=== PATIENT | female | born 1930 | race Caucasian/White ===

== ENCOUNTER 2016-11-10 14:05 | Emergency (ER) | payer MEDICARE ==
[~2016-11-10] VITALS: Ht 167.6 cm; Wt 68.0 kg
[~2016-11-10 14:05] MED LIST: AMLO5TAB2 PO; ASPI325T11 PO; AZIT250T6 PO; Aspirin PO; BYSTOLIC10 MG PO; CEFP100T PO; CETI10CA PO; CLON0.1T PO; CLOP75TA PO; DOXA1TAB PO; HYDR-2868 PO; Hydralazine Hcl PO; LEVO100T5 PO; LEVO75TA5 PO; LEVO88TA4 PO; NITR0.4T SL; SODI650T PO
[2016-11-10 14:35] VITALS: BP 161/69
--- NOTE | 2016-11-10 16:35 | PHYS DOC ---
Past Medical History Past Medical History: CAD, Hypertension, [place], Renal Failure, Stroke, TIA, Other Additional Past Medical Histor: Polyarteritis; neuropathy; polyps Past Surgical History: Appendectomy, Colectomy, Pacemaker, Other Additional Past Surgical Histo: bilateral BKA; Sphincter removed Alcohol Use: None Drug Use: None Adult General Chief Complaint Chief Complaint: LOWER EXT PAIN HPI HPI 86-year-old female presenting to the emergency department with left lower extremity pain. She reports not having any injury recently to the leg. She reports having poor blood flow. Her pain is sharp severe nonradiating. She denies it being phantom pain from her below the knee amputation. She denies having diabetes but does have high blood pressure. Review of Systems Review of Systems ROS negative for chest pain shortness of breath abdominal pain nausea vomiting. All other review of systems is negative unless otherwise noted in history of present illness. Allergies Allergies Allergies Coded Allergies Type Severity Reaction Last Updated Verified Quinolones Allergy Intermediate 12/05/14 Yes atorvastatin Allergy Intermediate 12/05/14 Yes ciprofloxacin Allergy Intermediate 01/13/16 Yes ciprofloxacin HCl Allergy Intermediate 12/05/14 Yes codeine Allergy Intermediate 12/05/14 Yes diazepam Allergy Intermediate 12/05/14 Yes gabapentin Allergy Intermediate 12/05/14 Yes labetalol Allergy Intermediate 12/05/14 Yes lisinopril Allergy Intermediate 12/05/14 Yes meloxicam Allergy Intermediate EDEMA 12/05/14 Yes metoprolol Allergy Intermediate 12/05/14 Yes neomycin Allergy Intermediate 12/05/14 Yes pregabalin Allergy Intermediate 12/05/14 Yes quinine Allergy Intermediate 12/05/14 Yes simvastatin Allergy Intermediate 12/05/14 Yes Tetracyclines Adverse Reaction Intermediate DROWSY 12/06/14 Yes nifedipine Adverse Reaction Intermediate FATIGUE 12/06/14 Yes tetracycline Adverse Reaction Intermediate DROWSY 12/06/14 Yes tramadol Adverse Reaction Intermediate FOGGY 12/06/14 Yes tramadol HCl Adverse Reaction Intermediate FOGGY 12/06/14 Yes valsartan Adverse Reaction Intermediate FATIGUE 12/06/14 Yes Physical Exam Physical Exam Constitutional: Well developed, well nourished, no acute distress, non-toxic appearance. HENT: Normocephalic, atraumatic, bilateral external ears normal, oropharynx moist, no oral exudates, nose normal. Eyes: PERRLA, EOMI, conjunctiva normal, no discharge. Neck: Normal range of motion, no tenderness, supple, no stridor. [] Cardiovascular:Heart rate regular rhythm, no murmur Lungs & Thorax: Bilateral breath sounds clear to auscultation Abdomen: Bowel sounds normal, soft, no tenderness, no masses, no pulsatile masses. Skin: Warm, dry, no erythema, no rash. [] Back: No tenderness, no CVA tenderness. Extremities: The patient has bilateral below the knee amputations. No tenderness to palpation of the knee joint. She describes the pain at the stump of the amputation. No evidence of cellulitis. 2 second cap refill. Neurologic: Alert and oriented X 3, normal motor function, normal sensory function, no focal deficits noted. Psychologic: Affect normal, judgement normal, mood normal. Current Patient Data Vital Signs Vital Signs Date Time Temp Pulse Resp B/P Pulse Ox O2 Delivery O2 Flow Rate FiO2 11/10/16 14:35 97.6 50 12 97 Room Air 97.6 EKG EKG [] Course & Med Decision Making Course & Med Decision Making Pertinent Labs and Imaging studies reviewed. (See chart for details) []86-year-old female presenting to the emergency department today with left lower extremity pain. Vital signs showed hypertension otherwise unremarkable. Physical exam was unremarkable other than her below the knee amputation. Arterial ultrasound obtained which was not suggestive of an acute ischemic limb. I discussed the case with our vascular surgeon who was here in the emergency department Dr Childers. I offered the patient pain medication however the patient declined both in the emergency department and to go home with. She was in discharged home to follow up with our vascular surgeons within the next 7 days for evaluation. Dragon Disclaimer Dragon Disclaimer This electronic medical record was generated, in whole or in part, using a voice recognition dictation system. Departure Departure Impression: Primary Impression: Pain of left lower extremity Disposition: HOME, SELF-CARE Condition: STABLE Referrals: LYNDA FELIX MD (PCP) LYNDA PEOPLES MD in 7 days Patient Instructions: Pain of Unknown Etiology (Pain without a known Cause) Additional Instructions: Thank you for allowing us to participate in your care today. Followup with your primary care physician in 3 days if your symptoms do not improve. If you do not have a primary care provider you can ask for a list of our primary care providers. Return to the emergency department you have any new or concerning findings. This should be evaluated by the primary care physician and any necessary consulting services for continued management within a few days after discharge. Return to emergency room if you have any new or concerning symptoms including but not limited to fever, chills, nausea, vomiting, intractable pain, any new rashes, chest pain, shortness of air, uncontrolled bleeding, difficulty breathing, and/or vision loss. CHAVA TOWNSEND MD Nov 10, 2016 16:35
--- NOTE | 2016-11-10 17:03 | RAD ---
INDICATION: Status post [id number] amputation with stump pain. COMPARISON: None FINDINGS: Spectral Doppler, color and grayscale ultrasound images were obtained through the left leg arterial system. Biphasic waveform in common femoral artery. There is a more monophasic waveform seen within the superficial femoral artery and popliteal artery. IMPRESSION: Vascular flow is seen through the popliteal artery but there is more monophasic waveforms seen distally within popliteal artery which could be secondary to more proximal vascular disease. Electronically signed by: Singh Aaron (Nov 10, 2016 17:02:20)
== END 2016-11-10 17:24 | disposition home or self-care (01) ==
LOC: ER 14:05
DX: M79.605 Pain in left leg (principal); I25.10 Atherosclerotic heart disease of native coronary artery without angina pectoris; I12.9 Hypertensive chronic kidney disease with stage 1 through stage 4 chronic kidney disease, or unspecified chronic kidney disease; N18.9 Chronic kidney disease, unspecified; I25.2 Old myocardial infarction; Z86.73 Personal history of transient ischemic attack (TIA), and cerebral infarction without residual deficits; Z90.49 Acquired absence of other specified parts of digestive tract; Z95.0 Presence of cardiac pacemaker; Z89.512 Acquired absence of left leg below knee; Z89.511 Acquired absence of right leg below knee; Z88.1 Allergy status to other antibiotic agents; Z88.5 Allergy status to narcotic agent; Z88.6 Allergy status to analgesic agent; Z88.8 Allergy status to other drugs, medicaments and biological substances
CPT/HCPCS: 93926; 99284-25

== ENCOUNTER → 2016-12-27 | Outpatient (CLI) | payer MEDICARE ==
--- NOTE | 2016-12-27 13:34 | RAD ---
Right shoulder, 3 views, 12/27/2016: History: Shoulder pain after injury No fracture or dislocation is identified. There is mild spurring at the glenohumeral and acromioclavicular joints. There is mild degenerative change at rotator cuff insertion sites on the greater tuberosity. IMPRESSION: 1. Mild degenerative change. 2. No acute bony abnormality is detected
== END | disposition home or self-care (01) ==
LOC: RAD 10:06
PROVIDERS: ATTEND Internal Medicine
DX: M25.511 Pain in right shoulder (principal)
CPT/HCPCS: 73030

== ENCOUNTER 2017-02-03 03:42 | Observation (INO) | payer MEDICARE ==
[~2017-02-03] VITALS: Ht 167.6 cm; Wt 66.2 kg
[~2017-02-03 03:42] MED LIST changes: +AMLO10TA2 PO
[2017-02-03] MEDS ORDERED: ONDANSETRON PF 4 MG/2 ML VIAL. IV PRN (04:00)
[2017-02-03] MEDS ORDERED: ASPIRIN 325 MG TABLET PO ONE (04:00)
[2017-02-03] MEDS ORDERED: MORPHINE SULFATE 2 MG/ML DISP.SYRIN. IV PRN (04:00)
--- NOTE | 2017-02-03 04:11 | PHYS DOC ---
Past Medical History Past Medical History: CAD, Hypertension, [place], Renal Failure, Stroke, TIA, Other Additional Past Medical Histor: Polyarteritis; neuropathy; polyps Past Surgical History: Appendectomy, Colectomy, Pacemaker, Other Additional Past Surgical Histo: bilateral BKA; Sphincter removed Alcohol Use: None Drug Use: None Adult General Chief Complaint Chief Complaint: CHEST PAIN HPI HPI 86-year-old female presenting to the emergency department today with chest pain. She describes it as started approximately 1 hour ago. He was a bandlike sensation just underneath her breastbone. It was nonradiating. Not associated with nausea vomiting diaphoresis. She denies fevers chills or cough. She describes it as sharp stabbing sensation. It was moderate to severe however during transportation the patient's pain is been improving. Currently she is feeling better. Review of systems is negative for abdominal pain fevers chills cough All other review of systems is negative unless otherwise noted in history of present illness. Review of Systems Review of Systems SEE ABOVE. Current Medications Current Medications Current Medications Medications (Trade) Dose Ordered Sig/Sarah Start Time Stop Time Status Last Admin Dose Admin Aspirin (Rayne Aspirin) 325 mg 1X ONCE 02/03/17 04:00 02/03/17 04:01 DC 02/03/17 05:12 325 MG Morphine Sulfate 2 mg PRN Q2HR PRN 02/03/17 04:00 02/04/17 03:59 Ondansetron HCl (Zofran) 4 mg PRN Q8HRS PRN 02/03/17 04:00 02/04/17 03:59 Allergies Allergies Allergies Coded Allergies Type Severity Reaction Last Updated Verified Quinolones Allergy Intermediate 01/29/17 Yes atorvastatin Allergy Intermediate 01/29/17 Yes ciprofloxacin Allergy Intermediate 01/29/17 Yes ciprofloxacin HCl Allergy Intermediate 01/29/17 Yes codeine Allergy Intermediate 01/29/17 Yes diazepam Allergy Intermediate 01/29/17 Yes doxazosin Allergy Intermediate 01/29/17 No fexofenadine Allergy Intermediate 01/29/17 No gabapentin Allergy Intermediate 01/29/17 Yes hydrochlorothiazide Allergy Intermediate 01/29/17 No labetalol Allergy Intermediate 01/29/17 Yes lisinopril Allergy Intermediate 01/29/17 Yes meloxicam Allergy Intermediate EDEMA 01/29/17 Yes metoprolol Allergy Intermediate 01/29/17 Yes neomycin Allergy Intermediate 01/29/17 Yes pravastatin Allergy Intermediate 01/29/17 Yes pregabalin Allergy Intermediate 01/29/17 Yes quinine Allergy Intermediate 01/29/17 Yes simvastatin Allergy Intermediate 01/29/17 Yes eprosartan Allergy Unknown 01/29/17 Yes gatifloxacin Allergy Unknown 01/29/17 Yes isosorbide Allergy Unknown 01/29/17 Yes naproxen Allergy Unknown 01/29/17 Yes oxycodone Allergy Unknown 01/29/17 Yes pantoprazole Allergy Unknown 01/29/17 Yes Tetracyclines Adverse Reaction Intermediate DROWSY 01/29/17 Yes nifedipine Adverse Reaction Intermediate FATIGUE 01/29/17 Yes tetracycline Adverse Reaction Intermediate DROWSY 01/29/17 Yes tramadol Adverse Reaction Intermediate FOGGY 01/29/17 Yes tramadol HCl Adverse Reaction Intermediate FOGGY 01/29/17 Yes valsartan Adverse Reaction Intermediate FATIGUE 01/29/17 Yes calcitonin Adverse Reaction Unknown 01/29/17 Yes olmesartan Adverse Reaction Unknown 01/29/17 Yes Uncoded Allergies Type Severity Reaction Last Updated Verified CHLOREX GLUE Allergy Intermediate 01/29/17 Physical Exam Physical Exam Constitutional: Well developed, well nourished, no acute distress, non-toxic appearance. HENT: Normocephalic, atraumatic, bilateral external ears normal, oropharynx moist, no oral exudates, nose normal. [] The patient is status post carotid endarterectomy. Her incision and wound sites are clean dry and intact. Eyes: PERRLA, EOMI, conjunctiva normal, no discharge. Neck: Normal range of motion, no tenderness, supple, no stridor. [] Cardiovascular:Heart rate regular rhythm, no murmur Lungs & Thorax: Bilateral breath sounds clear to auscultation [] Abdomen: Bowel sounds normal, soft, no tenderness, no masses, no pulsatile masses. Skin: Warm, dry, no erythema, no rash. Back: No tenderness, no CVA tenderness. [] Extremities: No tenderness, no cyanosis, no clubbing, ROM intact, no edema. The patient's lower extremities have below the knee amputations. Neurologic: Alert and oriented X 3, normal motor function, normal sensory function, no focal deficits noted. [] Psychologic: Affect normal, judgement normal, mood normal. [] Current Patient Data Lab Values Laboratory Tests Test 02/03/17 04:25 White Blood Count 7.5x10^3/uL (4.0-11.0) Red Blood Count 3.73x10^6/uL (3.50-5.40) Hemoglobin 10.6g/dL (12.0-15.5) L Hematocrit 33.0% (36.0-47.0) L Mean Corpuscular Volume 88fL (79-100) Mean Corpuscular Hemoglobin 28pg (25-35) Mean Corpuscular Hemoglobin Concent 32g/dL (31-37) Red Cell Distribution Width 14.8% (11.5-14.5) H Platelet Count 135x10^3/uL (140-400) L Neutrophils (%) (Auto) 76% (31-73) H Lymphocytes (%) (Auto) 9% (24-48) L Monocytes (%) (Auto) 8% (0-9) Eosinophils (%) (Auto) 6% (0-3) H Basophils (%) (Auto) 1% (0-3) Neutrophils # (Auto) 5.7x10^3uL (1.8-7.7) Lymphocytes # (Auto) 0.7x10^3/uL (1.0-4.8) L Monocytes # (Auto) 0.6x10^3/uL (0.0-1.1) Eosinophils # (Auto) 0.5x10^3/uL (0.0-0.7) Basophils # (Auto) 0.1x10^3/uL (0.0-0.2) Sodium Level 142mmol/L (136-145) Potassium Level 4.7mmol/L (3.5-5.1) Chloride Level 109mmol/L (98-107) H Carbon Dioxide Level 21mmol/L (21-32) Anion Gap 12 (6-14) Blood Urea Nitrogen 66mg/dL (7-20) H Creatinine 2.8mg/dL (0.6-1.0) H Estimated GFR (Cockcroft-Gault) 16.1 Glucose Level 106mg/dL (70-99) H Calcium Level 9.3mg/dL (8.5-10.1) Total Bilirubin 0.3mg/dL (0.2-1.0) Direct Bilirubin 0.1mg/dL (0.0-0.2) Aspartate Amino Transferase (AST) 17U/L (15-37) Alanine Aminotransferase (ALT) 13U/L (14-59) L Alkaline Phosphatase 76U/L (46-116) Troponin I Quantitative 0.037ng/mL (0.000-0.055) NS-Emz-Q-Type Natriuretic Peptide 7578pg/mL (0-449) H Total Protein 6.6g/dL (6.4-8.2) Albumin 3.1g/dL (3.4-5.0) L Lipase 360U/L (73-393) Laboratory Tests 02/03/17 04:25 Laboratory Tests 02/03/17 04:25 EKG EKG [] Sinus rhythm with a regular rate. Multiple PVCs present. Otherwise unremarkable. Not suggestive of ischemia. Radiology/Procedures Radiology/Procedures Chest x-ray reviewed by myself shows no obvious infiltrate or pneumothorax present. No obvious acute cardiopulmonary process present.[] Course & Med Decision Making Course & Med Decision Making Pertinent Labs and Imaging studies reviewed. (See chart for details) [] 86-year-old female presenting to the emergency department today with chest pain. Vitals. The patient is feeling better upon arrival to the emergency department. Blood work obtained. EKG unremarkable. Chest x-ray unremarkable. trop neg. Given the patient's significant risk factors the patient was admitted for chest pain rule out, further evaluation workup and care. Cardiology consultation Placed. Dragon Disclaimer Dragon Disclaimer This electronic medical record was generated, in whole or in part, using a voice recognition dictation system. Departure Departure Impression: Primary Impression: Chest pain Disposition: ADMITTED INPATIENT Admitting Physician: Paul Woods Condition: STABLE Referrals: PAUL WOODS MD (PCP) Problem Qualifiers Primary Impression: Chest pain Chest pain type: unspecified Qualified Code: R07.9 - Chest pain, unspecified CHAVA TOWNSEND MD Feb 03, 2017 04:11
[2017-02-03 04:36] LABS: BASO # 0.1 x10^3/uL (0.0-0.2); BASO % 1 % (0-3); EOS % 6 % (0-3); HEMOGLOBIN 10.6 g/dL (12.0-15.5); LYMPH # 0.7 x10^3/uL (1.0-4.8); LYMPH % 9 % (24-48); MEAN CORPUSCULAR HEMOGLOBIN 28 pg (25-35); MEAN CORPUSCULAR HGB CONC 32 g/dL (31-37); MEAN CORPUSCULAR VOLUME 88 fL (79-100); MONO % 8 % (0-9); NEUT % 76 % (31-73); PLATELET COUNT 135 x10^3/uL (140-400); RED BLOOD COUNT 3.73 x10^6/uL (3.50-5.40); RED CELL DISTRIBUTION WIDTH 14.8 % (11.5-14.5); WHITE BLOOD COUNT 7.5 x10^3/uL (4.0-11.0)
[2017-02-03 04:56] LABS: CREATININE 2.8 mg/dL (0.6-1.0); GFR 16.1; POTASSIUM 4.7 mmol/L (3.5-5.1)
[2017-02-03 05:02] LABS: ALBUMIN 3.1 g/dL (3.4-5.0); DIRECT BILIRUBIN 0.1 mg/dL (0.0-0.2); TOTAL BILIRUBIN 0.3 mg/dL (0.2-1.0); TOTAL PROTEIN 6.6 g/dL (6.4-8.2)
[2017-02-03 05:17] LABS: CALCIUM 9.3 mg/dL (8.5-10.1)
--- NOTE | 2017-02-03 05:56 | ACF ---
Admit Criteria Forms Admit Criteria Forms Admit Criteria Forms CHEST PAIN Clinical Indications for Admission to Inpatient Care (Place 'X' for any and all applicable criteria): Admission is indicated for chest pain and ANY ONE of the following(1)(2)(3)(4)(5 ): [ ]I. Angina with acute coronary syndrome (Also use Myocardial Infarction or Angina guideline) [ ]II. Hemodynamic instability [ ]III. Angina needing acute intervention as indicated by ALL of the following( 11)(12): [ ]a) Unstable angina is present as indicated by angina that is ANY ONE of the following: [ ]i) New onset [ ]ii) Nocturnal [ ]iii) Prolonged at rest [ ]iv) Progressive [ ]b) Angina warrants acute intervention as indicated by ANY ONE of the following: [ ]i) Recurrent angina (e.g, not responding as previously to treatment) [ ]ii) Angina at rest or with low-level activities despite initial medical therapy [ ]iii) New or presumably new ST-segment depression on ECG [ ]iv) Signs or symptoms of heart failure (eg, dyspnea, pulmonary edema) [ ]v) New or worsening mitral regurgitation [ ]vi) Hemodynamic instability [ ]vii) Dangerous arrhythmia (eg, sustained ventricular tachycardia) [ ]viii) History of percutaneous coronary intervention within 6 months [ ]ix) History of coronary artery bypass graft surgery [ ]x) KAILEY risk score of 2 or greater[A] [ ]xi) History of Diabetes(14) [ ]xii) High-risk cardiac ischemia findings on noninvasive testing (e.g, echocardiogram, treadmill testing, nuclear scan) [ ]xiii) Chronic renal insufficiency (ie, estimated GFR less than 60 mL/min/1.732m) [ ]xiv) Left ventricular ejection fraction less than 40% [ ]IV. Evidence of AL (eg, cardiac biomarkers positive, ST-segment elevation on ECG) also use Myocardial Infarction Criteria Form. [ ]V. Pulmonary edema [ ]. Respiratory distress [X]VII. Chest pain indicative of serious diagnosis other than coronary artery disease (eg, aortic dissection) [ ]VIII. Contraindications and/or Inappropriate clinical situations for Observational Care in patients with Chest Pain, when ANY ONE of the following is required: [ ]a) Patient with risk factor for pulmonary embolism, acute coronary syndrome and myocardial infarction (18) [ ]b) Patient with Pulmonary embolism require an average LOS of 4.3 days, therefore emergency department observation management is inappropriate 18,23 [ ]c) Painful condition/s in the elderly, have the highest rate of recidivism after emergency department observation management (10.8%) 20,21,22 [ ]d) Elevated cardiac biomarker requires intensive and exhaustive care (19) [X]IX. General contraindications and/or Inappropriate clinical situations for Observational Care in patients with Chest Pain, when ANY ONE of the following is required: [X]a) Prediction of prolongation of LOS based on ANY ONE of the following may be considered as a contraindication for observational care 2, 3, 4, 5, 6, 7, 8, 9, 10, 11 [X]i) Age > 65 yrs. [ ]ii) Patient arriving by ambulance [ ]iii) Patient with high acuity [ ]iv) Patient requiring vital sign monitoring [ ]v) Patient on IV medication [ ]b) Systolic blood pressures 180mmHg 3,12 [ ]c) Patient with altered mental status including delirium and other alteration of consciousness, (3) [ ]d) Patient whose discharge disposition will be to a assisted home or rehabilitation home should not be managed in Emergency Department Observation Unit. CMS rule requires 3 days hospital stay before such placement. 3,13 [ ]e) Patient with failure to thrive due to broad array of etiologies 3,16,17 [ ]f) Inability to ambulate 3,14 Extended stay beyond goal length of stay may be needed for (1)(28): [ ]a) Specific condition diagnosed after evaluation (eg, pulmonary embolism, aortic dissection) [ ]b) Unstable angina [ ]c) Continued suspicion of acute coronary syndrome with inability to complete needed cardiac evaluation (eg, patient clinically unable to undergo stress testing) [ ]d) Myocardial infarction (Contents from ANGINA and CHEST PAIN clinical indications for admission to inpatient care have been integrated in this form) The original [employer] content created by [employer] has been revised. The portions of the content which have been revised are identified through the use of italic text or in bold, and [facility] has neither reviewed nor approved the modified material. All other unmodified content is copyright [employer]. Please see references footnoted in the original [facility] edition 2016 GUNJAN DENTON Feb 03, 2017 05:56
[2017-02-03 06:30] VITALS: BP 148/68
[2017-02-03 07:00] VITALS: BP 148/64
--- NOTE | 2017-02-03 07:59 | RAD ---
Portable AP upright view CXR: Clinical indications: Chest pain today. Comparison: November 27, 2015 Findings: No acute lung infiltrate or pleural effusion or pulmonary edema or lung mass or pneumothorax is seen. The heart size, pulmonary vasculature, mediastinum and both ronny are stable. Pacemaker is again noted. Impression: No acute radiographic abnormality is seen.
--- NOTE | 2017-02-03 11:20 | PDOC2 ---
CONSULT Date of Consult Date of Consult DATE: 02/03/17 TIME: 11:20 Reason for Consult Reason for Consult: Chest pain Referring Physician Referring Physician: Dr. Woods Identification/Chief Complaint Chief Complaint Chest pain Source Source: Chart review, Patient History of Present Illness Reason for Visit: 86-year-old female well-known to a practice, discharged from [facility] on 02/01/2017 after left carotid endarterectomy presented with epigastric discomfort that she described as band like sensation not related to exertion and not associated with shortness of breath, palpitations or syncope. Past Medical History Past Medical History Coronary artery disease s/p PCI/stent to RCA and LCx Sick sinus syndrome s/p permanent pacemaker implantation Hypertension Hypothyroidism Peripheral vascular disease Chronic kidney disease Past Surgical History Past Surgical History Permanent pacemaker implantation Bilateral below the knee amputation Hip replacement surgery Past Surgical History: Appendectomy, Hysterectomy Social History ALCOHOL: none Drugs: None Lives: Alone Domestic Violence: Neg Current Problem List Problem List Problems Medical Problems: (1) Chest pain Status: Acute Current Medications Current Medications Current Medications Aspirin (Rayne Aspirin) 325 mg 1X ONCE PO Last administered on 02/03/17t 05:12 ; Start 02/03/17 at 04:00; Stop 02/03/17 at 04:01; Status DC Ondansetron HCl (Zofran) 4 mg PRN Q8HRS PRN IV NAUSEA/VOMITING; Start 02/03/17 at 04:00; Stop 02/04/17 at 03:59 Morphine Sulfate 2 mg PRN Q2HR PRN IV PAIN; Start 02/03/17 at 04:00; Stop at 03:59 Active Scripts Active [Aspirin] 81 MG Tablet. 81 Mg PO DAILY Reported Amlodipine Besylate 10 Mg Tablet 10 Mg PO DAILY Levothyroxine Sodium 75 Mcg Tablet 1 Tab PO DAILY Clonidine Hcl 0.1 Mg Tablet 1 Tab PO QHS Clopidogrel (Clopidogrel Bisulfate) 75 Mg Tablet 75 Mg PO DAILY Bystolic (Nebivolol) 10 Mg Tablet 20 Mg PO DAILY Allergies Allergies: Coded Allergies: Quinolones (Verified Allergy, Intermediate, 01/29/17) atorvastatin (Verified Allergy, Intermediate, 01/29/17) MYALGIA ciprofloxacin (Verified Allergy, Intermediate, 01/29/17) ciprofloxacin HCl (Verified Allergy, Intermediate, 01/29/17) codeine (Verified Allergy, Intermediate, 01/29/17) diazepam (Verified Allergy, Intermediate, 01/29/17) doxazosin (Unverified Allergy, Intermediate, 01/29/17) fexofenadine (Unverified Allergy, Intermediate, 01/29/17) gabapentin (Verified Allergy, Intermediate, 01/29/17) hydrochlorothiazide (Unverified Allergy, Intermediate, 01/29/17) labetalol (Verified Allergy, Intermediate, 01/29/17) lisinopril (Verified Allergy, Intermediate, 01/29/17) meloxicam (Verified Allergy, Intermediate, EDEMA, 01/29/17) LEG EDEMA metoprolol (Verified Allergy, Intermediate, 01/29/17) neomycin (Verified Allergy, Intermediate, 01/29/17) pravastatin (Verified Allergy, Intermediate, 01/29/17) pregabalin (Verified Allergy, Intermediate, 01/29/17) quinine (Verified Allergy, Intermediate, 01/29/17) simvastatin (Verified Allergy, Intermediate, 01/29/17) MYALGIAS eprosartan (Verified Allergy, Unknown, 01/29/17) gatifloxacin (Verified Allergy, Unknown, 01/29/17) isosorbide (Verified Allergy, Unknown, 01/29/17) naproxen (Verified Allergy, Unknown, 01/29/17) oxycodone (Verified Allergy, Unknown, 01/29/17) pantoprazole (Verified Allergy, Unknown, 01/29/17) Tetracyclines (Verified Adverse Reaction, Intermediate, DROWSY, 01/29/17) nifedipine (Verified Adverse Reaction, Intermediate, FATIGUE, 01/29/17) FATIGUE tetracycline (Verified Adverse Reaction, Intermediate, DROWSY, 01/29/17) DROWSY tramadol (Verified Adverse Reaction, Intermediate, FOGGY, 01/29/17) FOGGY tramadol HCl (Verified Adverse Reaction, Intermediate, FOGGY, 01/29/17) valsartan (Verified Adverse Reaction, Intermediate, FATIGUE, 01/29/17) FATIGUE calcitonin (Verified Adverse Reaction, Unknown, 01/29/17) olmesartan (Verified Adverse Reaction, Unknown, 01/29/17) Uncoded Allergies: CHLOREX GLUE (Allergy, Intermediate, 01/29/17) ROS PSYCHOLOGICAL ROS: No: Hallucinations Eyes: No Loss of vision HEENT: No: Epistaxis Respiratory: No: Hemoptysis, Shortness of breath Cardiovascular: yes Chest Pain Genitourinary: No Hematuria Neurological: No Seizures Skin: No Rash Physical Exam General: Alert, Oriented X3, No acute distress HEENT: Atraumatic, PERRLA Lungs: Clear to auscultation Heart: Regular rate Abdomen: Soft Extremities: Other (below the knee amputation bilaterally) Vitals VITALS Vital Signs Date Time Temp Pulse Resp B/P Pulse Ox O2 Delivery O2 Flow Rate FiO2 02/03/17 07:40 Room Air 02/03/17 07:00 97.7 71 16 148/64 96 97.7 Labs Labs Laboratory Tests Test 02/03/17 04:25 02/03/17 09:53 White Blood Count 7.5x10^3/uL (4.0-11.0) Red Blood Count 3.73x10^6/uL (3.50-5.40) Hemoglobin 10.6g/dL (12.0-15.5) Hematocrit 33.0% (36.0-47.0) Mean Corpuscular Volume 88fL (79-100) Mean Corpuscular Hemoglobin 28pg (25-35) Mean Corpuscular Hemoglobin Concent 32g/dL (31-37) Red Cell Distribution Width 14.8% (11.5-14.5) Platelet Count 135x10^3/uL (140-400) Neutrophils (%) (Auto) 76% (31-73) Lymphocytes (%) (Auto) 9% (24-48) Monocytes (%) (Auto) 8% (0-9) Eosinophils (%) (Auto) 6% (0-3) Basophils (%) (Auto) 1% (0-3) Neutrophils # (Auto) 5.7x10^3uL (1.8-7.7) Lymphocytes # (Auto) 0.7x10^3/uL (1.0-4.8) Monocytes # (Auto) 0.6x10^3/uL (0.0-1.1) Eosinophils # (Auto) 0.5x10^3/uL (0.0-0.7) Basophils # (Auto) 0.1x10^3/uL (0.0-0.2) Sodium Level 142mmol/L (136-145) Potassium Level 4.7mmol/L (3.5-5.1) Chloride Level 109mmol/L (98-107) Carbon Dioxide Level 21mmol/L (21-32) Anion Gap 12 (6-14) Blood Urea Nitrogen 66mg/dL (7-20) Creatinine 2.8mg/dL (0.6-1.0) Estimated GFR (Cockcroft-Gault) 16.1 Glucose Level 106mg/dL (70-99) Calcium Level 9.3mg/dL (8.5-10.1) Total Bilirubin 0.3mg/dL (0.2-1.0) Direct Bilirubin 0.1mg/dL (0.0-0.2) Aspartate Amino Transf (AST/SGOT) 17U/L (15-37) Alanine Aminotransferase (ALT/SGPT) 13U/L (14-59) Alkaline Phosphatase 76U/L (46-116) Troponin I Quantitative 0.037ng/mL (0.000-0.055) 0.033ng/mL (0.000-0.055) MV-Aan-I-Type Natriuretic Peptide 7578pg/mL (0-449) Total Protein 6.6g/dL (6.4-8.2) Albumin 3.1g/dL (3.4-5.0) Lipase 360U/L (73-393) Laboratory Tests Test 02/03/17 04:25 02/03/17 09:53 White Blood Count 7.5x10^3/uL (4.0-11.0) Red Blood Count 3.73x10^6/uL (3.50-5.40) Hemoglobin 10.6g/dL (12.0-15.5) Hematocrit 33.0% (36.0-47.0) Mean Corpuscular Volume 88fL (79-100) Mean Corpuscular Hemoglobin 28pg (25-35) Mean Corpuscular Hemoglobin Concent 32g/dL (31-37) Red Cell Distribution Width 14.8% (11.5-14.5) Platelet Count 135x10^3/uL (140-400) Neutrophils (%) (Auto) 76% (31-73) Lymphocytes (%) (Auto) 9% (24-48) Monocytes (%) (Auto) 8% (0-9) Eosinophils (%) (Auto) 6% (0-3) Basophils (%) (Auto) 1% (0-3) Neutrophils # (Auto) 5.7x10^3uL (1.8-7.7) Lymphocytes # (Auto) 0.7x10^3/uL (1.0-4.8) Monocytes # (Auto) 0.6x10^3/uL (0.0-1.1) Eosinophils # (Auto) 0.5x10^3/uL (0.0-0.7) Basophils # (Auto) 0.1x10^3/uL (0.0-0.2) Sodium Level 142mmol/L (136-145) Potassium Level 4.7mmol/L (3.5-5.1) Chloride Level 109mmol/L (98-107) Carbon Dioxide Level 21mmol/L (21-32) Anion Gap 12 (6-14) Blood Urea Nitrogen 66mg/dL (7-20) Creatinine 2.8mg/dL (0.6-1.0) Estimated GFR (Cockcroft-Gault) 16.1 Glucose Level 106mg/dL (70-99) Calcium Level 9.3mg/dL (8.5-10.1) Total Bilirubin 0.3mg/dL (0.2-1.0) Direct Bilirubin 0.1mg/dL (0.0-0.2) Aspartate Amino Transf (AST/SGOT) 17U/L (15-37) Alanine Aminotransferase (ALT/SGPT) 13U/L (14-59) Alkaline Phosphatase 76U/L (46-116) Troponin I Quantitative 0.037ng/mL (0.000-0.055) 0.033ng/mL (0.000-0.055) NH-Xyk-U-Type Natriuretic Peptide 7578pg/mL (0-449) Total Protein 6.6g/dL (6.4-8.2) Albumin 3.1g/dL (3.4-5.0) Lipase 360U/L (73-393) Assessment/Plan Assessment/Plan 1. Chest pain with atypical features in a patient with coronary artery disease status post PCI/stent to RCA and LCx in the past. Myocardial infarction ruled out. Patient tolerated recent left carotid endarterectomy well. Recent 2-D echo showed LVEF 55%. Chest pain noncardiac and most probably GI in etiology. No further cardiac workup is indicated at this time. 2. Sick sinus syndrome: s/p permanent pacemaker implantation. Her device was recently interrogated and followed be functioning well. 3. Hypertension: Well-controlled 4. Hypothyroidism: On levothyroxine 5. Peripheral vascular disease: s/p bilateral BKA and recent left CEA Thank you for your consultation KARL ROGEL MD Feb 03, 2017 11:20
[2017-02-03 11:25] VITALS: BP 158/77
[2017-02-03] MEDS ORDERED: NITROGLYCERIN SUBLINGUAL 0.4 MG BOTTLE OF 25. SL PRN (12:00)
--- NOTE | 2017-02-03 12:02 | PDOC ---
Provider Note Provider Note history and physical dictated # [id number] LYNDA FELIX MD Feb 03, 2017 12:02
--- NOTE | 2017-02-03 12:03 | DISCH ---
DISCHARGE INSTRUCTIONS Condition on Discharge Condition on Discharge: Stable Activity After Discharge Activity Instructions for Disc: Resume previous activity Diet after Discharge Diet after Discharge: Cardiac Contacting the DRSummer after DC Call your doctor for: If your condition worsens Follow-Up Follow up with: dr. felix next week Follow Up With: dr. sierra in 2 weeks LYNDA FELIX MD Feb 03, 2017 12:03
[2017-02-03] MEDS ORDERED: NITR0.4T SL (12:06)
[2017-02-03] MEDS ORDERED: CHOL10002 PO (12:06)
--- NOTE | 2017-02-03 12:11 | PDOC ---
Provider Note Provider Note discharge summary dictated #[id number] LYNDA FELIX MD Feb 03, 2017 12:11
--- NOTE | 2017-02-03 12:36 | EKG ---
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
[2017-02-03] MEDS ORDERED: LEVOTHYROXINE 75 MCG TABLET PO SCH (13:00)
[2017-02-03] MEDS ORDERED: CLOPIDOGREL BISULFATE 75 MG TABLET PO SCH (13:00)
[2017-02-03] MEDS ORDERED: CHOLECALCIFEROL (VITAMIN D3) 1,000 UNIT TABLET PO SCH (13:00)
--- NOTE | 2017-02-03 15:44 | DS ---
DATE OF DISCHARGE: 02/03/2017 PRODUCTION TROUBLESHOOTER: Ángel Kumar MD FINAL DIAGNOSES: 1. Atypical chest pain, most likely secondary to chest wall pain. 2. Coronary artery disease. 3. Chronic kidney disease stage IV. 4. Peripheral arterial disease. 5. Bilateral above-knee amputations. 6. Hypertension. 7. Hypothyroidism. 8. Recent left carotid endarterectomy. HOSPITAL COURSE: The patient is an 86-year-old white female who underwent elective left carotid endarterectomy last week for her chronic kidney disease stage IV and peripheral arterial disease with bilateral above-knee amputations and coronary artery disease with chronic kidney disease stage IV, who was admitted to [facility] through the Emergency Room on 02/03/2017 with a 1-hour episode of bilateral sharp chest pain below her breasts. There is no shortness of breath, nausea, vomiting, fever, chills or cough. EKG showed no acute change. Cardiac enzymes were negative x 2. She was seen by Dr. Kumar cardiac in consultation with Cardiology and felt that it was okay from his standpoint to be dismissed and she was stable from a cardiac standpoint. Chest pain was felt most likely secondary to her chest wall pain. Oxygen saturation 93% on room air, right now without any tachycardia and again EKG showed no acute change. She is comfortable now without any chest pain and is comfortable being dismissed and she will be dismissed on the same medicines she was taking prior to admission which include aspirin 81 mg every day, Plavix 75 mg every day, Bystolic 20 mg every day, clonidine 0.1 mg at bedtime, amlodipine 10 mg at bedtime, vitamin D 1000 units every day, levothyroxine 75 mcg every day, nitroglycerin 0.4 mg sublingual p.r.n. and also Tylenol 650 mg every 4 hours p.r.n. She will follow up to see Dr. Kumar in the office in about [address] Woods in the office in about 1 week. LYNDA WOODS MD DR: JOSE/annemarie JOB#: [id number] / [id number]
--- NOTE | 2017-02-03 16:03 | HP ---
ADMIT DATE: 02/03/2017 LOCATION: She is in room 206. HISTORY OF PRESENT ILLNESS: The patient is an 86-year-old white female who was recently dismissed from [facility] on 02/01/2017 with a left carotid endarterectomy. She has a history of coronary artery disease, chronic kidney disease stage 4, peripheral arterial disease, bilateral above-knee amputations and hypertension who was admitted to [facility] at the Emergency Room on 02/03/2017 with chest pain. She notes a 1 hour history of a discomfort described as a sharp stabbing sensation from one side to the other side below her breasts. She did not have any nausea, vomiting or diaphoresis. There was no cough, fever or chills. She sought help at the [facility] Emergency Room. Her EKG showed no acute change. Cardiac enzymes were negative. She was subsequently admitted to the hospital for further evaluation, received aspirin 325 mg in the Emergency Room. She was subsequently admitted to the hospital for further evaluation and treatment. She has not had any further chest pain. ALLERGIES AND INTOLERANCES: INCLUDE WE WILL HAVE TO TAKE A LOOK AT THE CHART TO GET ALL OF THEM. SOME OF THESE ARE REALLY NOT TRUE ALLERGY, MORE SIDE EFFECTS OR PERCEIVED SIDE EFFECTS, BUT THEY INCLUDE SIMVASTATIN CAUSED MYALGIAS. QUINOLONES, LYRICA CAUSED HER TO BE FOGGY. TRAMADOL CAUSED HER TO BE FOGGY. CLONIDINE PATCH CAUSED SKIN IRRITATION, BUT SHE CAN TAKE ORAL CLONIDINE. LISINOPRIL CAUSED A COUGH. TETRACYCLINE AND LABETALOL MADE HER DROWSY. NIFEDIPINE, LOSARTAN CAUSED FATIGUE. ATORVASTATIN, MYALGIAS. QUININE, MELOXICAM CAUSED LEG EDEMA. METOPROLOL SUCCINATE, DIAZEPAM CAUSED DROWSINESS. ALSO, NEOMYCIN AND GABAPENTIN. APPARENTLY, DOXAZOSIN IS IN THERE ALSO AND CHASTITY. MEDICATIONS: Prior to admission include aspirin 81 mg every day, Bystolic 20 mg every day, Claritin 10 mg every day, nitroglycerin 0.4 mg sublingual p.r.n., amlodipine 10 mg at bedtime, clonidine 0.1 mg at bedtime, vitamin D 1000 units every day. PAST MEDICAL HISTORY: Significant for coronary artery disease and hypertension, hypothyroidism, chronic kidney disease stage 4, osteoporosis, osteoarthritis, peripheral arterial disease with bilateral above-knee amputations. She has had a hip replacement in 2009, colon polypectomy, left total hip arthroplasty in 2009, appendectomy, hysterectomy, tonsillectomy. She has had a coronary angioplasty times 3 with 3 stents. She had a right carotid endarterectomy in 2012 and a left carotid endarterectomy a few days ago. She had a colon resection for colon polyps in 2002. She has had a lumbar laminectomy. She has spinal stenosis, had a cardiac pacemaker placed in 2011 for sick sinus syndrome, has a history of peripheral neuropathy and lumbar spinal stenosis. SOCIAL HISTORY: She does not drink alcohol nor does she smoke cigarettes. She is . She does have bilateral lower extremity prosthesis. FAMILY HISTORY: Noncontributory. REVIEW OF SYSTEMS: GENERAL: There has been no fever, chills or sweats. CARDIOVASCULAR: She had chest pain. PULMONARY: No cough or shortness of breath. GASTROINTESTINAL: No constipation. SKIN: No rashes. NEUROLOGIC: No focal weakness. ENDOCRINE: No diabetes mellitus. Rest of systems reviewed are negative except as stated in history of present illness. PHYSICAL EXAMINATION: VITAL SIGNS: Temperature is 98.4 degrees, apical pulse is 67, respiratory rate 16, blood pressure 158/77, oxygen saturation 93% on room air. HEENT: Eyes, gaze is conjugate. Mouth, tongue is midline. She has got Steri-Strips over her left carotid endarterectomy scar with some ecchymosis noted on the anterior chest. HEART: Reveals an S1, S2. There is no S3 or murmur or rub. LUNGS: Clear. ABDOMEN: Soft, nontender. EXTREMITIES: She has got bilateral above-knee amputation. SKIN: No rashes. LABORATORY DATA: Sodium 142, potassium 4.7, chloride 109, total CO2 21, BUN 66, creatinine 2.8, which is similar to what it was when she left here late last week. Blood sugar 106. Liver function tests were normal. ProBNP was 7578 in the setting of chronic kidney disease stage 4. Troponin levels negative times 2. Albumin 3.1. White count 7.5, hemoglobin was 10.6 with a platelet count of 175,000, 76 polys, 9 lymphocytes. She had a chest x-ray done which showed no acute abnormality, no lung infiltrate. Pulmonary vascularity was normal. She had an electrocardiogram done in the Emergency Room, which I cannot download, however, the Emergency Room doctor wrote in his note that it showed normal sinus rhythm with multiple premature ventricular contractions with no evidence of ischemia. ASSESSMENT: 1. Chest pain, which is atypical, suspected chest wall pain. 2. Coronary artery disease. 3. Chronic kidney disease stage 4. 4. Peripheral arterial disease. 5. Bilateral above-knee amputation. 6. Hypertension. 7. Recent left carotid endarterectomy done a few days ago. PLAN: At this time, the patient was already seen by Dr. Kumar in consultation. The nurse tells me that from his standpoint, she can be dismissed today and follow up and see him in the office. Since she is pain free and an EKG showed no acute change, cardiac enzymes are negative, we will dismiss her today on the same medication she was taking prior to admission. She will follow up in the office also next week. LYNDA FELIX MD DR: JOSE/annemarie JOB#: [id number] / [id number]
[2017-02-03] MEDS ORDERED: AMLODIPINE BESYLATE 10 MG TABLET. PO SCH (21:00)
[2017-02-03] MEDS ORDERED: CLONIDINE HCL 0.1 MG TABLET PO SCH (21:00)
[2017-02-04] MEDS ORDERED: ASPIRIN ENTERIC COATED 81 MG TABLET.DR. PO SCH (08:00)
== END 2017-02-03 14:15 | disposition home or self-care (01) ==
LOC: ER 03:42 → 2 NORTH 04:05
PROVIDERS: ADMIT Internal Medicine; ATTEND Internal Medicine
DX: R07.9 Chest pain, unspecified (principal); I25.10 Atherosclerotic heart disease of native coronary artery without angina pectoris; N18.4 Chronic kidney disease, stage 4 (severe); I73.9 Peripheral vascular disease, unspecified; I12.9 Hypertensive chronic kidney disease with stage 1 through stage 4 chronic kidney disease, or unspecified chronic kidney disease; E03.9 Hypothyroidism, unspecified; I49.5 Sick sinus syndrome; M81.0 Age-related osteoporosis without current pathological fracture; Z89.612 Acquired absence of left leg above knee; Z89.611 Acquired absence of right leg above knee; Z79.82 Long term (current) use of aspirin; Z86.010 Personal history of colon polyps; Z86.73 Personal history of transient ischemic attack (TIA), and cerebral infarction without residual deficits; Z89.511 Acquired absence of right leg below knee; Z89.512 Acquired absence of left leg below knee; Z90.49 Acquired absence of other specified parts of digestive tract; Z95.0 Presence of cardiac pacemaker; Z96.642 Presence of left artificial hip joint; Z98.61 Coronary angioplasty status
CPT/HCPCS: 36415; 71010; 80048; 80076; 83690; 83880; 84484; 85027; 93005; 99285; G0378; G0379

== ENCOUNTER → 2017-04-08 | Outpatient (CLI) | payer MEDICARE ==
[~2017-04-08] MED LIST changes: +CHOL10002 PO
--- NOTE | 2017-04-08 11:23 | RAD ---
EXAM: RENAL DOPPLER ULTRASOUND. HISTORY: Renal vascular hypertension. COMPARISON: 11/12/2014. FINDINGS: Grayscale and Doppler analysis of the renal vasculature was performed bilaterally. Grayscale analysis of the kidneys and bladder were also performed. The peak systolic velocities within the proximal, mid and distal right renal artery are 106 cm/s, 72 cm/s and 87 cm/s, respectively. Resistive indices measure 0.66-0.83. The right renal vein is patent. The corresponding measurements on the left are 160 cm/s, 84 cm/s and 85 cm/s, respectively. Resistive indices measure 0.74-0.89. The left renal vein is patent. The peak systolic velocity within the abdominal aorta at the level of the renal arteries is 63 cm/s. The right kidney measures 10.8 cm. Cortical echogenicity is increased. There is diffuse cortical lobulation. There is no hydronephrosis. A benign-appearing renal cyst measures 1.3 x 1.2 cm. The left kidney measures 10.0 cm. Cortical echogenicity is increased. There is diffuse cortical lobulation. There is no hydronephrosis. A cyst at the upper pole measures 2.0 x 1.9 cm. Another measures 1.4 cm. Altered cortical echogenicity decreases sensitivity for solid renal lesions. IMPRESSION: 1. No evidence of hemodynamically significant renal artery stenosis. 2. Increased renal cortical echogenicity and lobulation are consistent with intrinsic renal disease. Elevated resistive indices also likely reflect intrinsic renal disease.
== END | disposition home or self-care (01) ==
LOC: US 10:04
PROVIDERS: ATTEND Internal Medicine Nephrology
DX: I15.0 Renovascular hypertension (principal)
CPT/HCPCS: 93975

== ENCOUNTER 2017-04-30 21:33 | Inpatient (IN) | payer MEDICARE ==
[~2017-04-30] VITALS: Ht 170.2 cm; Wt 62.2 kg
[2017-04-30] MEDS ORDERED: ASPIRIN CHEWABLE 81 MG TABLET. PO ONE (21:45)
[2017-04-30] MEDS: NITROGLYCERIN SUBLINGUAL 0.4 MG BOTTLE OF 25. SL PRN ×2 (21:51→22:00)
[2017-04-30 21:56] LABS: BASO # 0.1 x10^3/uL (0.0-0.2); BASO % 1 % (0-3); EOS % 4 % (0-3); HEMATOCRIT 37.5 % (36.0-47.0); HEMOGLOBIN 12.2 g/dL (12.0-15.5); LYMPH # 0.7 x10^3/uL (1.0-4.8); LYMPH % 9 % (24-48); MEAN CORPUSCULAR HEMOGLOBIN 28 pg (25-35); MEAN CORPUSCULAR HGB CONC 32 g/dL (31-37); MEAN CORPUSCULAR VOLUME 87 fL (79-100); MONO % 7 % (0-9); NEUT % 79 % (31-73); PLATELET COUNT 182 x10^3/uL (140-400); RED BLOOD COUNT 4.29 x10^6/uL (3.50-5.40); RED CELL DISTRIBUTION WIDTH 15.4 % (11.5-14.5); WHITE BLOOD COUNT 8.7 x10^3/uL (4.0-11.0)
--- NOTE | 2017-04-30 22:16 | PHYS DOC ---
Past Medical History Past Medical History: CAD, Hypertension, IA, Renal Failure, Stroke, TIA, Other Additional Past Medical Histor: Polyarteritis; neuropathy; polyps Past Surgical History: Appendectomy, Colectomy, Pacemaker, Other Additional Past Surgical Histo: bilateral BKA; Sphincter removed Alcohol Use: None Drug Use: None Adult General Chief Complaint Chief Complaint: CHEST PAIN HPI HPI Patient is a 86 year old female who presents with chest pain. She states it started about an hour prior to arrival. It's left-sided underneath her breast and radiated to the center of her chest. She denies any shortness of breath but did get nauseated with this and became diaphoretic. She states she has nitroglycerin in her purse but didn't think about using it. 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 Review of Systems Review of Systems Constitutional: Denies fever or chills [] Eyes: Denies change in visual acuity, redness, or eye pain [] HENT: Denies nasal congestion or sore throat [] Respiratory: Denies cough or shortness of breath [] Cardiovascular: No additional information not addressed in HPI [] GI: Denies abdominal pain, nausea, vomiting, bloody stools or diarrhea [] : Denies dysuria or hematuria [] Musculoskeletal: Denies back pain or joint pain [] Integument: Denies rash or skin lesions [] Neurologic: Denies headache, focal weakness or sensory changes [] Endocrine: Denies polyuria or polydipsia [] Current Medications Current Medications Current Medications Medications (Trade) Dose Ordered Sig/Sarah Start Time Stop Time Status Last Admin Dose Admin Aspirin (Children'S Aspirin) 324 mg 1X ONCE 04/30/17 21:45 04/30/17 21:46 DC Nitroglycerin (Nitrostat) 0.4 mg PRN Q5MIN PRN 04/30/17 21:45 05/01/17 21:44 04/30/17 22:00 0.4 MG Allergies Allergies Allergies Coded Allergies Type Severity Reaction Last Updated Verified Quinolones Allergy Intermediate 01/29/17 Yes atorvastatin Allergy Intermediate 01/29/17 Yes ciprofloxacin Allergy Intermediate 01/29/17 Yes ciprofloxacin HCl Allergy Intermediate 01/29/17 Yes codeine Allergy Intermediate 01/29/17 Yes diazepam Allergy Intermediate 01/29/17 Yes doxazosin Allergy Intermediate 01/29/17 No fexofenadine Allergy Intermediate 01/29/17 No gabapentin Allergy Intermediate 01/29/17 Yes hydrochlorothiazide Allergy Intermediate 01/29/17 No labetalol Allergy Intermediate 01/29/17 Yes lisinopril Allergy Intermediate 01/29/17 Yes meloxicam Allergy Intermediate EDEMA 01/29/17 Yes metoprolol Allergy Intermediate 01/29/17 Yes neomycin Allergy Intermediate 01/29/17 Yes pravastatin Allergy Intermediate 01/29/17 Yes pregabalin Allergy Intermediate 01/29/17 Yes quinine Allergy Intermediate 01/29/17 Yes simvastatin Allergy Intermediate 01/29/17 Yes eprosartan Allergy Unknown 01/29/17 Yes gatifloxacin Allergy Unknown 01/29/17 Yes isosorbide Allergy Unknown 01/29/17 Yes naproxen Allergy Unknown 01/29/17 Yes oxycodone Allergy Unknown 01/29/17 Yes pantoprazole Allergy Unknown 01/29/17 Yes Tetracyclines Adverse Reaction Intermediate DROWSY 01/29/17 Yes nifedipine Adverse Reaction Intermediate FATIGUE 01/29/17 Yes tetracycline Adverse Reaction Intermediate DROWSY 01/29/17 Yes tramadol Adverse Reaction Intermediate FOGGY 01/29/17 Yes tramadol HCl Adverse Reaction Intermediate FOGGY 01/29/17 Yes valsartan Adverse Reaction Intermediate FATIGUE 01/29/17 Yes calcitonin Adverse Reaction Unknown 01/29/17 Yes olmesartan Adverse Reaction Unknown 01/29/17 Yes Uncoded Allergies Type Severity Reaction Last Updated Verified CHLOREX GLUE Allergy Intermediate 01/29/17 Physical Exam Physical Exam Constitutional: Well developed, well nourished, no acute distress, non-toxic appearance. [] HENT: Normocephalic, atraumatic, bilateral external ears normal, oropharynx moist, no oral exudates, nose normal. [] Eyes: PERRLA, EOMI, conjunctiva normal, no discharge. [] Neck: Normal range of motion, no tenderness, supple, no stridor. [] Cardiovascular:Heart rate regular rhythm, no murmur [] Lungs & Thorax: Bilateral breath sounds clear to auscultation [] Abdomen: Bowel sounds normal, soft, no tenderness, no masses, no pulsatile masses. [] Skin: Warm, dry, no erythema, no rash. [] Back: No tenderness, no CVA tenderness. [] Extremities: No tenderness, no cyanosis, no clubbing, ROM intact, no edema. [] Neurologic: Alert and oriented X 3, normal motor function, normal sensory function, no focal deficits noted. [] Psychologic: Affect normal, judgement normal, mood normal. [] Current Patient Data Vital Signs Vital Signs Date Time Temp Pulse Resp B/P (MAP) Pulse Ox O2 Delivery O2 Flow Rate FiO2 04/30/17 23:00 62 202/84 (123) 97 Nasal Cannula 2.0 04/30/17 21:36 98.7 18 98.7 Lab Values Laboratory Tests Test 04/30/17 21:50 04/30/17 22:13 White Blood Count 8.7 x10^3/uL (4.0-11.0) Red Blood Count 4.29 x10^6/uL (3.50-5.40) Hemoglobin 12.2 g/dL (12.0-15.5) Hematocrit 37.5 % (36.0-47.0) Mean Corpuscular Volume 87 fL (79-100) Mean Corpuscular Hemoglobin 28 pg (25-35) Mean Corpuscular Hemoglobin Concent 32 g/dL (31-37) Red Cell Distribution Width 15.4 % (11.5-14.5) H Platelet Count 182 x10^3/uL (140-400) Neutrophils (%) (Auto) 79 % (31-73) H Lymphocytes (%) (Auto) 9 % (24-48) L Monocytes (%) (Auto) 7 % (0-9) Eosinophils (%) (Auto) 4 % (0-3) H Basophils (%) (Auto) 1 % (0-3) Neutrophils # (Auto) 6.9 x10^3uL (1.8-7.7) Lymphocytes # (Auto) 0.7 x10^3/uL (1.0-4.8) L Monocytes # (Auto) 0.6 x10^3/uL (0.0-1.1) Eosinophils # (Auto) 0.3 x10^3/uL (0.0-0.7) Basophils # (Auto) 0.1 x10^3/uL (0.0-0.2) Sodium Level 145 mmol/L (136-145) Potassium Level 4.7 mmol/L (3.5-5.1) Chloride Level 110 mmol/L (98-107) H Carbon Dioxide Level 21 mmol/L (21-32) Anion Gap 14 (6-14) Blood Urea Nitrogen 76 mg/dL (7-20) H Creatinine 2.7 mg/dL (0.6-1.0) H Estimated GFR (Cockcroft-Gault) 16.7 Glucose Level 132 mg/dL (70-99) H Calcium Level 9.3 mg/dL (8.5-10.1) Magnesium Level 2.3 mg/dL (1.8-2.4) Creatine Kinase 51 U/L (26-192) Creatine Kinase MB (Mass) 1.6 ng/mL (0.0-3.6) Creatine Kinase MB Relative Index % (0-4) Troponin I Quantitative 0.045 ng/mL (0.000-0.055) NF-Dfe-K-Type Natriuretic Peptide 45057 pg/mL (0-449) H Lipase 715 U/L (73-393) H Thyroid Stimulating Hormone (TSH) 5.470 uIU/mL (0.358-3.74) H Prothrombin Time 12.9 SEC (11.7-14.0) Prothrombin Time INR 1.0 (0.8-1.1) Laboratory Tests 04/30/17 21:50 Laboratory Tests 04/30/17 21:50 EKG EKG EKG shows sinus rhythm with rate of [address] elevations, T-wave inversions in 1, aVL, V 5, V6 aVL, left axis deviation, QTC 442 ms, as interpreted by me, T-wave inversions in aVL nuchal compared to the EKG on February 03, 2017 Radiology/Procedures Radiology/Procedures [] Impressions: Hypertensive urgency Chest pain Course & Med Decision Making Course & Med Decision Making Pertinent Labs and Imaging studies reviewed. (See chart for details) [] Dragon Disclaimer Dragon Disclaimer This electronic medical record was generated, in whole or in part, using a voice recognition dictation system. Departure Departure Impression: Primary Impression: Accelerated hypertension Disposition: 09 ADMITTED INPATIENT Admitting Physician: Paul Woods Condition: STABLE Referrals: PAUL WOODS MD (PCP) NANCY MORATAYA MD Apr 30, 2017 22:16
[2017-04-30 22:17] LABS: CALCIUM 9.3 mg/dL (8.5-10.1); CREATININE 2.7 mg/dL (0.6-1.0); GFR 16.7; MAGNESIUM 2.3 mg/dL (1.8-2.4); POTASSIUM 4.7 mmol/L (3.5-5.1)
[2017-04-30 22:25] LABS: CKMB MASS 1.6 ng/mL (0.0-3.6); CREATINE KINASE 51 U/L (26-192)
[2017-04-30 22:29] LABS: PROTHROMBIN TIME PATIENT 12.9 SEC (11.7-14.0)
[2017-04-30] MEDS ORDERED: hydrALAZINE 20 MG/ML VIAL. IVP ONE (23:15)
[2017-04-30 23:29] LABS: BILIRUBIN,URINE NEGATIVE (NEG); GLUCOSE,URINE 100 mg/dL (NEG); NITRITE,URINE NEGATIVE (NEG); PH,URINE 5.5; PROTEIN,URINE >=300 mg/dL (NEG-TRACE); UROBILINOGEN,URINE 0.2 mg/dL (0.2 mg/dL)
[2017-04-30 23:35] LABS: BACTERIA,URINE 0 /HPF (0-FEW); RBC,URINE 0 /HPF (0-2); SQUAMOUS EPITHELIAL CELL,UR FEW /LPF
[2017-04-30] MEDS ORDERED: MORPHINE SULFATE 2 MG/ML DISP.SYRIN. IV PRN (23:45)
[2017-04-30] MEDS ORDERED: ONDANSETRON PF 4 MG/2 ML VIAL. IV PRN (23:45)
[2017-04-30 23:58] VITALS: BP 156/57
--- NOTE | 2017-05-01 00:15 | ACF ---
Admission Forms Criteria HYPERTENSION Clinical Indications for Admission to Inpatient Care ( Place "X" for any and all applicable criteria): Admission is indicated for 1 or more of the following(1)(2)(3)(4)(5)(6)(7)(8)(9) (10): [ ]I. Hypertensive emergency, with evidence of acute and progressing target organ disease as indicated by 1 or more of the following: [ ]a) Hypertensive encephalopathy (eg, confusion, altered mental status) [ ]b) Cerebral infarction [ ]c) Intracranial hemorrhage [ ]d) Myocardial ischemia or infarction [ ]e) Heart failure (eg. Pulmonary edema) [ ]f) Aortic dissection [ ]g) Increased creatinine (new) with reduction of more than 50% in estimated glomerular filtration rate from baseline [ ]h) Seizure [ ]i) Papilledema [ ]j) Retinal hemorrhage [ ]k) Microangiopathic hemolytic anemia [ ]l) Other significant finding secondary to hypertension [ ]II. Adrenergic or sympathomimetic crisis (eg, severe hypertension due to pheochromocytoma crisis, cocaine or amphetamine intoxication, or clonidine withdrawal) [X]III. Severe hypertension (SBP greater than 180 mmHg or DBP greater than 110 mmHg or greater than the 95th percentile for age, gender, and height in pediatric patients) that cannot be controlled (eg, to SBP less than 160 mmHg and DBP less than 100 mmHg in adults) by treatment with oral medication in emergency department or observation care Extended stay beyond goal length of stay may be needed for(11)(12)(13): [ ]a) Persistent hypertensive encephalopathy [ ]b) Continuation of pulmonary edema [ ]c) Recurring or persistent severe hypertension [ ]d) Target organ damage (eg, angina, stroke, aortic dissection) The original [employer] content created by [employer] has been revised. The portions of the content which have been revised are identified through the use of italic text, and [facility] has neither reviewed nor approved the modified material. All other unmodified content is copyright [employer]. Please see references footnoted in the original [facility] edition 2014 Admission Criteria Met?: Yes RAYMOND CLEMENT May 01, 2017 00:15
[2017-05-01 03:01] VITALS: BP 175/74
--- NOTE | 2017-05-01 06:13 | EKG ---
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
[2017-05-01 06:59] LABS: BASO % 1 % (0-3); EOS % 4 % (0-3); HEMATOCRIT 32.5 % (36.0-47.0); HEMOGLOBIN 10.3 g/dL (12.0-15.5); LYMPH # 0.7 x10^3/uL (1.0-4.8); LYMPH % 10 % (24-48); MEAN CORPUSCULAR HEMOGLOBIN 28 pg (25-35); MEAN CORPUSCULAR HGB CONC 32 g/dL (31-37); MEAN CORPUSCULAR VOLUME 90 fL (79-100); MONO % 8 % (0-9); NEUT % 78 % (31-73); PLATELET COUNT 134 x10^3/uL (140-400); RED BLOOD COUNT 3.63 x10^6/uL (3.50-5.40); RED CELL DISTRIBUTION WIDTH 15.4 % (11.5-14.5); WHITE BLOOD COUNT 7.2 x10^3/uL (4.0-11.0)
[2017-05-01 07:07] LABS: CALCIUM 8.8 mg/dL (8.5-10.1); CREATININE 2.6 mg/dL (0.6-1.0); GFR 17.5; POTASSIUM 4.8 mmol/L (3.5-5.1)
[2017-05-01 07:21] VITALS: BP 187/85
--- NOTE | 2017-05-01 08:11 | RAD ---
Indication chest pain. A single view of the chest was obtained. Comparison is made to an examination 02/13/2017. Heart size is unchanged. Bipolar cardiac pacing device is noted. There is no gross congestive heart failure. There is volume loss at the left lung base which may reflect pleural fluid and atelectasis. Underlying pneumonia is not entirely excluded. There is no pneumothorax. IMPRESSION: Volume loss at the left lung base may reflect pleural fluid and atelectasis. Underlying pneumonia is not entirely excluded
--- NOTE | 2017-05-01 09:32 | PDOC2 ---
VIVIENNE SANDHU ADULT SCHOOL COUNSELOR 05/01/17 0932: CARDIAC CONSULT DATE OF CONSULT Date of Consult DATE: 05/01/17 TIME: 09:29 REASON FOR CONSULT Reason for Consult: Chest pain Hypertension REFERRING PHYSICIAN Referring Physician: Dr. Hardwick SOURCE Source: Chart review, Patient HISTORY OF PRESENT ILLNESS HISTORY OF PRESENT ILLNESS This is an 86 yo female, with a h/o CAD, PVD, and SSS, who presented with complaints of chest pain. Began 1hr prior to arrival. Located in her left chest. Describes as deep heaviness. Radiated to her central chest. Associated with nausea. No SOA, dizziness, diaphoresis, or palpitations. No specific exacerbating factors. Improved with nitro in ED. Resolved upon awakening this morning. No previous with similar-type pain. PAST MEDICAL HISTORY Cardiovascular: CAD (s/p PCI/stent to RCA and LCx), CHF, HTN, Hyperlipidemia, Other (SSS s/p PPM, PVD) CENTRAL NERVOUS SYSTEM: Periperal neuropathy, TIA GI: GERD, Other (colon CA) Hepatobiliary: No pertinent hx Musculoskeletal: Osteoarthritis Renal/: Chronic renal insuff Endocrine: Hypothyroidism PAST SURGICAL HISTORY Past Surgical History: Appendectomy, Total hip replacement (left), Tonsillectomy, Hysterectomy, Colon Resection, Other (right carotid endarterectomy, bilateral BKA) FAMILY HISTORY Family History: Coronary Artery Disease, Diabetes SOCIAL HISTORY Smoke: No ALCOHOL: none Drugs: None CURRENT MEDICATIONS CURRENT MEDICATIONS Current Medications Medications (Trade) Dose Ordered Sig/Sarah Route PRN Reason Start Time Stop Time Status Last Admin Dose Admin Nitroglycerin (Nitrostat) 0.4 mg PRN Q5MIN PRN SL CP RATING > 1/10 04/30/17 21:45 05/01/17 21:44 04/30/17 22:00 Hydralazine HCl (Apresoline) 10 mg 1X ONCE IVP 04/30/17 23:15 04/30/17 23:16 DC 04/30/17 23:25 ALLERGIES ALLERGIES: Coded Allergies: Quinolones (Verified Allergy, Intermediate, 01/29/17) atorvastatin (Verified Allergy, Intermediate, 01/29/17) MYALGIA ciprofloxacin (Verified Allergy, Intermediate, 01/29/17) ciprofloxacin HCl (Verified Allergy, Intermediate, 01/29/17) codeine (Verified Allergy, Intermediate, 01/29/17) diazepam (Verified Allergy, Intermediate, 01/29/17) doxazosin (Unverified Allergy, Intermediate, 01/29/17) fexofenadine (Unverified Allergy, Intermediate, 01/29/17) gabapentin (Verified Allergy, Intermediate, 01/29/17) hydrochlorothiazide (Unverified Allergy, Intermediate, 01/29/17) labetalol (Verified Allergy, Intermediate, 01/29/17) lisinopril (Verified Allergy, Intermediate, 01/29/17) meloxicam (Verified Allergy, Intermediate, EDEMA, 01/29/17) LEG EDEMA metoprolol (Verified Allergy, Intermediate, 01/29/17) neomycin (Verified Allergy, Intermediate, 01/29/17) pravastatin (Verified Allergy, Intermediate, 01/29/17) pregabalin (Verified Allergy, Intermediate, 01/29/17) quinine (Verified Allergy, Intermediate, 01/29/17) simvastatin (Verified Allergy, Intermediate, 01/29/17) MYALGIAS eprosartan (Verified Allergy, Unknown, 01/29/17) gatifloxacin (Verified Allergy, Unknown, 01/29/17) isosorbide (Verified Allergy, Unknown, 01/29/17) naproxen (Verified Allergy, Unknown, 01/29/17) oxycodone (Verified Allergy, Unknown, 01/29/17) pantoprazole (Verified Allergy, Unknown, 01/29/17) Tetracyclines (Verified Adverse Reaction, Intermediate, DROWSY, 01/29/17) nifedipine (Verified Adverse Reaction, Intermediate, FATIGUE, 01/29/17) FATIGUE tetracycline (Verified Adverse Reaction, Intermediate, DROWSY, 01/29/17) DROWSY tramadol (Verified Adverse Reaction, Intermediate, FOGGY, 01/29/17) FOGGY tramadol HCl (Verified Adverse Reaction, Intermediate, FOGGY, 01/29/17) valsartan (Verified Adverse Reaction, Intermediate, FATIGUE, 01/29/17) FATIGUE calcitonin (Verified Adverse Reaction, Unknown, 01/29/17) olmesartan (Verified Adverse Reaction, Unknown, 01/29/17) Uncoded Allergies: CHLOREX GLUE (Allergy, Intermediate, 01/29/17) ROS Review of System 14 point ROS conducted with pertinent positives noted above in HPI. PHYSICAL EXAM General: Alert, Oriented X3, Cooperative, No acute distress HEENT: Atraumatic, Mucous membr. moist/pink Lungs: Clear to auscultation, Normal air movement Heart: Regular rate, Normal S1, Normal S2, Other (3/6 systolic murmur ) Abdomen: Soft, No tenderness Extremities: No edema, Other (bilateral BKA. ext warm to touch. ) Skin: No breakdown, No significant lesion Neuro: Normal speech, Sensation intact Psych/Mental Status: Mental status NL, Mood NL MUSCULOSKELETAL: Osteoarthritic changes both hands VITALS VITALS Vital Signs Date Time Temp Pulse Resp B/P (MAP) Pulse Ox O2 Delivery O2 Flow Rate FiO2 05/01/17 07:21 97.6 63 20 187/85 (119) 93 Room Air 97.6 04/30/17 23:15 2.0 LABS Lab: Laboratory Tests Test 04/30/17 21:50 04/30/17 22:13 04/30/17 23:18 05/01/17 05:50 White Blood Count 8.7 x10^3/uL (4.0-11.0) 7.2 x10^3/uL (4.0-11.0) Red Blood Count 4.29 x10^6/uL (3.50-5.40) 3.63 x10^6/uL (3.50-5.40) Hemoglobin 12.2 g/dL (12.0-15.5) 10.3 g/dL (12.0-15.5) Hematocrit 37.5 % (36.0-47.0) 32.5 % (36.0-47.0) Mean Corpuscular Volume 87 fL (79-100) 90 fL (79-100) Mean Corpuscular Hemoglobin 28 pg (25-35) 28 pg (25-35) Mean Corpuscular Hemoglobin Concent 32 g/dL (31-37) 32 g/dL (31-37) Red Cell Distribution Width 15.4 % (11.5-14.5) 15.4 % (11.5-14.5) Platelet Count 182 x10^3/uL (140-400) 134 x10^3/uL (140-400) Neutrophils (%) (Auto) 79 % (31-73) 78 % (31-73) Lymphocytes (%) (Auto) 9 % (24-48) 10 % (24-48) Monocytes (%) (Auto) 7 % (0-9) 8 % (0-9) Eosinophils (%) (Auto) 4 % (0-3) 4 % (0-3) Basophils (%) (Auto) 1 % (0-3) 1 % (0-3) Neutrophils # (Auto) 6.9 x10^3uL (1.8-7.7) 5.6 x10^3uL (1.8-7.7) Lymphocytes # (Auto) 0.7 x10^3/uL (1.0-4.8) 0.7 x10^3/uL (1.0-4.8) Monocytes # (Auto) 0.6 x10^3/uL (0.0-1.1) 0.6 x10^3/uL (0.0-1.1) Eosinophils # (Auto) 0.3 x10^3/uL (0.0-0.7) 0.3 x10^3/uL (0.0-0.7) Basophils # (Auto) 0.1 x10^3/uL (0.0-0.2) 0.0 x10^3/uL (0.0-0.2) Sodium Level 145 mmol/L (136-145) 145 mmol/L (136-145) Potassium Level 4.7 mmol/L (3.5-5.1) 4.8 mmol/L (3.5-5.1) Chloride Level 110 mmol/L (98-107) 112 mmol/L (98-107) Carbon Dioxide Level 21 mmol/L (21-32) 19 mmol/L (21-32) Anion Gap 14 (6-14) 14 (6-14) Blood Urea Nitrogen 76 mg/dL (7-20) 73 mg/dL (7-20) Creatinine 2.7 mg/dL (0.6-1.0) 2.6 mg/dL (0.6-1.0) Estimated GFR (Cockcroft-Gault) 16.7 17.5 Glucose Level 132 mg/dL (70-99) 94 mg/dL (70-99) Calcium Level 9.3 mg/dL (8.5-10.1) 8.8 mg/dL (8.5-10.1) Magnesium Level 2.3 mg/dL (1.8-2.4) Creatine Kinase 51 U/L (26-192) Creatine Kinase MB (Mass) 1.6 ng/mL (0.0-3.6) Creatine Kinase MB Relative Index % (0-4) Troponin I Quantitative 0.045 ng/mL (0.000-0.055) 0.051 ng/mL (0.000-0.055) RI-Chw-U-Type Natriuretic Peptide 00058 pg/mL (0-449) Lipase 715 U/L (73-393) Thyroid Stimulating Hormone (TSH) 5.470 uIU/mL (0.358-3.74) Prothrombin Time 12.9 SEC (11.7-14.0) Prothromb Time International Ratio 1.0 (0.8-1.1) Urine Collection Type Void Urine Color Yellow Urine Clarity Cloudy Urine pH 5.5 Urine Specific [place] 1.015 Urine Protein >=300 mg/dL (NEG-TRACE) Urine Glucose (UA) 100 mg/dL (NEG) Urine Ketones (Stick) Negative mg/dL (NEG) Urine Blood Negative (NEG) Urine Nitrite Negative (NEG) Urine Bilirubin Negative (NEG) Urine Urobilinogen Dipstick 0.2 mg/dL (0.2 mg/dL) Urine Leukocyte Esterase Negative (NEG) Urine RBC 0 /HPF (0-2) Urine WBC 1-4 /HPF (0-4) Urine Squamous Epithelial Cells Few /LPF Urine Bacteria 0 /HPF (0-FEW) Urine Hyaline Casts Occasional /HPF Urine Mucus Slight /LPF ECHOCARDIOGRAM ECHOCARDIOGRAM <Conclusion> Left ventricle systolic function is low normal. The Ejection Fraction is estimated at 50-55%. Transmitral Doppler flow pattern is Grade II-pseudonormal filling dynamics. There is a pacemaker lead seen in the right atrium. Mild mitral regurgitation. Trace tricuspid regurgitation. The PA pressure was estimated at 28 mmHg. There is no evidence of significant pericardial effusion. DATE: 06/28/16 1133 STRESS TEST STRESS TEST Conclusion 1. Non-diagnostic EKG at baseline with mutiple PVC"s in a bigeminal pattern at baseline. 2. Large inferior/inferolateral fixed defect as decribed above. 3. Severe LV systolic dysfunction. EF 32% with stress. 4. Moderate risk stress test based on low EF and defect size and frequent PVC's. DATE: 11/30/15 1245 HEART CATH HEART CATH Conclusion 1. 90% stenosis involving the mid segment of the right coronary artery. The previously placed stents in the left circumflex artery and also in the right coronary artery were widely patent. 2. Successful PCI/drug eluting stent placement to the right coronary artery 3. No significant left subclavian artery stenosis Recommendations 1. Aspirin 325 mg daily 2. Plavix 75 mg daily 3. Cardiovascular risk factor modification DATE: 12/07/14 1444 ASSESSMENT/PLAN ASSESSMENT/PLAN 1. Chest pain, atypical. troponin series negative- AMI ruled out. 2. Acute on chronic diastolic heart failure; NT pro BNP elevated. CXR with pleural fluid versus atelectasis. Appears compensated. 3. CAD; s/p PCI/stent to RCA and LCx 4. Malignant hypertension; remains labile 5. Hyperlipidemia; check lipids 6. PVD; s/p bilateral BKA and recent left CEA 7. SSS s/p PPM; interrogate device 8. CKD IV 9. Hypothyroidism; TSH 5.47. Per PCP 10. GERD Recommendations AntiHTN therapy resumed. Monitor to asses need for therapy titration. Hydralazine PRN Pain possible related to malignant hypertension, but given history and risk factors, will proceed with MPI to r/o presence of reversible ischemia Continue secondary prevention as able with numerous medication allergies. Problems: KARL ROGEL MD 05/01/17 6053: CARDIAC CONSULT ALLERGIES ALLERGIES: Coded Allergies: Quinolones (Verified Allergy, Intermediate, 01/29/17) atorvastatin (Verified Allergy, Intermediate, 01/29/17) MYALGIA ciprofloxacin (Verified Allergy, Intermediate, 01/29/17) ciprofloxacin HCl (Verified Allergy, Intermediate, 01/29/17) codeine (Verified Allergy, Intermediate, 01/29/17) diazepam (Verified Allergy, Intermediate, 01/29/17) doxazosin (Unverified Allergy, Intermediate, 01/29/17) fexofenadine (Unverified Allergy, Intermediate, 01/29/17) gabapentin (Verified Allergy, Intermediate, 01/29/17) hydrochlorothiazide (Unverified Allergy, Intermediate, 01/29/17) labetalol (Verified Allergy, Intermediate, 01/29/17) lisinopril (Verified Allergy, Intermediate, 01/29/17) meloxicam (Verified Allergy, Intermediate, EDEMA, 01/29/17) LEG EDEMA metoprolol (Verified Allergy, Intermediate, 01/29/17) neomycin (Verified Allergy, Intermediate, 01/29/17) pravastatin (Verified Allergy, Intermediate, 01/29/17) pregabalin (Verified Allergy, Intermediate, 01/29/17) quinine (Verified Allergy, Intermediate, 01/29/17) simvastatin (Verified Allergy, Intermediate, 01/29/17) MYALGIAS eprosartan (Verified Allergy, Unknown, 01/29/17) gatifloxacin (Verified Allergy, Unknown, 01/29/17) isosorbide (Verified Allergy, Unknown, 01/29/17) naproxen (Verified Allergy, Unknown, 01/29/17) oxycodone (Verified Allergy, Unknown, 01/29/17) pantoprazole (Verified Allergy, Unknown, 01/29/17) Tetracyclines (Verified Adverse Reaction, Intermediate, DROWSY, 01/29/17) nifedipine (Verified Adverse Reaction, Intermediate, FATIGUE, 01/29/17) FATIGUE tetracycline (Verified Adverse Reaction, Intermediate, DROWSY, 01/29/17) DROWSY tramadol (Verified Adverse Reaction, Intermediate, FOGGY, 01/29/17) FOGGY tramadol HCl (Verified Adverse Reaction, Intermediate, FOGGY, 01/29/17) valsartan (Verified Adverse Reaction, Intermediate, FATIGUE, 01/29/17) FATIGUE calcitonin (Verified Adverse Reaction, Unknown, 01/29/17) olmesartan (Verified Adverse Reaction, Unknown, 01/29/17) Uncoded Allergies: CHLOREX GLUE (Allergy, Intermediate, 01/29/17) ASSESSMENT/PLAN ASSESSMENT/PLAN Patient seen and examined. 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 Chest pain with atypical features. WA ruled out. Plan for Lexiscan MPI to rule out ischemia. We will titrate antihypertensives for better BP control. Recent pacemaker check showed normal function. Chronic diastolic heart failure compensated. Continue current regimen. Thank you for your consultation. Problems: VIVIENNE SANDHU APRN May 01, 2017 09:32 KARL ROGEL MD May 01, 2017 15:59
[2017-05-01] MEDS ORDERED: NITROGLYCERIN SUBLINGUAL 0.4 MG BOTTLE OF 25. SL PRN (10:15)
[2017-05-01] MEDS ORDERED: LEVOTHYROXINE 75 MCG TABLET PO SCH (10:30)
[2017-05-01 11:00] VITALS: BP 189/83
--- NOTE | 2017-05-01 11:07 | PDOC1 ---
History and Physical Date of Admission Date of Admission DATE: 05/01/17 TIME: 10:58 Identification/Chief Complaint Chief Complaint chest pain Problems: Source Source: Patient History of Present Illness History of Present Illness 1 hour of chest pressure last night without radiation of shortness of breath. [place] [facility] [place] 2 sl ntg with improvement. Past Medical History Cardiovascular: CAD (s/p PCI/stent to RCA and LCx), CHF, HTN, Hyperlipidemia, Other (SSS s/p PPM, PVD) CENTRAL NERVOUS SYSTEM: Periperal neuropathy, TIA GI: GERD, Other (colon CA) Hepatobiliary: No pertinent hx Musculoskeletal: Osteoarthritis, Other (bilateral BKA) Renal/: Chronic renal insuff Endocrine: Hypothyroidism Past Surgical History Past Surgical History: Appendectomy, Total hip replacement (left), Tonsillectomy, Hysterectomy, Colon Resection, Other (right carotid endarterectomy, bilateral BKA) Family History Family History: Coronary Artery Disease, Diabetes Social History Smoke: No ALCOHOL: none Drugs: None Current Problem List Problem List Problems Medical Problems: (1) chest pain hypertension coronary artery disease peripheral artery disease Status: Acute Problems: Current Medications Current Medications Current Medications Aspirin (Children'S Aspirin) 324 mg 1X ONCE PO ; Start 04/30/17 at 21:45; Stop 04/30/17 at 21:46; Status DC Nitroglycerin (Nitrostat) 0.4 mg PRN Q5MIN PRN SL CP RATING > 1/10 Last administered on 04/30/17 22:00; Start 04/30/17 at 21:45; Stop 05/01/17 at 21:44 Hydralazine HCl (Apresoline) 10 mg 1X ONCE IVP Last administered on 04/30/17 23:25; Start 04/30/17 at 23:15; Stop 04/30/17 at 23:16; Status DC Ondansetron HCl (Zofran) 4 mg PRN Q8HRS PRN IV NAUSEA/VOMITING; Start 04/30/17 at 23:45; Stop 05/01/17 at 23:44 Morphine Sulfate 2 mg PRN Q2HR PRN IV PAIN; Start 04/30/17 at 23:45; Stop at 23:44 Amlodipine Besylate (Norvasc) 10 mg DAILY PO ; Start 05/01/17 at 11:00 Vitamin D (Vitamin D3) 1,000 unit DAILY PO ; Start 05/01/17 at 11:00 Clonidine HCl (Catapres) 0.1 mg QHS PO ; Start 05/01/17 at 21:00 Clopidogrel Bisulfate (Plavix) 75 mg DAILY PO ; Start 05/01/17 at 11:00 Levothyroxine Sodium (Synthroid) 75 mcg DAILY PO ; Start 05/01/17 at 10:30 Nitroglycerin (Nitrostat) 0.4 mg PRN Q5MIN PRN SL CHEST PAIN; Start 05/01/17 at 10:15 Non-Formulary Medication 20 mg DAILY PO ; Start 05/02/17 at 09:00; Status UNV Aspirin (Ecotrin) 81 mg DAILYWBKFT PO ; Start 05/01/17 at 12:00 Active Scripts Active Nitrostat (Nitroglycerin) 0.4 Mg Tab.subl 0.4 Mg SL PRN Q5MIN PRN Vitamin D (Cholecalciferol (Vitamin D3)) 1,000 Unit Tablet 1,000 Unit PO DAILY [Aspirin] 81 MG Tablet.dr 81 Mg PO DAILY Reported Amlodipine Besylate 10 Mg Tablet 10 Mg PO DAILY Levothyroxine Sodium 75 Mcg Tablet 1 Tab PO DAILY Clonidine Hcl 0.1 Mg Tablet 1 Tab PO QHS Clopidogrel (Clopidogrel Bisulfate) 75 Mg Tablet 75 Mg PO DAILY Bystolic (Nebivolol) 10 Mg Tablet 20 Mg PO DAILY Allergies Allergies: Coded Allergies: Quinolones (Verified Allergy, Intermediate, 01/29/17) atorvastatin (Verified Allergy, Intermediate, 01/29/17) MYALGIA ciprofloxacin (Verified Allergy, Intermediate, 01/29/17) ciprofloxacin HCl (Verified Allergy, Intermediate, 01/29/17) codeine (Verified Allergy, Intermediate, 01/29/17) diazepam (Verified Allergy, Intermediate, 01/29/17) doxazosin (Unverified Allergy, Intermediate, 01/29/17) fexofenadine (Unverified Allergy, Intermediate, 01/29/17) gabapentin (Verified Allergy, Intermediate, 01/29/17) hydrochlorothiazide (Unverified Allergy, Intermediate, 01/29/17) labetalol (Verified Allergy, Intermediate, 01/29/17) lisinopril (Verified Allergy, Intermediate, 01/29/17) meloxicam (Verified Allergy, Intermediate, EDEMA, 01/29/17) LEG EDEMA metoprolol (Verified Allergy, Intermediate, 01/29/17) neomycin (Verified Allergy, Intermediate, 01/29/17) pravastatin (Verified Allergy, Intermediate, 01/29/17) pregabalin (Verified Allergy, Intermediate, 01/29/17) quinine (Verified Allergy, Intermediate, 01/29/17) simvastatin (Verified Allergy, Intermediate, 01/29/17) MYALGIAS eprosartan (Verified Allergy, Unknown, 01/29/17) gatifloxacin (Verified Allergy, Unknown, 01/29/17) isosorbide (Verified Allergy, Unknown, 01/29/17) naproxen (Verified Allergy, Unknown, 01/29/17) oxycodone (Verified Allergy, Unknown, 01/29/17) pantoprazole (Verified Allergy, Unknown, 01/29/17) Tetracyclines (Verified Adverse Reaction, Intermediate, DROWSY, 01/29/17) nifedipine (Verified Adverse Reaction, Intermediate, FATIGUE, 01/29/17) FATIGUE tetracycline (Verified Adverse Reaction, Intermediate, DROWSY, 01/29/17) DROWSY tramadol (Verified Adverse Reaction, Intermediate, FOGGY, 01/29/17) FOGGY tramadol HCl (Verified Adverse Reaction, Intermediate, FOGGY, 01/29/17) valsartan (Verified Adverse Reaction, Intermediate, FATIGUE, 01/29/17) FATIGUE calcitonin (Verified Adverse Reaction, Unknown, 01/29/17) olmesartan (Verified Adverse Reaction, Unknown, 01/29/17) Uncoded Allergies: CHLOREX GLUE (Allergy, Intermediate, 01/29/17) ROS Review of System all other ROS negative Cardiovascular: yes Chest Pain Physical Exam General: Alert HEENT: Atraumatic Lungs: Clear to auscultation Heart: S1S2, no murmurs Abdomen: Soft Extremities: No edema, Other (bilateral BKA) Skin: No rashes Neuro: Normal speech Psych/Mental Status: Mental status NL Vitals Vitals Vital Signs Date Time Temp Pulse Resp B/P (MAP) Pulse Ox O2 Delivery O2 Flow Rate FiO2 05/01/17 08:00 Room Air 05/01/17 07:21 97.6 63 20 187/85 (119) 93 97.6 04/30/17 23:15 2.0 Labs Labs Laboratory Tests Test 04/30/17 21:50 04/30/17 22:13 04/30/17 23:18 05/01/17 05:50 White Blood Count 8.7 x10^3/uL (4.0-11.0) 7.2 x10^3/uL (4.0-11.0) Red Blood Count 4.29 x10^6/uL (3.50-5.40) 3.63 x10^6/uL (3.50-5.40) Hemoglobin 12.2 g/dL (12.0-15.5) 10.3 g/dL (12.0-15.5) Hematocrit 37.5 % (36.0-47.0) 32.5 % (36.0-47.0) Mean Corpuscular Volume 87 fL (79-100) 90 fL (79-100) Mean Corpuscular Hemoglobin 28 pg (25-35) 28 pg (25-35) Mean Corpuscular Hemoglobin Concent 32 g/dL (31-37) 32 g/dL (31-37) Red Cell Distribution Width 15.4 % (11.5-14.5) 15.4 % (11.5-14.5) Platelet Count 182 x10^3/uL (140-400) 134 x10^3/uL (140-400) Neutrophils (%) (Auto) 79 % (31-73) 78 % (31-73) Lymphocytes (%) (Auto) 9 % (24-48) 10 % (24-48) Monocytes (%) (Auto) 7 % (0-9) 8 % (0-9) Eosinophils (%) (Auto) 4 % (0-3) 4 % (0-3) Basophils (%) (Auto) 1 % (0-3) 1 % (0-3) Neutrophils # (Auto) 6.9 x10^3uL (1.8-7.7) 5.6 x10^3uL (1.8-7.7) Lymphocytes # (Auto) 0.7 x10^3/uL (1.0-4.8) 0.7 x10^3/uL (1.0-4.8) Monocytes # (Auto) 0.6 x10^3/uL (0.0-1.1) 0.6 x10^3/uL (0.0-1.1) Eosinophils # (Auto) 0.3 x10^3/uL (0.0-0.7) 0.3 x10^3/uL (0.0-0.7) Basophils # (Auto) 0.1 x10^3/uL (0.0-0.2) 0.0 x10^3/uL (0.0-0.2) Sodium Level 145 mmol/L (136-145) 145 mmol/L (136-145) Potassium Level 4.7 mmol/L (3.5-5.1) 4.8 mmol/L (3.5-5.1) Chloride Level 110 mmol/L (98-107) 112 mmol/L (98-107) Carbon Dioxide Level 21 mmol/L (21-32) 19 mmol/L (21-32) Anion Gap 14 (6-14) 14 (6-14) Blood Urea Nitrogen 76 mg/dL (7-20) 73 mg/dL (7-20) Creatinine 2.7 mg/dL (0.6-1.0) 2.6 mg/dL (0.6-1.0) Estimated GFR (Cockcroft-Gault) 16.7 17.5 Glucose Level 132 mg/dL (70-99) 94 mg/dL (70-99) Calcium Level 9.3 mg/dL (8.5-10.1) 8.8 mg/dL (8.5-10.1) Magnesium Level 2.3 mg/dL (1.8-2.4) Creatine Kinase 51 U/L (26-192) Creatine Kinase MB (Mass) 1.6 ng/mL (0.0-3.6) Creatine Kinase MB Relative Index % (0-4) Troponin I Quantitative 0.045 ng/mL (0.000-0.055) 0.051 ng/mL (0.000-0.055) VS-Fyb-S-Type Natriuretic Peptide 18740 pg/mL (0-449) Lipase 715 U/L (73-393) Thyroid Stimulating Hormone (TSH) 5.470 uIU/mL (0.358-3.74) Prothrombin Time 12.9 SEC (11.7-14.0) Prothromb Time International Ratio 1.0 (0.8-1.1) Urine Collection Type Void Urine Color Yellow Urine Clarity Cloudy Urine pH 5.5 Urine Specific [place] 1.015 Urine Protein >=300 mg/dL (NEG-TRACE) Urine Glucose (UA) 100 mg/dL (NEG) Urine Ketones (Stick) Negative mg/dL (NEG) Urine Blood Negative (NEG) Urine Nitrite Negative (NEG) Urine Bilirubin Negative (NEG) Urine Urobilinogen Dipstick 0.2 mg/dL (0.2 mg/dL) Urine Leukocyte Esterase Negative (NEG) Urine RBC 0 /HPF (0-2) Urine WBC 1-4 /HPF (0-4) Urine Squamous Epithelial Cells Few /LPF Urine Bacteria 0 /HPF (0-FEW) Urine Hyaline Casts Occasional /HPF Urine Mucus Slight /LPF Laboratory Tests Test 04/30/17 21:50 04/30/17 22:13 04/30/17 23:18 05/01/17 05:50 White Blood Count 8.7 x10^3/uL (4.0-11.0) 7.2 x10^3/uL (4.0-11.0) Red Blood Count 4.29 x10^6/uL (3.50-5.40) 3.63 x10^6/uL (3.50-5.40) Hemoglobin 12.2 g/dL (12.0-15.5) 10.3 g/dL (12.0-15.5) Hematocrit 37.5 % (36.0-47.0) 32.5 % (36.0-47.0) Mean Corpuscular Volume 87 fL (79-100) 90 fL (79-100) Mean Corpuscular Hemoglobin 28 pg (25-35) 28 pg (25-35) Mean Corpuscular Hemoglobin Concent 32 g/dL (31-37) 32 g/dL (31-37) Red Cell Distribution Width 15.4 % (11.5-14.5) 15.4 % (11.5-14.5) Platelet Count 182 x10^3/uL (140-400) 134 x10^3/uL (140-400) Neutrophils (%) (Auto) 79 % (31-73) 78 % (31-73) Lymphocytes (%) (Auto) 9 % (24-48) 10 % (24-48) Monocytes (%) (Auto) 7 % (0-9) 8 % (0-9) Eosinophils (%) (Auto) 4 % (0-3) 4 % (0-3) Basophils (%) (Auto) 1 % (0-3) 1 % (0-3) Neutrophils # (Auto) 6.9 x10^3uL (1.8-7.7) 5.6 x10^3uL (1.8-7.7) Lymphocytes # (Auto) 0.7 x10^3/uL (1.0-4.8) 0.7 x10^3/uL (1.0-4.8) Monocytes # (Auto) 0.6 x10^3/uL (0.0-1.1) 0.6 x10^3/uL (0.0-1.1) Eosinophils # (Auto) 0.3 x10^3/uL (0.0-0.7) 0.3 x10^3/uL (0.0-0.7) Basophils # (Auto) 0.1 x10^3/uL (0.0-0.2) 0.0 x10^3/uL (0.0-0.2) Sodium Level 145 mmol/L (136-145) 145 mmol/L (136-145) Potassium Level 4.7 mmol/L (3.5-5.1) 4.8 mmol/L (3.5-5.1) Chloride Level 110 mmol/L (98-107) 112 mmol/L (98-107) Carbon Dioxide Level 21 mmol/L (21-32) 19 mmol/L (21-32) Anion Gap 14 (6-14) 14 (6-14) Blood Urea Nitrogen 76 mg/dL (7-20) 73 mg/dL (7-20) Creatinine 2.7 mg/dL (0.6-1.0) 2.6 mg/dL (0.6-1.0) Estimated GFR (Cockcroft-Gault) 16.7 17.5 Glucose Level 132 mg/dL (70-99) 94 mg/dL (70-99) Calcium Level 9.3 mg/dL (8.5-10.1) 8.8 mg/dL (8.5-10.1) Magnesium Level 2.3 mg/dL (1.8-2.4) Creatine Kinase 51 U/L (26-192) Creatine Kinase MB (Mass) 1.6 ng/mL (0.0-3.6) Creatine Kinase MB Relative Index % (0-4) Troponin I Quantitative 0.045 ng/mL (0.000-0.055) 0.051 ng/mL (0.000-0.055) MI-Atq-W-Type Natriuretic Peptide 21582 pg/mL (0-449) Lipase 715 U/L (73-393) Thyroid Stimulating Hormone (TSH) 5.470 uIU/mL (0.358-3.74) Prothrombin Time 12.9 SEC (11.7-14.0) Prothromb Time International Ratio 1.0 (0.8-1.1) Urine Collection Type Void Urine Color Yellow Urine Clarity Cloudy Urine pH 5.5 Urine Specific [place] 1.015 Urine Protein >=300 mg/dL (NEG-TRACE) Urine Glucose (UA) 100 mg/dL (NEG) Urine Ketones (Stick) Negative mg/dL (NEG) Urine Blood Negative (NEG) Urine Nitrite Negative (NEG) Urine Bilirubin Negative (NEG) Urine Urobilinogen Dipstick 0.2 mg/dL (0.2 mg/dL) Urine Leukocyte Esterase Negative (NEG) Urine RBC 0 /HPF (0-2) Urine WBC 1-4 /HPF (0-4) Urine Squamous Epithelial Cells Few /LPF Urine Bacteria 0 /HPF (0-FEW) Urine Hyaline Casts Occasional /HPF Urine Mucus Slight /LPF Images Images cxr negative. ekg without acute change VTE Prophylaxis Ordered VTE Prophylaxis Devices: No VTE Pharmacological Prophylaxi: No Assessment/Plan Assessment/Plan chest pain coronary artery disease with PTCA and stents to RCA and circumflex peripheral artery disease bilateral BKA hypertension permanent pacemaker chronic kidney disease stage 4 P. consult cardiology and nephrology MPI stress test continue home meds including hydralazine cardiac enzymes LYNDA FELIX MD May 01, 2017 11:06
[2017-05-01] MEDS ORDERED: REGADENOSON 0.4 MG/5 ML DISP.SYRIN. IV ONE (11:15)
[2017-05-01] MEDS ORDERED: cloNIDine HCL 0.1 MG TABLET PO PRN (11:15)
[2017-05-01] MEDS ORDERED: hydrALAZINE 20 MG/ML VIAL. IVP PRN (11:30)
[2017-05-01 11:54] LABS: CHOLESTEROL/HDL RATIO 2.7
--- NOTE | 2017-05-01 12:38 | PDOC2 ---
CONSULT Date of Consult Date of Consult DATE: 05/02/17 TIME: 11:30 Reason for Consult Reason for Consult: CKD IV/ V Referring Physician Referring Physician: Dr Woods Identification/Chief Complaint Chief Complaint CP Problems: Source Source: Chart review, Patient History of Present Illness Reason for Visit: CP: admitted for chest pressure that started on the night prior to admit; without radiation of shortness of breath. 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 HTN - has been difficult to control due to various Alleriges/ intoleracne due to SE . tolerating Hydralazine for now Occ Edema - in her thighs - she attributes this to Hydralazine. was started on Metolazone for same recently. BP remains labile Past Medical History Cardiovascular: CAD (s/p PCI/stent to RCA and LCx), CHF, HTN, Hyperlipidemia, Other (SSS s/p PPM, PVD) CENTRAL NERVOUS SYSTEM: Periperal neuropathy, TIA GI: GERD, Other (colon CA) Hepatobiliary: No pertinent hx Musculoskeletal: Osteoarthritis, Other (bilateral BKA) Renal/: Chronic renal insuff Endocrine: Hypothyroidism Past Surgical History Past Surgical History: Appendectomy, Total hip replacement (left), Tonsillectomy, Hysterectomy, Colon Resection, Other (right carotid endarterectomy, bilateral BKA) Family History Family History: Coronary Artery Disease, Diabetes Social History No ALCOHOL: none Drugs: None Lives: Alone Domestic Violence: Neg Current Problem List Problem List Problems Medical Problems: (1) Accelerated hypertension Status: Acute Current Medications Current Medications Current Medications Aspirin (Children'S Aspirin) 324 mg 1X ONCE PO ; Start 04/30/17 at 21:45; Stop 04/30/17 at 21:46; Status DC Nitroglycerin (Nitrostat) 0.4 mg PRN Q5MIN PRN SL CP RATING > 1/10 Last administered on 04/30/17 22:00; Start 04/30/17 at 21:45; Stop 05/01/17 at 12:17; Status DC Hydralazine HCl (Apresoline) 10 mg 1X ONCE IVP Last administered on 7/4/17at 23:25; Start 04/30/17 at 23:15; Stop 04/30/17 at 23:16; Status DC Ondansetron HCl (Zofran) 4 mg PRN Q8HRS PRN IV NAUSEA/VOMITING; Start 04/30/17 at 23:45; Stop 05/01/17 at 23:44 Morphine Sulfate 2 mg PRN Q2HR PRN IV PAIN; Start 04/30/17 at 23:45; Stop at 23:44 Amlodipine Besylate (Norvasc) 10 mg DAILY PO ; Start 05/01/17 at 11:00 Vitamin D (Vitamin D3) 1,000 unit DAILY PO ; Start 05/01/17 at 11:00 Clonidine HCl (Catapres) 0.1 mg QHS PO ; Start 05/01/17 at 21:00 Clopidogrel Bisulfate (Plavix) 75 mg DAILY PO ; Start 05/01/17 at 11:00 Levothyroxine Sodium (Synthroid) 75 mcg DAILY PO ; Start 05/01/17 at 10:30; Stop 05/01/17 at 12:19; Status DC Nitroglycerin (Nitrostat) 0.4 mg PRN Q5MIN PRN SL CHEST PAIN; Start 05/01/17 at 10:15 Non-Formulary Medication 20 mg DAILY PO ; Start 05/02/17 at 09:00; Status UNV Aspirin (Ecotrin) 81 mg DAILYWBKFT PO ; Start 05/01/17 at 12:00 Clonidine HCl (Catapres) 0.1 mg PRN Q6HRS PRN PO HYPERTENSION, SEE COMMENTS; Start 05/01/17 at 11:15 Hydralazine HCl (Apresoline) 10 mg PRN Q4HRS PRN IVP ELEVATED BP, SEE COMMENTS ; Start 05/01/17 at 11:30 Regadenoson (Lexiscan) 0.4 mg 1X ONCE IV ; Start 05/01/17 at 11:15; Stop at 11:28; Status DC Levothyroxine Sodium (Synthroid) 75 mcg DAILY06 PO ; Start 05/02/17 at 06:00 Active Scripts Active Nitrostat (Nitroglycerin) 0.4 Mg Tab.subl 0.4 Mg SL PRN Q5MIN PRN Vitamin D (Cholecalciferol (Vitamin D3)) 1,000 Unit Tablet 1,000 Unit PO DAILY [Aspirin] 81 MG Tablet.dr 81 Mg PO DAILY Reported Amlodipine Besylate 10 Mg Tablet 10 Mg PO DAILY Levothyroxine Sodium 75 Mcg Tablet 1 Tab PO DAILY Clonidine Hcl 0.1 Mg Tablet 1 Tab PO QHS Clopidogrel (Clopidogrel Bisulfate) 75 Mg Tablet 75 Mg PO DAILY Bystolic (Nebivolol) 10 Mg Tablet 20 Mg PO DAILY Allergies Allergies: Coded Allergies: Quinolones (Verified Allergy, Intermediate, 01/29/17) atorvastatin (Verified Allergy, Intermediate, 01/29/17) MYALGIA ciprofloxacin (Verified Allergy, Intermediate, 01/29/17) ciprofloxacin HCl (Verified Allergy, Intermediate, 01/29/17) codeine (Verified Allergy, Intermediate, 01/29/17) diazepam (Verified Allergy, Intermediate, 01/29/17) doxazosin (Unverified Allergy, Intermediate, 01/29/17) eprosartan (Verified Allergy, Intermediate, 05/02/17) fexofenadine (Unverified Allergy, Intermediate, 01/29/17) gabapentin (Verified Allergy, Intermediate, 01/29/17) gatifloxacin (Verified Allergy, Intermediate, 05/02/17) hydrochlorothiazide (Unverified Allergy, Intermediate, 01/29/17) isosorbide (Verified Allergy, Intermediate, 05/02/17) labetalol (Verified Allergy, Intermediate, 01/29/17) lisinopril (Verified Allergy, Intermediate, 01/29/17) meloxicam (Verified Allergy, Intermediate, EDEMA, 01/29/17) LEG EDEMA metoprolol (Verified Allergy, Intermediate, 01/29/17) naproxen (Verified Allergy, Intermediate, 05/02/17) neomycin (Verified Allergy, Intermediate, 01/29/17) oxycodone (Verified Allergy, Intermediate, 05/02/17) pantoprazole (Verified Allergy, Intermediate, 05/02/17) pravastatin (Verified Allergy, Intermediate, 01/29/17) pregabalin (Verified Allergy, Intermediate, 01/29/17) quinine (Verified Allergy, Intermediate, 01/29/17) simvastatin (Verified Allergy, Intermediate, 01/29/17) MYALGIAS Tetracyclines (Verified Adverse Reaction, Intermediate, DROWSY, 01/29/17) nifedipine (Verified Adverse Reaction, Intermediate, FATIGUE, 01/29/17) FATIGUE tetracycline (Verified Adverse Reaction, Intermediate, DROWSY, 01/29/17) DROWSY tramadol (Verified Adverse Reaction, Intermediate, FOGGY, 01/29/17) FOGGY tramadol HCl (Verified Adverse Reaction, Intermediate, FOGGY, 01/29/17) valsartan (Verified Adverse Reaction, Intermediate, FATIGUE, 01/29/17) FATIGUE calcitonin (Verified Adverse Reaction, Unknown, 01/29/17) olmesartan (Verified Adverse Reaction, Unknown, 01/29/17) Uncoded Allergies: CHLOREX GLUE (Allergy, Intermediate, 01/29/17) ROS Review of System GEN: no Fevers no Chills EYES: no new Visual Complaints ENT: no EN Drainage no Hearing deficiets CVS: no Orthopnea + CP RESP: no SOB no DAMIAN GI: no Nausea no Vomiting : no Dysuria no Urgency HEME: no easy bruising no Palp Ly Nodes NEURO no Focal Weakness no Sz PSYCH: no Suicidal Ideation no Depression SKIN: no Rashes ENDO: no Polyuria or Polydipsia no Hot/Cold Intolerance MU SK: no Arthraigia no Myalgia Physical Exam Physical Exam General Appearance: Awake Alert Oriented x 3 In no Distress Eyes: VIsion Unchanged Conjunctiva Normal EN: No EN Drainage Mucous Memb. moist Neck: no JVD no JVP Supple no Thyromegaly CVS: S1 S2 soft Murmur No Gallop No Rub no Edema Resp: no Rales rare LLL Rhonchi no Acc. 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 . Current FLuid and E-lyte status does not necessitate emergent need for Dialysis. Will re-evaluate for Dialysis in am Met Acidosis - PO bicarb as ordered CP: Currently getting stress test. May need to start HD if LHC is needed ? Rv HTN - no ERIK noted on Duplex. has been difficult to control due to various Alleriges/ intolerances due to SE. If we feel that current s/s are related to Hydralazine then she may need long acting Nitro for BP besides CP (relieved by SL NTG) Anemia: no Epogen for now. Transfuse as needed. Discussed Plan of Care and prognosis etc. at length with family. Labs Labs Laboratory Tests Test 04/30/17 21:50 04/30/17 22:13 04/30/17 23:18 05/01/17 05:50 White Blood Count 8.7 x10^3/uL (4.0-11.0) 7.2 x10^3/uL (4.0-11.0) Red Blood Count 4.29 x10^6/uL (3.50-5.40) 3.63 x10^6/uL (3.50-5.40) Hemoglobin 12.2 g/dL (12.0-15.5) 10.3 g/dL (12.0-15.5) Hematocrit 37.5 % (36.0-47.0) 32.5 % (36.0-47.0) Mean Corpuscular Volume 87 fL (79-100) 90 fL (79-100) Mean Corpuscular Hemoglobin 28 pg (25-35) 28 pg (25-35) Mean Corpuscular Hemoglobin Concent 32 g/dL (31-37) 32 g/dL (31-37) Red Cell Distribution Width 15.4 % (11.5-14.5) 15.4 % (11.5-14.5) Platelet Count 182 x10^3/uL (140-400) 134 x10^3/uL (140-400) Neutrophils (%) (Auto) 79 % (31-73) 78 % (31-73) Lymphocytes (%) (Auto) 9 % (24-48) 10 % (24-48) Monocytes (%) (Auto) 7 % (0-9) 8 % (0-9) Eosinophils (%) (Auto) 4 % (0-3) 4 % (0-3) Basophils (%) (Auto) 1 % (0-3) 1 % (0-3) Neutrophils # (Auto) 6.9 x10^3uL (1.8-7.7) 5.6 x10^3uL (1.8-7.7) Lymphocytes # (Auto) 0.7 x10^3/uL (1.0-4.8) 0.7 x10^3/uL (1.0-4.8) Monocytes # (Auto) 0.6 x10^3/uL (0.0-1.1) 0.6 x10^3/uL (0.0-1.1) Eosinophils # (Auto) 0.3 x10^3/uL (0.0-0.7) 0.3 x10^3/uL (0.0-0.7) Basophils # (Auto) 0.1 x10^3/uL (0.0-0.2) 0.0 x10^3/uL (0.0-0.2) Sodium Level 145 mmol/L (136-145) 145 mmol/L (136-145) Potassium Level 4.7 mmol/L (3.5-5.1) 4.8 mmol/L (3.5-5.1) Chloride Level 110 mmol/L (98-107) 112 mmol/L (98-107) Carbon Dioxide Level 21 mmol/L (21-32) 19 mmol/L (21-32) Anion Gap 14 (6-14) 14 (6-14) Blood Urea Nitrogen 76 mg/dL (7-20) 73 mg/dL (7-20) Creatinine 2.7 mg/dL (0.6-1.0) 2.6 mg/dL (0.6-1.0) Estimated GFR (Cockcroft-Gault) 16.7 17.5 Glucose Level 132 mg/dL (70-99) 94 mg/dL (70-99) Calcium Level 9.3 mg/dL (8.5-10.1) 8.8 mg/dL (8.5-10.1) Magnesium Level 2.3 mg/dL (1.8-2.4) Creatine Kinase 51 U/L (26-192) Creatine Kinase MB (Mass) 1.6 ng/mL (0.0-3.6) Creatine Kinase MB Relative Index % (0-4) Troponin I Quantitative 0.045 ng/mL (0.000-0.055) 0.051 ng/mL (0.000-0.055) KX-Gyn-Y-Type Natriuretic Peptide 84612 pg/mL (0-449) Lipase 715 U/L (73-393) Thyroid Stimulating Hormone (TSH) 5.470 uIU/mL (0.358-3.74) Prothrombin Time 12.9 SEC (11.7-14.0) Prothromb Time International Ratio 1.0 (0.8-1.1) Urine Collection Type Void Urine Color Yellow Urine Clarity Cloudy Urine pH 5.5 Urine Specific [place] 1.015 Urine Protein >=300 mg/dL (NEG-TRACE) Urine Glucose (UA) 100 mg/dL (NEG) Urine Ketones (Stick) Negative mg/dL (NEG) Urine Blood Negative (NEG) Urine Nitrite Negative (NEG) Urine Bilirubin Negative (NEG) Urine Urobilinogen Dipstick 0.2 mg/dL (0.2 mg/dL) Urine Leukocyte Esterase Negative (NEG) Urine RBC 0 /HPF (0-2) Urine WBC 1-4 /HPF (0-4) Urine Squamous Epithelial Cells Few /LPF Urine Bacteria 0 /HPF (0-FEW) Urine Hyaline Casts Occasional /HPF Urine Mucus Slight /LPF Triglycerides Level 41 mg/dL (0-150) Cholesterol Level 160 mg/dL (0-200) LDL Cholesterol, Calculated 93 mg/dL (0-100) VLDL Cholesterol, Calculated 8 mg/dL (0-40) Non-HDL Cholesterol Calculated 101 mg/dL (0-129) HDL Cholesterol 59 mg/dL (40-60) Cholesterol/HDL Ratio 2.7 Test 05/01/17 11:55 Troponin I Quantitative 0.055 ng/mL (0.000-0.055) Laboratory Tests Test 04/30/17 21:50 04/30/17 22:13 04/30/17 23:18 05/01/17 05:50 White Blood Count 8.7 x10^3/uL (4.0-11.0) 7.2 x10^3/uL (4.0-11.0) Red Blood Count 4.29 x10^6/uL (3.50-5.40) 3.63 x10^6/uL (3.50-5.40) Hemoglobin 12.2 g/dL (12.0-15.5) 10.3 g/dL (12.0-15.5) Hematocrit 37.5 % (36.0-47.0) 32.5 % (36.0-47.0) Mean Corpuscular Volume 87 fL (79-100) 90 fL (79-100) Mean Corpuscular Hemoglobin 28 pg (25-35) 28 pg (25-35) Mean Corpuscular Hemoglobin Concent 32 g/dL (31-37) 32 g/dL (31-37) Red Cell Distribution Width 15.4 % (11.5-14.5) 15.4 % (11.5-14.5) Platelet Count 182 x10^3/uL (140-400) 134 x10^3/uL (140-400) Neutrophils (%) (Auto) 79 % (31-73) 78 % (31-73) Lymphocytes (%) (Auto) 9 % (24-48) 10 % (24-48) Monocytes (%) (Auto) 7 % (0-9) 8 % (0-9) Eosinophils (%) (Auto) 4 % (0-3) 4 % (0-3) Basophils (%) (Auto) 1 % (0-3) 1 % (0-3) Neutrophils # (Auto) 6.9 x10^3uL (1.8-7.7) 5.6 x10^3uL (1.8-7.7) Lymphocytes # (Auto) 0.7 x10^3/uL (1.0-4.8) 0.7 x10^3/uL (1.0-4.8) Monocytes # (Auto) 0.6 x10^3/uL (0.0-1.1) 0.6 x10^3/uL (0.0-1.1) Eosinophils # (Auto) 0.3 x10^3/uL (0.0-0.7) 0.3 x10^3/uL (0.0-0.7) Basophils # (Auto) 0.1 x10^3/uL (0.0-0.2) 0.0 x10^3/uL (0.0-0.2) Sodium Level 145 mmol/L (136-145) 145 mmol/L (136-145) Potassium Level 4.7 mmol/L (3.5-5.1) 4.8 mmol/L (3.5-5.1) Chloride Level 110 mmol/L (98-107) 112 mmol/L (98-107) Carbon Dioxide Level 21 mmol/L (21-32) 19 mmol/L (21-32) Anion Gap 14 (6-14) 14 (6-14) Blood Urea Nitrogen 76 mg/dL (7-20) 73 mg/dL (7-20) Creatinine 2.7 mg/dL (0.6-1.0) 2.6 mg/dL (0.6-1.0) Estimated GFR (Cockcroft-Gault) 16.7 17.5 Glucose Level 132 mg/dL (70-99) 94 mg/dL (70-99) Calcium Level 9.3 mg/dL (8.5-10.1) 8.8 mg/dL (8.5-10.1) Magnesium Level 2.3 mg/dL (1.8-2.4) Creatine Kinase 51 U/L (26-192) Creatine Kinase MB (Mass) 1.6 ng/mL (0.0-3.6) Creatine Kinase MB Relative Index % (0-4) Troponin I Quantitative 0.045 ng/mL (0.000-0.055) 0.051 ng/mL (0.000-0.055) IJ-Raw-X-Type Natriuretic Peptide 18136 pg/mL (0-449) Lipase 715 U/L (73-393) Thyroid Stimulating Hormone (TSH) 5.470 uIU/mL (0.358-3.74) Prothrombin Time 12.9 SEC (11.7-14.0) Prothromb Time International Ratio 1.0 (0.8-1.1) Urine Collection Type Void Urine Color Yellow Urine Clarity Cloudy Urine pH 5.5 Urine Specific [place] 1.015 Urine Protein >=300 mg/dL (NEG-TRACE) Urine Glucose (UA) 100 mg/dL (NEG) Urine Ketones (Stick) Negative mg/dL (NEG) Urine Blood Negative (NEG) Urine Nitrite Negative (NEG) Urine Bilirubin Negative (NEG) Urine Urobilinogen Dipstick 0.2 mg/dL (0.2 mg/dL) Urine Leukocyte Esterase Negative (NEG) Urine RBC 0 /HPF (0-2) Urine WBC 1-4 /HPF (0-4) Urine Squamous Epithelial Cells Few /LPF Urine Bacteria 0 /HPF (0-FEW) Urine Hyaline Casts Occasional /HPF Urine Mucus Slight /LPF Triglycerides Level 41 mg/dL (0-150) Cholesterol Level 160 mg/dL (0-200) LDL Cholesterol, Calculated 93 mg/dL (0-100) VLDL Cholesterol, Calculated 8 mg/dL (0-40) Non-HDL Cholesterol Calculated 101 mg/dL (0-129) HDL Cholesterol 59 mg/dL (40-60) Cholesterol/HDL Ratio 2.7 Test 05/01/17 11:55 Troponin I Quantitative 0.055 ng/mL (0.000-0.055) JAY PRICE MD May 01, 2017 12:38
[2017-05-01] MEDS ORDERED: MAGNESIUM SULFATE 2GM 50 ML IV PRN (12:45)
--- NOTE | 2017-05-01 14:00 | PDOC ---
PROGRESS NOTES Subjective Subjective Pt in Stress testing - unable to see today. consult draft created as chart was reviewed. Will do full consult in am if pt is still here Objective Objective Vital Signs Date Time Temp Pulse Resp B/P (MAP) Pulse Ox O2 Delivery O2 Flow Rate FiO2 05/01/17 11:00 98.7 71 20 189/83 (118) 91 Room Air 98.7 04/30/17 23:15 2.0 Intake and Output 05/01/17 07:00 Intake Total 0 ml Output Total 200 ml Balance -200 ml Intake Oral 0 ml Output Urine Total 200 ml Assessment Assessment Problems Medical Problems: (1) Accelerated hypertension Status: Acute Comment Review of Relevant I have reviewed the following items wilbur (where applicable) has been applied. Labs Laboratory Tests Test 04/30/17 21:50 04/30/17 22:13 04/30/17 23:18 05/01/17 05:50 White Blood Count 8.7 x10^3/uL (4.0-11.0) 7.2 x10^3/uL (4.0-11.0) Red Blood Count 4.29 x10^6/uL (3.50-5.40) 3.63 x10^6/uL (3.50-5.40) Hemoglobin 12.2 g/dL (12.0-15.5) 10.3 g/dL (12.0-15.5) Hematocrit 37.5 % (36.0-47.0) 32.5 % (36.0-47.0) Mean Corpuscular Volume 87 fL (79-100) 90 fL (79-100) Mean Corpuscular Hemoglobin 28 pg (25-35) 28 pg (25-35) Mean Corpuscular Hemoglobin Concent 32 g/dL (31-37) 32 g/dL (31-37) Red Cell Distribution Width 15.4 % (11.5-14.5) 15.4 % (11.5-14.5) Platelet Count 182 x10^3/uL (140-400) 134 x10^3/uL (140-400) Neutrophils (%) (Auto) 79 % (31-73) 78 % (31-73) Lymphocytes (%) (Auto) 9 % (24-48) 10 % (24-48) Monocytes (%) (Auto) 7 % (0-9) 8 % (0-9) Eosinophils (%) (Auto) 4 % (0-3) 4 % (0-3) Basophils (%) (Auto) 1 % (0-3) 1 % (0-3) Neutrophils # (Auto) 6.9 x10^3uL (1.8-7.7) 5.6 x10^3uL (1.8-7.7) Lymphocytes # (Auto) 0.7 x10^3/uL (1.0-4.8) 0.7 x10^3/uL (1.0-4.8) Monocytes # (Auto) 0.6 x10^3/uL (0.0-1.1) 0.6 x10^3/uL (0.0-1.1) Eosinophils # (Auto) 0.3 x10^3/uL (0.0-0.7) 0.3 x10^3/uL (0.0-0.7) Basophils # (Auto) 0.1 x10^3/uL (0.0-0.2) 0.0 x10^3/uL (0.0-0.2) Sodium Level 145 mmol/L (136-145) 145 mmol/L (136-145) Potassium Level 4.7 mmol/L (3.5-5.1) 4.8 mmol/L (3.5-5.1) Chloride Level 110 mmol/L (98-107) 112 mmol/L (98-107) Carbon Dioxide Level 21 mmol/L (21-32) 19 mmol/L (21-32) Anion Gap 14 (6-14) 14 (6-14) Blood Urea Nitrogen 76 mg/dL (7-20) 73 mg/dL (7-20) Creatinine 2.7 mg/dL (0.6-1.0) 2.6 mg/dL (0.6-1.0) Estimated GFR (Cockcroft-Gault) 16.7 17.5 Glucose Level 132 mg/dL (70-99) 94 mg/dL (70-99) Calcium Level 9.3 mg/dL (8.5-10.1) 8.8 mg/dL (8.5-10.1) Magnesium Level 2.3 mg/dL (1.8-2.4) Creatine Kinase 51 U/L (26-192) Creatine Kinase MB (Mass) 1.6 ng/mL (0.0-3.6) Creatine Kinase MB Relative Index % (0-4) Troponin I Quantitative 0.045 ng/mL (0.000-0.055) 0.051 ng/mL (0.000-0.055) VO-Qzx-Y-Type Natriuretic Peptide 07167 pg/mL (0-449) Lipase 715 U/L (73-393) Thyroid Stimulating Hormone (TSH) 5.470 uIU/mL (0.358-3.74) Prothrombin Time 12.9 SEC (11.7-14.0) Prothromb Time International Ratio 1.0 (0.8-1.1) Urine Collection Type Void Urine Color Yellow Urine Clarity Cloudy Urine pH 5.5 Urine Specific [place] 1.015 Urine Protein >=300 mg/dL (NEG-TRACE) Urine Glucose (UA) 100 mg/dL (NEG) Urine Ketones (Stick) Negative mg/dL (NEG) Urine Blood Negative (NEG) Urine Nitrite Negative (NEG) Urine Bilirubin Negative (NEG) Urine Urobilinogen Dipstick 0.2 mg/dL (0.2 mg/dL) Urine Leukocyte Esterase Negative (NEG) Urine RBC 0 /HPF (0-2) Urine WBC 1-4 /HPF (0-4) Urine Squamous Epithelial Cells Few /LPF Urine Bacteria 0 /HPF (0-FEW) Urine Hyaline Casts Occasional /HPF Urine Mucus Slight /LPF Triglycerides Level 41 mg/dL (0-150) Cholesterol Level 160 mg/dL (0-200) LDL Cholesterol, Calculated 93 mg/dL (0-100) VLDL Cholesterol, Calculated 8 mg/dL (0-40) Non-HDL Cholesterol Calculated 101 mg/dL (0-129) HDL Cholesterol 59 mg/dL (40-60) Cholesterol/HDL Ratio 2.7 Test 05/01/17 11:55 Troponin I Quantitative 0.055 ng/mL (0.000-0.055) Laboratory Tests Test 04/30/17 21:50 04/30/17 22:13 04/30/17 23:18 05/01/17 05:50 White Blood Count 8.7 x10^3/uL (4.0-11.0) 7.2 x10^3/uL (4.0-11.0) Red Blood Count 4.29 x10^6/uL (3.50-5.40) 3.63 x10^6/uL (3.50-5.40) Hemoglobin 12.2 g/dL (12.0-15.5) 10.3 g/dL (12.0-15.5) Hematocrit 37.5 % (36.0-47.0) 32.5 % (36.0-47.0) Mean Corpuscular Volume 87 fL (79-100) 90 fL (79-100) Mean Corpuscular Hemoglobin 28 pg (25-35) 28 pg (25-35) Mean Corpuscular Hemoglobin Concent 32 g/dL (31-37) 32 g/dL (31-37) Red Cell Distribution Width 15.4 % (11.5-14.5) 15.4 % (11.5-14.5) Platelet Count 182 x10^3/uL (140-400) 134 x10^3/uL (140-400) Neutrophils (%) (Auto) 79 % (31-73) 78 % (31-73) Lymphocytes (%) (Auto) 9 % (24-48) 10 % (24-48) Monocytes (%) (Auto) 7 % (0-9) 8 % (0-9) Eosinophils (%) (Auto) 4 % (0-3) 4 % (0-3) Basophils (%) (Auto) 1 % (0-3) 1 % (0-3) Neutrophils # (Auto) 6.9 x10^3uL (1.8-7.7) 5.6 x10^3uL (1.8-7.7) Lymphocytes # (Auto) 0.7 x10^3/uL (1.0-4.8) 0.7 x10^3/uL (1.0-4.8) Monocytes # (Auto) 0.6 x10^3/uL (0.0-1.1) 0.6 x10^3/uL (0.0-1.1) Eosinophils # (Auto) 0.3 x10^3/uL (0.0-0.7) 0.3 x10^3/uL (0.0-0.7) Basophils # (Auto) 0.1 x10^3/uL (0.0-0.2) 0.0 x10^3/uL (0.0-0.2) Sodium Level 145 mmol/L (136-145) 145 mmol/L (136-145) Potassium Level 4.7 mmol/L (3.5-5.1) 4.8 mmol/L (3.5-5.1) Chloride Level 110 mmol/L (98-107) 112 mmol/L (98-107) Carbon Dioxide Level 21 mmol/L (21-32) 19 mmol/L (21-32) Anion Gap 14 (6-14) 14 (6-14) Blood Urea Nitrogen 76 mg/dL (7-20) 73 mg/dL (7-20) Creatinine 2.7 mg/dL (0.6-1.0) 2.6 mg/dL (0.6-1.0) Estimated GFR (Cockcroft-Gault) 16.7 17.5 Glucose Level 132 mg/dL (70-99) 94 mg/dL (70-99) Calcium Level 9.3 mg/dL (8.5-10.1) 8.8 mg/dL (8.5-10.1) Magnesium Level 2.3 mg/dL (1.8-2.4) Creatine Kinase 51 U/L (26-192) Creatine Kinase MB (Mass) 1.6 ng/mL (0.0-3.6) Creatine Kinase MB Relative Index % (0-4) Troponin I Quantitative 0.045 ng/mL (0.000-0.055) 0.051 ng/mL (0.000-0.055) UV-Ksb-R-Type Natriuretic Peptide 99943 pg/mL (0-449) Lipase 715 U/L (73-393) Thyroid Stimulating Hormone (TSH) 5.470 uIU/mL (0.358-3.74) Prothrombin Time 12.9 SEC (11.7-14.0) Prothromb Time International Ratio 1.0 (0.8-1.1) Urine Collection Type Void Urine Color Yellow Urine Clarity Cloudy Urine pH 5.5 Urine Specific [place] 1.015 Urine Protein >=300 mg/dL (NEG-TRACE) Urine Glucose (UA) 100 mg/dL (NEG) Urine Ketones (Stick) Negative mg/dL (NEG) Urine Blood Negative (NEG) Urine Nitrite Negative (NEG) Urine Bilirubin Negative (NEG) Urine Urobilinogen Dipstick 0.2 mg/dL (0.2 mg/dL) Urine Leukocyte Esterase Negative (NEG) Urine RBC 0 /HPF (0-2) Urine WBC 1-4 /HPF (0-4) Urine Squamous Epithelial Cells Few /LPF Urine Bacteria 0 /HPF (0-FEW) Urine Hyaline Casts Occasional /HPF Urine Mucus Slight /LPF Triglycerides Level 41 mg/dL (0-150) Cholesterol Level 160 mg/dL (0-200) LDL Cholesterol, Calculated 93 mg/dL (0-100) VLDL Cholesterol, Calculated 8 mg/dL (0-40) Non-HDL Cholesterol Calculated 101 mg/dL (0-129) HDL Cholesterol 59 mg/dL (40-60) Cholesterol/HDL Ratio 2.7 Test 05/01/17 11:55 Troponin I Quantitative 0.055 ng/mL (0.000-0.055) Medications Current Medications Aspirin (Children'S Aspirin) 324 mg 1X ONCE PO ; Start 04/30/17 at 21:45; Stop 04/30/17 at 21:46; Status DC Nitroglycerin (Nitrostat) 0.4 mg PRN Q5MIN PRN SL CP RATING > 1/10 Last administered on 04/30/17 22:00; Start 04/30/17 at 21:45; Stop 05/01/17 at 12:17; Status DC Hydralazine HCl (Apresoline) 10 mg 1X ONCE IVP Last administered on 04/30/17 23:25; Start 04/30/17 at 23:15; Stop 04/30/17 at 23:16; Status DC Ondansetron HCl (Zofran) 4 mg PRN Q8HRS PRN IV NAUSEA/VOMITING; Start 04/30/17 at 23:45; Stop 05/01/17 at 23:44 Morphine Sulfate 2 mg PRN Q2HR PRN IV PAIN; Start 04/30/17 at 23:45; Stop at 23:44 Amlodipine Besylate (Norvasc) 10 mg DAILY PO ; Start 05/01/17 at 11:00 Vitamin D (Vitamin D3) 1,000 unit DAILY PO ; Start 05/01/17 at 11:00 Clonidine HCl (Catapres) 0.1 mg QHS PO ; Start 05/01/17 at 21:00 Clopidogrel Bisulfate (Plavix) 75 mg DAILY PO ; Start 05/01/17 at 11:00 Levothyroxine Sodium (Synthroid) 75 mcg DAILY PO ; Start 05/01/17 at 10:30; Stop 05/01/17 at 12:19; Status DC Nitroglycerin (Nitrostat) 0.4 mg PRN Q5MIN PRN SL CHEST PAIN; Start 05/01/17 at 10:15 Non-Formulary Medication 20 mg DAILY PO ; Start 05/02/17 at 09:00; Status UNV Aspirin (Ecotrin) 81 mg DAILYWBKFT PO ; Start 05/01/17 at 12:00 Clonidine HCl (Catapres) 0.1 mg PRN Q6HRS PRN PO HYPERTENSION, SEE COMMENTS; Start 05/01/17 at 11:15 Hydralazine HCl (Apresoline) 10 mg PRN Q4HRS PRN IVP ELEVATED BP, SEE COMMENTS ; Start 05/01/17 at 11:30 Regadenoson (Lexiscan) 0.4 mg 1X ONCE IV Last administered on 05/01/17t 11:15; Start 05/01/17 at 11:15; Stop 05/01/17 at 11:28; Status DC Levothyroxine Sodium (Synthroid) 75 mcg DAILY06 PO ; Start 05/02/17 at 06:00 Magnesium Sulfate/ Dextrose 50 ml @ 25 mls/hr PRN DAILY PRN IV for Mag < 1.7 on am labs; Start 05/01/17 at 12:45 Hydralazine HCl (Apresoline) 25 mg TID PO ; Start 05/01/17 at 13:00 Sodium Bicarbonate (Sodium Bicarbonate) 650 mg BID PO ; Start 05/01/17 at 13:00 Active Scripts Active Nitrostat (Nitroglycerin) 0.4 Mg Tab.subl 0.4 Mg SL PRN Q5MIN PRN Vitamin D (Cholecalciferol (Vitamin D3)) 1,000 Unit Tablet 1,000 Unit PO DAILY [Aspirin] 81 MG Tablet. 81 Mg PO DAILY Reported Amlodipine Besylate 10 Mg Tablet 10 Mg PO DAILY Levothyroxine Sodium 75 Mcg Tablet 1 Tab PO DAILY Clonidine Hcl 0.1 Mg Tablet 1 Tab PO QHS Clopidogrel (Clopidogrel Bisulfate) 75 Mg Tablet 75 Mg PO DAILY Bystolic (Nebivolol) 10 Mg Tablet 20 Mg PO DAILY Vitals/I & O Vital Sign - Last 24 Hours 04/30/17 04/30/17 04/30/17 04/30/17 21:36 21:51 22:00 22:00 Temp 98.7 98.7 Pulse 68 60 60 60 Resp 18 B/P (MAP) 214/91 (132) 214/91 172/72 192/79 (116) Pulse Ox 94 97 O2 Delivery Room Air Nasal Cannula O2 Flow Rate 2.0 04/30/17 04/30/17 04/30/17 04/30/17 22:15 22:30 22:45 23:00 Pulse 60 62 66 62 B/P (MAP) 201/81 (121) 173/74 (107) 182/79 (113) 202/84 (123) Pulse Ox 97 97 97 97 O2 Delivery Nasal Cannula Nasal Cannula Nasal Cannula Nasal Cannula O2 Flow Rate 2.0 2.0 2.0 2.0 04/30/17 04/30/17 04/30/17 04/30/17 23:15 23:25 23:40 23:58 Temp 98.5 98.5 Pulse 62 68 64 Resp 18 B/P (MAP) 197/81 (119) 197/81 197/103 (134) 156/57 (90) Pulse Ox 97 96 O2 Delivery Nasal Cannula Room Air O2 Flow Rate 2.0 05/01/17 05/01/17 05/01/17 05/01/17 00:00 03:01 07:21 08:00 Temp 98.5 97.6 98.5 97.6 Pulse 67 63 Resp 18 20 B/P (MAP) 175/74 (107) 187/85 (119) Pulse Ox 91 93 O2 Delivery Room Air Room Air Room Air Room Air 05/01/17 11:00 Temp 98.7 98.7 Pulse 71 Resp 20 B/P (MAP) 189/83 (118) Pulse Ox 91 O2 Delivery Room Air Intake and Output 04/30/17 04/30/17 05/01/17 15:00 23:00 07:00 Intake Total 0 ml Output Total 200 ml Balance -200 ml JAY PRICE MD May 01, 2017 14:00
[2017-05-01 14:38] VITALS: BP 165/66
[2017-05-01] MEDS: CHOLECALCIFEROL (VITAMIN D3) 1,000 UNIT TABLET PO SCH (15:12)
[2017-05-01] MEDS: ASPIRIN ENTERIC COATED 81 MG TABLET.DR. PO SCH (15:12)
[2017-05-01] MEDS: amLODIPine BESYLATE 10 MG TABLET PO SCH (15:13)
[2017-05-01] MEDS: CLOPIDOGREL BISULFATE 75 MG TABLET PO SCH (15:13)
[2017-05-01] MEDS: hydrALAZINE 25 MG TABLET PO SCH ×2 (15:17→20:46)
[2017-05-01] MEDS: SODIUM BICARBONATE 650 MG TABLET. PO SCH ×2 (15:17→20:46)
--- NOTE | 2017-05-01 16:34 | RAD ---
APPROVED REPORT Test Type: Pharmacological Stress Nurse/Tech: ebony rodriguez Test Indications: chest pain Cardiac History: CAD, MULTIIPLE CARDIAC STENTS, PACEMAKER, SEE EHR Medications: SEE EHR Medical History: RENAL DISEASE, BILAT BKA, SEE EHR Resting ECG: ATRIAL PACED WITH FREQUENT PVC Resting Heart Rate: 69 bpm Resting Blood Pressure: 201/76mmHg Pretest Chest Pain: No chest pain Nurse/Tech Notes NO RESPIRATORY DISTRESS, NOTED PACED RYTHM PER INITIAL MONITOR HOOKUP. Consent: The procedure was explained to the patient in lay terms. Informed consent was witnessed. Alfie eout was entered into [employer]. History and Stress Test performed by RT Liya Tracy) (N) Pharm. Details Pharmacologic stress testing was performed using 0.4mg per 5ml of regadenoson given intravenously ove r 7-10 seconds. Stress Symptoms NAUSEA, VOMITTING,FACIAL FLUSHING. POST EXERCISE Reason for Termination: Infusion complete Max HR: 80 bpm Max Blood Pressure: 201/76mmHg Chest Pain: No. Arrhythmia: No. PT WITH NOTED PVC'S PRIOR TO TEST BEGINNING. ST Change: No. INTERPRETATION Stress EKG Conclusion: No evidence of stress induced EKG changes. Imaging Protocol IMAGE PROTOCOL: Rest Tc-99m/stress Tc-99m 1 day Rest: Stress: Viability: Radiopharm.Tc99m [id number] Sestamibi Dose12.1mCi 34mCi Duration 15min. 12min. Img Date 05/01/2017 05/01/2017 Inj-Img [id number]. 60min. Rest Admin Site:IV - Left HandAdministrator:RT Liya Tracy)(N) Stress Admin Site: IV - Left HandAdministrator: RT Rossana (Danielle)(N) STRESS DATA End Diast. Vol.194.0mlAv. Heart Rate60.0bpm End Syst. Vol.128.0mlCO Index BSA0.0L/min Myocardial Bifp944.0gEject. Cbgacpva91.0% Stress Rates Pk. Fill Rate1.16EDV/secLVtime Pk. Fill 240.76msec Pk. Empty Rate1.70ESV/secLVtime Pk. Bcfli249.41msec Pk. 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 There is minimal reversibility noted in the sherita-infarct region in the inferior segment. Wall Motion Severe global hypokinesis with severe inferior wall hypokinesis to akinesis. LV Perf. Quant 17 Seg. SSS29.00 17 Seg. SRS22.00 17 Seg. SDS7.00 Stress Defect Extent (% LAD)44.40Rest Defect Extent (% LAD)40.60Rev. Defect Extent (% LAD)9.40 Stress Defect Extent (% LCX) 70.00Rest Defect Extent (% LCX)48.80Rev. Defect Extent (% LCX)53.80 Stress Defect Extent (% RCA)73.30Rest Defect Extent (% RCA)44.40Rev. Defect Extent (% RCA)35.60 Stress Defect Extent (% JESSICA)58.70Rest Defect Extent (% JESSICA)46.10Rev. Defect Extent (% JESSICA)32.40 Other Information Quality:Good Risk Assessment: Moderate-High Risk Conclusion 1. No evidence of stress induced EKG changes. Rare PVC's. 2. Large fixed inferior/apical defect. 3. Severe LV dysfunction. EF 30% 4. Moderate to high risk study due to degree of prior infarct and LV dysfunction. No reversible ische melissa noted.
[2017-05-01 19:21] VITALS: BP 168/67
[2017-05-01] MEDS: cloNIDine HCL 0.1 MG TABLET PO SCH (20:47)
[2017-05-01 22:31] VITALS: BP_SYST 170; BP_SYST 191; BP_DIAS 74; BP_DIAS 79
[2017-05-02 03:27] VITALS: BP 152/74
[2017-05-02 05:13] LABS: CALCIUM 9.2 mg/dL (8.5-10.1); CREATININE 2.6 mg/dL (0.6-1.0); GFR 17.5; PHOSPHORUS 5.1 mg/dL (2.6-4.7); POTASSIUM 4.6 mmol/L (3.5-5.1)
[2017-05-02 07:00] VITALS: BP 172/51
[2017-05-02] MEDS: LEVOTHYROXINE 75 MCG TABLET PO SCH (07:45)
[2017-05-02] MEDS ORDERED: NON FORMULARY ITEM (Nebivolol Hcl (Bystolic) 20 MG) PO SCH (09:00)
[2017-05-02] MEDS: amLODIPine BESYLATE 10 MG TABLET PO SCH (09:08)
[2017-05-02] MEDS: ASPIRIN ENTERIC COATED 81 MG TABLET.DR. PO SCH (09:10)
[2017-05-02] MEDS: hydrALAZINE 25 MG TABLET PO SCH ×3 (09:10→21:26)
[2017-05-02] MEDS: CLOPIDOGREL BISULFATE 75 MG TABLET PO SCH (09:11)
[2017-05-02] MEDS: SODIUM BICARBONATE 650 MG TABLET. PO SCH ×2 (09:11→21:25)
[2017-05-02] MEDS: CHOLECALCIFEROL (VITAMIN D3) 1,000 UNIT TABLET PO SCH ×2 (09:11→12:14)
[2017-05-02 11:00] VITALS: BP 146/46
--- NOTE | 2017-05-02 13:10 | PDOC ---
PROGRESS NOTES Subjective Subjective no further chest pain. discussed MPI results with 2 fixed defects and no reversible ischemia and LVEF 30%. ant use krysten inhibitor or ARB due to ckd stage 4. labs reviewed,. bp better Objective Objective Vital Signs Date Time Temp Pulse Resp B/P (MAP) Pulse Ox O2 Delivery O2 Flow Rate FiO2 05/02/17 11:00 98.7 60 18 146/46 (79) 94 Room Air 98.7 04/30/17 23:15 2.0 Intake and Output 05/02/17 07:00 Intake Total 200 ml Output Total 1250 ml Balance -1050 ml Intake Oral 200 ml Output Urine Total 1250 ml # Voids 3 # Bowel Movements 1 Physical Exam Abdomen: Soft Heart: Normal S1, Normal S2 Extremities: No edema General: Alert HEENT: Atraumatic Lungs: Clear to auscultation MUSCULOSKELETAL: Other (bilateral BKA) Neuro: Normal speech Psych/Mental Status: Mental status NL Skin: No rashes Assessment Assessment Problemschest pain. coronary artery disease with PTCA and stents to RCA and circumflex peripheral artery disease bilateral BKA hypertension permanent pacemaker chronic kidney disease stage 4 Medical Problems: (1) Accelerated hypertension Status: Acute Plan Plan of Care dismiss today if okay with cardiology Comment Review of Relevant I have reviewed the following items wilbur (where applicable) has been applied. Labs Laboratory Tests Test 04/30/17 21:50 04/30/17 22:13 04/30/17 23:18 05/01/17 05:50 White Blood Count 8.7 x10^3/uL (4.0-11.0) 7.2 x10^3/uL (4.0-11.0) Red Blood Count 4.29 x10^6/uL (3.50-5.40) 3.63 x10^6/uL (3.50-5.40) Hemoglobin 12.2 g/dL (12.0-15.5) 10.3 g/dL (12.0-15.5) Hematocrit 37.5 % (36.0-47.0) 32.5 % (36.0-47.0) Mean Corpuscular Volume 87 fL (79-100) 90 fL (79-100) Mean Corpuscular Hemoglobin 28 pg (25-35) 28 pg (25-35) Mean Corpuscular Hemoglobin Concent 32 g/dL (31-37) 32 g/dL (31-37) Red Cell Distribution Width 15.4 % (11.5-14.5) 15.4 % (11.5-14.5) Platelet Count 182 x10^3/uL (140-400) 134 x10^3/uL (140-400) Neutrophils (%) (Auto) 79 % (31-73) 78 % (31-73) Lymphocytes (%) (Auto) 9 % (24-48) 10 % (24-48) Monocytes (%) (Auto) 7 % (0-9) 8 % (0-9) Eosinophils (%) (Auto) 4 % (0-3) 4 % (0-3) Basophils (%) (Auto) 1 % (0-3) 1 % (0-3) Neutrophils # (Auto) 6.9 x10^3uL (1.8-7.7) 5.6 x10^3uL (1.8-7.7) Lymphocytes # (Auto) 0.7 x10^3/uL (1.0-4.8) 0.7 x10^3/uL (1.0-4.8) Monocytes # (Auto) 0.6 x10^3/uL (0.0-1.1) 0.6 x10^3/uL (0.0-1.1) Eosinophils # (Auto) 0.3 x10^3/uL (0.0-0.7) 0.3 x10^3/uL (0.0-0.7) Basophils # (Auto) 0.1 x10^3/uL (0.0-0.2) 0.0 x10^3/uL (0.0-0.2) Sodium Level 145 mmol/L (136-145) 145 mmol/L (136-145) Potassium Level 4.7 mmol/L (3.5-5.1) 4.8 mmol/L (3.5-5.1) Chloride Level 110 mmol/L (98-107) 112 mmol/L (98-107) Carbon Dioxide Level 21 mmol/L (21-32) 19 mmol/L (21-32) Anion Gap 14 (6-14) 14 (6-14) Blood Urea Nitrogen 76 mg/dL (7-20) 73 mg/dL (7-20) Creatinine 2.7 mg/dL (0.6-1.0) 2.6 mg/dL (0.6-1.0) Estimated GFR (Cockcroft-Gault) 16.7 17.5 Glucose Level 132 mg/dL (70-99) 94 mg/dL (70-99) Calcium Level 9.3 mg/dL (8.5-10.1) 8.8 mg/dL (8.5-10.1) Magnesium Level 2.3 mg/dL (1.8-2.4) Creatine Kinase 51 U/L (26-192) Creatine Kinase MB (Mass) 1.6 ng/mL (0.0-3.6) Creatine Kinase MB Relative Index % (0-4) Troponin I Quantitative 0.045 ng/mL (0.000-0.055) 0.051 ng/mL (0.000-0.055) BT-Uvw-V-Type Natriuretic Peptide 00966 pg/mL (0-449) Lipase 715 U/L (73-393) Thyroid Stimulating Hormone (TSH) 5.470 uIU/mL (0.358-3.74) Prothrombin Time 12.9 SEC (11.7-14.0) Prothromb Time International Ratio 1.0 (0.8-1.1) Urine Collection Type Void Urine Color Yellow Urine Clarity Cloudy Urine pH 5.5 Urine Specific [place] 1.015 Urine Protein >=300 mg/dL (NEG-TRACE) Urine Glucose (UA) 100 mg/dL (NEG) Urine Ketones (Stick) Negative mg/dL (NEG) Urine Blood Negative (NEG) Urine Nitrite Negative (NEG) Urine Bilirubin Negative (NEG) Urine Urobilinogen Dipstick 0.2 mg/dL (0.2 mg/dL) Urine Leukocyte Esterase Negative (NEG) Urine RBC 0 /HPF (0-2) Urine WBC 1-4 /HPF (0-4) Urine Squamous Epithelial Cells Few /LPF Urine Bacteria 0 /HPF (0-FEW) Urine Hyaline Casts Occasional /HPF Urine Mucus Slight /LPF Triglycerides Level 41 mg/dL (0-150) Cholesterol Level 160 mg/dL (0-200) LDL Cholesterol, Calculated 93 mg/dL (0-100) VLDL Cholesterol, Calculated 8 mg/dL (0-40) Non-HDL Cholesterol Calculated 101 mg/dL (0-129) HDL Cholesterol 59 mg/dL (40-60) Cholesterol/HDL Ratio 2.7 Test 05/01/17 11:55 05/02/17 03:35 Troponin I Quantitative 0.055 ng/mL (0.000-0.055) Hemoglobin 10.7 g/dL (12.0-15.5) Sodium Level 144 mmol/L (136-145) Potassium Level 4.6 mmol/L (3.5-5.1) Chloride Level 113 mmol/L (98-107) Carbon Dioxide Level 21 mmol/L (21-32) Anion Gap 10 (6-14) Blood Urea Nitrogen 73 mg/dL (7-20) Creatinine 2.6 mg/dL (0.6-1.0) Estimated GFR (Cockcroft-Gault) 17.5 Glucose Level 93 mg/dL (70-99) Calcium Level 9.2 mg/dL (8.5-10.1) Phosphorus Level 5.1 mg/dL (2.6-4.7) Magnesium Level 2.3 mg/dL (1.8-2.4) Albumin 3.0 g/dL (3.4-5.0) Laboratory Tests Test 05/02/17 03:35 Hemoglobin 10.7 g/dL (12.0-15.5) Sodium Level 144 mmol/L (136-145) Potassium Level 4.6 mmol/L (3.5-5.1) Chloride Level 113 mmol/L (98-107) Carbon Dioxide Level 21 mmol/L (21-32) Anion Gap 10 (6-14) Blood Urea Nitrogen 73 mg/dL (7-20) Creatinine 2.6 mg/dL (0.6-1.0) Estimated GFR (Cockcroft-Gault) 17.5 Glucose Level 93 mg/dL (70-99) Calcium Level 9.2 mg/dL (8.5-10.1) Phosphorus Level 5.1 mg/dL (2.6-4.7) Magnesium Level 2.3 mg/dL (1.8-2.4) Albumin 3.0 g/dL (3.4-5.0) Medications Current Medications Aspirin (Children'S Aspirin) 324 mg 1X ONCE PO ; Start 04/30/17 at 21:45; Stop 04/30/17 at 21:46; Status DC Nitroglycerin (Nitrostat) 0.4 mg PRN Q5MIN PRN SL CP RATING > 1/10 Last administered on 04/30/17 22:00; Start 04/30/17 at 21:45; Stop 05/01/17 at 12:17; Status DC Hydralazine HCl (Apresoline) 10 mg 1X ONCE IVP Last administered on 04/30/17 23:25; Start 04/30/17 at 23:15; Stop 04/30/17 at 23:16; Status DC Ondansetron HCl (Zofran) 4 mg PRN Q8HRS PRN IV NAUSEA/VOMITING; Start 04/30/17 at 23:45; Stop 05/01/17 at 23:44; Status DC Morphine Sulfate 2 mg PRN Q2HR PRN IV PAIN; Start 04/30/17 at 23:45; Stop at 23:44; Status DC Amlodipine Besylate (Norvasc) 10 mg DAILY PO Last administered on 05/02/17 09: 08; Start 05/01/17 at 11:00 Vitamin D (Vitamin D3) 1,000 unit DAILY PO Last administered on 05/02/17 12:14 ; Start 05/01/17 at 11:00 Clonidine HCl (Catapres) 0.1 mg QHS PO Last administered on 05/01/17 20:47; Start 05/01/17 at 21:00 Clopidogrel Bisulfate (Plavix) 75 mg DAILY PO Last administered on 05/02/17 09: 11; Start 05/01/17 at 11:00 Levothyroxine Sodium (Synthroid) 75 mcg DAILY PO ; Start 05/01/17 at 10:30; Stop 05/01/17 at 12:19; Status DC Nitroglycerin (Nitrostat) 0.4 mg PRN Q5MIN PRN SL CHEST PAIN; Start 05/01/17 at 10:15 Non-Formulary Medication 20 mg DAILY PO ; Start 05/02/17 at 09:00; Status UNV Aspirin (Ecotrin) 81 mg DAILYWBKFT PO Last administered on 05/02/17 09:10; Start 05/01/17 at 12:00 Clonidine HCl (Catapres) 0.1 mg PRN Q6HRS PRN PO HYPERTENSION, SEE COMMENTS; Start 05/01/17 at 11:15 Hydralazine HCl (Apresoline) 10 mg PRN Q4HRS PRN IVP ELEVATED BP, SEE COMMENTS ; Start 05/01/17 at 11:30 Regadenoson (Lexiscan) 0.4 mg 1X ONCE IV Last administered on 05/01/17 11:15; Start 05/01/17 at 11:15; Stop 05/01/17 at 11:28; Status DC Levothyroxine Sodium (Synthroid) 75 mcg DAILY06 PO Last administered on 07:45; Start 05/02/17 at 06:00 Magnesium Sulfate/ Dextrose 50 ml @ 25 mls/hr PRN DAILY PRN IV for Mag < 1.7 on am labs; Start 05/01/17 at 12:45 Hydralazine HCl (Apresoline) 25 mg TID PO Last administered on 05/02/17 09:10; Start 05/01/17 at 13:00 Sodium Bicarbonate (Sodium Bicarbonate) 650 mg BID PO Last administered on 09:11; Start 05/01/17 at 13:00 Active Scripts Active Nitrostat (Nitroglycerin) 0.4 Mg Tab.subl 0.4 Mg SL PRN Q5MIN PRN Vitamin D (Cholecalciferol (Vitamin D3)) 1,000 Unit Tablet 1,000 Unit PO DAILY [Aspirin] 81 MG Tablet. 81 Mg PO DAILY Reported Amlodipine Besylate 10 Mg Tablet 10 Mg PO DAILY Levothyroxine Sodium 75 Mcg Tablet 1 Tab PO DAILY Clonidine Hcl 0.1 Mg Tablet 1 Tab PO QHS Clopidogrel (Clopidogrel Bisulfate) 75 Mg Tablet 75 Mg PO DAILY Bystolic (Nebivolol) 10 Mg Tablet 20 Mg PO DAILY Vitals/I & O Vital Sign - Last 24 Hours 05/01/17 05/01/17 05/01/17 05/01/17 14:38 15:13 15:17 19:15 Temp 97.6 97.6 Pulse 60 60 60 Resp 20 B/P (MAP) 165/66 (99) 165/66 165/66 Pulse Ox 93 O2 Delivery Room Air Room Air 05/01/17 05/01/17 05/01/17 05/01/17 19:21 20:46 20:47 22:31 Temp 97.8 97.5 97.8 97.5 Pulse 60 60 60 62 Resp 18 20 B/P (MAP) 168/67 (100) 168/67 168/67 170/74 (106) Pulse Ox 95 96 O2 Delivery Room Air Room Air 05/02/17 05/02/17 05/02/17 05/02/17 03:27 07:00 09:08 09:10 Temp 97.1 97.8 97.1 97.8 Pulse 60 61 61 61 Resp 20 20 B/P (MAP) 152/74 (100) 172/51 (91) 172/51 172/51 Pulse Ox 94 92 O2 Delivery Room Air Room Air 05/02/17 11:00 Temp 98.7 98.7 Pulse 60 Resp 18 B/P (MAP) 146/46 (79) Pulse Ox 94 O2 Delivery Room Air Intake and Output 05/01/17 05/01/17 05/02/17 15:00 23:00 07:00 Intake Total 200 ml Output Total 400 ml 850 ml Balance -200 ml -850 ml LYNDA FELIX MD May 02, 2017 13:10
--- NOTE | 2017-05-02 13:14 | DISCH ---
DISCHARGE INSTRUCTIONS Condition on Discharge Condition on Discharge: Stable Activity After Discharge Activity Instructions for Disc: Resume previous activity Diet after Discharge Diet after Discharge: Cardiac Contacting the [facility] after DC Call your doctor for: If your condition worsens Follow-Up Follow up with: dr. felix in 1 week LYNDA FELIX MD May 02, 2017 13:14
[2017-05-02] MEDS ORDERED: HYDR-2868 PO (13:16)
[2017-05-02] MEDS ORDERED: SODI650T PO (13:16)
--- NOTE | 2017-05-02 13:21 | PDOC3 ---
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 Status: Acute Brief Hospital Course Allergies Allergies Coded Allergies Type Severity Reaction Last Updated Verified Quinolones Allergy Intermediate 01/29/17 Yes atorvastatin Allergy Intermediate 01/29/17 Yes ciprofloxacin Allergy Intermediate 01/29/17 Yes ciprofloxacin HCl Allergy Intermediate 01/29/17 Yes codeine Allergy Intermediate 01/29/17 Yes diazepam Allergy Intermediate 01/29/17 Yes doxazosin Allergy Intermediate 01/29/17 No eprosartan Allergy Intermediate 05/02/17 Yes fexofenadine Allergy Intermediate 01/29/17 No gabapentin Allergy Intermediate 01/29/17 Yes gatifloxacin Allergy Intermediate 05/02/17 Yes hydrochlorothiazide Allergy Intermediate 01/29/17 No isosorbide Allergy Intermediate 05/02/17 Yes labetalol Allergy Intermediate 01/29/17 Yes lisinopril Allergy Intermediate 01/29/17 Yes meloxicam Allergy Intermediate EDEMA 01/29/17 Yes metoprolol Allergy Intermediate 01/29/17 Yes naproxen Allergy Intermediate 05/02/17 Yes neomycin Allergy Intermediate 01/29/17 Yes oxycodone Allergy Intermediate 05/02/17 Yes pantoprazole Allergy Intermediate 05/02/17 Yes pravastatin Allergy Intermediate 01/29/17 Yes pregabalin Allergy Intermediate 01/29/17 Yes quinine Allergy Intermediate 01/29/17 Yes simvastatin Allergy Intermediate 01/29/17 Yes Tetracyclines Adverse Reaction Intermediate DROWSY 01/29/17 Yes nifedipine Adverse Reaction Intermediate FATIGUE 01/29/17 Yes tetracycline Adverse Reaction Intermediate DROWSY 01/29/17 Yes tramadol Adverse Reaction Intermediate FOGGY 01/29/17 Yes tramadol HCl Adverse Reaction Intermediate FOGGY 01/29/17 Yes valsartan Adverse Reaction Intermediate FATIGUE 01/29/17 Yes calcitonin Adverse Reaction Unknown 01/29/17 Yes olmesartan Adverse Reaction Unknown 01/29/17 Yes Uncoded Allergies Type Severity Reaction Last Updated Verified CHLOREX GLUE Allergy Intermediate 01/29/17 Vital Signs Vital Signs Date Time Temp Pulse Resp B/P (MAP) Pulse Ox O2 Delivery O2 Flow Rate FiO2 05/02/17 11:00 98.7 60 18 146/46 (79) 94 Room Air 98.7 Lab Results Laboratory Tests Test 04/30/17 21:50 04/30/17 22:13 04/30/17 23:18 05/01/17 05:50 White Blood Count 8.7 x10^3/uL (4.0-11.0) 7.2 x10^3/uL (4.0-11.0) Red Blood Count 4.29 x10^6/uL (3.50-5.40) 3.63 x10^6/uL (3.50-5.40) Hemoglobin 12.2 g/dL (12.0-15.5) 10.3 g/dL (12.0-15.5) Hematocrit 37.5 % (36.0-47.0) 32.5 % (36.0-47.0) Mean Corpuscular Volume 87 fL (79-100) 90 fL (79-100) Mean Corpuscular Hemoglobin 28 pg (25-35) 28 pg (25-35) Mean Corpuscular Hemoglobin Concent 32 g/dL (31-37) 32 g/dL (31-37) Red Cell Distribution Width 15.4 % (11.5-14.5) 15.4 % (11.5-14.5) Platelet Count 182 x10^3/uL (140-400) 134 x10^3/uL (140-400) Neutrophils (%) (Auto) 79 % (31-73) 78 % (31-73) Lymphocytes (%) (Auto) 9 % (24-48) 10 % (24-48) Monocytes (%) (Auto) 7 % (0-9) 8 % (0-9) Eosinophils (%) (Auto) 4 % (0-3) 4 % (0-3) Basophils (%) (Auto) 1 % (0-3) 1 % (0-3) Neutrophils # (Auto) 6.9 x10^3uL (1.8-7.7) 5.6 x10^3uL (1.8-7.7) Lymphocytes # (Auto) 0.7 x10^3/uL (1.0-4.8) 0.7 x10^3/uL (1.0-4.8) Monocytes # (Auto) 0.6 x10^3/uL (0.0-1.1) 0.6 x10^3/uL (0.0-1.1) Eosinophils # (Auto) 0.3 x10^3/uL (0.0-0.7) 0.3 x10^3/uL (0.0-0.7) Basophils # (Auto) 0.1 x10^3/uL (0.0-0.2) 0.0 x10^3/uL (0.0-0.2) Sodium Level 145 mmol/L (136-145) 145 mmol/L (136-145) Potassium Level 4.7 mmol/L (3.5-5.1) 4.8 mmol/L (3.5-5.1) Chloride Level 110 mmol/L (98-107) 112 mmol/L (98-107) Carbon Dioxide Level 21 mmol/L (21-32) 19 mmol/L (21-32) Anion Gap 14 (6-14) 14 (6-14) Blood Urea Nitrogen 76 mg/dL (7-20) 73 mg/dL (7-20) Creatinine 2.7 mg/dL (0.6-1.0) 2.6 mg/dL (0.6-1.0) Estimated GFR (Cockcroft-Gault) 16.7 17.5 Glucose Level 132 mg/dL (70-99) 94 mg/dL (70-99) Calcium Level 9.3 mg/dL (8.5-10.1) 8.8 mg/dL (8.5-10.1) Magnesium Level 2.3 mg/dL (1.8-2.4) Creatine Kinase 51 U/L (26-192) Creatine Kinase MB (Mass) 1.6 ng/mL (0.0-3.6) Creatine Kinase MB Relative Index % (0-4) Troponin I Quantitative 0.045 ng/mL (0.000-0.055) 0.051 ng/mL (0.000-0.055) FW-Vki-Y-Type Natriuretic Peptide 55900 pg/mL (0-449) Lipase 715 U/L (73-393) Thyroid Stimulating Hormone (TSH) 5.470 uIU/mL (0.358-3.74) Prothrombin Time 12.9 SEC (11.7-14.0) Prothromb Time International Ratio 1.0 (0.8-1.1) Urine Collection Type Void Urine Color Yellow Urine Clarity Cloudy Urine pH 5.5 Urine Specific [place] 1.015 Urine Protein >=300 mg/dL (NEG-TRACE) Urine Glucose (UA) 100 mg/dL (NEG) Urine Ketones (Stick) Negative mg/dL (NEG) Urine Blood Negative (NEG) Urine Nitrite Negative (NEG) Urine Bilirubin Negative (NEG) Urine Urobilinogen Dipstick 0.2 mg/dL (0.2 mg/dL) Urine Leukocyte Esterase Negative (NEG) Urine RBC 0 /HPF (0-2) Urine WBC 1-4 /HPF (0-4) Urine Squamous Epithelial Cells Few /LPF Urine Bacteria 0 /HPF (0-FEW) Urine Hyaline Casts Occasional /HPF Urine Mucus Slight /LPF Triglycerides Level 41 mg/dL (0-150) Cholesterol Level 160 mg/dL (0-200) LDL Cholesterol, Calculated 93 mg/dL (0-100) VLDL Cholesterol, Calculated 8 mg/dL (0-40) Non-HDL Cholesterol Calculated 101 mg/dL (0-129) HDL Cholesterol 59 mg/dL (40-60) Cholesterol/HDL Ratio 2.7 Test 05/01/17 11:55 05/02/17 03:35 Troponin I Quantitative 0.055 ng/mL (0.000-0.055) Hemoglobin 10.7 g/dL (12.0-15.5) Sodium Level 144 mmol/L (136-145) Potassium Level 4.6 mmol/L (3.5-5.1) Chloride Level 113 mmol/L (98-107) Carbon Dioxide Level 21 mmol/L (21-32) Anion Gap 10 (6-14) Blood Urea Nitrogen 73 mg/dL (7-20) Creatinine 2.6 mg/dL (0.6-1.0) Estimated GFR (Cockcroft-Gault) 17.5 Glucose Level 93 mg/dL (70-99) Calcium Level 9.2 mg/dL (8.5-10.1) Phosphorus Level 5.1 mg/dL (2.6-4.7) Magnesium Level 2.3 mg/dL (1.8-2.4) Albumin 3.0 g/dL (3.4-5.0) Laboratory Tests Test 7/6/17 03:35 Hemoglobin 10.7 g/dL (12.0-15.5) Sodium Level 144 mmol/L (136-145) Potassium Level 4.6 mmol/L (3.5-5.1) Chloride Level 113 mmol/L (98-107) Carbon Dioxide Level 21 mmol/L (21-32) Anion Gap 10 (6-14) Blood Urea Nitrogen 73 mg/dL (7-20) Creatinine 2.6 mg/dL (0.6-1.0) Estimated GFR (Cockcroft-Gault) 17.5 Glucose Level 93 mg/dL (70-99) Calcium Level 9.2 mg/dL (8.5-10.1) Phosphorus Level 5.1 mg/dL (2.6-4.7) Magnesium Level 2.3 mg/dL (1.8-2.4) Albumin 3.0 g/dL (3.4-5.0) Brief Hospital Course Ms. Anderson is a 86 old year old female admitted with chest pain. history of CAD and CKD stage 4 and PAD and bilateral bK KKKbelow knee amputations. cardiac enzymes negative. MPI showed fixed defects with no reversible ischemia and LVEF 30%. seen by cardiology and nephrology. Discharge Information Scheduled Amlodipine Besylate (Amlodipine Besylate), 10 MG PO DAILY, (Reported) Cholecalciferol (Vitamin D3) (Vitamin D), 1,000 UNIT PO DAILY Clonidine Hcl (Clonidine Hcl), 1 TAB PO QHS, (Reported) Clopidogrel Bisulfate (Clopidogrel), 75 MG PO DAILY, (Reported) Hydralazine Hcl (Hydralazine Hcl), 25 MG PO TID Levothyroxine Sodium (Levothyroxine Sodium), 1 TAB PO DAILY, (Reported) Nebivolol Hcl (Bystolic), 20 MG PO DAILY, (Reported) Sodium Bicarbonate (Sodium Bicarbonate), 650 MG PO BID [Aspirin], 81 MG PO DAILY Scheduled PRN Nitroglycerin (Nitrostat), 0.4 MG SL PRN Q5MIN PRN for CHEST PAIN LYNDA FELIX MD May 02, 2017 13:21
[2017-05-02 13:34] LABS: AMYLASE 176 U/L (25-115)
[2017-05-02 15:00] VITALS: BP 145/54
--- NOTE | 2017-05-02 16:03 | PDOC ---
JENNIFEREARL J [employer] WORK[employer] 05/02/17 1603: PROGRESS NOTES Subjective Subjective No chest pain, breathing easy. was waiting to go home. Objective Objective Vital Signs Date Time Temp Pulse Resp B/P (MAP) Pulse Ox O2 Delivery O2 Flow Rate FiO2 05/02/17 11:00 98.7 60 18 146/46 (79) 94 Room Air 98.7 04/30/17 23:15 2.0 Intake and Output 05/02/17 07:00 Intake Total 200 ml Output Total 1250 ml Balance -1050 ml Intake Oral 200 ml Output Urine Total 1250 ml # Voids 3 # Bowel Movements 1 Physical Exam Abdomen: Normal bowel sounds, Soft, No tenderness Heart: Regular rate, Normal S1, Normal S2, Other (+ systolic murmur) Extremities: Other (bilat bka) General: Alert, Oriented X3, Cooperative, No acute distress Lungs: Clear to auscultation Psych/Mental Status: Mental status NL, Mood NL Assessment Assessment Problems Medical Problems: (1) Accelerated hypertension Status: Acute 1. Chest pain, atypical. troponin series negative- AMI ruled out. 2. Acute on chronic combined systolic and diastolic heart failure; NT pro BNP elevated. Appears compensated. 3. CAD; s/p PCI/stent to RCA and LCx 4. ICM with new severe systolic dysfunction. Tentatively plan for cardiac cath tomorrow, 1pm. 5. Malignant hypertension; remains elevated, improving. increase hydralazine. consider change clonidine to Catapres patch for improved coverage. 5. Hyperlipidemia; fair control on no statin. consider advanced lipid testing as outpatient. 6. PVD; s/p bilateral BKA and recent left CEA 7. SSS s/p PPM; normal function 8. CKD IV - cr 2.6- request renal input prior to cardiac cath. Comment Review of Relevant I have reviewed the following items wilbur (where applicable) has been applied. Labs Laboratory Tests Test 04/30/17 21:50 04/30/17 22:13 04/30/17 23:18 05/01/17 05:50 White Blood Count 8.7 x10^3/uL (4.0-11.0) 7.2 x10^3/uL (4.0-11.0) Red Blood Count 4.29 x10^6/uL (3.50-5.40) 3.63 x10^6/uL (3.50-5.40) Hemoglobin 12.2 g/dL (12.0-15.5) 10.3 g/dL (12.0-15.5) Hematocrit 37.5 % (36.0-47.0) 32.5 % (36.0-47.0) Mean Corpuscular Volume 87 fL (79-100) 90 fL (79-100) Mean Corpuscular Hemoglobin 28 pg (25-35) 28 pg (25-35) Mean Corpuscular Hemoglobin Concent 32 g/dL (31-37) 32 g/dL (31-37) Red Cell Distribution Width 15.4 % (11.5-14.5) 15.4 % (11.5-14.5) Platelet Count 182 x10^3/uL (140-400) 134 x10^3/uL (140-400) Neutrophils (%) (Auto) 79 % (31-73) 78 % (31-73) Lymphocytes (%) (Auto) 9 % (24-48) 10 % (24-48) Monocytes (%) (Auto) 7 % (0-9) 8 % (0-9) Eosinophils (%) (Auto) 4 % (0-3) 4 % (0-3) Basophils (%) (Auto) 1 % (0-3) 1 % (0-3) Neutrophils # (Auto) 6.9 x10^3uL (1.8-7.7) 5.6 x10^3uL (1.8-7.7) Lymphocytes # (Auto) 0.7 x10^3/uL (1.0-4.8) 0.7 x10^3/uL (1.0-4.8) Monocytes # (Auto) 0.6 x10^3/uL (0.0-1.1) 0.6 x10^3/uL (0.0-1.1) Eosinophils # (Auto) 0.3 x10^3/uL (0.0-0.7) 0.3 x10^3/uL (0.0-0.7) Basophils # (Auto) 0.1 x10^3/uL (0.0-0.2) 0.0 x10^3/uL (0.0-0.2) Sodium Level 145 mmol/L (136-145) 145 mmol/L (136-145) Potassium Level 4.7 mmol/L (3.5-5.1) 4.8 mmol/L (3.5-5.1) Chloride Level 110 mmol/L (98-107) 112 mmol/L (98-107) Carbon Dioxide Level 21 mmol/L (21-32) 19 mmol/L (21-32) Anion Gap 14 (6-14) 14 (6-14) Blood Urea Nitrogen 76 mg/dL (7-20) 73 mg/dL (7-20) Creatinine 2.7 mg/dL (0.6-1.0) 2.6 mg/dL (0.6-1.0) Estimated GFR (Cockcroft-Gault) 16.7 17.5 Glucose Level 132 mg/dL (70-99) 94 mg/dL (70-99) Calcium Level 9.3 mg/dL (8.5-10.1) 8.8 mg/dL (8.5-10.1) Magnesium Level 2.3 mg/dL (1.8-2.4) Creatine Kinase 51 U/L (26-192) Creatine Kinase MB (Mass) 1.6 ng/mL (0.0-3.6) Creatine Kinase MB Relative Index % (0-4) Troponin I Quantitative 0.045 ng/mL (0.000-0.055) 0.051 ng/mL (0.000-0.055) GC-Exu-P-Type Natriuretic Peptide 69959 pg/mL (0-449) Lipase 715 U/L (73-393) Thyroid Stimulating Hormone (TSH) 5.470 uIU/mL (0.358-3.74) Prothrombin Time 12.9 SEC (11.7-14.0) Prothromb Time International Ratio 1.0 (0.8-1.1) Urine Collection Type Void Urine Color Yellow Urine Clarity Cloudy Urine pH 5.5 Urine Specific [place] 1.015 Urine Protein >=300 mg/dL (NEG-TRACE) Urine Glucose (UA) 100 mg/dL (NEG) Urine Ketones (Stick) Negative mg/dL (NEG) Urine Blood Negative (NEG) Urine Nitrite Negative (NEG) Urine Bilirubin Negative (NEG) Urine Urobilinogen Dipstick 0.2 mg/dL (0.2 mg/dL) Urine Leukocyte Esterase Negative (NEG) Urine RBC 0 /HPF (0-2) Urine WBC 1-4 /HPF (0-4) Urine Squamous Epithelial Cells Few /LPF Urine Bacteria 0 /HPF (0-FEW) Urine Hyaline Casts Occasional /HPF Urine Mucus Slight /LPF Triglycerides Level 41 mg/dL (0-150) Cholesterol Level 160 mg/dL (0-200) LDL Cholesterol, Calculated 93 mg/dL (0-100) VLDL Cholesterol, Calculated 8 mg/dL (0-40) Non-HDL Cholesterol Calculated 101 mg/dL (0-129) HDL Cholesterol 59 mg/dL (40-60) Cholesterol/HDL Ratio 2.7 Test 05/01/17 11:55 05/02/17 03:35 Troponin I Quantitative 0.055 ng/mL (0.000-0.055) Hemoglobin 10.7 g/dL (12.0-15.5) Sodium Level 144 mmol/L (136-145) Potassium Level 4.6 mmol/L (3.5-5.1) Chloride Level 113 mmol/L (98-107) Carbon Dioxide Level 21 mmol/L (21-32) Anion Gap 10 (6-14) Blood Urea Nitrogen 73 mg/dL (7-20) Creatinine 2.6 mg/dL (0.6-1.0) Estimated GFR (Cockcroft-Gault) 17.5 Glucose Level 93 mg/dL (70-99) Calcium Level 9.2 mg/dL (8.5-10.1) Phosphorus Level 5.1 mg/dL (2.6-4.7) Magnesium Level 2.3 mg/dL (1.8-2.4) Albumin 3.0 g/dL (3.4-5.0) Amylase Level 176 U/L (25-115) Lipase 581 U/L (73-393) Laboratory Tests Test 05/02/17 03:35 Hemoglobin 10.7 g/dL (12.0-15.5) Sodium Level 144 mmol/L (136-145) Potassium Level 4.6 mmol/L (3.5-5.1) Chloride Level 113 mmol/L (98-107) Carbon Dioxide Level 21 mmol/L (21-32) Anion Gap 10 (6-14) Blood Urea Nitrogen 73 mg/dL (7-20) Creatinine 2.6 mg/dL (0.6-1.0) Estimated GFR (Cockcroft-Gault) 17.5 Glucose Level 93 mg/dL (70-99) Calcium Level 9.2 mg/dL (8.5-10.1) Phosphorus Level 5.1 mg/dL (2.6-4.7) Magnesium Level 2.3 mg/dL (1.8-2.4) Albumin 3.0 g/dL (3.4-5.0) Amylase Level 176 U/L (25-115) Lipase 581 U/L (73-393) Medications Current Medications Aspirin (Children'S Aspirin) 324 mg 1X ONCE PO ; Start 04/30/17 at 21:45; Stop 04/30/17 at 21:46; Status DC Nitroglycerin (Nitrostat) 0.4 mg PRN Q5MIN PRN SL CP RATING > 1/10 Last administered on 04/30/17 22:00; Start 04/30/17 at 21:45; Stop 05/01/17 at 12:17; Status DC Hydralazine HCl (Apresoline) 10 mg 1X ONCE IVP Last administered on 04/30/17 23:25; Start 04/30/17 at 23:15; Stop 04/30/17 at 23:16; Status DC Ondansetron HCl (Zofran) 4 mg PRN Q8HRS PRN IV NAUSEA/VOMITING; Start 04/30/17 at 23:45; Stop 05/01/17 at 23:44; Status DC Morphine Sulfate 2 mg PRN Q2HR PRN IV PAIN; Start 04/30/17 at 23:45; Stop at 23:44; Status DC Amlodipine Besylate (Norvasc) 10 mg DAILY PO Last administered on 05/02/17 09: 08; Start 05/01/17 at 11:00 Vitamin D (Vitamin D3) 1,000 unit DAILY PO Last administered on 05/02/17 12:14 ; Start 05/01/17 at 11:00 Clonidine HCl (Catapres) 0.1 mg QHS PO Last administered on 05/01/17 20:47; Start 05/01/17 at 21:00 Clopidogrel Bisulfate (Plavix) 75 mg DAILY PO Last administered on 05/02/17 09: 11; Start 05/01/17 at 11:00 Levothyroxine Sodium (Synthroid) 75 mcg DAILY PO ; Start 05/01/17 at 10:30; Stop 05/01/17 at 12:19; Status DC Nitroglycerin (Nitrostat) 0.4 mg PRN Q5MIN PRN SL CHEST PAIN; Start 05/01/17 at 10:15 Non-Formulary Medication 20 mg DAILY PO ; Start 05/02/17 at 09:00; Stop 05/02/17 at 13:23; Status DC Aspirin (Ecotrin) 81 mg DAILYWBKFT PO Last administered on 05/02/17 09:10; Start 05/01/17 at 12:00 Clonidine HCl (Catapres) 0.1 mg PRN Q6HRS PRN PO HYPERTENSION, SEE COMMENTS; Start 05/01/17 at 11:15 Hydralazine HCl (Apresoline) 10 mg PRN Q4HRS PRN IVP ELEVATED BP, SEE COMMENTS ; Start 05/01/17 at 11:30 Regadenoson (Lexiscan) 0.4 mg 1X ONCE IV Last administered on 05/01/17 11:15; Start 05/01/17 at 11:15; Stop 05/01/17 at 11:28; Status DC Levothyroxine Sodium (Synthroid) 75 mcg DAILY06 PO Last administered on 07:45; Start 05/02/17 at 06:00 Magnesium Sulfate/ Dextrose 50 ml @ 25 mls/hr PRN DAILY PRN IV for Mag < 1.7 on am labs; Start 05/01/17 at 12:45 Hydralazine HCl (Apresoline) 25 mg TID PO Last administered on 05/02/17 09:10; Start 05/01/17 at 13:00 Sodium Bicarbonate (Sodium Bicarbonate) 650 mg BID PO Last administered on 09:11; Start 05/01/17 at 13:00 Active Scripts Active Sodium Bicarbonate 650 Mg Tablet 650 Mg PO BID 30 Days Hydralazine Hcl 25 Mg Tablet 25 Mg PO TID 30 Days Nitrostat (Nitroglycerin) 0.4 Mg Tab.subl 0.4 Mg SL PRN Q5MIN PRN Vitamin D (Cholecalciferol (Vitamin D3)) 1,000 Unit Tablet 1,000 Unit PO DAILY [Aspirin] 81 MG Tablet. 81 Mg PO DAILY Reported Amlodipine Besylate 10 Mg Tablet 10 Mg PO DAILY Levothyroxine Sodium 75 Mcg Tablet 1 Tab PO DAILY Clonidine Hcl 0.1 Mg Tablet 1 Tab PO QHS Clopidogrel (Clopidogrel Bisulfate) 75 Mg Tablet 75 Mg PO DAILY Bystolic (Nebivolol) 10 Mg Tablet 20 Mg PO DAILY Vitals/I & O Vital Sign - Last 24 Hours 05/01/17 05/01/17 05/01/17 05/01/17 19:15 19:21 20:46 20:47 Temp 97.8 97.8 Pulse 60 60 60 Resp 18 B/P (MAP) 168/67 (100) 168/67 168/67 Pulse Ox 95 O2 Delivery Room Air Room Air 05/01/17 05/02/17 05/02/17 05/02/17 22:31 03:27 07:00 08:00 Temp 97.5 97.1 97.8 97.5 97.1 97.8 Pulse 62 60 61 Resp 20 20 20 B/P (MAP) 170/74 (106) 152/74 (100) 172/51 (91) Pulse Ox 96 94 92 O2 Delivery Room Air Room Air Room Air Room Air 05/02/17 05/02/17 05/02/17 09:08 09:10 11:00 Temp 98.7 98.7 Pulse 61 61 60 Resp 18 B/P (MAP) 172/51 172/51 146/46 (79) Pulse Ox 94 O2 Delivery Room Air Intake and Output 05/01/17 05/01/17 05/02/17 15:00 23:00 07:00 Intake Total 200 ml Output Total 400 ml 850 ml Balance -200 ml -850 ml KARL ROGEL MD 05/03/17 0724: PROGRESS NOTES Assessment Assessment Patient seen and examined 05/02/17. Agree with SHOE DRESSER's assessment and plan. Agree with cardiac catheterization to evaluate diminished LV systolic function especially in lieu of her history of coronary artery disease. Risks and benefits explained. EARL RODRIGUEZ APRN May 02, 2017 16:03 KARL ROGEL MD May 03, 2017 07:24
[2017-05-02] MEDS: IV NORMAL SALINE 1000ML BAG 1,000 ML IV SCH (16:30)
[2017-05-02 18:26] VITALS: BP 164/53
[2017-05-02] MEDS: ACETYLCYSTEINE 20% ORAL SOLN 600 MG/3 ML SYRINGE. PO SCH (21:25)
[2017-05-02] MEDS: cloNIDine HCL 0.1 MG TABLET PO SCH (21:26)
[2017-05-02 22:31] VITALS: BP 152/46
[2017-05-03] VITALS (23 sets, daily range): BP systolic 107–199; BP diastolic 49–84
[2017-05-03] MEDS: LEVOTHYROXINE 75 MCG TABLET PO SCH ×2 (04:54→08:34)
[2017-05-03 05:08] LABS: ALBUMIN 2.5 g/dL (3.4-5.0); CALCIUM 7.9 mg/dL (8.5-10.1); CREATININE 2.6 mg/dL (0.6-1.0); GFR 17.5; PHOSPHORUS 4.8 mg/dL (2.6-4.7); POTASSIUM 4.6 mmol/L (3.5-5.1)
--- NOTE | 2017-05-03 07:49 | RAD ---
CT of the abdomen without contrast, 05/02/2017: History: Elevated amylase and lipase Noncontrast scans were obtained as requested and compared to a study from 11/12/2014. There are small bilateral pleural effusions. There is a calcified granuloma in the left base. The heart is enlarged. Extensive coronary artery calcifications are present. Transvenous pacing leads are in place. There are foci of increased density within the gallbladder compatible with gallstones. No pericholecystic edema is seen. Two small cysts are again noted in the right lobe of the liver. The pancreatic head cannot be clearly from unopacified duodenum. No pancreatic mass or peripancreatic edema is seen. There are calcified granulomata in the spleen. The spleen is of normal size. There is extensive bilateral renal cortical scarring. Several small renal cysts are again noted. The kidneys show no evidence of obstruction. No adrenal abnormality is detected. There is moderate calcific plaquing of the abdominal aorta and its branches. There is no evidence of aneurysm. No abdominal adenopathy is seen. There are surgical sutures related to the ascending colon. The bowel loops are not dilated. No free fluid or free air is evident in the abdomen. Moderate multilevel degenerative changes are present in the lumbar spine. IMPRESSION: 1. Severe bilateral renal scarring with small renal cysts. 2. Cholelithiasis. 3. Small bilateral pleural effusions. 4. Extensive aortic atherosclerosis and coronary artery disease.
[2017-05-03] MEDS: SODIUM BICARBONATE 650 MG TABLET. PO SCH ×2 (08:35→20:51)
[2017-05-03] MEDS: ASPIRIN ENTERIC COATED 81 MG TABLET.DR. PO SCH (08:35)
[2017-05-03] MEDS: CLOPIDOGREL BISULFATE 75 MG TABLET PO SCH (08:35)
[2017-05-03] MEDS: CHOLECALCIFEROL (VITAMIN D3) 1,000 UNIT TABLET PO SCH (09:00)
[2017-05-03] MEDS: hydrALAZINE 25 MG TABLET PO SCH ×3 (09:01→20:52)
[2017-05-03] MEDS: ACETYLCYSTEINE 20% ORAL SOLN 600 MG/3 ML SYRINGE. PO SCH ×2 (09:03→21:15)
[2017-05-03] MEDS: IV NORMAL SALINE 1000ML BAG 1,000 ML IV SCH (10:47)
--- NOTE | 2017-05-03 11:57 | PDOC ---
SUBJECTIVE ROS CKD IV doing oK - waiting on [facility] CVS: no Orthopnea, no CP RESP: no SOB, no DAMIAN GI: no Nausea, no Vomiting : no Dysuria, no Urgency OBJECTIVE Vital Signs Vital Signs Date Time Temp Pulse Resp B/P (MAP) Pulse Ox O2 Delivery O2 Flow Rate FiO2 05/03/17 11:00 98.0 60 18 144/51 (82) 94 Room Air 98.0 05/03/17 08:00 2.0 I & 0 Intake and Output 05/03/17 07:00 Intake Total 300 ml Output Total 700 ml Balance -400 ml Intake Oral 300 ml Output Urine Total 700 ml # Voids 3 PHYSICAL EXAM Physical Exam GEN: Awake, Oriented x 3, In no distress EYES: Vision Unchanged, Conjunctiva Normal EN: No EN Drainage, Mucous Membranes moist NECK: no JVD, no JVP, Supple, no Thyromegaly CVS: S1S2, + Murmur, No Gallop, No Rub,no Edema RESP: no Rales, no Rhonchi,no Acc. Muscle Use GI: BS + ve, NO Bruit, Non Tender, Non Distended : no CVA tenderness, no Suprapubic Tenderness DIAGNOSIS/ASSESSMENT Assessment & Plan CKD IV: Current fluid and E-lyte status does not necessitate emergent need for dialysis. Will re-evaluate for dialysis in the am ? CAD - [facility] today - discussed low/ mod risk of CAN depending on Dose of IVC. pt understands importance of Cardiac eval ^ed Phos - watch trend ANEMIA; Aranap as ordered, Transfuse as needed HTN: Current BP meds as reviewed. See orders for changes. ^ed Na - will change to 1/2NS if trend continues ^ed lipase - defer to Dr Woods Discussed Plan of Care with pt at bedside Problems: COMMENT/RELEVANT DATA Meds Current Medications Medications (Trade) Dose Ordered Sig/Sarah Start Time Stop Time Status Last Admin Dose Admin Acetylcysteine (Mucomyst 20% Oral Solution) 600 mg BID 05/02/17 21:00 05/04/17 20:59 05/03/17 09:03 600 MG Amlodipine Besylate (Norvasc) 10 mg DAILY 05/01/17 11:00 05/02/17 09:08 10 MG Aspirin (Children'S Aspirin) 324 mg 1X ONCE 04/30/17 21:45 04/30/17 21:46 DC Aspirin (Ecotrin) 81 mg DAILYWBKFT 05/01/17 12:00 05/03/17 08:35 81 MG Clonidine HCl (Catapres) 0.1 mg PRN Q6HRS PRN 05/01/17 11:15 Clopidogrel Bisulfate (Plavix) 75 mg DAILY 05/01/17 11:00 05/03/17 08:35 75 MG Hydralazine HCl (Apresoline) 50 mg TID 05/02/17 21:00 05/03/17 09:01 50 MG Levothyroxine Sodium (Synthroid) 75 mcg DAILY06 05/02/17 06:00 05/03/17 08:34 75 MCG Magnesium Sulfate/ Dextrose 50 ml @ 25 mls/hr PRN DAILY PRN 05/01/17 12:45 Morphine Sulfate 2 mg PRN Q2HR PRN 04/30/17 23:45 05/01/17 23:44 DC Nitroglycerin (Nitrostat) 0.4 mg PRN Q5MIN PRN 05/01/17 10:15 Non-Formulary Medication 20 mg DAILY 05/02/17 09:00 05/02/17 13:23 DC Ondansetron HCl (Zofran) 4 mg PRN Q8HRS PRN 04/30/17 23:45 05/01/17 23:44 DC Regadenoson (Lexiscan) 0.4 mg 1X ONCE 05/01/17 11:15 05/01/17 11:28 DC 05/01/17 11:15 0.4 MG Sodium Bicarbonate (Sodium Bicarbonate) 650 mg BID 05/01/17 13:00 05/03/17 08:35 650 MG Sodium Chloride 1,000 ml @ 60 mls/hr [id number] 05/02/17 16:30 05/03/17 10:47 60 MLS/HR Vitamin D (Vitamin D3) 1,000 unit DAILY 05/01/17 11:00 05/02/17 12:14 1,000 UNIT Lab Laboratory Tests Test 05/03/17 03:59 Sodium Level 146 mmol/L (136-145) Potassium Level 4.6 mmol/L (3.5-5.1) Chloride Level 114 mmol/L (98-107) Carbon Dioxide Level 21 mmol/L (21-32) Anion Gap 11 (6-14) Blood Urea Nitrogen 72 mg/dL (7-20) Creatinine 2.6 mg/dL (0.6-1.0) Estimated GFR (Cockcroft-Gault) 17.5 Glucose Level 91 mg/dL (70-99) Calcium Level 7.9 mg/dL (8.5-10.1) Phosphorus Level 4.8 mg/dL (2.6-4.7) Magnesium Level 2.0 mg/dL (1.8-2.4) Albumin 2.5 g/dL (3.4-5.0) JAY PRICE MD May 03, 2017 11:57
[2017-05-03] MEDS ORDERED: LIDOCAINE 2% 20 ML VIAL. ONE (13:54)
[2017-05-03] MEDS ORDERED: IODIXANOL 320 MG/ML 100 ML VIAL. ONE ×2 (13:54→14:48)
[2017-05-03] MEDS ORDERED: MIDAZOLAM HCL/PF 2 MG/2 ML VIAL. ONE (14:20)
[2017-05-03] MEDS ORDERED: fentaNYL PF VIAL 100 MCG/2 ML VIAL ONE (14:20)
[2017-05-03] MEDS ORDERED: BIVALIRUDIN 250 MG VIAL. IV ONE ×2 (14:39→15:00)
[2017-05-03] MEDS ORDERED: CONTRAST GIVEN MC PRN (15:00)
[2017-05-03] MEDS ORDERED: IODIXANOL 320 MG/ML 100 ML VIAL. IART ONE (15:00)
[2017-05-03] MEDS ORDERED: fentaNYL PF VIAL 100 MCG/2 ML VIAL IV ONE (15:00)
[2017-05-03] MEDS ORDERED: LIDOCAINE 2% 20 ML VIAL. IJ ONE (15:00)
[2017-05-03] MEDS ORDERED: MIDAZOLAM HCL/PF 2 MG/2 ML VIAL. IV ONE (15:00)
[2017-05-03] MEDS ORDERED: NITROGLYCERIN 200 MCG/2 ML SYRINGE FOR CATH/VASC LAB. IART ONE (15:30)
[2017-05-03] MEDS ORDERED: IV 1/2 NORMAL SALINE 1,000 ML IV SCH (15:38)
--- NOTE | 2017-05-03 15:38 | PDOC ---
MODERATE SEDATION ASSESSMENT RISKS/ALTERNATIVES Risks/Alternatives Risks and alternatives of this type of sedation and procedure discussed with: RISK/ALTERNATIVES: Patient H & P ON CHART H & P H & P on chart and reviewed for co-morbid conditions and appropriate labs. H&P ON CHART: Yes STATUS PREG STATUS ASSESSED: N/A MEDS/ALLERGIES REVIEWED Meds/Allergies Reviewed Medications and Allergies including time and route of recently administered narcotics and sedatives. MEDS/ALLERGIES REVIEWED: Yes ASA RATING ASA RATING: II AIRWAY ASSESSMENT Airway Assessment Airway patency, oral function limitations, presence of caps, crowns, dentures, partials, and ability to extend neck assessed. AIRWAY ASSESSMENT: Yes MALLAMPATI SCORE MALLAMPATI SCORE: II PRE-SEDATION ASSESSMENT PRE-SEDATION ASSESSMENT: Yes KARL ROGEL MD May 03, 2017 15:38
[2017-05-03] MEDS ORDERED: ACETAMINOPHEN 325 MG TABLET. PO PRN (15:45)
--- NOTE | 2017-05-03 15:57 | CARD ---
APPROVED REPORT Procedure(s) performed: 1. Left heart catheterization and selective coronary angiography 2. Successful PCI/stents placement to the left anterior descending, left circumflex and right beal ry arteries. INDICATION The indication(s) include : Unstable angina, acute systolic heart failure. PROCEDURE NARRATIVE After explaining the risks, benefits and alternative options, informed consent was obtained from nora ent. Patient was brought to the cardiac [facility] Development Head and her right groin was prepped and draped in the us ual fashion. 20 mL of 2% lidocaine was infiltrated into the skin and subcutaneous tissues for local a nesthesia. Arterial access was obtained in the right common femoral artery and a 6 [place] sheath was inserted. 6 [place] JL4 and 6 [place] JR4 catheters were used to perform selective angiography of the l eft and right coronary arteries. The following findings were noted. FINDINGS 1. The left main coronary artery arose from the left sinus of Valsalva, gave rise to the left anteri or descending and left circumflex arteries and did not show any significant stenosis. 2. The left anterior descending artery showed 90% stenosis in the mid segment. 3. The left circumflex artery showed patent bifurcation stent in the midsegment of the left circumfl ex artery and the obtuse marginal branch. Just prior to this stent however, patient was found to have 70-80% stenosis. 4. The right coronary artery showed widely patent stents in the mid and distal segments. Just prior to the distal stent, there was a 90% stenosis noted. INTERVENTION The left main coronary artery was engaged with a 6 [place] XB 3.5 guide catheter. The stenosis in the left anterior descending artery was crossed with a 0.014 inch InboxQ prowater guidewire. This was pred ilated with a 2.5 x 12 mm trek balloon following which this was successfully treated with a 2.75 x 15 mm MultiLink vision stent. Subsequently, the stenosis in the left circumflex artery was crossed with the same guidewire, predilated with a 3.0 x 15 mm trek balloon following which this was successfully treated with a 3.5 x 18 mm MultiLink vision stent. Finally, the right coronary artery was engaged wi th a 6 [place] JR4 guide catheter, a stenosis in the distal segment cost with the prowater guidewire, predilated with 2.5 x 12 mm trek balloon and successfully treated with overlapping 2.75 x 18 mm and 3 .5 x 12 mm MultiLink vision stents. Follow-up angiography showed resolution of all the stenoses to 0% with KAILEY-3 distal flow. Patient tolerated the procedure well. Hemostasis in the right groin was ach ieved using Perclose suture closure device. There were no immediate complications. Conclusion 1. Severe three-vessel coronary disease 2. Successful multivessel PCI/stents placement to the left anterior descending, left circumflex and right coronary arteries. Recommendations 1. Aspirin 325 mg daily for one month and 81 mg daily thereafter. 2. Plavix 75 mg daily 3. Cardiovascular risk factor modification
--- NOTE | 2017-05-03 16:01 | PDOC ---
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 2 to RCA and 1 to LAD and 1 to circumflex.. feels okay. denies chest pain or shortness of breath. lab reviewed. says she did not take amlodipine at home and wants to stop it. Objective Objective Vital Signs Date Time Temp Pulse Resp B/P (MAP) Pulse Ox O2 Delivery O2 Flow Rate FiO2 05/03/17 15:41 62 15 96 Nasal Cannula 4.0 05/03/17 11:00 98.0 144/51 (82) 98.0 Intake and Output 05/03/17 07:00 Intake Total 300 ml Output Total 700 ml Balance -400 ml Intake Oral 300 ml Output Urine Total 700 ml # Voids 3 Physical Exam Abdomen: Soft Heart: Regular rate, Normal S1, Normal S2 Extremities: No edema, Other (bilateral BKA) General: Alert Lungs: Clear to auscultation Neuro: Normal speech Psych/Mental Status: Mental status NL Skin: No rashes Assessment Assessment Problemscoronary artery disease with PTCA and 4 stents . 2 RCA and 1 LAD and 1 circumflex peripheral artery disease bilateral BKA hypertension permanent pacemaker chronic kidney disease stage 4 Medical Problems: (1) Accelerated hypertension Status: Acute Plan Plan of Care iv fluids per nephrology aspirin and plavix d/c amlodipine lab tomorrow Comment Review of Relevant I have reviewed the following items wilbur (where applicable) has been applied. Labs Laboratory Tests Test 05/02/17 03:35 05/03/17 03:59 Hemoglobin 10.7 g/dL (12.0-15.5) Sodium Level 144 mmol/L (136-145) 146 mmol/L (136-145) Potassium Level 4.6 mmol/L (3.5-5.1) 4.6 mmol/L (3.5-5.1) Chloride Level 113 mmol/L (98-107) 114 mmol/L (98-107) Carbon Dioxide Level 21 mmol/L (21-32) 21 mmol/L (21-32) Anion Gap 10 (6-14) 11 (6-14) Blood Urea Nitrogen 73 mg/dL (7-20) 72 mg/dL (7-20) Creatinine 2.6 mg/dL (0.6-1.0) 2.6 mg/dL (0.6-1.0) Estimated GFR (Cockcroft-Gault) 17.5 17.5 Glucose Level 93 mg/dL (70-99) 91 mg/dL (70-99) Calcium Level 9.2 mg/dL (8.5-10.1) 7.9 mg/dL (8.5-10.1) Phosphorus Level 5.1 mg/dL (2.6-4.7) 4.8 mg/dL (2.6-4.7) Magnesium Level 2.3 mg/dL (1.8-2.4) 2.0 mg/dL (1.8-2.4) Albumin 3.0 g/dL (3.4-5.0) 2.5 g/dL (3.4-5.0) Amylase Level 176 U/L (25-115) Lipase 581 U/L (73-393) Laboratory Tests Test 05/03/17 03:59 Sodium Level 146 mmol/L (136-145) Potassium Level 4.6 mmol/L (3.5-5.1) Chloride Level 114 mmol/L (98-107) Carbon Dioxide Level 21 mmol/L (21-32) Anion Gap 11 (6-14) Blood Urea Nitrogen 72 mg/dL (7-20) Creatinine 2.6 mg/dL (0.6-1.0) Estimated GFR (Cockcroft-Gault) 17.5 Glucose Level 91 mg/dL (70-99) Calcium Level 7.9 mg/dL (8.5-10.1) Phosphorus Level 4.8 mg/dL (2.6-4.7) Magnesium Level 2.0 mg/dL (1.8-2.4) Albumin 2.5 g/dL (3.4-5.0) Medications Current Medications Aspirin (Children'S Aspirin) 324 mg 1X ONCE PO ; Start 04/30/17 at 21:45; Stop 04/30/17 at 21:46; Status DC Nitroglycerin (Nitrostat) 0.4 mg PRN Q5MIN PRN SL CP RATING > 1/10 Last administered on 04/30/17 22:00; Start 04/30/17 at 21:45; Stop 05/01/17 at 12:17; Status DC Hydralazine HCl (Apresoline) 10 mg 1X ONCE IVP Last administered on 04/30/17 23:25; Start 04/30/17 at 23:15; Stop 04/30/17 at 23:16; Status DC Ondansetron HCl (Zofran) 4 mg PRN Q8HRS PRN IV NAUSEA/VOMITING; Start 04/30/17 at 23:45; Stop 05/01/17 at 23:44; Status DC Morphine Sulfate 2 mg PRN Q2HR PRN IV PAIN; Start 04/30/17 at 23:45; Stop at 23:44; Status DC Amlodipine Besylate (Norvasc) 10 mg DAILY PO Last administered on 05/02/17 09: 08; Start 05/01/17 at 11:00 Vitamin D (Vitamin D3) 1,000 unit DAILY PO Last administered on 05/02/17 12:14 ; Start 05/01/17 at 11:00 Clonidine HCl (Catapres) 0.1 mg QHS PO Last administered on 05/02/17 21:26; Start 05/01/17 at 21:00 Clopidogrel Bisulfate (Plavix) 75 mg DAILY PO Last administered on 05/03/17 08: 35; Start 05/01/17 at 11:00 Levothyroxine Sodium (Synthroid) 75 mcg DAILY PO ; Start 05/01/17 at 10:30; Stop 05/01/17 at 12:19; Status DC Nitroglycerin (Nitrostat) 0.4 mg PRN Q5MIN PRN SL CHEST PAIN; Start 05/01/17 at 10:15 Non-Formulary Medication 20 mg DAILY PO ; Start 05/02/17 at 09:00; Stop 05/02/17 at 13:23; Status DC Aspirin (Ecotrin) 81 mg [id number] PO Last administered on 05/03/17 08:35; Start 05/01/17 at 12:00 Clonidine HCl (Catapres) 0.1 mg PRN Q6HRS PRN PO HYPERTENSION, SEE COMMENTS; Start 05/01/17 at 11:15 Hydralazine HCl (Apresoline) 10 mg PRN Q4HRS PRN IVP ELEVATED BP, SEE COMMENTS ; Start 05/01/17 at 11:30 Regadenoson (Lexiscan) 0.4 mg 1X ONCE IV Last administered on 05/01/17 11:15; Start 05/01/17 at 11:15; Stop 05/01/17 at 11:28; Status DC Levothyroxine Sodium (Synthroid) 75 mcg DAILY06 PO Last administered on 08:34; Start 05/02/17 at 06:00 Magnesium Sulfate/ Dextrose 50 ml @ 25 mls/hr PRN DAILY PRN IV for Mag < 1.7 on am labs; Start 05/01/17 at 12:45 Hydralazine HCl (Apresoline) 25 mg TID PO Last administered on 05/02/17 15:52; Start 05/01/17 at 13:00; Stop 05/02/17 at 15:59; Status DC Sodium Bicarbonate (Sodium Bicarbonate) 650 mg BID PO Last administered on 08:35; Start 05/01/17 at 13:00 Hydralazine HCl (Apresoline) 50 mg TID PO Last administered on 05/03/17 09:01; Start 05/02/17 at 21:00 Sodium Chloride 1,000 ml @ 60 mls/hr [id number] IV Last administered on 05/03/17 10:47; Start 05/02/17 at 16:30 Acetylcysteine (Mucomyst 20% Oral Solution) 600 mg BID PO Last administered on 05/03/17 09:03; Start 05/02/17 at 21:00; Stop 05/03/17 at 15:42; Status DC Darbepoetin Nate (Aranesp) 60 mcg [id number] SQ ; Start 05/03/17 at 21:00 Heparin Sodium/ Sodium Chloride 1,000 ml @ As Directed STK-MED ONCE .ROUTE ; Start 05/03/17 at 13:54; Stop 05/03/17 at 13:55; Status DC Lidocaine HCl 20 ml STK-MED ONCE .ROUTE ; Start 05/03/17 at 13:54; Stop 05/03/17 at 13:55; Status DC Iodixanol (Visipaque 320) 100 ml STK-MED ONCE .ROUTE ; Start 05/03/17 at 13:54; Stop 05/03/17 at 13:55; Status DC Fentanyl Citrate (Fentanyl 2ml Vial) 100 mcg STK-MED ONCE .ROUTE ; Start at 14:20; Stop 05/03/17 at 14:21; Status DC Midazolam HCl (Versed) 2 mg STK-MED ONCE .ROUTE ; Start 05/03/17 at 14:20; Stop 05/03/17 at 14:21; Status DC Bivalirudin (Angiomax) 250 mg STK-MED ONCE IV ; Start 05/03/17 at 14:39; Stop 05/03/17 at 14:40; Status DC Iodixanol (Visipaque 320) 100 ml STK-MED ONCE .ROUTE ; Start 05/03/17 at 14:48; Stop 05/03/17 at 14:49; Status DC Heparin Sodium/ Sodium Chloride 1,000 unit 1X ONCE IART Last administered on 15:35; Start 05/03/17 at 15:00; Stop 05/03/17 at 15:01; Status DC Midazolam HCl (Versed) 2 mg 1X ONCE IV Last administered on 05/03/17 15:36; Start 05/03/17 at 15:00; Stop 05/03/17 at 15:01; Status DC Fentanyl Citrate (Fentanyl 2ml Vial) 100 mcg 1X ONCE IV Last administered on 15:36; Start 05/03/17 at 15:00; Stop 05/03/17 at 15:01; Status DC Iodixanol (Visipaque 320) 100 ml 1X ONCE IART Last administered on 05/03/17 15 :35; Start 05/03/17 at 15:00; Stop 05/03/17 at 15:01; Status DC Bivalirudin (Angiomax) 250 mg 1X ONCE IV Last administered on 05/03/17 15:37; Start 05/03/17 at 15:00; Stop 05/03/17 at 15:01; Status DC Lidocaine HCl 20 ml 1X ONCE IJ Last administered on 05/03/17 15:35; Start 05/03 at 15:00; Stop 05/03/17 at 15:01; Status DC Info (Do NOT chart on this entry -- for MONITORING) 1 each PRN DAILY PRN MC SEE COMMENTS; Start 05/03/17 at 15:00; Stop 05/05/17 at 14:59 Nitroglycerin (Nitroglycerin) 200 mcg 1X ONCE IART Last administered on 15:35; Start 05/03/17 at 15:30; Stop 05/03/17 at 15:31; Status DC Sodium Chloride 1,000 ml @ 100 mls/hr Q10H IV ; Start 05/03/17 at 15:38 Acetaminophen (Tylenol) 650 mg PRN Q6HRS PRN PO MILD PAIN / TEMP; Start at 15:45 Acetylcysteine (Mucomyst 20% Oral Solution) 600 mg BID PO ; Start 05/03/17 at 21: 00; Stop 05/05/17 at 09:01 Active Scripts Active Sodium Bicarbonate 650 Mg Tablet 650 Mg PO BID 30 Days Hydralazine Hcl 25 Mg Tablet 25 Mg PO TID 30 Days Nitrostat (Nitroglycerin) 0.4 Mg Tab.subl 0.4 Mg SL PRN Q5MIN PRN Vitamin D (Cholecalciferol (Vitamin D3)) 1,000 Unit Tablet 1,000 Unit PO DAILY [Aspirin] 81 MG Tablet.dr 81 Mg PO DAILY Reported Amlodipine Besylate 10 Mg Tablet 10 Mg PO DAILY Levothyroxine Sodium 75 Mcg Tablet 1 Tab PO DAILY Clonidine Hcl 0.1 Mg Tablet 1 Tab PO QHS Clopidogrel (Clopidogrel Bisulfate) 75 Mg Tablet 75 Mg PO DAILY Bystolic (Nebivolol) 10 Mg Tablet 20 Mg PO DAILY Vitals/I & O Vital Sign - Last 24 Hours 05/02/17 05/02/17 05/02/17 05/02/17 18:26 19:56 21:26 21:26 Temp 97.4 97.4 Pulse 60 60 60 Resp 18 B/P (MAP) 164/53 (90) 164/53 164/53 Pulse Ox 93 O2 Delivery Room Air Room Air O2 Flow Rate 2.0 05/02/17 05/03/17 05/03/17 05/03/17 22:31 03:04 07:00 08:00 Temp 98.6 97.7 98.6 97.7 Pulse 60 70 63 Resp 20 22 20 B/P (MAP) 152/46 (81) 150/65 (93) 144/49 (80) Pulse Ox 94 93 94 O2 Delivery Room Air Room Air Room Air O2 Flow Rate 2.0 05/03/17 05/03/17 05/03/17 05/03/17 09:01 11:00 15:36 15:41 Temp 98.0 98.0 Pulse 63 60 62 Resp 18 14 15 B/P (MAP) 144/49 144/51 (82) Pulse Ox 94 99 96 O2 Delivery Room Air NonRebreather Mask Nasal Cannula O2 Flow Rate 10.0 4.0 Intake and Output 05/02/17 05/02/17 05/03/17 15:00 23:00 07:00 Intake Total 0 ml 300 ml Output Total 700 ml Balance 0 ml -400 ml LYNDA FELIX MD May 03, 2017 16:01
[2017-05-03] MEDS ORDERED: NITROGLYCERIN PREMIX 250 ML IV PRN (19:15)
[2017-05-03] MEDS ORDERED: FUROSEMIDE 40 MG/4 ML VIAL. IVP ONE (19:30)
[2017-05-03] MEDS: cloNIDine HCL 0.1 MG TABLET PO SCH (20:51)
[2017-05-03] MEDS ORDERED: DARBEPOETIN ALFA 60 MCG/0.3 ML DISP.SYRIN. SQ SCH (21:00)
[2017-05-04] VITALS (10 sets, daily range): BP systolic 107–153; BP diastolic 44–72
[2017-05-04 04:33] LABS: ALBUMIN 2.6 g/dL (3.4-5.0); CALCIUM 8.2 mg/dL (8.5-10.1); CREATININE 2.9 mg/dL (0.6-1.0); GFR 15.4; PHOSPHORUS 5.7 mg/dL (2.6-4.7); POTASSIUM 4.4 mmol/L (3.5-5.1)
--- NOTE | 2017-05-04 08:42 | PDOC ---
VIVIENNE SANDHU DECISION UNIT RN 05/04/17 0842: CARDIO Progress Notes Date and Time Date of Service 05/04/17 Time of Evaluation 0995 Subjective Subjective: No Chest Pain, No shortness of breath, Other Comments: insistent on discharging home today Vitals Vitals Vital Signs Date Time Temp Pulse Resp B/P (MAP) Pulse Ox O2 Delivery O2 Flow Rate FiO2 05/04/17 08:21 Room Air 2.0 05/04/17 07:00 98.6 60 18 153/47 (82) 93 98.6 Weight Weight [ ] Input and Output Intake and Output Intake and Output 05/04/17 07:00 Intake Total 600 ml Output Total 1450 ml Balance -850 ml Intake Oral 600 ml Output Urine Total 950 ml Emesis 500 ml # Voids 1 Laboratory Labs Laboratory Tests Test 05/04/17 03:25 Sodium Level 145 mmol/L (136-145) Potassium Level 4.4 mmol/L (3.5-5.1) Chloride Level 111 mmol/L (98-107) Carbon Dioxide Level 21 mmol/L (21-32) Anion Gap 13 (6-14) Blood Urea Nitrogen 65 mg/dL (7-20) Creatinine 2.9 mg/dL (0.6-1.0) Estimated GFR (Cockcroft-Gault) 15.4 Glucose Level 91 mg/dL (70-99) Calcium Level 8.2 mg/dL (8.5-10.1) Phosphorus Level 5.7 mg/dL (2.6-4.7) Magnesium Level 2.0 mg/dL (1.8-2.4) Albumin 2.6 g/dL (3.4-5.0) Physical Exam HEENT: Neck Supple W Full Motion Chest: Symmetric LUNGS: Clear to Auscultation Heart: S1S2, RRR, no murmurs Abdomen: Soft N/T, Other (right femoral arteriotomy site soft, clean, and dry. No erythema, ecchymosis, or hematoma present. ) Extremities: Other (bilateral BKA. ext warm to touch, neurovascular status intact) Neurology: alert, oriented, follow commands Assessment Assessment 1. 3VD; s/p PCI/stent placement to the LAD, LCx, and RCA with previous stents to the RCA and LCx 2. ICM with severe systolic dysfunction. 3. Hypertension 4. Hyperlipidemia 5. PVD; s/p bilateral BKA and recent left CEA 6. SSS s/p PPM Recommendations Add coreg for optimization given severe cardiomyopathy No WILBER with REINALDO, re-evaluate of an outpatient basis. Continue secondary prevention measures including DAPT with Aspirin and Plavix. ( ASA 325 mg daily for one month and 81 mg daily thereafter). Cardiac rehab referral Risk stratification modification BMP next with with f/u in a couple weeks with Dr. Kumar Repeat echo on an outpatient basis in 3 months. ZACHARY HUANG MD 05/04/17 1143: CARDIO Progress Notes Plan Plan Patient seen and examined. Agree with above nurse practitioner note. No acute events overnight. This morning after better blood pressure control she feels better. On examination she has clear lung sounds. Access sites are clean, dry and intact. Medications reviewed and initiated on carvedilol therapy. She was given a prescription for basic metabolic panel to be drawn next week in light of her renal insufficiency. Supportive care and okay to discharge from a cardiac standpoint later today. VIVIENNE SANDHU APRN May 04, 2017 08:42 ZACHARY HUANG MD May 04, 2017 11:43
--- NOTE | 2017-05-04 08:50 | PDOC ---
PROGRESS NOTES Subjective Subjective feels okay this morning. discussed cardiac cath results . lab reviewed. serum creatinine 2.9 and was 2.6. off of iv fluids. received lasix iv times one last night. blood pressure okay. Objective Objective Vital Signs Date Time Temp Pulse Resp B/P (MAP) Pulse Ox O2 Delivery O2 Flow Rate FiO2 05/04/17 08:21 Room Air 2.0 05/04/17 07:00 98.6 60 18 153/47 (82) 93 98.6 Intake and Output 05/04/17 07:00 Intake Total 600 ml Output Total 1450 ml Balance -850 ml Intake Oral 600 ml Output Urine Total 950 ml Emesis 500 ml # Voids 1 Physical Exam Abdomen: Soft Heart: Normal S1, Normal S2 Extremities: No edema, Other (bilateral bka) General: Alert HEENT: Atraumatic Lungs: Clear to auscultation Neuro: Normal speech Psych/Mental Status: Mental status NL Skin: No rashes Assessment Assessment Problemscoronary artery disease with PTCA and 4 stents . 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 Labs Laboratory Tests Test 05/03/17 03:59 05/04/17 03:25 Sodium Level 146 mmol/L (136-145) 145 mmol/L (136-145) Potassium Level 4.6 mmol/L (3.5-5.1) 4.4 mmol/L (3.5-5.1) Chloride Level 114 mmol/L (98-107) 111 mmol/L (98-107) Carbon Dioxide Level 21 mmol/L (21-32) 21 mmol/L (21-32) Anion Gap 11 (6-14) 13 (6-14) Blood Urea Nitrogen 72 mg/dL (7-20) 65 mg/dL (7-20) Creatinine 2.6 mg/dL (0.6-1.0) 2.9 mg/dL (0.6-1.0) Estimated GFR (Cockcroft-Gault) 17.5 15.4 Glucose Level 91 mg/dL (70-99) 91 mg/dL (70-99) Calcium Level 7.9 mg/dL (8.5-10.1) 8.2 mg/dL (8.5-10.1) Phosphorus Level 4.8 mg/dL (2.6-4.7) 5.7 mg/dL (2.6-4.7) Magnesium Level 2.0 mg/dL (1.8-2.4) 2.0 mg/dL (1.8-2.4) Albumin 2.5 g/dL (3.4-5.0) 2.6 g/dL (3.4-5.0) Laboratory Tests Test 05/04/17 03:25 Sodium Level 145 mmol/L (136-145) Potassium Level 4.4 mmol/L (3.5-5.1) Chloride Level 111 mmol/L (98-107) Carbon Dioxide Level 21 mmol/L (21-32) Anion Gap 13 (6-14) Blood Urea Nitrogen 65 mg/dL (7-20) Creatinine 2.9 mg/dL (0.6-1.0) Estimated GFR (Cockcroft-Gault) 15.4 Glucose Level 91 mg/dL (70-99) Calcium Level 8.2 mg/dL (8.5-10.1) Phosphorus Level 5.7 mg/dL (2.6-4.7) Magnesium Level 2.0 mg/dL (1.8-2.4) Albumin 2.6 g/dL (3.4-5.0) Medications Current Medications Aspirin (Children'S Aspirin) 324 mg 1X ONCE PO ; Start 04/30/17 at 21:45; Stop 04/30/17 at 21:46; Status DC Nitroglycerin (Nitrostat) 0.4 mg PRN Q5MIN PRN SL CP RATING > 1/10 Last administered on 04/30/17 22:00; Start 04/30/17 at 21:45; Stop 05/01/17 at 12:17; Status DC Hydralazine HCl (Apresoline) 10 mg 1X ONCE IVP Last administered on 04/30/17 23:25; Start 04/30/17 at 23:15; Stop 04/30/17 at 23:16; Status DC Ondansetron HCl (Zofran) 4 mg PRN Q8HRS PRN IV NAUSEA/VOMITING; Start 04/30/17 at 23:45; Stop 05/01/17 at 23:44; Status DC Morphine Sulfate 2 mg PRN Q2HR PRN IV PAIN; Start 04/30/17 at 23:45; Stop at 23:44; Status DC Amlodipine Besylate (Norvasc) 10 mg DAILY PO Last administered on 05/02/17 09: 08; Start 05/01/17 at 11:00; Stop 05/03/17 at 15:57; Status DC Vitamin D (Vitamin D3) 1,000 unit DAILY PO Last administered on 05/02/17 12:14 ; Start 05/01/17 at 11:00 Clonidine HCl (Catapres) 0.1 mg QHS PO Last administered on 05/03/17 20:51; Start 05/01/17 at 21:00 Clopidogrel Bisulfate (Plavix) 75 mg DAILY PO Last administered on 05/03/17 08: 35; Start 05/01/17 at 11:00 Levothyroxine Sodium (Synthroid) 75 mcg DAILY PO ; Start 05/01/17 at 10:30; Stop 05/01/17 at 12:19; Status DC Nitroglycerin (Nitrostat) 0.4 mg PRN Q5MIN PRN SL CHEST PAIN; Start 05/01/17 at 10:15 Non-Formulary Medication 20 mg DAILY PO ; Start 05/02/17 at 09:00; Stop 05/02/17 at 13:23; Status DC Aspirin (Ecotrin) 81 mg [id number] PO Last administered on 05/03/17 08:35; Start 05/01/17 at 12:00 Clonidine HCl (Catapres) 0.1 mg PRN Q6HRS PRN PO HYPERTENSION, SEE COMMENTS; Start 05/01/17 at 11:15 Hydralazine HCl (Apresoline) 10 mg PRN Q4HRS PRN IVP ELEVATED BP, SEE COMMENTS Last administered on 05/03/17 16:29; Start 05/01/17 at 11:30 Regadenoson (Lexiscan) 0.4 mg 1X ONCE IV Last administered on 05/01/17 11:15; Start 05/01/17 at 11:15; Stop 05/01/17 at 11:28; Status DC Levothyroxine Sodium (Synthroid) 75 mcg DAILY06 PO Last administered on 08:34; Start 05/02/17 at 06:00 Magnesium Sulfate/ Dextrose 50 ml @ 25 mls/hr PRN DAILY PRN IV for Mag < 1.7 on am labs; Start 05/01/17 at 12:45 Hydralazine HCl (Apresoline) 25 mg TID PO Last administered on 05/02/17 15:52; Start 05/01/17 at 13:00; Stop 05/02/17 at 15:59; Status DC Sodium Bicarbonate (Sodium Bicarbonate) 650 mg BID PO Last administered on 20:51; Start 05/01/17 at 13:00 Hydralazine HCl (Apresoline) 50 mg TID PO Last administered on 05/03/17 20:52; Start 05/02/17 at 21:00 Sodium Chloride 1,000 ml @ 60 mls/hr [id number] IV Last administered on 05/03/17 10:47; Start 05/02/17 at 16:30; Stop 05/03/17 at 18:58; Status DC Acetylcysteine (Mucomyst 20% Oral Solution) 600 mg BID PO Last administered on 05/03/17 09:03; Start 05/02/17 at 21:00; Stop 05/03/17 at 15:42; Status DC Darbepoetin Nate (Aranesp) 60 mcg [id number] SQ Last administered on 05/03/17 20: 54; Start 05/03/17 at 21:00 Heparin Sodium/ Sodium Chloride 1,000 ml @ As Directed STK-MED ONCE .ROUTE ; Start 05/03/17 at 13:54; Stop 05/03/17 at 13:55; Status DC Lidocaine HCl 20 ml STK-MED ONCE .ROUTE ; Start 05/03/17 at 13:54; Stop 05/03/17 at 13:55; Status DC Iodixanol (Visipaque 320) 100 ml STK-MED ONCE .ROUTE ; Start 05/03/17 at 13:54; Stop 05/03/17 at 13:55; Status DC Fentanyl Citrate (Fentanyl 2ml Vial) 100 mcg STK-MED ONCE .ROUTE ; Start at 14:20; Stop 05/03/17 at 14:21; Status DC Midazolam HCl (Versed) 2 mg STK-MED ONCE .ROUTE ; Start 05/03/17 at 14:20; Stop 05/03/17 at 14:21; Status DC Bivalirudin (Angiomax) 250 mg STK-MED ONCE IV ; Start 05/03/17 at 14:39; Stop 05/03/17 at 14:40; Status DC Iodixanol (Visipaque 320) 100 ml STK-MED ONCE .ROUTE ; Start 05/03/17 at 14:48; Stop 05/03/17 at 14:49; Status DC Heparin Sodium/ Sodium Chloride 1,000 unit 1X ONCE IART Last administered on 15:35; Start 05/03/17 at 15:00; Stop 05/03/17 at 15:01; Status DC Midazolam HCl (Versed) 2 mg 1X ONCE IV Last administered on 05/03/17 15:36; Start 05/03/17 at 15:00; Stop 05/03/17 at 15:01; Status DC Fentanyl Citrate (Fentanyl 2ml Vial) 100 mcg 1X ONCE IV Last administered on 15:36; Start 05/03/17 at 15:00; Stop 05/03/17 at 15:01; Status DC Iodixanol (Visipaque 320) 100 ml 1X ONCE IART Last administered on 05/03/17 15 :35; Start 05/03/17 at 15:00; Stop 05/03/17 at 15:01; Status DC Bivalirudin (Angiomax) 250 mg 1X ONCE IV Last administered on 05/03/17 15:37; Start 05/03/17 at 15:00; Stop 05/03/17 at 15:01; Status DC Lidocaine HCl 20 ml 1X ONCE IJ Last administered on 05/03/17 15:35; Start 05/03 at 15:00; Stop 05/03/17 at 15:01; Status DC Info (Do NOT chart on this entry -- for MONITORING) 1 each PRN DAILY PRN MC SEE COMMENTS; Start 05/03/17 at 15:00; Stop 05/05/17 at 14:59 Nitroglycerin (Nitroglycerin) 200 mcg 1X ONCE IART Last administered on 15:35; Start 05/03/17 at 15:30; Stop 05/03/17 at 15:31; Status DC Sodium Chloride 1,000 ml @ 50 mls/hr Q20H IV Last administered on 05/03/17 16: 56; Start 05/03/17 at 15:38; Stop 05/03/17 at 19:13; Status DC Acetaminophen (Tylenol) 650 mg PRN Q6HRS PRN PO MILD PAIN / TEMP Last administered on 05/03/17 20:53; Start 05/03/17 at 15:45 Acetylcysteine (Mucomyst 20% Oral Solution) 600 mg BID PO Last administered on 05/03/17 21:15; Start 05/03/17 at 21:00; Stop 05/05/17 at 09:01 Non-Formulary Medication 1 ea DAILY PO ; Start 05/04/17 at 09:00; Status UNV Nitroglycerin/ Dextrose 250 ml @ 0 mls/hr CONT PRN IV SEE I/O RECORD Last administered on 05/03/17 19:25; Start 05/03/17 at 19:15 Furosemide (Lasix) 40 mg 1X ONCE IVP Last administered on 05/03/17 19:26; Start 05/03/17 at 19:30; Stop 05/03/17 at 19:31; Status DC Carvedilol (Coreg) 3.125 mg BIDWMEALS PO ; Start 05/04/17 at 17:00; Status UNV Active Scripts Active Sodium Bicarbonate 650 Mg Tablet 650 Mg PO BID 30 Days Hydralazine Hcl 25 Mg Tablet 25 Mg PO TID 30 Days Nitrostat (Nitroglycerin) 0.4 Mg Tab.subl 0.4 Mg SL PRN Q5MIN PRN Vitamin D (Cholecalciferol (Vitamin D3)) 1,000 Unit Tablet 1,000 Unit PO DAILY [Aspirin] 81 MG Tablet.dr 81 Mg PO DAILY Reported Amlodipine Besylate 10 Mg Tablet 10 Mg PO DAILY Levothyroxine Sodium 75 Mcg Tablet 1 Tab PO DAILY Clonidine Hcl 0.1 Mg Tablet 1 Tab PO QHS Clopidogrel (Clopidogrel Bisulfate) 75 Mg Tablet 75 Mg PO DAILY Bystolic (Nebivolol) 10 Mg Tablet 20 Mg PO DAILY Vitals/I & O Vital Sign - Last 24 Hours 05/03/17 05/03/17 05/03/177/17 09:01 11:00 15:36 15:41 Temp 98.0 98.0 Pulse 63 60 62 Resp 18 14 15 B/P (MAP) 144/49 144/51 (82) Pulse Ox 94 99 96 O2 Delivery Room Air NonRebreather Mask Nasal Cannula O2 Flow Rate 10.0 4.0 05/03/17 05/03/17 05/03/17 05/03/17 15:45 16:15 16:21 16:29 Pulse 68 64 62 62 B/P (MAP) 158/68 (98) 187/84 (118) 187/73 187/73 05/03/17 05/03/17 05/03/17 05/03/17 16:30 16:45 17:00 17:15 Pulse 62 62 60 58 B/P (MAP) 174/74 (107) 163/70 (101) 150/70 (96) 157/67 (97) 05/03/17 05/03/17 05/03/17 05/03/17 18:00 19:00 19:27 19:30 Temp 98.3 98.3 Pulse 60 61 60 60 Resp 20 B/P (MAP) 173/71 (105) 184/77 (112) 169/74 (105) 169/74 (105) Pulse Ox 94 O2 Delivery Nasal Cannula O2 Flow Rate 3.0 05/03/17 05/03/17 05/03/17 05/03/17 20:00 20:00 20:30 20:51 Pulse 60 60 60 B/P (MAP) 160/70 (100) 150/68 (95) 150/68 O2 Delivery Room Air 05/03/17 05/03/17 05/03/17 05/03/17 20:52 21:00 21:30 22:00 Pulse 60 60 60 60 B/P (MAP) 150/68 179/81 (113) 182/79 (113) 199/79 (119) 05/03/17 05/03/17 05/03/17 05/03/17 22:30 22:41 23:00 23:30 Temp 97.9 97.9 Pulse 60 60 60 64 Resp 18 B/P (MAP) 128/61 (83) 128/61 (83) 142/66 (91) 107/53 (71) Pulse Ox 98 O2 Delivery Nasal Cannula O2 Flow Rate 3.0 05/04/17 05/04/17 05/04/17 05/04/17 00:01 00:30 01:00 01:30 Pulse 64 74 70 65 B/P (MAP) 122/60 (80) 125/58 (80) 122/55 (77) 127/55 (79) 05/04/17 05/04/17 05/04/17 05/04/17 02:30 02:57 07:00 08:21 Temp 97.6 98.6 97.6 98.6 Pulse 60 63 60 Resp 18 18 B/P (MAP) 107/68 (81) 123/72 (89) 153/47 (82) Pulse Ox 92 93 O2 Delivery Nasal Cannula Nasal Cannula Room Air O2 Flow Rate 2.0 2.0 2.0 Intake and Output 05/03/17 05/03/17 05/04/17 15:00 23:00 07:00 Intake Total 600 ml Output Total 500 ml 950 ml Balance -500 ml -350 ml LYNDA FELIX MD May 04, 2017 08:49
[2017-05-04] MEDS ORDERED: CARV3.122 PO (08:59)
[2017-05-04] MEDS ORDERED: ASPI325T8 PO (08:59)
[2017-05-04] MEDS ORDERED: HYDR-2868 PO (08:59)
[2017-05-04] MEDS: NON FORMULARY ITEM PO SCH (09:00)
[2017-05-04] MEDS: SODIUM BICARBONATE 650 MG TABLET. PO SCH (09:05)
[2017-05-04] MEDS: CHOLECALCIFEROL (VITAMIN D3) 1,000 UNIT TABLET PO SCH (09:05)
[2017-05-04] MEDS: hydrALAZINE 25 MG TABLET PO SCH ×2 (09:05→13:46)
[2017-05-04] MEDS: CLOPIDOGREL BISULFATE 75 MG TABLET PO SCH (09:05)
[2017-05-04] MEDS: ACETYLCYSTEINE 20% ORAL SOLN 600 MG/3 ML SYRINGE. PO SCH (09:07)
--- NOTE | 2017-05-04 09:08 | PDOC3 ---
Discharge Summary Visit Information Date of Admission: May 01, 2017 Date of Discharge: May 04, 2017 Admitting Diagnosis: chest pain Final Diagnosis Problems Medical Problems: (1) Accelerated hypertension coronary artery disease ischemic cardiomyopathy [employer] INS[employer]OR and stents times 4 Status: Acute Brief Hospital Course Allergies Allergies Coded Allergies Type Severity Reaction Last Updated Verified Quinolones Allergy Intermediate 01/29/17 Yes atorvastatin Allergy Intermediate 01/29/17 Yes ciprofloxacin Allergy Intermediate 01/29/17 Yes ciprofloxacin HCl Allergy Intermediate 01/29/17 Yes codeine Allergy Intermediate 01/29/17 Yes diazepam Allergy Intermediate 01/29/17 Yes doxazosin Allergy Intermediate 01/29/17 No eprosartan Allergy Intermediate 05/02/17 Yes fexofenadine Allergy Intermediate 01/29/17 No gabapentin Allergy Intermediate 01/29/17 Yes gatifloxacin Allergy Intermediate 05/02/17 Yes hydrochlorothiazide Allergy Intermediate 01/29/17 No isosorbide Allergy Intermediate 05/02/17 Yes labetalol Allergy Intermediate 01/29/17 Yes lisinopril Allergy Intermediate 01/29/17 Yes meloxicam Allergy Intermediate EDEMA 01/29/17 Yes metoprolol Allergy Intermediate 01/29/17 Yes naproxen Allergy Intermediate 05/02/17 Yes neomycin Allergy Intermediate 01/29/17 Yes oxycodone Allergy Intermediate 05/02/17 Yes pantoprazole Allergy Intermediate 05/02/17 Yes pravastatin Allergy Intermediate 01/29/17 Yes pregabalin Allergy Intermediate 01/29/17 Yes quinine Allergy Intermediate 01/29/17 Yes simvastatin Allergy Intermediate 01/29/17 Yes Tetracyclines Adverse Reaction Intermediate DROWSY 01/29/17 Yes calcitonin Adverse Reaction Intermediate 05/03/17 Yes nifedipine Adverse Reaction Intermediate FATIGUE 01/29/17 Yes olmesartan Adverse Reaction Intermediate 05/03/17 Yes tetracycline Adverse Reaction Intermediate DROWSY 01/29/17 Yes tramadol Adverse Reaction Intermediate FOGGY 01/29/17 Yes tramadol HCl Adverse Reaction Intermediate FOGGY 01/29/17 Yes valsartan Adverse Reaction Intermediate FATIGUE 01/29/17 Yes Uncoded Allergies Type Severity Reaction Last Updated Verified CHLOREX GLUE Allergy Intermediate 01/29/17 Vital Signs Vital Signs Date Time Temp Pulse Resp B/P (MAP) Pulse Ox O2 Delivery O2 Flow Rate FiO2 05/04/17 08:21 Room Air 2.0 05/04/17 07:00 98.6 60 18 153/47 (82) 93 98.6 Lab Results Laboratory Tests Test 05/03/17 03:59 05/04/17 03:25 Sodium Level 146 mmol/L (136-145) 145 mmol/L (136-145) Potassium Level 4.6 mmol/L (3.5-5.1) 4.4 mmol/L (3.5-5.1) Chloride Level 114 mmol/L (98-107) 111 mmol/L (98-107) Carbon Dioxide Level 21 mmol/L (21-32) 21 mmol/L (21-32) Anion Gap 11 (6-14) 13 (6-14) Blood Urea Nitrogen 72 mg/dL (7-20) 65 mg/dL (7-20) Creatinine 2.6 mg/dL (0.6-1.0) 2.9 mg/dL (0.6-1.0) Estimated GFR (Cockcroft-Gault) 17.5 15.4 Glucose Level 91 mg/dL (70-99) 91 mg/dL (70-99) Calcium Level 7.9 mg/dL (8.5-10.1) 8.2 mg/dL (8.5-10.1) Phosphorus Level 4.8 mg/dL (2.6-4.7) 5.7 mg/dL (2.6-4.7) Magnesium Level 2.0 mg/dL (1.8-2.4) 2.0 mg/dL (1.8-2.4) Albumin 2.5 g/dL (3.4-5.0) 2.6 g/dL (3.4-5.0) Laboratory Tests Test 05/04/17 03:25 Sodium Level 145 mmol/L (136-145) Potassium Level 4.4 mmol/L (3.5-5.1) Chloride Level 111 mmol/L (98-107) Carbon Dioxide Level 21 mmol/L (21-32) Anion Gap 13 (6-14) Blood Urea Nitrogen 65 mg/dL (7-20) Creatinine 2.9 mg/dL (0.6-1.0) Estimated GFR (Cockcroft-Gault) 15.4 Glucose Level 91 mg/dL (70-99) Calcium Level 8.2 mg/dL (8.5-10.1) Phosphorus Level 5.7 mg/dL (2.6-4.7) Magnesium Level 2.0 mg/dL (1.8-2.4) Albumin 2.6 g/dL (3.4-5.0) Brief Hospital Course Ms. Anderson is a 86 old white female with CAD and :PAD and CKD stage 4 with bilateral BKA admitted with chest pain. cardiac enzymes negative. MPI stress test without reversivel ixhemia but LVEF 30% which was lower. with iv fluid prep had cardiac cath and PTCA with r coronary stents . 2 stents to RCA and 1 stent to LAD and 1 stent to circumflex. bp meds adjusted and hydralazine increased and started on low dose carvedilol and off of bystolic. aspirin increased to 325 mg daily for 1 month then 81 mg there after and continue plavix. serum creatinine stable at 2.9. Discharge Information Scheduled Aspirin (Aspirin), 1 TAB PO DAILY Carvedilol (Carvedilol), 3.125 MG PO BIDWMEALS Cholecalciferol (Vitamin D3) (Vitamin D), 1,000 UNIT PO DAILY Clonidine Hcl (Clonidine Hcl), 1 TAB PO QHS, (Reported) Clopidogrel Bisulfate (Clopidogrel), 75 MG PO DAILY, (Reported) Hydralazine Hcl (Hydralazine Hcl), 50 MG PO TID Levothyroxine Sodium (Levothyroxine Sodium), 1 TAB PO DAILY, (Reported) Sodium Bicarbonate (Sodium Bicarbonate), 650 MG PO BID Scheduled PRN Nitroglycerin (Nitrostat), 0.4 MG SL PRN Q5MIN PRN for CHEST PAIN Discontinued Medications Amlodipine Besylate (Amlodipine Besylate), 10 MG PO DAILY, (Reported) Nebivolol Hcl (Bystolic), 20 MG PO DAILY, (Reported) [Aspirin], 81 MG PO DAILY Patient Instructions Patient Instructions office visit with dr. felix next week follow up visit with rigo vogel in 2 weeks LYNDA FELIX MD May 04, 2017 09:08
[2017-05-04] MEDS: CARVEDILOL 3.125 MG TABLET. PO SCH ×2 (09:23→16:09)
[2017-05-05] MEDS ORDERED: ASPIRIN 325 MG TABLET PO SCH (08:00)
== END 2017-05-04 17:29 | disposition home or self-care (01) | DRG 246 ==
LOC: ER 21:33 → 2 SOUTH 23:00 → OBSVTOIN 05-01 11:09
PROVIDERS: ADMIT Internal Medicine; ATTEND Internal Medicine
PROC: 027237Z Dilation of Coronary Artery, Three Arteries with Four or More Drug-eluting Intraluminal Devices, Percutaneous Approach (ICD-10-PCS; principal; 2017-05-03)
PROC: 4A023N7 Measurement of Cardiac Sampling and Pressure, Left Heart, Percutaneous Approach (ICD-10-PCS; 2017-05-03)
PROC: B2111ZZ Fluoroscopy of Multiple Coronary Arteries using Low Osmolar Contrast (ICD-10-PCS; 2017-05-03)
PROC: B2151ZZ Fluoroscopy of Left Heart using Low Osmolar Contrast (ICD-10-PCS; 2017-05-03)
DX: I25.110 Atherosclerotic heart disease of native coronary artery with unstable angina pectoris (principal); I50.43 Acute on chronic combined systolic (congestive) and diastolic (congestive) heart failure; N18.4 Chronic kidney disease, stage 4 (severe); I13.0 Hypertensive heart and chronic kidney disease with heart failure and stage 1 through stage 4 chronic kidney disease, or unspecified chronic kidney disease; I16.0 Hypertensive urgency; I25.5 Ischemic cardiomyopathy; E03.9 Hypothyroidism, unspecified; E78.5 Hyperlipidemia, unspecified; I25.2 Old myocardial infarction; K21.9 Gastro-esophageal reflux disease without esophagitis; I73.9 Peripheral vascular disease, unspecified; K22.4 Dyskinesia of esophagus; M19.90 Unspecified osteoarthritis, unspecified site; G62.9 Polyneuropathy, unspecified; Z96.642 Presence of left artificial hip joint; Z82.49 Family history of ischemic heart disease and other diseases of the circulatory system; Z83.3 Family history of diabetes mellitus; Z85.038 Personal history of other malignant neoplasm of large intestine; Z86.73 Personal history of transient ischemic attack (TIA), and cerebral infarction without residual deficits; Z89.511 Acquired absence of right leg below knee; Z89.512 Acquired absence of left leg below knee; Z89.611 Acquired absence of right leg above knee; Z89.612 Acquired absence of left leg above knee; Z90.49 Acquired absence of other specified parts of digestive tract; Z95.5 Presence of coronary angioplasty implant and graft; Z90.89 Acquired absence of other organs; Z90.710 Acquired absence of both cervix and uterus; Z88.6 Allergy status to analgesic agent; Z88.1 Allergy status to other antibiotic agents; Z88.5 Allergy status to narcotic agent; Z88.0 Allergy status to penicillin; Z88.8 Allergy status to other drugs, medicaments and biological substances; Z91.048 Other nonmedicinal substance allergy status; Z95.0 Presence of cardiac pacemaker
CPT/HCPCS: 36415; 71010; 74150; 78452; 80048; 80061; 80069; 81001; 82150; 82553; 83690; 83735; 83880; 84443; 84484; 85018; 85027; 85610; 92928; 93005; 93017; 93458; 96374; 96375; 96376; 99152; 99153; A6539; A9500; C1725; C1769; C1771; C1876; C1887; C1892; G0269; G0378; G0379; J0360; J0583; J0881; J1644; J1940; J2001; J2250; J2785; J3010; J3490; J7030; 99285-25

== ENCOUNTER 2017-10-06 01:52 | Emergency (ER) | payer MEDICARE ==
[~2017-10-06 01:52] MED LIST changes: +ASPI-482 PO; +ASPI325T8 PO; +BYSTOLIC20 MG PO; +CALC667T PO; +CARV3.122 PO; +CEPH250C PO; +FOLI0.8T21 PO; +HYDR-2869 PO
[2017-10-06 02:11] VITALS: BP 165/97
[2017-10-06 02:54] LABS: BASO % 1 % (0-3); EOS % 8 % (0-3); HEMATOCRIT 28.8 % (36.0-47.0); LYMPH # 0.8 x10^3/uL (1.0-4.8); LYMPH % 10 % (24-48); MEAN CORPUSCULAR HEMOGLOBIN 28 pg (25-35); MEAN CORPUSCULAR HGB CONC 31 g/dL (31-37); MEAN CORPUSCULAR VOLUME 89 fL (79-100); MONO % 9 % (0-9); NEUT % 73 % (31-73); PLATELET COUNT 69 x10^3/uL (140-400); RED BLOOD COUNT 3.22 x10^6/uL (3.50-5.40); RED CELL DISTRIBUTION WIDTH 15.5 % (11.5-14.5)
[2017-10-06 03:04] LABS: CALCIUM 8.8 mg/dL (8.5-10.1); CREATININE 2.8 mg/dL (0.6-1.0); POTASSIUM 3.6 mmol/L (3.5-5.1)
[2017-10-06 03:10] LABS: ALBUMIN 2.7 g/dL (3.4-5.0); ALBUMIN/GLOBULIN RATIO 0.8 (1.0-1.7); TOTAL BILIRUBIN 0.4 mg/dL (0.2-1.0); TOTAL PROTEIN 5.9 g/dL (6.4-8.2)
--- NOTE | 2017-10-06 04:03 | RAD ---
Right upper extremity venous duplex study 10/06/2017 CLINICAL HISTORY: Right arm swelling and pain. TECHNIQUE: Using a combination of real time ultrasound imaging and color-flow and pulse Doppler imaging techniques along with graded compression and augmentation, duplex evaluation of the major venous structures of the right upper extremity was performed. Multiple images were obtained. FINDINGS: There is no sonographic evidence of venous thrombosis involving the visualized venous structures of the right upper extremity. An AV fistula is seen which is patent. IMPRESSION: There is no sonographic evidence of venous thrombosis involving the visualized venous structures of the right upper extremity. Electronically signed by: Abebe Glaser MD (10/06/2017 3:59 AM) [facility] [id number]
--- NOTE | 2017-10-06 06:50 | PHYS DOC ---
Past Medical History Past Medical History: CAD, Hypertension, MS, Renal Failure, Stroke, TIA, Other Additional Past Medical Histor: Polyarteritis; neuropathy; polyps Past Surgical History: Appendectomy, Colectomy, Pacemaker, Other Additional Past Surgical Histo: bilateral BKA; Sphincter removed Alcohol Use: None Drug Use: None Adult General Chief Complaint Chief Complaint: UPPER EXTREMITY PAIN HPI HPI Patient is a 87 year old female who presents right arm swelling. Patient status post right upper extremity AV fistula placement and right hemasplit chest catheter placement. [] Review of Systems Review of Systems ROS as per hPI [] All other systems were reviewed and found to be within normal limits, except as documented in this note. Allergies Allergies Allergies Coded Allergies Type Severity Reaction Last Updated Verified Quinolones Allergy Intermediate 10/02/17 Yes atorvastatin Allergy Intermediate 10/02/17 Yes ciprofloxacin Allergy Intermediate 10/02/17 Yes ciprofloxacin HCl Allergy Intermediate 10/02/17 Yes codeine Allergy Intermediate 10/02/17 Yes diazepam Allergy Intermediate 10/02/17 Yes doxazosin Allergy Intermediate 10/02/17 Yes eprosartan Allergy Intermediate 05/02/17 Yes fexofenadine Allergy Intermediate 10/02/17 Yes gabapentin Allergy Intermediate 10/02/17 Yes gatifloxacin Allergy Intermediate 10/02/17 Yes hydrochlorothiazide Allergy Intermediate 10/02/17 No isosorbide Allergy Intermediate 10/02/17 Yes labetalol Allergy Intermediate 10/02/17 Yes lisinopril Allergy Intermediate 10/02/17 Yes meloxicam Allergy Intermediate EDEMA 10/02/17 Yes metoprolol Allergy Intermediate 10/02/17 Yes naproxen Allergy Intermediate 10/02/17 Yes neomycin Allergy Intermediate 01/29/17 Yes oxycodone Allergy Intermediate 10/02/17 Yes pantoprazole Allergy Intermediate 10/02/17 Yes pravastatin Allergy Intermediate 10/02/17 Yes pregabalin Allergy Intermediate 10/02/17 Yes quinine Allergy Intermediate 10/02/17 Yes simvastatin Allergy Intermediate 10/02/17 Yes Tetracyclines Adverse Reaction Intermediate DROWSY 10/02/17 Yes calcitonin Adverse Reaction Intermediate 10/02/17 Yes nifedipine Adverse Reaction Intermediate FATIGUE 10/02/17 Yes olmesartan Adverse Reaction Intermediate 10/02/17 Yes tetracycline Adverse Reaction Intermediate DROWSY 10/02/17 Yes tramadol Adverse Reaction Intermediate FOGGY 10/02/17 Yes tramadol HCl Adverse Reaction Intermediate FOGGY 10/02/17 Yes valsartan Adverse Reaction Intermediate FATIGUE 10/02/17 Yes Uncoded Allergies Type Severity Reaction Last Updated Verified CHLOREX GLUE Allergy Intermediate 01/29/17 Physical Exam Physical Exam Constitutional: Well developed, well nourished, no acute distress, non-toxic appearance. [] HENT: Normocephalic, atraumatic, bilateral external ears normal, oropharynx moist, no oral exudates, nose normal. [] Eyes: PERRLA, EOMI, conjunctiva normal, no discharge. [] Neck: Normal range of motion. [] Cardiovascular:Heart rate regular rhythm, no murmur [] Lungs & Thorax: Bilateral breath sounds clear to auscultation, HemoSplit catheter [] Abdomen: Bowel sounds normal, soft, no tenderness. [] Skin: Warm, dry, no erythema, no rash. Extremities: Mild u mild to moderate symmetric pper extremity swelling, palpable thrill over 80 fistula, no appreciable erythema or cellulitis, fistula wound is appropriately healing with appropriate tenderness. No drainage noted. Radial pulses 2+. Lateral lower extremity amputations with prosthesis in place. [] Neurologic: Alert and oriented, normal motor function, normal sensory function, no focal deficits noted. [] Current Patient Data Vital Signs Vital Signs Date Time Temp Pulse Resp B/P (MAP) Pulse Ox O2 Delivery O2 Flow Rate FiO2 10/06/17 02:11 98.1 42 16 165/97 (119) 96 Room Air 98.1 Lab Values Laboratory Tests Test 10/06/17 02:45 White Blood Count 8.0 x10^3/uL (4.0-11.0) Red Blood Count 3.22 x10^6/uL (3.50-5.40) L Hemoglobin 9.0 g/dL (12.0-15.5) L Hematocrit 28.8 % (36.0-47.0) L Mean Corpuscular Volume 89 fL (79-100) Mean Corpuscular Hemoglobin 28 pg (25-35) Mean Corpuscular Hemoglobin Concent 31 g/dL (31-37) Red Cell Distribution Width 15.5 % (11.5-14.5) H Platelet Count 69 x10^3/uL (140-400) L Neutrophils (%) (Auto) 73 % (31-73) Lymphocytes (%) (Auto) 10 % (24-48) L Monocytes (%) (Auto) 9 % (0-9) Eosinophils (%) (Auto) 8 % (0-3) H Basophils (%) (Auto) 1 % (0-3) Neutrophils # (Auto) 5.8 x10^3uL (1.8-7.7) Lymphocytes # (Auto) 0.8 x10^3/uL (1.0-4.8) L Monocytes # (Auto) 0.7 x10^3/uL (0.0-1.1) Eosinophils # (Auto) 0.6 x10^3/uL (0.0-0.7) Basophils # (Auto) 0.0 x10^3/uL (0.0-0.2) Sodium Level 140 mmol/L (136-145) Potassium Level 3.6 mmol/L (3.5-5.1) Chloride Level 104 mmol/L (98-107) Carbon Dioxide Level 27 mmol/L (21-32) Anion Gap 9 (6-14) Blood Urea Nitrogen 24 mg/dL (7-20) H Creatinine 2.8 mg/dL (0.6-1.0) H Estimated GFR (Cockcroft-Gault) 16.0 BUN/Creatinine Ratio 9 (6-20) Glucose Level 109 mg/dL (70-99) H Calcium Level 8.8 mg/dL (8.5-10.1) Total Bilirubin 0.4 mg/dL (0.2-1.0) Aspartate Amino Transferase (AST) 25 U/L (15-37) Alanine Aminotransferase (ALT) 19 U/L (14-59) Alkaline Phosphatase 90 U/L (46-116) Total Protein 5.9 g/dL (6.4-8.2) L Albumin 2.7 g/dL (3.4-5.0) L Albumin/Globulin Ratio 0.8 (1.0-1.7) L Laboratory Tests 10/06/17 02:45 Laboratory Tests 10/06/17 02:45 EKG EKG [] Radiology/Procedures Radiology/Procedures Right upper extremity venous ultrasound: No pseudoaneurysm or evidence of DVT or arterial occlusion on radiology report.] Course & Med Decision Making Course & Med Decision Making Pertinent Labs and Imaging studies reviewed. (See chart for details) [Patient without acute findings on exam and imaging studies. Patient returned home with instructions to follow up with vascular surgeon and PCP as scheduled] Taylor Disclaimer Taylor Disclaimer This electronic medical record was generated, in whole or in part, using a voice recognition dictation system. Departure Departure Impression: Primary Impression: Right arm pain Disposition: 01 HOME, SELF-CARE Condition: GOOD Patient Instructions: Wound Care, [id number], AV Fistula, Care After Additional Instructions: Please old follow post-operative care instructions provided to you by your vascular surgeon and follow-up with your PCP early next week for reevaluation. ELIGIO HEWITT DO Oct 06, 2017 06:50
--- NOTE | 2017-10-06 07:48 | RAD ---
AP chest. History: Cough AP view was taken of the chest. Dialysis catheter and pacemaker are unchanged. The heart is enlarged. There is a left pleural effusion. There is mild vascular congestion. There is mild atelectasis in the left lung base. There are no other infiltrates. Impression: 1. Cardiomegaly and mild vascular congestion. 2. Left pleural effusion.
== END 2017-10-06 03:41 | disposition home or self-care (01) ==
LOC: ER 01:52
DX: M79.601 Pain in right arm (principal); M79.89 Other specified soft tissue disorders; R05 Cough; I25.10 Atherosclerotic heart disease of native coronary artery without angina pectoris; I12.9 Hypertensive chronic kidney disease with stage 1 through stage 4 chronic kidney disease, or unspecified chronic kidney disease; N18.9 Chronic kidney disease, unspecified; I25.2 Old myocardial infarction; G62.9 Polyneuropathy, unspecified; Z86.73 Personal history of transient ischemic attack (TIA), and cerebral infarction without residual deficits; Z90.49 Acquired absence of other specified parts of digestive tract; Z95.0 Presence of cardiac pacemaker; Z89.512 Acquired absence of left leg below knee; Z89.511 Acquired absence of right leg below knee; Z88.5 Allergy status to narcotic agent; Z88.1 Allergy status to other antibiotic agents; Z88.8 Allergy status to other drugs, medicaments and biological substances
CPT/HCPCS: 36415; 71010; 80053; 85025; 93971; 99285-25

== ENCOUNTER → 2017-11-01 | Outpatient (CLI) | payer MEDICARE ==
[~2017-11-01] MED LIST changes: -AMLO10TA2 PO; -AMLO5TAB2 PO; -ASPI-482 PO; -ASPI325T11 PO; -ASPI325T8 PO; -AZIT250T6 PO; -Aspirin PO; -BYSTOLIC10 MG PO; -BYSTOLIC20 MG PO; -CALC667T PO; -CARV3.122 PO; -CEFP100T PO; -CEPH250C PO; -CETI10CA PO; -CHOL10002 PO; -CLON0.1T PO; -CLOP75TA PO; -DOXA1TAB PO; -FOLI0.8T21 PO; -HYDR-2868 PO; -HYDR-2869 PO; -Hydralazine Hcl PO; +IODIXANOL 320 MG/ML 100 ML VIAL.; +IODIXANOL 320MG/ML 50ML VIAL.; -LEVO100T5 PO; -LEVO75TA5 PO; -LEVO88TA4 PO; +LIDOCAINE WITH 8.4% SOD BICARB 3 ML DISP.SYRIN. IJ; +MIDAZOLAM HCL/PF 5 MG/5 ML VIAL.; -NITR0.4T SL; -SODI650T PO; +fentaNYL PF VIAL 100 MCG/2 ML VIAL; +hydrALAZINE 20 MG/ML VIAL.
[2017-11-01 11:07] LABS: ADD MAN DIFF? NO
[2017-11-01 11:13] LABS: BASO # 0.1 x10^3/uL (0.0-0.2); BASO % 1 % (0-3); EOS # 0.3 x10^3/uL (0.0-0.7); EOS % 4 % (0-3); HEMATOCRIT 35.3 % (36.0-47.0); HEMOGLOBIN 11.2 g/dL (12.0-15.5); LYMPH # 0.5 x10^3/uL (1.0-4.8); LYMPH % 7 % (24-48); MEAN CORPUSCULAR HEMOGLOBIN 30 pg (25-35); MEAN CORPUSCULAR HGB CONC 32 g/dL (31-37); MEAN CORPUSCULAR VOLUME 94 fL (79-100); MONO # 0.5 x10^3/uL (0.0-1.1); MONO % 7 % (0-9); NEUT # 5.8 x10^3uL (1.8-7.7); NEUT % 82 % (31-73); PLATELET COUNT 177 x10^3/uL (140-400); RED BLOOD COUNT 3.75 x10^6/uL (3.50-5.40); RED CELL DISTRIBUTION WIDTH 18.2 % (11.5-14.5); WHITE BLOOD COUNT 7.2 x10^3/uL (4.0-11.0)
[2017-11-01 11:26] LABS: INR 1.2 (0.8-1.1); PROTHROMBIN TIME PATIENT 14.2 SEC (11.7-14.0)
[2017-11-01 11:33] LABS: ANION GAP 11 (6-14); BLOOD UREA NITROGEN 31 mg/dL (7-20); CALCIUM 9.3 mg/dL (8.5-10.1); CARBON DIOXIDE 25 mmol/L (21-32); CHLORIDE 107 mmol/L (98-107); CREATININE 2.9 mg/dL (0.6-1.0); GFR 15.4; GLUCOSE 98 mg/dL (70-99); SODIUM 143 mmol/L (136-145)
[2017-11-01] MEDS: hydrALAZINE 20 MG/ML VIAL. IVP (12:51)
[2017-11-01] MEDS: MIDAZOLAM HCL/PF 5 MG/5 ML VIAL. IV (13:08)
[2017-11-01] MEDS: LIDOCAINE WITH 8.4% SOD BICARB 3 ML DISP.SYRIN. IJ (13:08)
[2017-11-01] MEDS: fentaNYL PF VIAL 100 MCG/2 ML VIAL IV (13:08)
[2017-11-01] MEDS: IODIXANOL 320 MG/ML 100 ML VIAL. IART (13:09)
== END | disposition home or self-care (01) ==
LOC: INTRAD 10:24
DX: Z99.2 Dependence on renal dialysis (principal); T82.898A Other specified complication of vascular prosthetic devices, implants and grafts, initial encounter; Y84.8 Other medical procedures as the cause of abnormal reaction of the patient, or of later complication, without mention of misadventure at the time of the procedure; I99.8 Other disorder of circulatory system; Y92.89 Other specified places as the place of occurrence of the external cause; I13.0 Hypertensive heart and chronic kidney disease with heart failure and stage 1 through stage 4 chronic kidney disease, or unspecified chronic kidney disease; N18.9 Chronic kidney disease, unspecified; I50.9 Heart failure, unspecified; E03.9 Hypothyroidism, unspecified; E78.00 Pure hypercholesterolemia, unspecified; J45.909 Unspecified asthma, uncomplicated; E66.9 Obesity, unspecified; Z68.21 Body mass index [BMI] 21.0-21.9, adult; K21.9 Gastro-esophageal reflux disease without esophagitis; F41.9 Anxiety disorder, unspecified; F32.9 Major depressive disorder, single episode, unspecified; D64.9 Anemia, unspecified; Z98.890 Other specified postprocedural states; Z87.01 Personal history of pneumonia (recurrent); Z86.73 Personal history of transient ischemic attack (TIA), and cerebral infarction without residual deficits; Z86.69 Personal history of other diseases of the nervous system and sense organs; Z98.42 Cataract extraction status, left eye; Z98.41 Cataract extraction status, right eye; Z90.710 Acquired absence of both cervix and uterus; Z87.39 Personal history of other diseases of the musculoskeletal system and connective tissue; Z96.642 Presence of left artificial hip joint; Z88.6 Allergy status to analgesic agent; Z88.1 Allergy status to other antibiotic agents; Z88.3 Allergy status to other anti-infective agents; Z88.8 Allergy status to other drugs, medicaments and biological substances
CPT/HCPCS: 36225; 36415; 75605; 75710; 76937; 80048; 85025; 85610; 99152; 99153; C1713; C1760; C1769; C1892; C1894; G0269; J0360; J1644; J2250; J3010

== ENCOUNTER 2017-11-07 10:48 | Day surgery (SDC) | payer MEDICARE ==
[~2017-11-07 10:48] MED LIST changes: -IODIXANOL 320 MG/ML 100 ML VIAL.; -IODIXANOL 320MG/ML 50ML VIAL.; +IV RINGERS,LACTATED 1000ML 1,000 ML IV; +LIDOCAINE 1% PF 2 ML VIAL. ID; -LIDOCAINE WITH 8.4% SOD BICARB 3 ML DISP.SYRIN. IJ; -MIDAZOLAM HCL/PF 5 MG/5 ML VIAL.; +ONDANSETRON PF 4 MG/2 ML VIAL. IV; +PROCHLORPERAZINE 10 MG/2 ML VIAL. IV; -fentaNYL PF VIAL 100 MCG/2 ML VIAL; +fentaNYL PF VIAL 100 MCG/2 ML VIAL IV; -hydrALAZINE 20 MG/ML VIAL.
[2017-11-07] MEDS: IV NORMAL SALINE 1000ML BAG 1,000 ML IV (12:05)
[2017-11-07 12:13] LABS: ADD MAN DIFF? NO
[2017-11-07 12:18] LABS: BASO # 0.1 x10^3/uL (0.0-0.2); BASO % 1 % (0-3); EOS # 0.3 x10^3/uL (0.0-0.7); EOS % 4 % (0-3); HEMATOCRIT 38.3 % (36.0-47.0); HEMOGLOBIN 12.2 g/dL (12.0-15.5); LYMPH # 0.6 x10^3/uL (1.0-4.8); LYMPH % 8 % (24-48); MEAN CORPUSCULAR HEMOGLOBIN 31 pg (25-35); MEAN CORPUSCULAR HGB CONC 32 g/dL (31-37); MEAN CORPUSCULAR VOLUME 96 fL (79-100); MONO # 0.6 x10^3/uL (0.0-1.1); MONO % 8 % (0-9); NEUT # 5.9 x10^3uL (1.8-7.7); NEUT % 79 % (31-73); PLATELET COUNT 178 x10^3/uL (140-400); RED BLOOD COUNT 4.01 x10^6/uL (3.50-5.40); RED CELL DISTRIBUTION WIDTH 18.2 % (11.5-14.5); WHITE BLOOD COUNT 7.4 x10^3/uL (4.0-11.0)
[2017-11-07 12:28] LABS: INR 1.2 (0.8-1.1); PARTIAL THROMBOPLASTIN TIME 30 SEC (24-38); PROTHROMBIN TIME PATIENT 14.7 SEC (11.7-14.0)
[2017-11-07 12:33] LABS: ANION GAP 11 (6-14); BLOOD UREA NITROGEN 18 mg/dL (7-20); CALCIUM 9.3 mg/dL (8.5-10.1); CARBON DIOXIDE 28 mmol/L (21-32); CHLORIDE 105 mmol/L (98-107); CREATININE 2.3 mg/dL (0.6-1.0); GFR 20.1; GLUCOSE 95 mg/dL (70-99); POTASSIUM 4.1 mmol/L (3.5-5.1); SODIUM 144 mmol/L (136-145)
[2017-11-07] MEDS ORDERED: PAPAVERINE 60 MG/2 ML VIAL FOR OR ONLY. (12:47)
[2017-11-07] MEDS ORDERED: PROTAMINE 50 MG/5 ML VIAL. IV (12:47)
[2017-11-07] MEDS ORDERED: SURGICEL FIBRILLAR 1X2 EACH. (12:47)
[2017-11-07] MEDS ORDERED: POVIDONE-IODINE 10% TOPICAL OINTMENT 28GM TUBE. TP (12:48)
[2017-11-07] MEDS ORDERED: LIDOCAINE 2% PF Vial for OR 5 ML VIAL. (12:59)
[2017-11-07] MEDS ORDERED: PROPOFOL 20 ML IV (12:59)
[2017-11-07] MEDS: LIDOCAINE 1% PF 30 ML VIAL. (13:59)
[2017-11-07] MEDS: HEPARIN SODIUM 5,000 UNIT in IV NORMAL SALINE 500ML BAG 500 ML IRR (14:00)
[2017-11-07] MEDS ORDERED: SEVOFLURANE 61 TO 120 MINUTES. IH (14:06)
[2017-11-07] MEDS ORDERED: PHENYLEPHRINE in 0.9% NACL PF 1 MG/10 ML SYRINGE. IV (14:12)
[2017-11-07] MEDS ORDERED: HEPARIN for IV BOLUS 10,000 UNIT/10 ML VIAL. (14:12)
[2017-11-07] MEDS: GELATIN SPONGE SIZE 12-7MM SPONGE. (15:00)
[2017-11-07] MEDS: THROMBIN TOPICAL 20,000 UNIT SPRAY.SYRN KIT TP (15:00)
[2017-11-07] MEDS: BUPIVACAINE MPF 0.25% 30 ML VIAL. (15:00)
[2017-11-07] MEDS: ACETAMINOPHEN 325 MG TABLET. PO (16:14)
== END 2017-11-07 17:15 | disposition home or self-care (01) ==
LOC: SURG 10:48
DX: T82.858A Stenosis of other vascular prosthetic devices, implants and grafts, initial encounter (principal); Y84.8 Other medical procedures as the cause of abnormal reaction of the patient, or of later complication, without mention of misadventure at the time of the procedure; Y92.89 Other specified places as the place of occurrence of the external cause; I13.2 Hypertensive heart and chronic kidney disease with heart failure and with stage 5 chronic kidney disease, or end stage renal disease; N18.6 End stage renal disease; I50.9 Heart failure, unspecified; E78.00 Pure hypercholesterolemia, unspecified; F41.9 Anxiety disorder, unspecified; F32.9 Major depressive disorder, single episode, unspecified; J45.909 Unspecified asthma, uncomplicated; K21.9 Gastro-esophageal reflux disease without esophagitis; E66.9 Obesity, unspecified; Z99.2 Dependence on renal dialysis; Z98.890 Other specified postprocedural states; Z86.73 Personal history of transient ischemic attack (TIA), and cerebral infarction without residual deficits; Z68.21 Body mass index [BMI] 21.0-21.9, adult; Z90.710 Acquired absence of both cervix and uterus; Z87.39 Personal history of other diseases of the musculoskeletal system and connective tissue; Z89.512 Acquired absence of left leg below knee; Z89.511 Acquired absence of right leg below knee
CPT/HCPCS: 36415; 80048; 85025; 85610; 85730; C1768; J0690; J1644; J2370; J2440; J2704; J3490; J7040

== ENCOUNTER → 2017-12-02 | Outpatient (CLI) | payer MEDICARE | END | disposition home or self-care (01) | LOC: ECHO 09:10 | DX: I08.3 Combined rheumatic disorders of mitral, aortic and tricuspid valves (principal) | CPT/HCPCS: 93306 ==

== ENCOUNTER → 2018-04-10 | Outpatient (CLI) | payer MEDICARE | END | disposition home or self-care (01) | LOC: PNCL 09:53 | DX: M79.621 Pain in right upper arm (principal); I25.10 Atherosclerotic heart disease of native coronary artery without angina pectoris; I13.0 Hypertensive heart and chronic kidney disease with heart failure and stage 1 through stage 4 chronic kidney disease, or unspecified chronic kidney disease; I50.43 Acute on chronic combined systolic (congestive) and diastolic (congestive) heart failure; N18.4 Chronic kidney disease, stage 4 (severe); E21.3 Hyperparathyroidism, unspecified; E78.5 Hyperlipidemia, unspecified; Z95.0 Presence of cardiac pacemaker | CPT/HCPCS: G0463 ==

== ENCOUNTER 2018-04-16 17:43 | Emergency (ER) | payer MEDICARE ==
[2018-04-16 18:59] LABS: ADD MAN DIFF? NO
[2018-04-16 19:02] LABS: BASO % 1 % (0-3); EOS # 0.4 x10^3/uL (0.0-0.7); EOS % 6 % (0-3); HEMATOCRIT 35.8 % (36.0-47.0); LYMPH # 0.8 x10^3/uL (1.0-4.8); LYMPH % 13 % (24-48); MEAN CORPUSCULAR HEMOGLOBIN 32 pg (25-35); MEAN CORPUSCULAR HGB CONC 34 g/dL (31-37); MEAN CORPUSCULAR VOLUME 95 fL (79-100); MONO # 0.5 x10^3/uL (0.0-1.1); MONO % 8 % (0-9); NEUT # 4.5 x10^3uL (1.8-7.7); NEUT % 73 % (31-73); PLATELET COUNT 157 x10^3/uL (140-400); RED BLOOD COUNT 3.75 x10^6/uL (3.50-5.40); WHITE BLOOD COUNT 6.2 x10^3/uL (4.0-11.0)
[2018-04-16 19:17] LABS: ANION GAP 8 (6-14); BLOOD UREA NITROGEN 25 mg/dL (7-20); CALCIUM 8.7 mg/dL (8.5-10.1); CARBON DIOXIDE 30 mmol/L (21-32); CHLORIDE 101 mmol/L (98-107); CREATININE 1.9 mg/dL (0.6-1.0); GFR 25.1; GLUCOSE 111 mg/dL (70-99); POTASSIUM 4.3 mmol/L (3.5-5.1); SODIUM 139 mmol/L (136-145)
== END 2018-04-16 20:05 | disposition home or self-care (01) ==
LOC: ER 17:43
DX: T82.838A Hemorrhage due to vascular prosthetic devices, implants and grafts, initial encounter (principal); I12.0 Hypertensive chronic kidney disease with stage 5 chronic kidney disease or end stage renal disease; N18.6 End stage renal disease; Z99.2 Dependence on renal dialysis; I25.2 Old myocardial infarction; Z86.73 Personal history of transient ischemic attack (TIA), and cerebral infarction without residual deficits; I25.10 Atherosclerotic heart disease of native coronary artery without angina pectoris; Z95.0 Presence of cardiac pacemaker; Z90.49 Acquired absence of other specified parts of digestive tract; Z88.1 Allergy status to other antibiotic agents; Z88.6 Allergy status to analgesic agent; Z88.5 Allergy status to narcotic agent; Z88.8 Allergy status to other drugs, medicaments and biological substances; Z91.041 Radiographic dye allergy status; Y84.8 Other medical procedures as the cause of abnormal reaction of the patient, or of later complication, without mention of misadventure at the time of the procedure; Y92.89 Other specified places as the place of occurrence of the external cause
CPT/HCPCS: 36415; 80048; 85025; 99284

== ENCOUNTER 2018-08-24 20:04 | Inpatient (IN) | payer MEDICARE ==
[~2018-08-24] VITALS: Ht 167.6 cm; Wt 59.1 kg
[~2018-08-24 20:04] MED LIST changes: +AMLO10TA6 PO; +AMLO5TAB7 PO; +ASPI-482 PO; +ASPI325T11 PO; +ASPI325T8 PO; +AZIT250T6 PO; +Aspirin PO; +BYSTOLIC10 MG PO; +BYSTOLIC20 MG PO; +CALC667T PO; +CARV3.122 PO; +CEFP100T PO; +CEPH250C PO; +CETI10CA PO; +CHOL10002 PO; +CLON0.1T PO; +CLOP75TA PO; +DOXA1TAB PO; +FOLI0.8T21 PO; +HYDR-2868 PO; +HYDR-2869 PO; +Hydralazine Hcl PO; -IV RINGERS,LACTATED 1000ML 1,000 ML IV; +LEVO100T5 PO; +LEVO75TA5 PO; +LEVO88TA4 PO; -LIDOCAINE 1% PF 2 ML VIAL. ID; +NITR0.4T SL; -ONDANSETRON PF 4 MG/2 ML VIAL. IV; -PROCHLORPERAZINE 10 MG/2 ML VIAL. IV; +SODI650T PO; -fentaNYL PF VIAL 100 MCG/2 ML VIAL IV
--- NOTE | 2018-08-24 20:36 | PHYS DOC ---
Past Medical History Past Medical History: CAD, Hypertension, CO, Renal Failure, Stroke, TIA, Other Additional Past Medical Histor: Polyarteritis; neuropathy; polyps Past Surgical History: Appendectomy, Colectomy, Pacemaker, Other Additional Past Surgical Histo: bilateral BKA; Sphincter removed Alcohol Use: None Drug Use: None Adult General Chief Complaint Chief Complaint: ALTERED MENTAL STATUS HPI HPI Patient is an 87-year-old female who presents with report of mental status change. Patient arrived via EMS and EMS reports that patient did not want to come to the emergency room but upon questioning by EMS, patient was clearly confused and they did not feel safe with leaving patient at home by herself. EMS reports his son had called to have patient brought to the emergency room because he indicated that patient was quite altered. Patient denies any specific complaints and states that she does not want to be in the emergency room. Additional history is limited as patient is clearly confused and is not willing to cooperate with questioning. Review of Systems Review of Systems Constitutional: Positive fever[] HENT: Reports nasal congestion[] Respiratory: Denies cough or shortness of breath [] Cardiovascular: Denies chest pain[] Neurologic: Positive confusion/middle status changes per EMS[] Unable to fully assess review of systems due to patient confusion/unwillingness to cooperate. Current Medications Current Medications Current Medications Medications (Trade) Dose Ordered Sig/[facility] Start Time Stop Time Status Last Admin Dose Admin Acetaminophen (Tylenol) 650 mg PRN Q4HRS PRN 08/24/18 23:45 08/25/18 23:44 Ondansetron HCl (Zofran) 4 mg PRN Q8HRS PRN 08/24/18 23:45 08/25/18 23:44 Piperacillin Sod/ Tazobactam Sod 3.375 gm/Sodium Chloride 50 ml @ 100 mls/hr 1X ONCE 08/24/18 23:30 08/24/18 23:59 DC 08/24/18 23:15 100 MLS/HR Sodium Chloride 1,000 ml @ 150 mls/hr Q6H40M 08/24/18 23:45 08/25/18 23:44 Vancomycin HCl 250 ml @ 250 mls/hr 1X ONCE 08/24/18 23:30 08/25/18 00:29 DC 08/24/18 01:05 250 MLS/HR Allergies Allergies Allergies Coded Allergies Type Severity Reaction Last Updated Verified Quinolones Allergy Intermediate 11/07/17 Yes atorvastatin Allergy Intermediate 11/07/17 Yes ciprofloxacin Allergy Intermediate 11/07/17 Yes ciprofloxacin HCl Allergy Intermediate 11/07/17 Yes codeine Allergy Intermediate 11/07/17 Yes diazepam Allergy Intermediate 11/07/17 Yes doxazosin Allergy Intermediate 11/07/17 Yes eprosartan Allergy Intermediate 11/07/17 Yes fexofenadine Allergy Intermediate 11/07/17 Yes gabapentin Allergy Intermediate 11/07/17 Yes gatifloxacin Allergy Intermediate 11/07/17 Yes hydrochlorothiazide Allergy Intermediate 11/07/17 No isosorbide Allergy Intermediate 11/07/17 Yes labetalol Allergy Intermediate 11/07/17 Yes lisinopril Allergy Intermediate 11/07/17 Yes meloxicam Allergy Intermediate EDEMA 11/07/17 Yes metoprolol Allergy Intermediate 11/07/17 Yes naproxen Allergy Intermediate 11/07/17 Yes neomycin Allergy Intermediate 11/07/17 Yes oxycodone Allergy Intermediate 11/07/17 Yes pantoprazole Allergy Intermediate 11/07/17 Yes pravastatin Allergy Intermediate 11/07/17 Yes pregabalin Allergy Intermediate 11/07/17 Yes quinine Allergy Intermediate 11/07/17 Yes simvastatin Allergy Intermediate 11/07/17 Yes Tetracyclines Adverse Reaction Intermediate DROWSY 11/07/17 Yes calcitonin Adverse Reaction Intermediate 11/07/17 Yes nifedipine Adverse Reaction Intermediate FATIGUE 11/07/17 Yes olmesartan Adverse Reaction Intermediate 11/07/17 Yes tetracycline Adverse Reaction Intermediate DROWSY 11/07/17 Yes tramadol Adverse Reaction Intermediate FOGGY 11/07/17 Yes tramadol HCl Adverse Reaction Intermediate FOGGY 11/07/17 Yes valsartan Adverse Reaction Intermediate FATIGUE 11/07/17 Yes Uncoded Allergies Type Severity Reaction Last Updated Verified CHLOREX GLUE Allergy Intermediate 01/29/17 Physical Exam Physical Exam Constitutional: Well developed, well nourished, no acute distress, non-toxic appearance. [] HENT: Normocephalic, atraumatic, bilateral external ears normal, oropharynx dry , no oral exudates, nose normal. [] Eyes: PERRLA, EOMI, conjunctiva normal, no discharge. [] Neck: Normal range of motion, no tenderness, supple, no stridor. [] Cardiovascular:Heart rate regular rhythm [] Lungs & Thorax: Bilateral breath sounds clear to auscultation [] Abdomen: Bowel sounds normal, soft, no tenderness. [] Skin: Warm, dry, no erythema, no rash. [] Extremities: No tenderness, no cyanosis, no clubbing, ROM intact, no edema. [] Neurologic: Awake and alert. No obvious focal deficits. [] Current Patient Data Vital Signs Vital Signs Date Time Temp Pulse Resp B/P (MAP) Pulse Ox O2 Delivery O2 Flow Rate FiO2 08/25/18 01:00 60 08/25/18 00:00 94 08/24/18 22:00 20 08/24/18 20:05 100.0 175/81 (112) Room Air 100.0 Lab Values Laboratory Tests Test 08/24/18 21:28 08/24/18 21:42 08/24/18 23:00 White Blood Count 15.6 x10^3/uL (4.0-11.0) H Red Blood Count 3.84 x10^6/uL (3.50-5.40) Hemoglobin 12.5 g/dL (12.0-15.5) Hematocrit 36.8 % (36.0-47.0) Mean Corpuscular Volume 96 fL (79-100) Mean Corpuscular Hemoglobin 33 pg (25-35) Mean Corpuscular Hemoglobin Concent 34 g/dL (31-37) Red Cell Distribution Width 14.1 % (11.5-14.5) Platelet Count 215 x10^3/uL (140-400) Neutrophils (%) (Auto) 90 % (31-73) H Lymphocytes (%) (Auto) 4 % (24-48) L Monocytes (%) (Auto) 6 % (0-9) Eosinophils (%) (Auto) 1 % (0-3) Basophils (%) (Auto) 0 % (0-3) Neutrophils # (Auto) 14.0 x10^3uL (1.8-7.7) H Lymphocytes # (Auto) 0.6 x10^3/uL (1.0-4.8) L Monocytes # (Auto) 0.9 x10^3/uL (0.0-1.1) Eosinophils # (Auto) 0.1 x10^3/uL (0.0-0.7) Basophils # (Auto) 0.0 x10^3/uL (0.0-0.2) Segmented Neutrophils % 86 % (35-66) H Band Neutrophils % 2 % (0-9) Lymphocytes % 4 % (24-48) L Monocytes % 7 % (0-10) Eosinophils % 1 % (0-5) Platelet Estimate Adequate (ADEQUATE) Sodium Level 136 mmol/L (136-145) Potassium Level 5.2 mmol/L (3.5-5.1) H Chloride Level 98 mmol/L (98-107) Carbon Dioxide Level 28 mmol/L (21-32) Anion Gap 10 (6-14) Blood Urea Nitrogen 57 mg/dL (7-20) H Creatinine 4.5 mg/dL (0.6-1.0) H Estimated GFR (Cockcroft-Gault) 9.3 BUN/Creatinine Ratio 13 (6-20) Glucose Level 98 mg/dL (70-99) Lactic Acid Level 1.0 mmol/L (0.4-2.0) Calcium Level 10.3 mg/dL (8.5-10.1) H Magnesium Level 2.5 mg/dL (1.8-2.4) H Total Bilirubin 0.4 mg/dL (0.2-1.0) Aspartate Amino Transferase (AST) 30 U/L (15-37) Alanine Aminotransferase (ALT) 20 U/L (14-59) Alkaline Phosphatase 89 U/L (46-116) Ammonia < 10 mcmol/L (11-34) L Total Protein 7.9 g/dL (6.4-8.2) Albumin 3.1 g/dL (3.4-5.0) L Albumin/Globulin Ratio 0.6 (1.0-1.7) L Procalcitonin 0.65 ng/mL (0.00-0.10) H Urine Collection Type U cath Urine Color Yellow Urine Clarity Clear Urine pH 6.0 Urine Specific [place] 1.015 Urine Protein 100 mg/dL (NEG-TRACE) Urine Glucose (UA) Negative mg/dL (NEG) Urine Ketones (Stick) Negative mg/dL (NEG) Urine Blood Negative (NEG) Urine Nitrite Negative (NEG) Urine Bilirubin Negative (NEG) Urine Urobilinogen Dipstick 0.2 mg/dL (0.2 mg/dL) Urine Leukocyte Esterase Negative (NEG) Urine RBC 0 /HPF (0-2) Urine WBC 0 /HPF (0-4) Urine Transitional Epithelial Cells Mod /LPF Urine Amorphous Sediment Present /HPF Urine Bacteria 0 /HPF (0-FEW) Urine Hyaline Casts Occasional /HPF Influenza Type A Antigen Negative (NEGATIVE) Influenza Type B Antigen Negative (NEGATIVE) Laboratory Tests 08/24/18 21:28 Laboratory Tests 08/24/18 21:28 EKG EKG [] Radiology/Procedures Radiology/Procedures [] Course & Med Decision Making Course & Med Decision Making Pertinent Labs and Imaging studies reviewed. (See chart for details) [] Dragon Disclaimer Dragon Disclaimer This electronic medical record was generated, in whole or in part, using a voice recognition dictation system. Departure Departure Impression: Primary Impression: Altered mental status Additional Impression: Fever Disposition: ADMITTED INPATIENT Admitting Physician: Lynda Woods Condition: IMPROVED Referrals: LYNDA WOODS MD (PCP) Problem Qualifiers Primary Impression: Altered mental status Altered mental status type: disorientation Qualified Codes: R41.0 - Disorientation, unspecified Additional Impression: Fever Fever type: unspecified Qualified Codes: R50.9 - Fever, unspecified EDWAR COHEN Jr. DO Aug 24, 2018 20:36
--- NOTE | 2018-08-24 20:38 | EKG ---
[facility] [address] [place] [address] Test Date: 2018-08-24 Test Time: 20:33:54 Pat Name: SHERRI BENITEZ Department: Room: Gender: F Giving Officer: TW : 1930 Requested By: EDWAR COHEN Order Number: [id number] Reading MD: Yemi Vital MD Measurements Intervals [place] Rate: 60 P: 43 TN: 198 QRS: -8 QRSD: 110 T: 90 QT: 416 QTc: 420 Interpretive Statements PROBABLE A-PACED NON-SPECIFIC ST/T CHANGES LVH WITH REPOLARIZATION ABNORMALITY ABNORMAL ECG Electronically Signed On 08-25-2018 11:50:19 CDT by Yemi Vital MD
--- NOTE | 2018-08-24 21:56 | RAD ---
AP portable chest radiograph 08/24/2018 Clinical History: History of heart disease. Unexplained altered mental status.. An AP erect portable digital radiograph of the chest was obtained. Comparison study is dated 03/05/2018. A pacemaker is unchanged in position. The cardiac silhouette is mildly enlarged. Atherosclerotic calcification of the thoracic aorta is seen. Linear bands of subsegmental atelectasis are seen involving the left lower lobe. A stent overlies the medial soft tissues of the right arm. No area of consolidation is seen. No pneumothorax is noted. The osseous structures are unchanged. IMPRESSION: Left lower lobe subsegmental atelectasis. Electronically signed by: Abebe Glaser MD (08/24/2018 9:53 PM) [facility]
[2018-08-24 22:00] LABS: BASO % 0 % (0-3); EOS # 0.1 x10^3/uL (0.0-0.7); EOS % 1 % (0-3); HEMATOCRIT 36.8 % (36.0-47.0); HEMOGLOBIN 12.5 g/dL (12.0-15.5); LYMPH # 0.6 x10^3/uL (1.0-4.8); LYMPH % 4 % (24-48); MEAN CORPUSCULAR HEMOGLOBIN 33 pg (25-35); MEAN CORPUSCULAR HGB CONC 34 g/dL (31-37); MEAN CORPUSCULAR VOLUME 96 fL (79-100); MONO # 0.9 x10^3/uL (0.0-1.1); MONO % 6 % (0-9); NEUT % 90 % (31-73); PLATELET COUNT 215 x10^3/uL (140-400); RED BLOOD COUNT 3.84 x10^6/uL (3.50-5.40); RED CELL DISTRIBUTION WIDTH 14.1 % (11.5-14.5); WHITE BLOOD COUNT 15.6 x10^3/uL (4.0-11.0)
[2018-08-24 22:02] LABS: BILIRUBIN,URINE NEGATIVE (NEG); CLARITY,URINE CLEAR; COLOR,URINE YELLOW; NITRITE,URINE NEGATIVE (NEG); PROTEIN,URINE 100 mg/dL (NEG-TRACE); UROBILINOGEN,URINE 0.2 mg/dL (0.2 mg/dL)
[2018-08-24 22:04] LABS: CALCIUM 10.3 mg/dL (8.5-10.1); CREATININE 4.5 mg/dL (0.6-1.0); GFR 9.3; POTASSIUM 5.2 mmol/L (3.5-5.1)
[2018-08-24 22:10] LABS: ALBUMIN 3.1 g/dL (3.4-5.0); ALBUMIN/GLOBULIN RATIO 0.6 (1.0-1.7); MAGNESIUM 2.5 mg/dL (1.8-2.4); TOTAL BILIRUBIN 0.4 mg/dL (0.2-1.0); TOTAL PROTEIN 7.9 g/dL (6.4-8.2)
[2018-08-24 22:15] LABS: BACTERIA,URINE 0 /HPF (0-FEW); RBC,URINE 0 /HPF (0-2); WBC,URINE 0 /HPF (0-4)
[2018-08-24 22:16] LABS: AMORPHOUS SEDIMENT,UR PRESENT /HPF; HYALINE CASTS, URINE OCCASIONAL /HPF
[2018-08-24 22:41] LABS: % BANDS 2 % (0-9); % EOS 1 % (0-5); % LYMPHS 4 % (24-48); % MONOS 7 % (0-10); % SEGS 86 % (35-66)
[2018-08-24 22:42] LABS: PLT ESTIMATE ADEQUATE (ADEQUATE)
[2018-08-24] MEDS ORDERED: IV NORMAL SALINE 1000ML BAG 1,000 ML IV ONE (23:00)
[2018-08-24] MEDS ORDERED: PIPERACILLIN/TAZOBACTAM 3.375 GM in IV NORMAL SALINE 50ML 50 ML IV ONE (23:30)
[2018-08-24] MEDS ORDERED: VANCOMYCIN 1GM IVPB FOR OMNI 250 ML IV ONE (23:30)
[2018-08-24] MEDS ORDERED: ONDANSETRON PF 4 MG/2 ML VIAL. IV PRN (23:45)
[2018-08-24 23:47] LABS: INFLUENZA A PATIENT NEGATIVE (NEGATIVE); INFLUENZA B PATIENT NEGATIVE (NEGATIVE)
--- NOTE | 2018-08-25 01:25 | RAD ---
CT Head W/O Contrast: History: confusion; h/o CVA Comparison: none Axial images were obtained without contrast. The long and white matter appears normal and symmetrical for the patients age. There is no mass effect, extraaxial fluid collections or hydrocephalus. There is no gross bleed. There is no focal loss of long-white matter distinction to suggest acute ischemia, i.e. stroke. Impression: No acute findings. RS Compliance Statement: One or more of the following individualized dose reduction techniques were utilized for this examination: 1. Automated exposure control 2. Adjustment of the mA and/or kV according to patient size 3. Use of iterative reconstruction technique Electronically signed by: Alverto Pham III, MD (08/25/2018 1:22 AM) [facility]
[2018-08-25] MEDS: IV NORMAL SALINE 1000ML BAG 1,000 ML IV SCH ×4 (03:30→22:29)
[2018-08-25] MEDS: PIPERACILLIN/TAZOBACTAM 2.25 GM in IV NORMAL SALINE 50ML 50 ML IV SCH ×3 (06:00→22:47)
[2018-08-25 07:00] VITALS: BP 188/47
[2018-08-25] MEDS: ACETAMINOPHEN 325 MG TABLET. PO PRN ×2 (08:42→08:45)
[2018-08-25 09:36] LABS: BASO % 0 % (0-3); EOS % 0 % (0-3); HEMATOCRIT 30.7 % (36.0-47.0); HEMOGLOBIN 10.1 g/dL (12.0-15.5); LYMPH # 0.3 x10^3/uL (1.0-4.8); LYMPH % 2 % (24-48); MEAN CORPUSCULAR HEMOGLOBIN 32 pg (25-35); MEAN CORPUSCULAR HGB CONC 33 g/dL (31-37); MEAN CORPUSCULAR VOLUME 98 fL (79-100); MONO # 0.7 x10^3/uL (0.0-1.1); MONO % 5 % (0-9); NEUT # 13.4 x10^3uL (1.8-7.7); NEUT % 93 % (31-73); PLATELET COUNT 172 x10^3/uL (140-400); RED BLOOD COUNT 3.14 x10^6/uL (3.50-5.40); RED CELL DISTRIBUTION WIDTH 14.3 % (11.5-14.5); WHITE BLOOD COUNT 14.5 x10^3/uL (4.0-11.0)
[2018-08-25] MEDS ORDERED: ACETAMINOPHEN 325 MG TABLET. PO PRN (09:45)
[2018-08-25 09:53] LABS: ALBUMIN 2.4 g/dL (3.4-5.0); ALBUMIN/GLOBULIN RATIO 0.6 (1.0-1.7); CALCIUM 9.3 mg/dL (8.5-10.1); CREATININE 4.9 mg/dL (0.6-1.0); GFR 8.4; TOTAL BILIRUBIN 0.6 mg/dL (0.2-1.0); TOTAL PROTEIN 6.5 g/dL (6.4-8.2)
--- NOTE | 2018-08-25 09:57 | PDOC ---
Provider Note Provider Note history and physical dictated # [id number] LYNDA FELIX MD Aug 25, 2018 09:57
[2018-08-25] MEDS: LACTULOSE 20 GM/30 ML SOLUTION. PO ONE ×2 (10:00→18:13)
[2018-08-25 11:00] VITALS: BP 124/32
[2018-08-25] MEDS: ASPIRIN CHEWABLE 81 MG TABLET. PO SCH ×2 (11:00→18:13)
[2018-08-25] MEDS: LEVOTHYROXINE 88 MCG TABLET PO SCH ×2 (11:00→18:13)
[2018-08-25] MEDS: FOLIC/VIT B COMP W-C (RENAL) TABLET. PO SCH ×2 (11:00→18:13)
[2018-08-25] MEDS ORDERED: IV NORMAL SALINE 1000ML BAG 1,000 ML IV PRN (11:18)
[2018-08-25] MEDS ORDERED: DIALYSIS PATIENT. MC PRN ×2 (11:30)
--- NOTE | 2018-08-25 12:17 | HP ---
ADMIT DATE: 08/25/2018 LOCATION: She is in room 646. HISTORY OF PRESENT ILLNESS: The patient is an 87-year-old white female who has hypertension, hypothyroidism, coronary artery disease, ischemic cardiomyopathy with a left ventricular ejection fraction of 30%, who has coronary artery disease and peripheral arterial disease, bilateral below-knee amputations and end-stage renal disease, on hemodialysis, who was last hemodialyzed last Saturday. Apparently, he had an angioplasty for stenotic right upper extremity AV fistula done a week ago and notes that she has had a one-week history of coughing and blowing thick yellow mucus. She also notes that she has had a fever at home. Apparently, the son noted that she was confused and she was sent to the [facility] Emergency Room last night, where she was subsequently admitted. She was noted to have a leukocytosis. A CAT scan of the head was negative. Her white count was elevated at 15.6 with 90 polys and 4 lymphocytes. She had a CAT scan of the head that was negative for acute abnormality. Chest x-ray showed left lower lobe subsegmental atelectasis. Blood cultures were ordered . She also had a urinalysis done, which showed no pyuria. She was therefore admitted for further evaluation of her fever, cough and altered mental status. ALLERGIES AND INTOLERANCES: NUMEROUS AND INCLUDE QUINOLONES, TETRACYCLINE, ATORVASTATIN, CALCITONIN, CIPROFLOXACIN, CODEINE, DIAZEPAM, DOXAZOSIN, VALSARTAN, NEOMYCIN, TRAMADOL, SIMVASTATIN, QUININE, LYRICA AND NIFEDIPINE, SOME OF THESE CAUSE SIDE EFFECTS. DIAZEPAM, GABAPENTIN, LABETALOL AND LISINOPRIL CAUSED A COUGH. MELOXICAM, METOPROLOL AND NEOMYCIN. MEDICATIONS: Prior to admission include aspirin 81 mg every day, Bystolic 10 mg every day, PhosLo 667 mg 1 tablet t.i.d. with meals, clonidine 0.1 mg at bedtime, levothyroxine 88 mcg every day, Plavix 75 mg every day and Chelsey-Sudhir 1 daily. PAST MEDICAL HISTORY: Significant for coronary artery disease; hypothyroidism; hypertension; hyperlipidemia; bilateral below-knee amputation; sick sinus syndrome, treated with a pacemaker; bilateral lower extremity arterial bypass; left total hip arthroplasty; ischemic cardiomyopathy with left ventricular ejection fraction of 30% noted on echocardiogram in 04/2017. She had a PTCA and stent to right coronary artery x 2 in the left anterior descending artery and a second circumflex coronary artery in 04/2017. She had a left carotid endarterectomy in 01/2017 and right carotid endarterectomy in 2012; end-stage renal disease with hemodialysis since 2016, dialyzed on Mondays, Wednesdays, and Fridays, followed by Dr. Henley, and also has a history of an appendectomy. SOCIAL HISTORY: She does not drink alcohol nor does she smoke cigarettes. She does walk with a walker and bilateral lower extremity prosthesis. FAMILY HISTORY: Noncontributory. REVIEW OF SYSTEMS: GENERAL: She had the fever. CARDIOVASCULAR: No chest pain. PULMONARY: She has got a cough with thick sputum and also yellow nasal discharge. SKIN: No rashes. NEUROLOGIC: She had some altered mental status, but no focal weakness. ENDOCRINE: No diabetes mellitus. The rest of the systems reviewed are negative, except as stated in the history of present illness. PHYSICAL EXAMINATION: VITAL SIGNS: Her temperature is 98.1 degrees; when she was in the Emergency Room, it was 100 degrees last night. Apical pulse is 60, respiratory rate 18, blood pressure 188/47 and oxygen saturation 96% on room air. HEENT: Eyes: Gaze is conjugate. Mouth, tongue is midline. NECK: There is no cervical lymphadenopathy. HEART: Reveals an S1, S2. There is no S3 or murmur. LUNGS: Revealed decreased breath sounds bilaterally. ABDOMEN: Soft, nontender. EXTREMITIES: Lower extremities, she has got bilateral below-knee amputations. Examination of the right upper extremity shows she has got a positive pulsation in her fistula on the right forearm. There is no redness. NEUROLOGICAL EXAMINATION: She does speak slowly and has also had some confusion. LABORATORY DATA: Review of her laboratory tests, her white count was elevated at 15.6; today, it is 14.5; hemoglobin was 12.5 last night, 10.1 now and platelet count was 215,000 last night. She had 90 polys and 4 lymphocytes last night and 93 polys and 2 lymphocytes this morning. Sodium is 136, potassium 5.2, chloride 98, total CO2 was 28, BUN 47, creatinine 4.5, calcium 10.3, magnesium 2.5. Liver function tests were normal. Ammonia level less than 10. Albumin 3.1. Lactic acid was 1 and procalcitonin was increased at 0.65. Urinalysis showed 0 white cells and 0 red cells. Influenza screen was negative. She had a CAT scan of the head done, which showed no acute abnormality. She had a chest x-ray done, which showed mild cardiomegaly. She has a stent overlying the soft tissues of the right arm. She had a left lower lobe subsegmental atelectasis. She had an electrocardiogram done and it showed that it was paced rhythm. ASSESSMENT: 1. Fever. 2. Acute bronchitis, rule out pneumonia. 3. Metabolic encephalopathy. 4. End-stage renal disease, treated with hemodialysis Mondays, Wednesdays and Fridays. 5. Hypertension. 6. Hypothyroidism. 7. History of bilateral below- knee amputation. 8. Coronary artery disease. 9. Ischemic cardiomyopathy with a left ventricular ejection fraction of 30%. 10. Coronary artery disease. 11. Peripheral arterial disease. 12. Angioplasty of her right upper extremity fistula a week ago. PLAN: Plan at this time is to continue with the Zyvox and Zosyn. We will consult Dr. Julio Mares for Infectious Disease, Dr. Laura Mares or Dr. Henley for Nephrology. She will be dialyzed today, discussed that with the nurse. She will need to get her Bystolic from home and continue her clonidine. She has a lot of intolerances to blood pressure medicines and other medications. We will also start her on physical and occupational therapy. Blood and sputum cultures have been ordered. Continue with her home medications. For constipation, we will give her a single dose of lactulose. LYNDA FELIX MD DR: JOSE/annemarie JOB#: [id number] / [id number]
--- NOTE | 2018-08-25 13:37 | RAD ---
PQRS Compliance statement: One or more of the following individualized dose reduction techniques were utilized for this examination: 1. Automated exposure control. 2. Adjustment of the mA and/or kV according to patient size. 3. Use of iterative reconstruction technique. Indication:SUSPECT PNEUMONIA. TECHNIQUE: CT chest without IV contrast with multiplanar reformats. COMPARISON: 08/12/2017 FINDINGS: Heart is moderately enlarged in size. Coronary artery calcifications. Pacemaker leads are seen in the right heart. No pericardial or pleural effusion. Diffuse moderate atherosclerotic disease seen of the thoracic aorta. Large calcified subcarinal lymph node measuring 2.4 x 1.8 cm. No enlarged axillary, mediastinal adenopathy. Evaluation of hilar lymphadenopathy is limited due to lack of IV contrast. Central airways are patent. Bibasilar patchy opacities are seen, left more than right. Scattered calcified granulomas are seen in the spleen and liver. Gallstones noted. No pericholecystic fluid. Adrenal glands demonstrate no nodules. Bilateral multifocal cortical scarring is seen in the visualized kidneys. Motion artifact is seen in the abdomen limiting optimal evaluation. No suspicious bony lesion. IMPRESSION: 1. Patchy opacities in the bilateral lung bases, left more than right may be secondary to subsegmental atelectasis, pneumonia or aspiration. 2. Cholelithiasis without imaging evidence of acute cholecystitis. Electronically signed by: Juan Valentine DO (08/25/2018 1:34 PM) [facility]
--- NOTE | 2018-08-25 16:27 | PDOC2 ---
CONSULT Date of Consult Date of Consult DATE: 08/25/18 TIME: 16:17 Reason for Consult Reason for Consult: ESRD Identification/Chief Complaint Chief Complaint Pt states she is fine, no fever, her son called EMS and she was brought to the Hospital Source Source: Chart review, Patient History of Present Illness Reason for Visit: The patient is an 87-year-old white female coronary artery disease, ischemic cardiomyopathy with a LVEF of 30%, bilateral below-knee amputations and ESRD Apparently, she had an angioplasty for stenotic right upper extremity AV fistula done a week ago . She states she was doing fine but her son called 911 stating that she has fever . On Chart review- Apparently, the son noted that she was confused and she was sent to the ER She was noted to have a leukocytosis. She is seen on HD tolerating well, reports has been on HD since Sep 2017, has Good UOP Past Medical History Cardiovascular: CAD, HTN, NH, Hyperlipidemia, Other Pulmonary: Asthma CENTRAL NERVOUS SYSTEM: Periperal neuropathy Heme/Onc: Anemia NOS Renal/: Chronic renal failure, Other Endocrine: Hypothyroidism, Hyperparathyroidism Past Surgical History Past Surgical History: Pacemaker, Total hip replacement, Other Family History Family History: Coronary Artery Disease, Diabetes Social History ALCOHOL: none Drugs: None Lives: Alone Domestic Violence: Neg Current Problem List Problem List Problems Medical Problems: (1) Acute on chronic renal failure Status: Acute Current Medications Current Medications Current Medications Sodium Chloride 1,000 ml @ 1,000 mls/hr 1X ONCE IV Last administered on 08/24at 23:05; Start 08/24/18 at 23:00; Stop 08/24/18 at 23:59; Status DC Vancomycin HCl 250 ml @ 250 mls/hr 1X ONCE IV Last administered on at 01:05; Start 08/24/18 at 23:30; Stop 08/25/18 at 00:29; Status DC Piperacillin Sod/ Tazobactam Sod 3.375 gm/Sodium Chloride 50 ml @ 100 mls/hr 1X ONCE IV Last administered on 08/24/18at 23:15; Start 08/24/18 at 23:30; Stop 08/24/18 at 23:59; Status DC Ondansetron HCl (Zofran) 4 mg PRN Q8HRS PRN IV NAUSEA/VOMITING 1ST CHOICE; Start 08/24/18 at 23:45; Stop 08/25/18 at 23:44 Sodium Chloride 1,000 ml @ 150 mls/hr Q6H40M IV Last administered on at 03:30; Start 08/24/18 at 23:45; Stop 08/25/18 at 23:44 Acetaminophen (Tylenol) 650 mg PRN Q4HRS PRN PO FEVER Last administered on at 08:45; Start 08/24/18 at 23:45; Stop 08/25/18 at 09:49; Status DC Linezolid/Dextrose 300 ml @ 300 mls/hr Q12HR IV Last administered on at 08:09; Start 08/25/18 at 09:00 Piperacillin Sod/ Tazobactam Sod 2.25 gm/Sodium Chloride 50 ml @ 100 mls/hr Q8HRS IV Last administered on 08/25/18at 06:00; Start 08/25/18 at 06:00 Aspirin (Children'S Aspirin) 81 mg DAILYWBKFT PO ; Start 08/25/18 at 11:00 Calcium Acetate (Phoslo) 667 mg TIDWMEALS PO ; Start 08/25/18 at 12:00 Clonidine HCl (Catapres) 0.1 mg QHS PO ; Start 08/25/18 at 21:00 Levothyroxine Sodium (Synthroid) 88 mcg DAILY06 PO ; Start 08/25/18 at 11:00 Vitamin B Complex/ Vitamin C (Chelsey-Sudhir) 1 tab DAILY PO ; Start 08/25/18 at 11: 00 Acetaminophen (Tylenol) 325 mg PRN Q6HRS PRN PO MILD PAIN / TEMP; Start at 09:45 Lactulose (Lactulose) 20 gm 1X ONCE PO ; Start 08/25/18 at 10:00; Stop at 10:01; Status DC Sodium Chloride 1,000 ml @ 1,000 mls/hr Q1H PRN IV hypotension; Start at 11:18; Stop 08/25/18 at 17:17 Info (PHARMACY MONITORING -- do not chart) 1 each PRN DAILY PRN MC SEE COMMENTS ; Start 08/25/18 at 11:30 Info (PHARMACY MONITORING -- do not chart) 1 each PRN DAILY PRN MC SEE COMMENTS ; Start 08/25/18 at 11:30; Status UNV Active Scripts Active Chelsey-Sudhir Tablet (Folic Acid/Vitamin B Comp W-C) 0.8 Mg Tablet 1 Tab PO DAILY 30 Days Calcium Acetate 667 Mg Tablet 667 Mg PO TIDWMEALS 30 Days Reported Hydralazine Hcl 50 Mg Tablet 1 Tab PO TID Aspir 81 (Aspirin) 81 Mg Tablet. 1 Tab PO DAILY Levothyroxine Sodium 88 Mcg Tablet 88 Mcg PO DAILYAC Bystolic (Nebivolol Hcl) 20 Mg Tablet 20 Mg PO DAILY Clonidine Hcl 0.1 Mg Tablet 1 Tab PO QHS Clopidogrel (Clopidogrel Bisulfate) 75 Mg Tablet 75 Mg PO DAILY Allergies Allergies: Coded Allergies: Quinolones (Verified Allergy, Intermediate, 11/07/17) atorvastatin (Verified Allergy, Intermediate, 11/07/17) MYALGIA ciprofloxacin (Verified Allergy, Intermediate, 11/07/17) ciprofloxacin HCl (Verified Allergy, Intermediate, 11/07/17) codeine (Verified Allergy, Intermediate, 11/07/17) diazepam (Verified Allergy, Intermediate, 11/07/17) doxazosin (Verified Allergy, Intermediate, 11/07/17) eprosartan (Verified Allergy, Intermediate, 11/07/17) fexofenadine (Verified Allergy, Intermediate, 11/07/17) gabapentin (Verified Allergy, Intermediate, 11/07/17) gatifloxacin (Verified Allergy, Intermediate, 11/07/17) hydrochlorothiazide (Unverified Allergy, Intermediate, 11/07/17) isosorbide (Verified Allergy, Intermediate, 11/07/17) labetalol (Verified Allergy, Intermediate, 11/07/17) lisinopril (Verified Allergy, Intermediate, 11/07/17) meloxicam (Verified Allergy, Intermediate, LEG EDEMA, 08/25/18) TAKES ASA AT HOME metoprolol (Verified Allergy, Intermediate, 11/07/17) naproxen (Verified Allergy, Intermediate, 11/07/17) neomycin (Verified Allergy, Intermediate, 11/07/17) oxycodone (Verified Allergy, Intermediate, 11/07/17) pantoprazole (Verified Allergy, Intermediate, 11/07/17) pravastatin (Verified Allergy, Intermediate, 11/07/17) pregabalin (Verified Allergy, Intermediate, 11/07/17) quinine (Verified Allergy, Intermediate, 11/07/17) simvastatin (Verified Allergy, Intermediate, 11/07/17) MYALGIAS Tetracyclines (Verified Adverse Reaction, Intermediate, DROWSY, 11/07/17) calcitonin (Verified Adverse Reaction, Intermediate, 11/07/17) nifedipine (Verified Adverse Reaction, Intermediate, FATIGUE, 11/07/17) FATIGUE olmesartan (Verified Adverse Reaction, Intermediate, 11/07/17) tetracycline (Verified Adverse Reaction, Intermediate, DROWSY, 11/07/17) DROWSY tramadol (Verified Adverse Reaction, Intermediate, FOGGY, 11/07/17) FOGGY tramadol HCl (Verified Adverse Reaction, Intermediate, FOGGY, 11/07/17) valsartan (Verified Adverse Reaction, Intermediate, FATIGUE, 11/07/17) FATIGUE Uncoded Allergies: CHLOREX GLUE (Allergy, Intermediate, 01/29/17) ROS Review of System As per HPI Physical Exam Physical Exam General NAD HEENT: OM Moist Neck Supple HEART: Reveals an S1, S2. LUNGS: decreased breath sounds bilaterally. ABDOMEN: Soft, nontender. EXTREMITIES: Bilat BKA right upper AV Shunt , Good thrill and Bruit NEURO - Awake and alert NO Espino Skin No rash Vital Signs Vital Signs Date Time Temp Pulse Resp B/P (MAP) Pulse Ox O2 Delivery O2 Flow Rate FiO2 08/25/18 11:00 99.1 59 12 124/32 (62) 91 Room Air 99.1 Assessment & Plan ESRD- On HD MWF Seen on HD tolerating well Continue as ordered, ROZ BARBA Fever/ Acute bronchitis ID consulted HTN- BP at goal CAD- Stable CHF- Compensated Labs Labs Laboratory Tests Test 08/24/18 21:28 08/24/18 21:42 08/24/18 23:00 08/25/18 09:20 White Blood Count 15.6 x10^3/uL (4.0-11.0) 14.5 x10^3/uL (4.0-11.0) Red Blood Count 3.84 x10^6/uL (3.50-5.40) 3.14 x10^6/uL (3.50-5.40) Hemoglobin 12.5 g/dL (12.0-15.5) 10.1 g/dL (12.0-15.5) Hematocrit 36.8 % (36.0-47.0) 30.7 % (36.0-47.0) Mean Corpuscular Volume 96 fL (79-100) 98 fL (79-100) Mean Corpuscular Hemoglobin 33 pg (25-35) 32 pg (25-35) Mean Corpuscular Hemoglobin Concent 34 g/dL (31-37) 33 g/dL (31-37) Red Cell Distribution Width 14.1 % (11.5-14.5) 14.3 % (11.5-14.5) Platelet Count 215 x10^3/uL (140-400) 172 x10^3/uL (140-400) Neutrophils (%) (Auto) 90 % (31-73) 93 % (31-73) Lymphocytes (%) (Auto) 4 % (24-48) 2 % (24-48) Monocytes (%) (Auto) 6 % (0-9) 5 % (0-9) Eosinophils (%) (Auto) 1 % (0-3) 0 % (0-3) Basophils (%) (Auto) 0 % (0-3) 0 % (0-3) Neutrophils # (Auto) 14.0 x10^3uL (1.8-7.7) 13.4 x10^3uL (1.8-7.7) Lymphocytes # (Auto) 0.6 x10^3/uL (1.0-4.8) 0.3 x10^3/uL (1.0-4.8) Monocytes # (Auto) 0.9 x10^3/uL (0.0-1.1) 0.7 x10^3/uL (0.0-1.1) Eosinophils # (Auto) 0.1 x10^3/uL (0.0-0.7) 0.0 x10^3/uL (0.0-0.7) Basophils # (Auto) 0.0 x10^3/uL (0.0-0.2) 0.0 x10^3/uL (0.0-0.2) Segmented Neutrophils % 86 % (35-66) Band Neutrophils % 2 % (0-9) Lymphocytes % 4 % (24-48) Monocytes % 7 % (0-10) Eosinophils % 1 % (0-5) Platelet Estimate Adequate (ADEQUATE) Sodium Level 136 mmol/L (136-145) 137 mmol/L (136-145) Potassium Level 5.2 mmol/L (3.5-5.1) 5.0 mmol/L (3.5-5.1) Chloride Level 98 mmol/L (98-107) 102 mmol/L (98-107) Carbon Dioxide Level 28 mmol/L (21-32) 23 mmol/L (21-32) Anion Gap 10 (6-14) 12 (6-14) Blood Urea Nitrogen 57 mg/dL (7-20) 59 mg/dL (7-20) Creatinine 4.5 mg/dL (0.6-1.0) 4.9 mg/dL (0.6-1.0) Estimated GFR (Cockcroft-Gault) 9.3 8.4 BUN/Creatinine Ratio 13 (6-20) 12 (6-20) Glucose Level 98 mg/dL (70-99) 164 mg/dL (70-99) Lactic Acid Level 1.0 mmol/L (0.4-2.0) Calcium Level 10.3 mg/dL (8.5-10.1) 9.3 mg/dL (8.5-10.1) Magnesium Level 2.5 mg/dL (1.8-2.4) Total Bilirubin 0.4 mg/dL (0.2-1.0) 0.6 mg/dL (0.2-1.0) Aspartate Amino Transf (AST/SGOT) 30 U/L (15-37) 30 U/L (15-37) Alanine Aminotransferase (ALT/SGPT) 20 U/L (14-59) 20 U/L (14-59) Alkaline Phosphatase 89 U/L (46-116) 86 U/L (46-116) Ammonia < 10 mcmol/L (11-34) Total Protein 7.9 g/dL (6.4-8.2) 6.5 g/dL (6.4-8.2) Albumin 3.1 g/dL (3.4-5.0) 2.4 g/dL (3.4-5.0) Albumin/Globulin Ratio 0.6 (1.0-1.7) 0.6 (1.0-1.7) Procalcitonin 0.65 ng/mL (0.00-0.10) Urine Collection Type U cath Urine Color Yellow Urine Clarity Clear Urine pH 6.0 Urine Specific [place] 1.015 Urine Protein 100 mg/dL (NEG-TRACE) Urine Glucose (UA) Negative mg/dL (NEG) Urine Ketones (Stick) Negative mg/dL (NEG) Urine Blood Negative (NEG) Urine Nitrite Negative (NEG) Urine Bilirubin Negative (NEG) Urine Urobilinogen Dipstick 0.2 mg/dL (0.2 mg/dL) Urine Leukocyte Esterase Negative (NEG) Urine RBC 0 /HPF (0-2) Urine WBC 0 /HPF (0-4) Urine Transitional Epithelial Cells Mod /LPF Urine Amorphous Sediment Present /HPF Urine Bacteria 0 /HPF (0-FEW) Urine Hyaline Casts Occasional /HPF Influenza Type A Antigen Negative (NEGATIVE) Influenza Type B Antigen Negative (NEGATIVE) Laboratory Tests Test 08/24/18 21:28 08/24/18 21:42 08/24/18 23:00 08/25/18 09:20 White Blood Count 15.6 x10^3/uL (4.0-11.0) 14.5 x10^3/uL (4.0-11.0) Red Blood Count 3.84 x10^6/uL (3.50-5.40) 3.14 x10^6/uL (3.50-5.40) Hemoglobin 12.5 g/dL (12.0-15.5) 10.1 g/dL (12.0-15.5) Hematocrit 36.8 % (36.0-47.0) 30.7 % (36.0-47.0) Mean Corpuscular Volume 96 fL (79-100) 98 fL (79-100) Mean Corpuscular Hemoglobin 33 pg (25-35) 32 pg (25-35) Mean Corpuscular Hemoglobin Concent 34 g/dL (31-37) 33 g/dL (31-37) Red Cell Distribution Width 14.1 % (11.5-14.5) 14.3 % (11.5-14.5) Platelet Count 215 x10^3/uL (140-400) 172 x10^3/uL (140-400) Neutrophils (%) (Auto) 90 % (31-73) 93 % (31-73) Lymphocytes (%) (Auto) 4 % (24-48) 2 % (24-48) Monocytes (%) (Auto) 6 % (0-9) 5 % (0-9) Eosinophils (%) (Auto) 1 % (0-3) 0 % (0-3) Basophils (%) (Auto) 0 % (0-3) 0 % (0-3) Neutrophils # (Auto) 14.0 x10^3uL (1.8-7.7) 13.4 x10^3uL (1.8-7.7) Lymphocytes # (Auto) 0.6 x10^3/uL (1.0-4.8) 0.3 x10^3/uL (1.0-4.8) Monocytes # (Auto) 0.9 x10^3/uL (0.0-1.1) 0.7 x10^3/uL (0.0-1.1) Eosinophils # (Auto) 0.1 x10^3/uL (0.0-0.7) 0.0 x10^3/uL (0.0-0.7) Basophils # (Auto) 0.0 x10^3/uL (0.0-0.2) 0.0 x10^3/uL (0.0-0.2) Segmented Neutrophils % 86 % (35-66) Band Neutrophils % 2 % (0-9) Lymphocytes % 4 % (24-48) Monocytes % 7 % (0-10) Eosinophils % 1 % (0-5) Platelet Estimate Adequate (ADEQUATE) Sodium Level 136 mmol/L (136-145) 137 mmol/L (136-145) Potassium Level 5.2 mmol/L (3.5-5.1) 5.0 mmol/L (3.5-5.1) Chloride Level 98 mmol/L (98-107) 102 mmol/L (98-107) Carbon Dioxide Level 28 mmol/L (21-32) 23 mmol/L (21-32) Anion Gap 10 (6-14) 12 (6-14) Blood Urea Nitrogen 57 mg/dL (7-20) 59 mg/dL (7-20) Creatinine 4.5 mg/dL (0.6-1.0) 4.9 mg/dL (0.6-1.0) Estimated GFR (Cockcroft-Gault) 9.3 8.4 BUN/Creatinine Ratio 13 (6-20) 12 (6-20) Glucose Level 98 mg/dL (70-99) 164 mg/dL (70-99) Lactic Acid Level 1.0 mmol/L (0.4-2.0) Calcium Level 10.3 mg/dL (8.5-10.1) 9.3 mg/dL (8.5-10.1) Magnesium Level 2.5 mg/dL (1.8-2.4) Total Bilirubin 0.4 mg/dL (0.2-1.0) 0.6 mg/dL (0.2-1.0) Aspartate Amino Transf (AST/SGOT) 30 U/L (15-37) 30 U/L (15-37) Alanine Aminotransferase (ALT/SGPT) 20 U/L (14-59) 20 U/L (14-59) Alkaline Phosphatase 89 U/L (46-116) 86 U/L (46-116) Ammonia < 10 mcmol/L (11-34) Total Protein 7.9 g/dL (6.4-8.2) 6.5 g/dL (6.4-8.2) Albumin 3.1 g/dL (3.4-5.0) 2.4 g/dL (3.4-5.0) Albumin/Globulin Ratio 0.6 (1.0-1.7) 0.6 (1.0-1.7) Procalcitonin 0.65 ng/mL (0.00-0.10) Urine Collection Type U cath Urine Color Yellow Urine Clarity Clear Urine pH 6.0 Urine Specific [place] 1.015 Urine Protein 100 mg/dL (NEG-TRACE) Urine Glucose (UA) Negative mg/dL (NEG) Urine Ketones (Stick) Negative mg/dL (NEG) Urine Blood Negative (NEG) Urine Nitrite Negative (NEG) Urine Bilirubin Negative (NEG) Urine Urobilinogen Dipstick 0.2 mg/dL (0.2 mg/dL) Urine Leukocyte Esterase Negative (NEG) Urine RBC 0 /HPF (0-2) Urine WBC 0 /HPF (0-4) Urine Transitional Epithelial Cells Mod /LPF Urine Amorphous Sediment Present /HPF Urine Bacteria 0 /HPF (0-FEW) Urine Hyaline Casts Occasional /HPF Influenza Type A Antigen Negative (NEGATIVE) Influenza Type B Antigen Negative (NEGATIVE) Review All relevant outside records, renal labs, imaging studies, telemetry/EKG's were reviewed. IZABELLA MCNULTY MD Aug 25, 2018 16:26
[2018-08-25] MEDS: CALCIUM ACETATE 667 MG CAPSULE PO SCH ×2 (17:00→18:13)
[2018-08-25 19:05] VITALS: BP 138/49
--- NOTE | 2018-08-25 19:43 | CONS ---
DATE OF CONSULTATION: 08/25/2018 REFERRING PHYSICIAN: Dr. Woods. REASON FOR CONSULTATION: Fever. HISTORY OF PRESENT ILLNESS: An 87-year-old female, with history of multiple medical problems with end-stage renal disease, on hemodialysis, hypertension, hyperlipidemia, coronary artery disease, coronary artery bypass grafting, coronary angioplasty with stents, was brought in to the Emergency Room due to altered mental status. The patient is alert, oriented, but she is not willing to answer all the questions, so history obtained from the medical records. The patient's son had called EMS as the patient was quite altered. Her temperature in ER was at 100 degrees Fahrenheit. WBC count was 15K. The patient had CT head, which did not show any acute changes. A chest x-ray showed left basilar atelectasis. The patient was started on empiric Zyvox and Zosyn. Infectious Disease consult has been requested for further evaluation and treatment regarding antibiotic management. This morning, the patient says she is having cough bringing up yellowish green sputum. Denies any chest pain. She has had some pain over the right upper extremity where she had previous procedure, but is not answering further questions as above. Discussed with RN. There is no nausea, vomiting, diarrhea, abdominal pain or chest pain. The patient says she feels okay, wants to go home, otherwise. PAST MEDICAL HISTORY: History of CVA, history of pacemaker placement. ALLERGIES: NUMEROUS INCLUDING QUINOLONES, TETRACYCLINE, ATORVASTATIN, CALCITONIN, CIPROFLOXACIN, CODEINE, DIAZEPAM, DOXAZOSIN, GABAPENTIN, HYDROCHLOROTHIAZIDE, ISORDIL, LABETALOL, LISINOPRIL, MELOXICAM, METOPROLOL, NAPROXEN, NEOMYCIN, OXYCODONE, PROTONIX, PRAVASTATIN, LYRICA, QUININE, SIMVASTATIN, NIFEDIPINE, BENICAR, TRAMADOL, VALSARTAN. MEDICATIONS: Zosyn and Zyvox. Other medications reviewed in medication list. SOCIAL HISTORY: Denies smoking, ETOH. Lives with her son. FAMILY HISTORY: As per HPI. REVIEW OF SYSTEMS: Limited. Denies any fevers, chills or chest pain. Has cough, but limited as above. PHYSICAL EXAMINATION: VITAL SIGNS: Temperature 98.1, pulse 60, respiratory rate 18, blood pressure 188/47, oxygen saturation 96% on room air. HEENT: Normocephalic, atraumatic, anicteric. No thrush. NECK: Supple. No JVD. LUNGS: Clear. Decreased breath sounds at bases. HEART: S1, S2. ABDOMEN: Soft, nontender. EXTREMITIES: Bilateral above-knee amputation. No generalized rash. Shunt in right upper extremity looks okay. NEUROLOGIC: Grossly nonfocal. The patient did not cooperate for other exams. LABORATORY DATA: WBC 15.6, hemoglobin 12.5, hematocrit 36.8, platelets 215, neutrophils 90%. Sodium 136, potassium 5.2, chloride 98, bicarbonate 28, BUN 57, creatinine 4.5, glucose 98, lactate 1.0, calcium 10.3, magnesium 2.5. Albumin 3.1. Procalcitonin 0.65. UA negative. Influenza screen negative. IMAGING: Chest x-ray, left lower lobe subsegmental atelectasis. Head CT shows no acute findings. IMPRESSION: 1. Altered mental status, resolved. CT head negative. 2. Fever with leukocytosis, source likely respiratory, could be viral. 3. End-stage renal disease, on hemodialysis. 4. Coronary artery disease, status post coronary artery bypass grafting and stent placement with pacemaker. 5. Peripheral arterial disease, status post bilateral above-knee amputation. 6. Hypertension/hyperlipidemia. 7. Ischemic cardiomyopathy. 8. ALLERGIES: NUMEROUS INCLUDING QUINOLONES, TETRACYCLINE, RECOMMENDATIONS: 1. Continue empiric Zosyn and Zyvox. 2. Follow up culture and susceptibility results. 3. Follow up blood culture results. 4. Continue to maintain aspiration precaution. 5 Follow up labs in a.m. and cultures. 6 Continue supportive care. Thank you, Dr. Woods, for allowing me to participate in this patient's care. If you have any questions, do not hesitate to contact me. PATI PRICE MD DR: FLO/annemarie JOB#: [id number] / [id number] BERNIE
[2018-08-25] MEDS: cloNIDine HCL 0.1 MG TABLET PO SCH ×2 (22:29→22:49)
[2018-08-25 23:05] VITALS: BP 154/40
[2018-08-26 03:52] VITALS: BP 143/75
[2018-08-26] MEDS: PIPERACILLIN/TAZOBACTAM 2.25 GM in IV NORMAL SALINE 50ML 50 ML IV SCH ×2 (05:59→14:56)
[2018-08-26] MEDS: LEVOTHYROXINE 88 MCG TABLET PO SCH (06:00)
[2018-08-26 06:21] LABS: BASO % 0 % (0-3); EOS # 0.1 x10^3/uL (0.0-0.7); EOS % 1 % (0-3); HEMATOCRIT 27.7 % (36.0-47.0); HEMOGLOBIN 9.3 g/dL (12.0-15.5); LYMPH # 0.4 x10^3/uL (1.0-4.8); LYMPH % 4 % (24-48); MEAN CORPUSCULAR HEMOGLOBIN 32 pg (25-35); MEAN CORPUSCULAR HGB CONC 34 g/dL (31-37); MEAN CORPUSCULAR VOLUME 95 fL (79-100); MONO # 0.6 x10^3/uL (0.0-1.1); MONO % 5 % (0-9); NEUT # 11.3 x10^3uL (1.8-7.7); NEUT % 91 % (31-73); PLATELET COUNT 148 x10^3/uL (140-400); RED CELL DISTRIBUTION WIDTH 13.9 % (11.5-14.5); WHITE BLOOD COUNT 12.5 x10^3/uL (4.0-11.0)
[2018-08-26 07:00] VITALS: BP 91/50
[2018-08-26] MEDS: FOLIC/VIT B COMP W-C (RENAL) TABLET. PO SCH (08:28)
[2018-08-26] MEDS: ASPIRIN CHEWABLE 81 MG TABLET. PO SCH (08:28)
[2018-08-26] MEDS: CALCIUM ACETATE 667 MG CAPSULE PO SCH ×3 (08:28→18:15)
--- NOTE | 2018-08-26 09:29 | PDOC ---
Infectious Disease Note Subjective: Subjective Pt says has some cough no f/c/n/v/d ROS: ROS otherwise neg Vital Signs: Vital Signs Vital Signs Date Time Temp Pulse Resp B/P (MAP) Pulse Ox O2 Delivery O2 Flow Rate FiO2 08/26/18 03:52 98.1 60 18 143/75 (97) 94 Room Air 98.1 Physical Exam: PHYSICAL EXAM GEN Alert awake, comfortable anxious,upset at being in the hosp HEENT: Normocephalic, atraumatic, anicteric. No thrush. NECK: Supple. No JVD. LUNGS: Clear. Decreased breath sounds at bases. HEART: S1, S2. ABDOMEN: Soft, nontender. EXTREMITIES: Bilateral above-knee amputation. No generalized rash. Shunt in right upper extremity looks okay. NEUROLOGIC: Grossly nonfocal. The patient did not cooperate for other exams. Medications: Inpatient Meds: Current Medications Medications (Trade) Dose Ordered Sig/Sarah Start Time Stop Time Status Last Admin Dose Admin Acetaminophen (Tylenol) 325 mg PRN Q6HRS PRN 08/25/18 09:45 Aspirin (Children'S Aspirin) 81 mg DAILYWBKFT 08/25/18 11:00 08/26/18 08:28 81 MG Calcium Acetate (Phoslo) 667 mg TIDWMEALS 08/25/18 12:00 08/26/18 08:28 667 MG Clonidine HCl (Catapres) 0.1 mg QHS 08/25/18 21:00 08/25/18 22:49 0.1 MG Info (PHARMACY MONITORING -- do not chart) 1 each PRN DAILY PRN 08/25/18 11:30 UNV Lactulose (Lactulose) 20 gm 1X ONCE 08/25/18 10:00 08/25/18 10:01 DC Levothyroxine Sodium (Synthroid) 88 mcg DAILY06 08/25/18 11:00 08/26/18 06:00 88 MCG Linezolid/Dextrose 300 ml @ 300 mls/hr Q12HR 08/25/18 09:00 08/26/18 08:29 300 MLS/HR Ondansetron HCl (Zofran) 4 mg PRN Q8HRS PRN 08/24/18 23:45 08/25/18 23:44 DC Piperacillin Sod/ Tazobactam Sod 2.25 gm/Sodium Chloride 50 ml @ 100 mls/hr Q8HRS 08/25/18 06:00 08/26/18 05:59 100 MLS/HR Piperacillin Sod/ Tazobactam Sod 3.375 gm/Sodium Chloride 50 ml @ 100 mls/hr 1X ONCE 08/24/18 23:30 08/24/18 23:59 DC 08/24/18 23:15 100 MLS/HR Sodium Chloride 1,000 ml @ 1,000 mls/hr Q1H PRN 08/25/18 11:18 08/25/18 17:17 DC Vancomycin HCl 250 ml @ 250 mls/hr 1X ONCE 08/24/18 23:30 08/25/18 00:29 DC 08/24/18 01:05 250 MLS/HR Vitamin B Complex/ Vitamin C (Chelsey-Sudhir) 1 tab DAILY 08/25/18 11:00 08/26/18 08:28 1 TAB Labs: Lab Laboratory Tests Test 08/26/18 05:30 White Blood Count 12.5 x10^3/uL (4.0-11.0) Red Blood Count 2.90 x10^6/uL (3.50-5.40) Hemoglobin 9.3 g/dL (12.0-15.5) Hematocrit 27.7 % (36.0-47.0) Mean Corpuscular Volume 95 fL (79-100) Mean Corpuscular Hemoglobin 32 pg (25-35) Mean Corpuscular Hemoglobin Concent 34 g/dL (31-37) Red Cell Distribution Width 13.9 % (11.5-14.5) Platelet Count 148 x10^3/uL (140-400) Neutrophils (%) (Auto) 91 % (31-73) Lymphocytes (%) (Auto) 4 % (24-48) Monocytes (%) (Auto) 5 % (0-9) Eosinophils (%) (Auto) 1 % (0-3) Basophils (%) (Auto) 0 % (0-3) Neutrophils # (Auto) 11.3 x10^3uL (1.8-7.7) Lymphocytes # (Auto) 0.4 x10^3/uL (1.0-4.8) Monocytes # (Auto) 0.6 x10^3/uL (0.0-1.1) Eosinophils # (Auto) 0.1 x10^3/uL (0.0-0.7) Basophils # (Auto) 0.0 x10^3/uL (0.0-0.2) Micro neg so far Objective: Assessment: 1. Altered mental status, resolved. CT head negative. 2. Fever with leukocytosis, source likely respiratory, could be viral. 3. End-stage renal disease, on hemodialysis. 4. Coronary artery disease, status post coronary artery bypass grafting and stent placement with pacemaker. 5. Peripheral arterial disease, status post bilateral above-knee amputation. 6. Hypertension/hyperlipidemia. 7. Ischemic cardiomyopathy. 8. ALLERGIES: NUMEROUS INCLUDING QUINOLONES, TETRACYCLINE, Plan: Plan of Care Continue Zosyn and Zyvox. Follow up blood culture results. Continue to maintain aspiration precaution. Follow up labs in a.m. and cultures. Continue supportive care. PATI PRICE MD Aug 26, 2018 09:29
--- NOTE | 2018-08-26 09:47 | PDOC ---
PROGRESS NOTES Subjective Subjective feels better., iv bandage was too tight and removed. complained of hemodialysis rate too high and hurt the final hour and she will speak with the business office assistant. lab reviewed,. afebrile. blood cultures neg so far. trying to get bystolic from home. ct chest shows bilateral lower lobe lung infiltrates worse on left. Objective Objective Vital Signs Date Time Temp Pulse Resp B/P (MAP) Pulse Ox O2 Delivery O2 Flow Rate FiO2 08/26/18 03:52 98.1 60 18 143/75 (97) 94 Room Air 98.1 Intake and Output 08/26/18 07:00 Intake Total 270 ml Output Total 2 ml Balance 268 ml Intake Oral 270 ml Output Urine Total 2 ml Physical Exam Abdomen: Soft Heart: Regular rate, Normal S1, Normal S2 Extremities: No edema, Other (bilateral AKA) General: Alert HEENT: Atraumatic Lungs: Clear to auscultation, Other (bilateral decreased breath sounds) Neuro: Normal speech Psych/Mental Status: Other (tearful) Skin: No rashes Assessment Assessment Problems1. Fever. resolved 2. pneumonia. 3. Metabolic encephalopathy. improved 4. End-stage renal disease, treated with hemodialysis Mondays, Wednesdays and Fridays. 5. Hypertension. 6. Hypothyroidism. 7. History of bilateral below- knee amputation. 8. Coronary artery disease. 9. Ischemic cardiomyopathy with a left ventricular ejection fraction of 30%. 10. Coronary artery disease. 11. Peripheral arterial disease. 12. Angioplasty of her right upper extremity fistula a week ago. leukocytosis better Medical Problems: (1) Acute on chronic renal failure Status: Acute Plan Plan of Care continue zyvox and zosyn sputum culture pending PT and OT hemodialysis tomorrow obtain bystolic from home consult dr. moran Comment Review of Relevant I have reviewed the following items wilbur (where applicable) has been applied. Labs Laboratory Tests Test 08/24/18 21:28 08/24/18 21:42 08/24/18 23:00 08/25/18 09:20 White Blood Count 15.6 x10^3/uL (4.0-11.0) 14.5 x10^3/uL (4.0-11.0) Red Blood Count 3.84 x10^6/uL (3.50-5.40) 3.14 x10^6/uL (3.50-5.40) Hemoglobin 12.5 g/dL (12.0-15.5) 10.1 g/dL (12.0-15.5) Hematocrit 36.8 % (36.0-47.0) 30.7 % (36.0-47.0) Mean Corpuscular Volume 96 fL (79-100) 98 fL (79-100) Mean Corpuscular Hemoglobin 33 pg (25-35) 32 pg (25-35) Mean Corpuscular Hemoglobin Concent 34 g/dL (31-37) 33 g/dL (31-37) Red Cell Distribution Width 14.1 % (11.5-14.5) 14.3 % (11.5-14.5) Platelet Count 215 x10^3/uL (140-400) 172 x10^3/uL (140-400) Neutrophils (%) (Auto) 90 % (31-73) 93 % (31-73) Lymphocytes (%) (Auto) 4 % (24-48) 2 % (24-48) Monocytes (%) (Auto) 6 % (0-9) 5 % (0-9) Eosinophils (%) (Auto) 1 % (0-3) 0 % (0-3) Basophils (%) (Auto) 0 % (0-3) 0 % (0-3) Neutrophils # (Auto) 14.0 x10^3uL (1.8-7.7) 13.4 x10^3uL (1.8-7.7) Lymphocytes # (Auto) 0.6 x10^3/uL (1.0-4.8) 0.3 x10^3/uL (1.0-4.8) Monocytes # (Auto) 0.9 x10^3/uL (0.0-1.1) 0.7 x10^3/uL (0.0-1.1) Eosinophils # (Auto) 0.1 x10^3/uL (0.0-0.7) 0.0 x10^3/uL (0.0-0.7) Basophils # (Auto) 0.0 x10^3/uL (0.0-0.2) 0.0 x10^3/uL (0.0-0.2) Segmented Neutrophils % 86 % (35-66) Band Neutrophils % 2 % (0-9) Lymphocytes % 4 % (24-48) Monocytes % 7 % (0-10) Eosinophils % 1 % (0-5) Platelet Estimate Adequate (ADEQUATE) Sodium Level 136 mmol/L (136-145) 137 mmol/L (136-145) Potassium Level 5.2 mmol/L (3.5-5.1) 5.0 mmol/L (3.5-5.1) Chloride Level 98 mmol/L (98-107) 102 mmol/L (98-107) Carbon Dioxide Level 28 mmol/L (21-32) 23 mmol/L (21-32) Anion Gap 10 (6-14) 12 (6-14) Blood Urea Nitrogen 57 mg/dL (7-20) 59 mg/dL (7-20) Creatinine 4.5 mg/dL (0.6-1.0) 4.9 mg/dL (0.6-1.0) Estimated GFR (Cockcroft-Gault) 9.3 8.4 BUN/Creatinine Ratio 13 (6-20) 12 (6-20) Glucose Level 98 mg/dL (70-99) 164 mg/dL (70-99) Lactic Acid Level 1.0 mmol/L (0.4-2.0) Calcium Level 10.3 mg/dL (8.5-10.1) 9.3 mg/dL (8.5-10.1) Magnesium Level 2.5 mg/dL (1.8-2.4) Total Bilirubin 0.4 mg/dL (0.2-1.0) 0.6 mg/dL (0.2-1.0) Aspartate Amino Transf (AST/SGOT) 30 U/L (15-37) 30 U/L (15-37) Alanine Aminotransferase (ALT/SGPT) 20 U/L (14-59) 20 U/L (14-59) Alkaline Phosphatase 89 U/L (46-116) 86 U/L (46-116) Ammonia < 10 mcmol/L (11-34) Total Protein 7.9 g/dL (6.4-8.2) 6.5 g/dL (6.4-8.2) Albumin 3.1 g/dL (3.4-5.0) 2.4 g/dL (3.4-5.0) Albumin/Globulin Ratio 0.6 (1.0-1.7) 0.6 (1.0-1.7) Procalcitonin 0.65 ng/mL (0.00-0.10) Urine Collection Type U cath Urine Color Yellow Urine Clarity Clear Urine pH 6.0 Urine Specific [place] 1.015 Urine Protein 100 mg/dL (NEG-TRACE) Urine Glucose (UA) Negative mg/dL (NEG) Urine Ketones (Stick) Negative mg/dL (NEG) Urine Blood Negative (NEG) Urine Nitrite Negative (NEG) Urine Bilirubin Negative (NEG) Urine Urobilinogen Dipstick 0.2 mg/dL (0.2 mg/dL) Urine Leukocyte Esterase Negative (NEG) Urine RBC 0 /HPF (0-2) Urine WBC 0 /HPF (0-4) Urine Transitional Epithelial Cells Mod /LPF Urine Amorphous Sediment Present /HPF Urine Bacteria 0 /HPF (0-FEW) Urine Hyaline Casts Occasional /HPF Influenza Type A Antigen Negative (NEGATIVE) Influenza Type B Antigen Negative (NEGATIVE) Test 08/26/18 05:30 White Blood Count 12.5 x10^3/uL (4.0-11.0) Red Blood Count 2.90 x10^6/uL (3.50-5.40) Hemoglobin 9.3 g/dL (12.0-15.5) Hematocrit 27.7 % (36.0-47.0) Mean Corpuscular Volume 95 fL (79-100) Mean Corpuscular Hemoglobin 32 pg (25-35) Mean Corpuscular Hemoglobin Concent 34 g/dL (31-37) Red Cell Distribution Width 13.9 % (11.5-14.5) Platelet Count 148 x10^3/uL (140-400) Neutrophils (%) (Auto) 91 % (31-73) Lymphocytes (%) (Auto) 4 % (24-48) Monocytes (%) (Auto) 5 % (0-9) Eosinophils (%) (Auto) 1 % (0-3) Basophils (%) (Auto) 0 % (0-3) Neutrophils # (Auto) 11.3 x10^3uL (1.8-7.7) Lymphocytes # (Auto) 0.4 x10^3/uL (1.0-4.8) Monocytes # (Auto) 0.6 x10^3/uL (0.0-1.1) Eosinophils # (Auto) 0.1 x10^3/uL (0.0-0.7) Basophils # (Auto) 0.0 x10^3/uL (0.0-0.2) Laboratory Tests Test 08/26/18 05:30 White Blood Count 12.5 x10^3/uL (4.0-11.0) Red Blood Count 2.90 x10^6/uL (3.50-5.40) Hemoglobin 9.3 g/dL (12.0-15.5) Hematocrit 27.7 % (36.0-47.0) Mean Corpuscular Volume 95 fL (79-100) Mean Corpuscular Hemoglobin 32 pg (25-35) Mean Corpuscular Hemoglobin Concent 34 g/dL (31-37) Red Cell Distribution Width 13.9 % (11.5-14.5) Platelet Count 148 x10^3/uL (140-400) Neutrophils (%) (Auto) 91 % (31-73) Lymphocytes (%) (Auto) 4 % (24-48) Monocytes (%) (Auto) 5 % (0-9) Eosinophils (%) (Auto) 1 % (0-3) Basophils (%) (Auto) 0 % (0-3) Neutrophils # (Auto) 11.3 x10^3uL (1.8-7.7) Lymphocytes # (Auto) 0.4 x10^3/uL (1.0-4.8) Monocytes # (Auto) 0.6 x10^3/uL (0.0-1.1) Eosinophils # (Auto) 0.1 x10^3/uL (0.0-0.7) Basophils # (Auto) 0.0 x10^3/uL (0.0-0.2) Microbiology 08/24/18 Blood Culture - Preliminary, Resulted NO GROWTH AFTER 1 DAY Medications Current Medications Sodium Chloride 1,000 ml @ 1,000 mls/hr 1X ONCE IV Last administered on 08/24at 23:05; Start 08/24/18 at 23:00; Stop 08/24/18 at 23:59; Status DC Vancomycin HCl 250 ml @ 250 mls/hr 1X ONCE IV Last administered on at 01:05; Start 08/24/18 at 23:30; Stop 08/25/18 at 00:29; Status DC Piperacillin Sod/ Tazobactam Sod 3.375 gm/Sodium Chloride 50 ml @ 100 mls/hr 1X ONCE IV Last administered on 08/24/18at 23:15; Start 08/24/18 at 23:30; Stop 08/24/18 at 23:59; Status DC Ondansetron HCl (Zofran) 4 mg PRN Q8HRS PRN IV NAUSEA/VOMITING 1ST CHOICE; Start 08/24/18 at 23:45; Stop 08/25/18 at 23:44; Status DC Sodium Chloride 1,000 ml @ 150 mls/hr Q6H40M IV Last administered on at 03:30; Start 08/24/18 at 23:45; Stop 08/25/18 at 23:44; Status DC Acetaminophen (Tylenol) 650 mg PRN Q4HRS PRN PO FEVER Last administered on at 08:45; Start 08/24/18 at 23:45; Stop 08/25/18 at 09:49; Status DC Linezolid/Dextrose 300 ml @ 300 mls/hr Q12HR IV Last administered on at 08:29; Start 08/25/18 at 09:00 Piperacillin Sod/ Tazobactam Sod 2.25 gm/Sodium Chloride 50 ml @ 100 mls/hr Q8HRS IV Last administered on 08/26/18at 05:59; Start 08/25/18 at 06:00 Aspirin (Children'S Aspirin) 81 mg DAILYWBKFT PO Last administered on at 08:28; Start 08/25/18 at 11:00 Calcium Acetate (Phoslo) 667 mg TIDWMEALS PO Last administered on 08/26/18 08 :28; Start 08/25/18 at 12:00 Clonidine HCl (Catapres) 0.1 mg QHS PO Last administered on 08/25/18at 22:49; Start 08/25/18 at 21:00 Levothyroxine Sodium (Synthroid) 88 mcg DAILY06 PO Last administered on at 06:00; Start 08/25/18 at 11:00 Vitamin B Complex/ Vitamin C (Chelsey-Sudhir) 1 tab DAILY PO Last administered on at 08:28; Start 08/25/18 at 11:00 Acetaminophen (Tylenol) 325 mg PRN Q6HRS PRN PO MILD PAIN / TEMP; Start at 09:45 Lactulose (Lactulose) 20 gm 1X ONCE PO ; Start 08/25/18 at 10:00; Stop at 10:01; Status DC Sodium Chloride 1,000 ml @ 1,000 mls/hr Q1H PRN IV hypotension; Start at 11:18; Stop 08/25/18 at 17:17; Status DC Info (PHARMACY MONITORING -- do not chart) 1 each PRN DAILY PRN MC SEE COMMENTS ; Start 08/25/18 at 11:30 Info (PHARMACY MONITORING -- do not chart) 1 each PRN DAILY PRN MC SEE COMMENTS ; Start 08/25/18 at 11:30; Status UNV Active Scripts Active Chelsey-Sudhir Tablet (Folic Acid/Vitamin B Comp W-C) 0.8 Mg Tablet 1 Tab PO DAILY 30 Days Calcium Acetate 667 Mg Tablet 667 Mg PO TIDWMEALS 30 Days Reported Hydralazine Hcl 50 Mg Tablet 1 Tab PO TID Aspir 81 (Aspirin) 81 Mg Tablet. 1 Tab PO DAILY Levothyroxine Sodium 88 Mcg Tablet 88 Mcg PO DAILYAC Bystolic (Nebivolol Hcl) 20 Mg Tablet 20 Mg PO DAILY Clonidine Hcl 0.1 Mg Tablet 1 Tab PO QHS Clopidogrel (Clopidogrel Bisulfate) 75 Mg Tablet 75 Mg PO DAILY Vitals/I & O Vital Sign - Last 24 Hours 08/25/18 08/25/18 08/25/18 08/25/18 11:00 19:05 20:00 22:49 Temp 99.1 98.2 99.1 98.2 Pulse 59 60 59 Resp 12 18 B/P (MAP) 124/32 (62) 138/49 (78) 154/40 Pulse Ox 91 90 O2 Delivery Room Air Room Air Room Air 08/25/18 08/26/18 23:05 03:52 Temp 98.1 98.1 98.1 98.1 Pulse 60 60 Resp 18 18 B/P (MAP) 154/40 (78) 143/75 (97) Pulse Ox 92 94 O2 Delivery Room Air Room Air Intake and Output 08/25/18 08/25/18 08/26/18 15:00 23:00 07:00 Intake Total 220 ml 0 ml 50 ml Output Total 2 ml Balance 220 ml 0 ml 48 ml LYNDA FELIX MD Aug 26, 2018 09:47
[2018-08-26 11:00] VITALS: BP 141/32
[2018-08-26 15:00] VITALS: BP 148/33
[2018-08-26] MEDS ORDERED: NEBIVOLOL 10 MG PO SCH (15:00)
--- NOTE | 2018-08-26 15:22 | CONS ---
DATE OF CONSULTATION: PULMONARY CONSULTATION ATTENDING PHYSICIAN: Dr. Woods. REASON FOR CONSULTATION: Pneumonia. HISTORY OF PRESENT ILLNESS: The patient is an 87-year-old female who has multiple medical problems including ischemic cardiomyopathy with an EF of 30%. No significant history of tobacco use. The patient presented to the hospital after she had 1 week of cough. She said she was expectorating thick yellowish mucus. She had some fever at home as well and some confusion. CT head was negative. White cell count was elevated and she underwent CT of the chest, which was reviewed by me. The patient had evidence of pneumonia, mostly in the left lower lobe. There were tiny infiltrates seen in the right lower lobe as well. She was started on antibiotics. I have been asked to see her for further evaluation. She denies any headaches. No nausea or vomiting, no diarrhea. No dysuria. No focal weakness. No skin rash. PAST MEDICAL HISTORY: Significant for coronary artery disease, history of cardiomyopathy with an EF of 30%, history of bilateral below-knee amputation, history of sick sinus syndrome, pacemaker, bilateral lower extremity arterial bypass. PAST SURGICAL HISTORY: Left carotid endarterectomy, right carotid endarterectomy, dialysis access, history of appendectomy. SOCIAL HISTORY: No history of tobacco or alcohol use. FAMILY HISTORY: Noncontributory. REVIEW OF SYSTEMS: Twelve-point systems obtained. Pertinent positives discussed in my history of present illness, otherwise noncontributory. All systems that were negative were reviewed as well. ALLERGIES: Extensive. They were all reviewed including ANTIBIOTICS, QUINOLONES AND TETRACYCLINES. PHYSICAL EXAMINATION: VITAL SIGNS: Reviewed, stable. Pulse ox 90% on room air, afebrile. HEENT: Sclerae nonicteric. NECK: Supple. LUNGS: Diminished breath sounds. CARDIOVASCULAR: Regular rate. ABDOMEN: Soft. EXTREMITIES: With bilateral below-knee amputations. LABORATORY DATA: Reviewed. White cell count was 15.6, now 12.5; hemoglobin 9.3; platelets 148. BUN and creatinine 59 and 4.9. Influenza screen is negative. IMPRESSION: 1. Pneumonia, suspect gram-negative and gram-positive. 2. No significant history of tobacco use. 3. History of cardiomyopathy with an ejection fraction of 30%, with no evidence of congestive heart failure. 4. Bilateral below knee amputation. 5. End-stage renal disease, on hemodialysis. RECOMMENDATIONS: 1. Continue with present broad-spectrum antibiotics. 2. Follow ID recommendation. 3. Follow chest x-rays. 4. Hemodialysis per Renal. 5. Follow white cell count, is already improving. 6. Discussed with RN. DULCE FERNÁNDEZ MD DR: LADARIUS/annemarie JOB#: [id number] / [id number] BERNIE
[2018-08-26 19:00] VITALS: BP 122/31
[2018-08-26] MEDS: cloNIDine HCL 0.1 MG TABLET PO SCH (21:18)
[2018-08-26] MEDS: LACTOBACILLUS RHAMNOSUS GG 1 CAPSULE. PO SCH (21:18)
[2018-08-26] MEDS: NEBIVOLOL 10 MG PO SCH (21:20)
[2018-08-26 23:00] VITALS: BP 142/43
[2018-08-27] MEDS: PIPERACILLIN/TAZOBACTAM 2.25 GM in IV NORMAL SALINE 50ML 50 ML IV SCH ×2 (00:20→06:41)
[2018-08-27 03:00] VITALS: BP 135/37
[2018-08-27 06:00] VITALS: BP 151/41
[2018-08-27] MEDS: LEVOTHYROXINE 88 MCG TABLET PO SCH (06:41)
[2018-08-27 08:43] LABS: BASO % 1 % (0-3); EOS # 0.5 x10^3/uL (0.0-0.7); EOS % 6 % (0-3); HEMATOCRIT 27.1 % (36.0-47.0); HEMOGLOBIN 9.3 g/dL (12.0-15.5); LYMPH # 0.8 x10^3/uL (1.0-4.8); LYMPH % 11 % (24-48); MEAN CORPUSCULAR HEMOGLOBIN 33 pg (25-35); MEAN CORPUSCULAR HGB CONC 35 g/dL (31-37); MEAN CORPUSCULAR VOLUME 95 fL (79-100); MONO # 0.6 x10^3/uL (0.0-1.1); MONO % 8 % (0-9); NEUT # 5.4 x10^3uL (1.8-7.7); NEUT % 74 % (31-73); PLATELET COUNT 166 x10^3/uL (140-400); RED BLOOD COUNT 2.85 x10^6/uL (3.50-5.40); RED CELL DISTRIBUTION WIDTH 14.2 % (11.5-14.5); WHITE BLOOD COUNT 7.2 x10^3/uL (4.0-11.0)
[2018-08-27 08:52] LABS: CALCIUM 9.5 mg/dL (8.5-10.1); CREATININE 5.3 mg/dL (0.6-1.0); GFR 7.7; POTASSIUM 3.8 mmol/L (3.5-5.1)
[2018-08-27] MEDS ORDERED: IV NORMAL SALINE 1000ML BAG 1,000 ML IV PRN ×2 (08:57)
[2018-08-27] MEDS: FOLIC/VIT B COMP W-C (RENAL) TABLET. PO SCH (09:00)
[2018-08-27] MEDS ORDERED: DIALYSIS PATIENT. MC PRN ×2 (09:00)
[2018-08-27] MEDS ORDERED: LIDOCAINE 2% PF 2ML VIAL. ONE ×2 (09:20→10:00)
--- NOTE | 2018-08-27 09:41 | PDOC ---
PULMONARY PROGRESS NOTES Subjective no soa choked on bread today Vitals Vital Signs Date Time Temp Pulse Resp B/P (MAP) Pulse Ox O2 Delivery O2 Flow Rate FiO2 08/27/18 06:00 97.9 60 18 151/41 (77) 91 Room Air 97.9 ROS: No Increase Cough General: Alert, No acute distress Lungs: Clear Cardiovascular: S1 Abdomen: Soft Neuro Exam: Alert Extremities: Other (bka) Skin: Warm Labs Laboratory Tests Test 08/26/18 05:30 08/27/18 07:35 White Blood Count 12.5 x10^3/uL (4.0-11.0) 7.2 x10^3/uL (4.0-11.0) Red Blood Count 2.90 x10^6/uL (3.50-5.40) 2.85 x10^6/uL (3.50-5.40) Hemoglobin 9.3 g/dL (12.0-15.5) 9.3 g/dL (12.0-15.5) Hematocrit 27.7 % (36.0-47.0) 27.1 % (36.0-47.0) Mean Corpuscular Volume 95 fL (79-100) 95 fL (79-100) Mean Corpuscular Hemoglobin 32 pg (25-35) 33 pg (25-35) Mean Corpuscular Hemoglobin Concent 34 g/dL (31-37) 35 g/dL (31-37) Red Cell Distribution Width 13.9 % (11.5-14.5) 14.2 % (11.5-14.5) Platelet Count 148 x10^3/uL (140-400) 166 x10^3/uL (140-400) Neutrophils (%) (Auto) 91 % (31-73) 74 % (31-73) Lymphocytes (%) (Auto) 4 % (24-48) 11 % (24-48) Monocytes (%) (Auto) 5 % (0-9) 8 % (0-9) Eosinophils (%) (Auto) 1 % (0-3) 6 % (0-3) Basophils (%) (Auto) 0 % (0-3) 1 % (0-3) Neutrophils # (Auto) 11.3 x10^3uL (1.8-7.7) 5.4 x10^3uL (1.8-7.7) Lymphocytes # (Auto) 0.4 x10^3/uL (1.0-4.8) 0.8 x10^3/uL (1.0-4.8) Monocytes # (Auto) 0.6 x10^3/uL (0.0-1.1) 0.6 x10^3/uL (0.0-1.1) Eosinophils # (Auto) 0.1 x10^3/uL (0.0-0.7) 0.5 x10^3/uL (0.0-0.7) Basophils # (Auto) 0.0 x10^3/uL (0.0-0.2) 0.0 x10^3/uL (0.0-0.2) Sodium Level 139 mmol/L (136-145) Potassium Level 3.8 mmol/L (3.5-5.1) Chloride Level 101 mmol/L (98-107) Carbon Dioxide Level 26 mmol/L (21-32) Anion Gap 12 (6-14) Blood Urea Nitrogen 50 mg/dL (7-20) Creatinine 5.3 mg/dL (0.6-1.0) Estimated GFR (Cockcroft-Gault) 7.7 Glucose Level 92 mg/dL (70-99) Calcium Level 9.5 mg/dL (8.5-10.1) Laboratory Tests Test 08/27/18 07:35 White Blood Count 7.2 x10^3/uL (4.0-11.0) Red Blood Count 2.85 x10^6/uL (3.50-5.40) Hemoglobin 9.3 g/dL (12.0-15.5) Hematocrit 27.1 % (36.0-47.0) Mean Corpuscular Volume 95 fL (79-100) Mean Corpuscular Hemoglobin 33 pg (25-35) Mean Corpuscular Hemoglobin Concent 35 g/dL (31-37) Red Cell Distribution Width 14.2 % (11.5-14.5) Platelet Count 166 x10^3/uL (140-400) Neutrophils (%) (Auto) 74 % (31-73) Lymphocytes (%) (Auto) 11 % (24-48) Monocytes (%) (Auto) 8 % (0-9) Eosinophils (%) (Auto) 6 % (0-3) Basophils (%) (Auto) 1 % (0-3) Neutrophils # (Auto) 5.4 x10^3uL (1.8-7.7) Lymphocytes # (Auto) 0.8 x10^3/uL (1.0-4.8) Monocytes # (Auto) 0.6 x10^3/uL (0.0-1.1) Eosinophils # (Auto) 0.5 x10^3/uL (0.0-0.7) Basophils # (Auto) 0.0 x10^3/uL (0.0-0.2) Sodium Level 139 mmol/L (136-145) Potassium Level 3.8 mmol/L (3.5-5.1) Chloride Level 101 mmol/L (98-107) Carbon Dioxide Level 26 mmol/L (21-32) Anion Gap 12 (6-14) Blood Urea Nitrogen 50 mg/dL (7-20) Creatinine 5.3 mg/dL (0.6-1.0) Estimated GFR (Cockcroft-Gault) 7.7 Glucose Level 92 mg/dL (70-99) Calcium Level 9.5 mg/dL (8.5-10.1) Medications Active Scripts Medications Dose Route/Sig Max Daily Dose Days Date Category Chelsey-Sudhir Tablet (Folic Acid/Vitamin B Comp W-C) 0.8 Mg Tablet 1 Tab PO DAILY 30 10/03/17 Rx Hydralazine Hcl 50 Mg Tablet 1 Tab PO TID 10/01/17 Reported Calcium Acetate 667 Mg Tablet 667 Mg PO TIDWMEALS 30 08/15/17 Rx Aspir 81 (Aspirin) 81 Mg Tablet.dr 1 Tab PO DAILY 08/12/17 Reported Levothyroxine Sodium 88 Mcg Tablet 88 Mcg PO DAILYAC 08/12/17 Reported Bystolic (Nebivolol Hcl) 20 Mg Tablet 20 Mg PO DAILY 08/12/17 Reported Clonidine Hcl 0.1 Mg Tablet 1 Tab PO QHS 11/27/15 Reported Clopidogrel (Clopidogrel Bisulfate) 75 Mg Tablet 75 Mg PO DAILY 12/17/13 Reported Impression . 1. Pneumonia, suspect gram-negative and gram-positive. 2. No significant history of tobacco use. 3. History of cardiomyopathy with an ejection fraction of 30%, with no evidence of congestive heart failure. 4. Bilateral below knee amputation. 5. End-stage renal disease, on hemodialysis. 6. Dysphagia to solids Plan . 1. Continue with present broad-spectrum antibiotics. 2. Follow ID recommendation. 3. Follow chest x-rays. 4. Hemodialysis per Renal. 5. Follow white cell count, is already improving. 6. speech DULCE Parra MD Aug 27, 2018 09:41
[2018-08-27] MEDS ORDERED: LIDOCAINE 2% PF 2ML VIAL. INJ ONE (09:45)
--- NOTE | 2018-08-27 10:03 | PDOC ---
Infectious Disease Note Subjective: Subjective Pt says has some cough no f/c/n/v/d ROS: ROS Negative except for above. Vital Signs: Vital Signs Vital Signs Date Time Temp Pulse Resp B/P (MAP) Pulse Ox O2 Delivery O2 Flow Rate FiO2 08/27/18 06:00 97.9 60 18 151/41 (77) 91 Room Air 97.9 Physical Exam: PHYSICAL EXAM GEN Alert awake, comfortable anxious,upset at being in the hosp HEENT: Normocephalic, atraumatic, anicteric. No thrush. NECK: Supple. No JVD. LUNGS: Clear. Decreased breath sounds at bases. HEART: S1, S2. ABDOMEN: Soft, nontender. EXTREMITIES: Bilateral above-knee amputation. No generalized rash. Shunt in right upper extremity looks okay. NEUROLOGIC: Grossly nonfocal. The patient did not cooperate for other exams. Medications: Inpatient Meds: Current Medications Medications (Trade) Dose Ordered Sig/Sarah Start Time Stop Time Status Last Admin Dose Admin Acetaminophen (Tylenol) 325 mg PRN Q6HRS PRN 08/25/18 09:45 08/26/18 18:15 325 MG Aspirin (Children'S Aspirin) 81 mg DAILYWBKFT 08/25/18 11:00 08/26/18 08:28 81 MG Calcium Acetate (Phoslo) 667 mg TIDWMEALS 08/25/18 12:00 08/26/18 18:15 667 MG Clonidine HCl (Catapres) 0.1 mg QHS 08/25/18 21:00 08/26/18 21:18 0.1 MG Info (PHARMACY MONITORING -- do not chart) 1 each PRN DAILY PRN 08/27/18 09:00 UNV Lactobacillus Rhamnosus (Culturelle) 1 cap BID 08/26/18 21:00 08/26/18 21:18 1 CAP Lactulose (Lactulose) 20 gm 1X ONCE 08/25/18 10:00 08/25/18 10:01 DC Levothyroxine Sodium (Synthroid) 88 mcg DAILY06 08/25/18 11:00 08/27/18 06:41 88 MCG Lidocaine HCl (Xylocaine-Mpf 2% Vial) 2 ml 1X ONCE 08/27/18 09:45 08/27/18 09:46 UNV Linezolid/Dextrose 300 ml @ 300 mls/hr Q12HR 08/25/18 09:00 08/27/18 08:20 300 MLS/HR Non-Formulary Medication (Nebivolol Hcl (Bystolic)) 10 mg QHS 08/26/18 21:00 08/26/18 21:20 10 MG Ondansetron HCl (Zofran) 4 mg PRN Q8HRS PRN 08/24/18 23:45 08/25/18 23:44 DC Piperacillin Sod/ Tazobactam Sod 2.25 gm/Sodium Chloride 50 ml @ 100 mls/hr Q8HRS 08/25/18 06:00 08/27/18 06:41 100 MLS/HR Piperacillin Sod/ Tazobactam Sod 3.375 gm/Sodium Chloride 50 ml @ 100 mls/hr 1X ONCE 08/24/18 23:30 08/24/18 23:59 DC 08/24/18 23:15 100 MLS/HR Sodium Chloride 1,000 ml @ 400 mls/hr Q2H30M PRN 08/27/18 08:57 08/27/18 20:56 Vancomycin HCl 250 ml @ 250 mls/hr 1X ONCE 08/24/18 23:30 08/25/18 00:29 DC 08/24/18 01:05 250 MLS/HR Vitamin B Complex/ Vitamin C (Chelsey-Sudhir) 1 tab DAILY 08/25/18 11:00 08/26/18 08:28 1 TAB Labs: Lab Laboratory Tests Test 08/27/18 07:35 White Blood Count 7.2 x10^3/uL (4.0-11.0) Red Blood Count 2.85 x10^6/uL (3.50-5.40) Hemoglobin 9.3 g/dL (12.0-15.5) Hematocrit 27.1 % (36.0-47.0) Mean Corpuscular Volume 95 fL (79-100) Mean Corpuscular Hemoglobin 33 pg (25-35) Mean Corpuscular Hemoglobin Concent 35 g/dL (31-37) Red Cell Distribution Width 14.2 % (11.5-14.5) Platelet Count 166 x10^3/uL (140-400) Neutrophils (%) (Auto) 74 % (31-73) Lymphocytes (%) (Auto) 11 % (24-48) Monocytes (%) (Auto) 8 % (0-9) Eosinophils (%) (Auto) 6 % (0-3) Basophils (%) (Auto) 1 % (0-3) Neutrophils # (Auto) 5.4 x10^3uL (1.8-7.7) Lymphocytes # (Auto) 0.8 x10^3/uL (1.0-4.8) Monocytes # (Auto) 0.6 x10^3/uL (0.0-1.1) Eosinophils # (Auto) 0.5 x10^3/uL (0.0-0.7) Basophils # (Auto) 0.0 x10^3/uL (0.0-0.2) Sodium Level 139 mmol/L (136-145) Potassium Level 3.8 mmol/L (3.5-5.1) Chloride Level 101 mmol/L (98-107) Carbon Dioxide Level 26 mmol/L (21-32) Anion Gap 12 (6-14) Blood Urea Nitrogen 50 mg/dL (7-20) Creatinine 5.3 mg/dL (0.6-1.0) Estimated GFR (Cockcroft-Gault) 7.7 Glucose Level 92 mg/dL (70-99) Calcium Level 9.5 mg/dL (8.5-10.1) Micro neg so far Objective: Assessment: 1. Altered mental status, resolved. CT head negative. 2. Fever with leukocytosis, source likely respiratory, could be viral. 3. End-stage renal disease, on hemodialysis. 4. Coronary artery disease, status post coronary artery bypass grafting and stent placement with pacemaker. 5. Peripheral arterial disease, status post bilateral above-knee amputation. 6. Hypertension/hyperlipidemia. 7. Ischemic cardiomyopathy. 8. ALLERGIES: NUMEROUS INCLUDING QUINOLONES, TETRACYCLINE, Plan: Plan of Care Continue Zosyn ,will wean soon dc Zyvox. Follow up labs in a.m. and cultures. PATI PRICE MD Aug 27, 2018 10:03
--- NOTE | 2018-08-27 10:31 | PDOC ---
SUBJECTIVE ROS Seen on HD, tolerating well, sitting up OBJECTIVE Vital Signs Vital Signs Date Time Temp Pulse Resp B/P (MAP) Pulse Ox O2 Delivery O2 Flow Rate FiO2 08/27/18 06:00 97.9 60 18 151/41 (77) 91 Room Air 97.9 I & 0 Intake and Output 08/27/18 07:00 Intake Total 740 ml Balance 740 ml Intake Oral 740 ml # Voids 2 PHYSICAL EXAM Physical Exam GEN NAD HEENT: om MOIST NECK: Supple. No JVD. LUNGS: Clear. HEART: S1, S2. ABDOMEN: Soft, nontender. EXTREMITIES: Bilateral above-knee amputation. AV shunt Rt arm NEUROLOGIC: Grossly nonfocal. DIAGNOSIS/ASSESSMENT Assessment & Plan ESRD- On HD MWF Seen on HD tolerating well Continue as ordered, ROZ BARBA Fever/ Fever with leukocytosis, source likely respiratory, could be viral. ID following HTN- BP at goal CAD- Stable CHF- Compensated COMMENT/RELEVANT DATA Meds Current Medications Medications (Trade) Dose Ordered Sig/Sarah Start Time Stop Time Status Last Admin Dose Admin Acetaminophen (Tylenol) 325 mg PRN Q6HRS PRN 08/25/18 09:45 08/26/18 18:15 325 MG Amoxicillin/ Clavulanate Potassium (Augmentin 500/ 125mg) 1 tab BID 08/27/18 12:00 Aspirin (Children'S Aspirin) 81 mg DAILYWBKFT 08/25/18 11:00 08/26/18 08:28 81 MG Calcium Acetate (Phoslo) 667 mg TIDWMEALS 08/25/18 12:00 08/26/18 18:15 667 MG Clonidine HCl (Catapres) 0.1 mg QHS 08/25/18 21:00 08/26/18 21:18 0.1 MG Info (PHARMACY MONITORING -- do not chart) 1 each PRN DAILY PRN 08/27/18 09:00 UNV Lactobacillus Rhamnosus (Culturelle) 1 cap BID 08/26/18 21:00 08/26/18 21:18 1 CAP Lactulose (Lactulose) 20 gm 1X ONCE 08/25/18 10:00 08/25/18 10:01 DC Levothyroxine Sodium (Synthroid) 88 mcg DAILY06 08/25/18 11:00 08/27/18 06:41 88 MCG Lidocaine HCl (Xylocaine-Mpf 2% Vial) 2 ml 1X ONCE 08/27/18 09:45 08/27/18 09:59 DC Linezolid/Dextrose 300 ml @ 300 mls/hr Q12HR 08/25/18 09:00 08/27/18 10:04 DC 08/27/18 08:20 300 MLS/HR Non-Formulary Medication (Nebivolol Hcl (Bystolic)) 10 mg QHS 08/26/18 21:00 08/26/18 21:20 10 MG Ondansetron HCl (Zofran) 4 mg PRN Q8HRS PRN 08/24/18 23:45 08/25/18 23:44 DC Piperacillin Sod/ Tazobactam Sod 2.25 gm/Sodium Chloride 50 ml @ 100 mls/hr Q8HRS 08/25/18 06:00 08/27/18 10:04 DC 08/27/18 06:41 100 MLS/HR Piperacillin Sod/ Tazobactam Sod 3.375 gm/Sodium Chloride 50 ml @ 100 mls/hr 1X ONCE 08/24/18 23:30 08/24/18 23:59 DC 08/24/18 23:15 100 MLS/HR Sodium Chloride 1,000 ml @ 400 mls/hr Q2H30M PRN 08/27/18 08:57 08/27/18 20:56 Vancomycin HCl 250 ml @ 250 mls/hr 1X ONCE 08/24/18 23:30 08/25/18 00:29 DC 08/24/18 01:05 250 MLS/HR Vitamin B Complex/ Vitamin C (Chelsey-Sudhir) 1 tab DAILY 08/25/18 11:00 08/26/18 08:28 1 TAB Lab Laboratory Tests Test 08/27/18 07:35 White Blood Count 7.2 x10^3/uL (4.0-11.0) Red Blood Count 2.85 x10^6/uL (3.50-5.40) Hemoglobin 9.3 g/dL (12.0-15.5) Hematocrit 27.1 % (36.0-47.0) Mean Corpuscular Volume 95 fL (79-100) Mean Corpuscular Hemoglobin 33 pg (25-35) Mean Corpuscular Hemoglobin Concent 35 g/dL (31-37) Red Cell Distribution Width 14.2 % (11.5-14.5) Platelet Count 166 x10^3/uL (140-400) Neutrophils (%) (Auto) 74 % (31-73) Lymphocytes (%) (Auto) 11 % (24-48) Monocytes (%) (Auto) 8 % (0-9) Eosinophils (%) (Auto) 6 % (0-3) Basophils (%) (Auto) 1 % (0-3) Neutrophils # (Auto) 5.4 x10^3uL (1.8-7.7) Lymphocytes # (Auto) 0.8 x10^3/uL (1.0-4.8) Monocytes # (Auto) 0.6 x10^3/uL (0.0-1.1) Eosinophils # (Auto) 0.5 x10^3/uL (0.0-0.7) Basophils # (Auto) 0.0 x10^3/uL (0.0-0.2) Sodium Level 139 mmol/L (136-145) Potassium Level 3.8 mmol/L (3.5-5.1) Chloride Level 101 mmol/L (98-107) Carbon Dioxide Level 26 mmol/L (21-32) Anion Gap 12 (6-14) Blood Urea Nitrogen 50 mg/dL (7-20) Creatinine 5.3 mg/dL (0.6-1.0) Estimated GFR (Cockcroft-Gault) 7.7 Glucose Level 92 mg/dL (70-99) Calcium Level 9.5 mg/dL (8.5-10.1) Results All relevant outside records, renal labs, imaging studies, telemetry/EKG's were reviewed. IZABELLA MCNULTY MD Aug 27, 2018 10:31
[2018-08-27] MEDS: CALCIUM ACETATE 667 MG CAPSULE PO SCH ×3 (12:00→17:43)
[2018-08-27 15:00] VITALS: BP 167/36
--- NOTE | 2018-08-27 15:07 | PDOC ---
PROGRESS NOTES Subjective Subjective feels better. seen earlier during dialysis. coughing some.lab reviewed. Objective Objective Vital Signs Date Time Temp Pulse Resp B/P (MAP) Pulse Ox O2 Delivery O2 Flow Rate FiO2 08/27/18 08:00 Room Air 08/27/18 06:00 97.9 60 18 151/41 (77) 91 97.9 Intake and Output 08/27/18 07:00 Intake Total 740 ml Balance 740 ml Intake Oral 740 ml # Voids 2 Physical Exam Abdomen: Soft Heart: Regular rate, Normal S1, Normal S2 Extremities: No edema General: Alert, Oriented X3 HEENT: Atraumatic Lungs: Clear to auscultation Neuro: Normal speech Psych/Mental Status: Mood NL Skin: No rashes Assessment Assessment Problems1. Fever. resolved 2. pneumonia.suspect gram positive and gram neg organisms 3. Metabolic encephalopathy. improved 4. End-stage renal disease, treated with hemodialysis Mondays, Wednesdays and Fridays. 5. Hypertension. 6. Hypothyroidism. 7. History of bilateral below- knee amputation. 8. Coronary artery disease. 9. Ischemic cardiomyopathy with a left ventricular ejection fraction of 30%. 10. Coronary artery disease. 11. Peripheral arterial disease. 12. Angioplasty of her right upper extremity fistula a week ago. leukocytosis better Medical Problems: (1) Acute on chronic renal failure Status: Acute Plan Plan of Care continue zosyn hemodialysis today PT Comment Review of Relevant I have reviewed the following items wilbur (where applicable) has been applied. Labs Laboratory Tests Test 08/26/18 05:30 08/27/18 07:35 White Blood Count 12.5 x10^3/uL (4.0-11.0) 7.2 x10^3/uL (4.0-11.0) Red Blood Count 2.90 x10^6/uL (3.50-5.40) 2.85 x10^6/uL (3.50-5.40) Hemoglobin 9.3 g/dL (12.0-15.5) 9.3 g/dL (12.0-15.5) Hematocrit 27.7 % (36.0-47.0) 27.1 % (36.0-47.0) Mean Corpuscular Volume 95 fL (79-100) 95 fL (79-100) Mean Corpuscular Hemoglobin 32 pg (25-35) 33 pg (25-35) Mean Corpuscular Hemoglobin Concent 34 g/dL (31-37) 35 g/dL (31-37) Red Cell Distribution Width 13.9 % (11.5-14.5) 14.2 % (11.5-14.5) Platelet Count 148 x10^3/uL (140-400) 166 x10^3/uL (140-400) Neutrophils (%) (Auto) 91 % (31-73) 74 % (31-73) Lymphocytes (%) (Auto) 4 % (24-48) 11 % (24-48) Monocytes (%) (Auto) 5 % (0-9) 8 % (0-9) Eosinophils (%) (Auto) 1 % (0-3) 6 % (0-3) Basophils (%) (Auto) 0 % (0-3) 1 % (0-3) Neutrophils # (Auto) 11.3 x10^3uL (1.8-7.7) 5.4 x10^3uL (1.8-7.7) Lymphocytes # (Auto) 0.4 x10^3/uL (1.0-4.8) 0.8 x10^3/uL (1.0-4.8) Monocytes # (Auto) 0.6 x10^3/uL (0.0-1.1) 0.6 x10^3/uL (0.0-1.1) Eosinophils # (Auto) 0.1 x10^3/uL (0.0-0.7) 0.5 x10^3/uL (0.0-0.7) Basophils # (Auto) 0.0 x10^3/uL (0.0-0.2) 0.0 x10^3/uL (0.0-0.2) Sodium Level 139 mmol/L (136-145) Potassium Level 3.8 mmol/L (3.5-5.1) Chloride Level 101 mmol/L (98-107) Carbon Dioxide Level 26 mmol/L (21-32) Anion Gap 12 (6-14) Blood Urea Nitrogen 50 mg/dL (7-20) Creatinine 5.3 mg/dL (0.6-1.0) Estimated GFR (Cockcroft-Gault) 7.7 Glucose Level 92 mg/dL (70-99) Calcium Level 9.5 mg/dL (8.5-10.1) Laboratory Tests Test 08/27/18 07:35 White Blood Count 7.2 x10^3/uL (4.0-11.0) Red Blood Count 2.85 x10^6/uL (3.50-5.40) Hemoglobin 9.3 g/dL (12.0-15.5) Hematocrit 27.1 % (36.0-47.0) Mean Corpuscular Volume 95 fL (79-100) Mean Corpuscular Hemoglobin 33 pg (25-35) Mean Corpuscular Hemoglobin Concent 35 g/dL (31-37) Red Cell Distribution Width 14.2 % (11.5-14.5) Platelet Count 166 x10^3/uL (140-400) Neutrophils (%) (Auto) 74 % (31-73) Lymphocytes (%) (Auto) 11 % (24-48) Monocytes (%) (Auto) 8 % (0-9) Eosinophils (%) (Auto) 6 % (0-3) Basophils (%) (Auto) 1 % (0-3) Neutrophils # (Auto) 5.4 x10^3uL (1.8-7.7) Lymphocytes # (Auto) 0.8 x10^3/uL (1.0-4.8) Monocytes # (Auto) 0.6 x10^3/uL (0.0-1.1) Eosinophils # (Auto) 0.5 x10^3/uL (0.0-0.7) Basophils # (Auto) 0.0 x10^3/uL (0.0-0.2) Sodium Level 139 mmol/L (136-145) Potassium Level 3.8 mmol/L (3.5-5.1) Chloride Level 101 mmol/L (98-107) Carbon Dioxide Level 26 mmol/L (21-32) Anion Gap 12 (6-14) Blood Urea Nitrogen 50 mg/dL (7-20) Creatinine 5.3 mg/dL (0.6-1.0) Estimated GFR (Cockcroft-Gault) 7.7 Glucose Level 92 mg/dL (70-99) Calcium Level 9.5 mg/dL (8.5-10.1) Microbiology 08/24/18 Blood Culture - Preliminary, Resulted NO GROWTH AFTER 2 DAYS Medications Current Medications Sodium Chloride 1,000 ml @ 1,000 mls/hr 1X ONCE IV Last administered on 08/24at 23:05; Start 08/24/18 at 23:00; Stop 08/24/18 at 23:59; Status DC Vancomycin HCl 250 ml @ 250 mls/hr 1X ONCE IV Last administered on at 01:05; Start 08/24/18 at 23:30; Stop 08/25/18 at 00:29; Status DC Piperacillin Sod/ Tazobactam Sod 3.375 gm/Sodium Chloride 50 ml @ 100 mls/hr 1X ONCE IV Last administered on 08/24/18at 23:15; Start 08/24/18 at 23:30; Stop 08/24/18 at 23:59; Status DC Ondansetron HCl (Zofran) 4 mg PRN Q8HRS PRN IV NAUSEA/VOMITING 1ST CHOICE; Start 08/24/18 at 23:45; Stop 08/25/18 at 23:44; Status DC Sodium Chloride 1,000 ml @ 150 mls/hr Q6H40M IV Last administered on at 03:30; Start 08/24/18 at 23:45; Stop 08/25/18 at 23:44; Status DC Acetaminophen (Tylenol) 650 mg PRN Q4HRS PRN PO FEVER Last administered on at 08:45; Start 08/24/18 at 23:45; Stop 08/25/18 at 09:49; Status DC Linezolid/Dextrose 300 ml @ 300 mls/hr Q12HR IV Last administered on at 08:20; Start 08/25/18 at 09:00; Stop 08/27/18 at 10:04; Status DC Piperacillin Sod/ Tazobactam Sod 2.25 gm/Sodium Chloride 50 ml @ 100 mls/hr Q8HRS IV Last administered on 08/27/18at 06:41; Start 08/25/18 at 06:00; Stop 08/27/18 at 10:04; Status DC Aspirin (Children'S Aspirin) 81 mg DAILYWBKFT PO Last administered on at 08:28; Start 08/25/18 at 11:00 Calcium Acetate (Phoslo) 667 mg TIDWMEALS PO Last administered on 08/26/18at 18 :15; Start 08/25/18 at 12:00 Clonidine HCl (Catapres) 0.1 mg QHS PO Last administered on 08/26/18at 21:18; Start 08/25/18 at 21:00 Levothyroxine Sodium (Synthroid) 88 mcg DAILY06 PO Last administered on at 06:41; Start 08/25/18 at 11:00 Vitamin B Complex/ Vitamin C (Chelsey-Sudhir) 1 tab DAILY PO Last administered on at 08:28; Start 08/25/18 at 11:00 Acetaminophen (Tylenol) 325 mg PRN Q6HRS PRN PO MILD PAIN / TEMP Last administered on 08/26/18at 18:15; Start 08/25/18 at 09:45 Lactulose (Lactulose) 20 gm 1X ONCE PO ; Start 08/25/18 at 10:00; Stop at 10:01; Status DC Sodium Chloride 1,000 ml @ 1,000 mls/hr Q1H PRN IV hypotension; Start at 11:18; Stop 08/25/18 at 17:17; Status DC Info (PHARMACY MONITORING -- do not chart) 1 each PRN DAILY PRN MC SEE COMMENTS ; Start 08/25/18 at 11:30 Info (PHARMACY MONITORING -- do not chart) 1 each PRN DAILY PRN MC SEE COMMENTS ; Start 08/25/18 at 11:30; Status UNV Lactobacillus Rhamnosus (Culturelle) 1 cap BID PO Last administered on at 21:18; Start 08/26/18 at 21:00 Non-Formulary Medication (Nebivolol Hcl (Bystolic)) 10 mg DAILY PO ; Start at 15:00; Stop 08/26/18 at 15:55; Status DC Non-Formulary Medication (Nebivolol Hcl (Bystolic)) 10 mg QHS PO Last administered on 08/26/18at 21:20; Start 08/26/18 at 21:00 Sodium Chloride 1,000 ml @ 1,000 mls/hr Q1H PRN IV hypotension; Start at 08:57; Stop 08/27/18 at 14:56; Status DC Sodium Chloride 1,000 ml @ 400 mls/hr Q2H30M PRN IV PATENCY; Start 08/27/18 at 08:57; Stop 08/27/18 at 20:56 Info (PHARMACY MONITORING -- do not chart) 1 each PRN DAILY PRN MC SEE COMMENTS ; Start 08/27/18 at 09:00; Status UNV Info (PHARMACY MONITORING -- do not chart) 1 each PRN DAILY PRN MC SEE COMMENTS ; Start 08/27/18 at 09:00; Status UNV Lidocaine HCl (Xylocaine-Mpf 2% Vial) 2 ml STK-MED ONCE .ROUTE ; Start at 09:20; Stop 08/27/18 at 09:21; Status DC Lidocaine HCl (Xylocaine-Mpf 2% Vial) 2 ml 1X ONCE INJ ; Start 08/27/18 at 09: 45; Stop 08/27/18 at 09:59; Status DC Amoxicillin/ Clavulanate Potassium (Augmentin 500/ 125mg) 1 tab BID PO ; Start 08/27/18 at 12:00 Active Scripts Active Chelsey-Sudhir Tablet (Folic Acid/Vitamin B Comp W-C) 0.8 Mg Tablet 1 Tab PO DAILY 30 Days Calcium Acetate 667 Mg Tablet 667 Mg PO TIDWMEALS 30 Days Reported Hydralazine Hcl 50 Mg Tablet 1 Tab PO TID Aspir 81 (Aspirin) 81 Mg Tablet. 1 Tab PO DAILY Levothyroxine Sodium 88 Mcg Tablet 88 Mcg PO DAILYAC Bystolic (Nebivolol Hcl) 20 Mg Tablet 20 Mg PO DAILY Clonidine Hcl 0.1 Mg Tablet 1 Tab PO QHS Clopidogrel (Clopidogrel Bisulfate) 75 Mg Tablet 75 Mg PO DAILY Vitals/I & O Vital Sign - Last 24 Hours 08/26/18 08/26/18 08/26/18 08/26/18 19:00 20:00 21:18 23:00 Temp 97.9 97.9 97.9 97.9 Pulse 57 57 60 Resp 16 16 B/P (MAP) 122/31 (61) 122/31 142/43 (76) Pulse Ox 95 94 O2 Delivery Room Air Room Air Room Air 08/27/18 08/27/18 08/27/18 03:00 06:00 08:00 Temp 98.1 97.9 98.1 97.9 Pulse 64 60 Resp 16 18 B/P (MAP) 135/37 (69) 151/41 (77) Pulse Ox 93 91 O2 Delivery Room Air Room Air Room Air Intake and Output 08/26/18 08/26/18 08/27/18 15:00 23:00 07:00 Intake Total 340 ml 300 ml 100 ml Balance 340 ml 300 ml 100 ml Nutrition Consultation Dietary Evaluation: Comments: honor food preferences, encourage intake Expected Outcomes/Goals: to meet > 75% est nutr needs Malnutrition Findings: Body Fat Depletion (Non Severe: Mild Depletion Weight Status: Appropriate LYNDA FELIX MD Aug 27, 2018 15:07
[2018-08-27] MEDS: LACTOBACILLUS RHAMNOSUS GG 1 CAPSULE. PO SCH ×2 (16:05→22:37)
[2018-08-27] MEDS: AMOXICILLIN/K CLAV 500/125MG TABLET. PO SCH ×2 (16:05→22:37)
[2018-08-27] MEDS: ASPIRIN CHEWABLE 81 MG TABLET. PO SCH (16:05)
[2018-08-27 19:12] VITALS: BP 171/57
[2018-08-27] MEDS: cloNIDine HCL 0.1 MG TABLET PO SCH (21:00)
[2018-08-27] MEDS: NEBIVOLOL 10 MG PO SCH (22:37)
[2018-08-27] MEDS ORDERED: BYSTOLIC10 MG PO (23:15)
[2018-08-27 23:32] VITALS: BP 179/52
[2018-08-28 03:22] VITALS: BP 168/48
[2018-08-28] MEDS: LEVOTHYROXINE 88 MCG TABLET PO SCH (06:39)
[2018-08-28 07:00] VITALS: BP 190/72
[2018-08-28] MEDS: ASPIRIN CHEWABLE 81 MG TABLET. PO SCH (08:00)
[2018-08-28] MEDS: AMOXICILLIN/K CLAV 500/125MG TABLET. PO SCH ×2 (08:24→21:22)
[2018-08-28] MEDS: CALCIUM ACETATE 667 MG CAPSULE PO SCH ×3 (08:24→17:56)
[2018-08-28] MEDS: FOLIC/VIT B COMP W-C (RENAL) TABLET. PO SCH (08:25)
[2018-08-28] MEDS: LACTOBACILLUS RHAMNOSUS GG 1 CAPSULE. PO SCH ×2 (08:25→21:22)
[2018-08-28] MEDS: NEBIVOLOL 10 MG PO SCH (08:25)
[2018-08-28] MEDS ORDERED: BARIUM SULFATE 40% (APPLE) 148 GM PWD. PO ONE (10:15)
[2018-08-28 11:00] VITALS: BP 183/53
--- NOTE | 2018-08-28 11:30 | RAD ---
Video dysphagia study, 08/28/2018: HISTORY: Difficulty swallowing The swallowing mechanism was examined fluoroscopically in the lateral projection while the patient ingested a variety of food materials mixed with barium. 1.3 minutes of fluoroscopy time was utilized. One video fluoroscopic loop was recorded by member of the speech Department. The patient demonstrated good oral control of the barium materials. She ingested the thin thin liquids and thickened liquids without significant laryngeal penetration or aspiration. There is a prominent cricopharyngeal impression in the cervical esophagus without evidence of obstruction to flow of the barium materials. When ingesting the barium coated solids there was a small amount of vallecular residue. When ingesting a mixture of the solids and thin material there was mild laryngeal penetration without joselito aspiration. IMPRESSION: No current evidence of aspiration. Electronically signed by: Keaton Hernandez MD (08/28/2018 11:27 AM) [facility]
--- NOTE | 2018-08-28 12:02 | PDOC ---
PROGRESS NOTES Subjective Subjective feels better. passed videoswallow. bp is high and she says she is taking bystolic. has some lower left back discomfort Objective Objective Vital Signs Date Time Temp Pulse Resp B/P (MAP) Pulse Ox O2 Delivery O2 Flow Rate FiO2 08/28/18 07:00 96.1 62 18 190/72 (111) 100 Room Air 96.1 Intake and Output 08/28/18 07:00 Intake Total 720 ml Output Total 200 ml Balance 520 ml Intake Oral 720 ml Output Urine Total 200 ml # Voids 5 Physical Exam Abdomen: Soft Heart: Regular rate, Normal S1, Normal S2 Extremities: Other (bilateral aka) General: Alert HEENT: Atraumatic Lungs: Clear to auscultation MUSCULOSKELETAL: Other (some tenderness left lower lumbar muscles) Neuro: Normal speech Psych/Mental Status: Mood NL Skin: No rashes Assessment Assessment Problems1. Fever. resolved 2. pneumonia.suspect gram positive and gram neg organisms 3. Metabolic encephalopathy. improved 4. End-stage renal disease, treated with hemodialysis Mondays, Wednesdays and Fridays. 5. Hypertension. 6. Hypothyroidism. 7. History of bilateral below- knee amputation. 8. Coronary artery disease. 9. Ischemic cardiomyopathy with a left ventricular ejection fraction of 30%. 10. Coronary artery disease. 11. Peripheral arterial disease. 12. Angioplasty of her right upper extremity fistula a week ago. leukocytosis resolved Medical Problems: (1) Acute on chronic renal failure Status: Acute Plan Plan of Care continue augmentin hemodalysis and lab tomorrow kpad to lower back monitor bp dismiss tomorrow after hemodialysis continue bystolic and clonidine Comment Review of Relevant I have reviewed the following items wilbur (where applicable) has been applied. Labs Laboratory Tests Test 08/27/18 07:35 White Blood Count 7.2 x10^3/uL (4.0-11.0) Red Blood Count 2.85 x10^6/uL (3.50-5.40) Hemoglobin 9.3 g/dL (12.0-15.5) Hematocrit 27.1 % (36.0-47.0) Mean Corpuscular Volume 95 fL (79-100) Mean Corpuscular Hemoglobin 33 pg (25-35) Mean Corpuscular Hemoglobin Concent 35 g/dL (31-37) Red Cell Distribution Width 14.2 % (11.5-14.5) Platelet Count 166 x10^3/uL (140-400) Neutrophils (%) (Auto) 74 % (31-73) Lymphocytes (%) (Auto) 11 % (24-48) Monocytes (%) (Auto) 8 % (0-9) Eosinophils (%) (Auto) 6 % (0-3) Basophils (%) (Auto) 1 % (0-3) Neutrophils # (Auto) 5.4 x10^3uL (1.8-7.7) Lymphocytes # (Auto) 0.8 x10^3/uL (1.0-4.8) Monocytes # (Auto) 0.6 x10^3/uL (0.0-1.1) Eosinophils # (Auto) 0.5 x10^3/uL (0.0-0.7) Basophils # (Auto) 0.0 x10^3/uL (0.0-0.2) Sodium Level 139 mmol/L (136-145) Potassium Level 3.8 mmol/L (3.5-5.1) Chloride Level 101 mmol/L (98-107) Carbon Dioxide Level 26 mmol/L (21-32) Anion Gap 12 (6-14) Blood Urea Nitrogen 50 mg/dL (7-20) Creatinine 5.3 mg/dL (0.6-1.0) Estimated GFR (Cockcroft-Gault) 7.7 Glucose Level 92 mg/dL (70-99) Calcium Level 9.5 mg/dL (8.5-10.1) Microbiology 08/24/18 Blood Culture - Preliminary, Resulted NO GROWTH AFTER 3 DAYS Medications Current Medications Sodium Chloride 1,000 ml @ 1,000 mls/hr 1X ONCE IV Last administered on 08/24at 23:05; Start 08/24/18 at 23:00; Stop 08/24/18 at 23:59; Status DC Vancomycin HCl 250 ml @ 250 mls/hr 1X ONCE IV Last administered on at 01:05; Start 08/24/18 at 23:30; Stop 08/25/18 at 00:29; Status DC Piperacillin Sod/ Tazobactam Sod 3.375 gm/Sodium Chloride 50 ml @ 100 mls/hr 1X ONCE IV Last administered on 08/24/18at 23:15; Start 08/24/18 at 23:30; Stop 08/24/18 at 23:59; Status DC Ondansetron HCl (Zofran) 4 mg PRN Q8HRS PRN IV NAUSEA/VOMITING 1ST CHOICE; Start 08/24/18 at 23:45; Stop 08/25/18 at 23:44; Status DC Sodium Chloride 1,000 ml @ 150 mls/hr Q6H40M IV Last administered on at 03:30; Start 08/24/18 at 23:45; Stop 08/25/18 at 23:44; Status DC Acetaminophen (Tylenol) 650 mg PRN Q4HRS PRN PO FEVER Last administered on at 08:45; Start 08/24/18 at 23:45; Stop 08/25/18 at 09:49; Status DC Linezolid/Dextrose 300 ml @ 300 mls/hr Q12HR IV Last administered on at 08:20; Start 08/25/18 at 09:00; Stop 08/27/18 at 10:04; Status DC Piperacillin Sod/ Tazobactam Sod 2.25 gm/Sodium Chloride 50 ml @ 100 mls/hr Q8HRS IV Last administered on 08/27/18at 06:41; Start 08/25/18 at 06:00; Stop 08/27/18 at 10:04; Status DC Aspirin (Children'S Aspirin) 81 mg DAILYWBKFT PO Last administered on at 16:05; Start 08/25/18 at 11:00 Calcium Acetate (Phoslo) 667 mg TIDWMEALS PO Last administered on 08/28/18at 08: 24; Start 08/25/18 at 12:00 Clonidine HCl (Catapres) 0.1 mg QHS PO Last administered on 08/26/18at 21:18; Start 08/25/18 at 21:00 Levothyroxine Sodium (Synthroid) 88 mcg DAILY06 PO Last administered on at 06:39; Start 08/25/18 at 11:00 Vitamin B Complex/ Vitamin C (Chelsey-Sudhir) 1 tab DAILY PO Last administered on at 08:25; Start 08/25/18 at 11:00 Acetaminophen (Tylenol) 325 mg PRN Q6HRS PRN PO MILD PAIN / TEMP Last administered on 08/26/18at 18:15; Start 08/25/18 at 09:45 Lactulose (Lactulose) 20 gm 1X ONCE PO ; Start 08/25/18 at 10:00; Stop at 10:01; Status DC Sodium Chloride 1,000 ml @ 1,000 mls/hr Q1H PRN IV hypotension; Start at 11:18; Stop 08/25/18 at 17:17; Status DC Info (PHARMACY MONITORING -- do not chart) 1 each PRN DAILY PRN MC SEE COMMENTS ; Start 08/25/18 at 11:30 Info (PHARMACY MONITORING -- do not chart) 1 each PRN DAILY PRN MC SEE COMMENTS ; Start 08/25/18 at 11:30; Status UNV Lactobacillus Rhamnosus (Culturelle) 1 cap BID PO Last administered on at 08:25; Start 08/26/18 at 21:00 Non-Formulary Medication (Nebivolol Hcl (Bystolic)) 10 mg DAILY PO ; Start at 15:00; Stop 08/26/18 at 15:55; Status DC Non-Formulary Medication (Nebivolol Hcl (Bystolic)) 10 mg QHS PO Last administered on 08/27/18at 22:37; Start 08/26/18 at 21:00; Stop 08/27/18 at 23 :14; Status DC Sodium Chloride 1,000 ml @ 1,000 mls/hr Q1H PRN IV hypotension; Start at 08:57; Stop 08/27/18 at 14:56; Status DC Sodium Chloride 1,000 ml @ 400 mls/hr Q2H30M PRN IV PATENCY; Start 08/27/18 at 08:57; Stop 08/27/18 at 20:56; Status DC Info (PHARMACY MONITORING -- do not chart) 1 each PRN DAILY PRN MC SEE COMMENTS ; Start 08/27/18 at 09:00; Status UNV Info (PHARMACY MONITORING -- do not chart) 1 each PRN DAILY PRN MC SEE COMMENTS ; Start 08/27/18 at 09:00; Status UNV Lidocaine HCl (Xylocaine-Mpf 2% Vial) 2 ml STK-MED ONCE .ROUTE ; Start at 09:20; Stop 08/27/18 at 09:21; Status DC Lidocaine HCl (Xylocaine-Mpf 2% Vial) 2 ml 1X ONCE INJ ; Start 08/27/18 at 09: 45; Stop 08/27/18 at 09:59; Status DC Amoxicillin/ Clavulanate Potassium (Augmentin 500/ 125mg) 1 tab BID PO Last administered on 08/28/18at 08:24; Start 08/27/18 at 12:00 Non-Formulary Medication (Nebivolol Hcl (Bystolic)) 10 mg DAILY PO Last administered on 08/28/18at 08:25; Start 08/28/18 at 09:00 Lidocaine HCl (Xylocaine-Mpf 2% Vial) 2 ml STK-MED ONCE .ROUTE ; Start at 10:00; Stop 08/28/18 at 08:53; Status DC Barium Sulfate (Varibar Thin Liquid Apple) 148 gm 1X ONCE PO Last administered on 08/28/18at 10:15; Start 08/28/18 at 10:15; Stop 08/28/18 at 10:16 ; Status DC Active Scripts Active Chelsey-Sudhir Tablet (Folic Acid/Vitamin B Comp W-C) 0.8 Mg Tablet 1 Tab PO DAILY 30 Days Calcium Acetate 667 Mg Tablet 667 Mg PO TIDWMEALS 30 Days Reported Bystolic (Nebivolol) 10 Mg Tablet 10 Mg PO DAILY pt can take 10-30mg daily for elevated bp Hydralazine Hcl 50 Mg Tablet 1 Tab PO TID Aspir 81 (Aspirin) 81 Mg Tablet.dr 1 Tab PO DAILY Levothyroxine Sodium 88 Mcg Tablet 88 Mcg PO DAILYAC Clonidine Hcl 0.1 Mg Tablet 1 Tab PO QHS Clopidogrel (Clopidogrel Bisulfate) 75 Mg Tablet 75 Mg PO DAILY Vitals/I & O Vital Sign - Last 24 Hours 08/27/18 08/27/18 08/27/18 08/27/18 15:00 19:12 20:00 21:00 Temp 97.7 98.1 97.7 98.1 Pulse 60 60 Resp 20 18 B/P (MAP) 167/36 (79) 171/57 (95) 171/57 Pulse Ox 90 98 O2 Delivery Room Air Room Air Room Air 08/27/18 08/28/18 08/28/18 23:32 03:22 07:00 Temp 98.0 97.9 96.1 98.0 97.9 96.1 Pulse 60 59 62 Resp 18 16 18 B/P (MAP) 179/52 (94) 168/48 (88) 190/72 (111) Pulse Ox 98 96 100 O2 Delivery Room Air Room Air Room Air Intake and Output 08/27/18 08/27/18 08/28/18 15:00 23:00 07:00 Intake Total 0 ml 420 ml 300 ml Output Total 200 ml Balance 0 ml 420 ml 100 ml Nutrition Consultation Dietary Evaluation: Comments: honor food preferences, encourage intake Expected Outcomes/Goals: to meet > 75% est nutr needs Malnutrition Findings: Body Fat Depletion (Non Severe: Mild Depletion Weight Status: Appropriate LYNDA FELIX MD Aug 28, 2018 12:01
--- NOTE | 2018-08-28 14:44 | PDOC ---
PULMONARY PROGRESS NOTES Subjective no soa Vitals Vital Signs Date Time Temp Pulse Resp B/P (MAP) Pulse Ox O2 Delivery O2 Flow Rate FiO2 08/28/18 11:44 Room Air 08/28/18 11:00 95.0 60 18 183/53 (96) 94 95.0 ROS: No Increase Cough General: Alert, No acute distress Lungs: Clear Cardiovascular: S1 Abdomen: Soft Neuro Exam: Alert Extremities: Other (bka) Skin: Warm Labs Laboratory Tests Test 08/27/18 07:35 White Blood Count 7.2 x10^3/uL (4.0-11.0) Red Blood Count 2.85 x10^6/uL (3.50-5.40) Hemoglobin 9.3 g/dL (12.0-15.5) Hematocrit 27.1 % (36.0-47.0) Mean Corpuscular Volume 95 fL (79-100) Mean Corpuscular Hemoglobin 33 pg (25-35) Mean Corpuscular Hemoglobin Concent 35 g/dL (31-37) Red Cell Distribution Width 14.2 % (11.5-14.5) Platelet Count 166 x10^3/uL (140-400) Neutrophils (%) (Auto) 74 % (31-73) Lymphocytes (%) (Auto) 11 % (24-48) Monocytes (%) (Auto) 8 % (0-9) Eosinophils (%) (Auto) 6 % (0-3) Basophils (%) (Auto) 1 % (0-3) Neutrophils # (Auto) 5.4 x10^3uL (1.8-7.7) Lymphocytes # (Auto) 0.8 x10^3/uL (1.0-4.8) Monocytes # (Auto) 0.6 x10^3/uL (0.0-1.1) Eosinophils # (Auto) 0.5 x10^3/uL (0.0-0.7) Basophils # (Auto) 0.0 x10^3/uL (0.0-0.2) Sodium Level 139 mmol/L (136-145) Potassium Level 3.8 mmol/L (3.5-5.1) Chloride Level 101 mmol/L (98-107) Carbon Dioxide Level 26 mmol/L (21-32) Anion Gap 12 (6-14) Blood Urea Nitrogen 50 mg/dL (7-20) Creatinine 5.3 mg/dL (0.6-1.0) Estimated GFR (Cockcroft-Gault) 7.7 Glucose Level 92 mg/dL (70-99) Calcium Level 9.5 mg/dL (8.5-10.1) Medications Active Scripts Medications Dose Route/Sig Max Daily Dose Days Date Category Chelsey-Sudhir Tablet (Folic Acid/Vitamin B Comp W-C) 0.8 Mg Tablet 1 Tab PO DAILY 30 10/03/17 Rx Hydralazine Hcl 50 Mg Tablet 1 Tab PO TID 10/01/17 Reported Calcium Acetate 667 Mg Tablet 667 Mg PO TIDWMEALS 30 08/15/17 Rx Aspir 81 (Aspirin) 81 Mg Tablet.dr 1 Tab PO DAILY 08/12/17 Reported Levothyroxine Sodium 88 Mcg Tablet 88 Mcg PO DAILYAC 08/12/17 Reported Bystolic (Nebivolol Hcl) 20 Mg Tablet 20 Mg PO DAILY 08/12/17 Reported Clonidine Hcl 0.1 Mg Tablet 1 Tab PO QHS 11/27/15 Reported Clopidogrel (Clopidogrel Bisulfate) 75 Mg Tablet 75 Mg PO DAILY 12/17/13 Reported Impression . 1. Pneumonia, suspect gram-negative and gram-positive. 2. No significant history of tobacco use. 3. History of cardiomyopathy with an ejection fraction of 30%, with no evidence of congestive heart failure. 4. Bilateral below knee amputation. 5. End-stage renal disease, on hemodialysis. 6. Dysphagia to solids Plan . 1. PO antibiotics. 2. Follow ID recommendation. 3. Follow chest x-rays prn 4. Hemodialysis per Renal. 5. Follow white cell count, is already improving. 6. speech eval passed dc home in DULCE Mcgraw MD Aug 28, 2018 14:44
[2018-08-28 15:00] VITALS: BP 208/65
--- NOTE | 2018-08-28 15:51 | PDOC ---
SUBJECTIVE ROS No new concerns , wants to go home OBJECTIVE Vital Signs Vital Signs Date Time Temp Pulse Resp B/P (MAP) Pulse Ox O2 Delivery O2 Flow Rate FiO2 08/28/18 11:44 Room Air 08/28/18 11:00 95.0 60 18 183/53 (96) 94 95.0 I & 0 Intake and Output 08/28/18 07:00 Intake Total 720 ml Output Total 200 ml Balance 520 ml Intake Oral 720 ml Output Urine Total 200 ml # Voids 5 PHYSICAL EXAM Physical Exam GEN NAD HEENT: om MOIST NECK: Supple. No JVD. LUNGS: Clear. HEART: S1, S2. ABDOMEN: Soft, nontender. EXTREMITIES: Bilateral above-knee amputation. AV shunt Rt arm NEUROLOGIC: Grossly nonfocal. DIAGNOSIS/ASSESSMENT Assessment & Plan ESRD- On HD MWF No indication for HD today Tomorrow as per her schedule Fever/ Fever with leukocytosis, source likely respiratory, could be viral. ID following HTN- BP high Primary Recommended start back home antihypertensives CAD- Stable CHF- Compensated Primary planning DC tomorrow after dialysis COMMENT/RELEVANT DATA Meds Current Medications Medications (Trade) Dose Ordered Sig/Sarah Start Time Stop Time Status Last Admin Dose Admin Acetaminophen (Tylenol) 325 mg PRN Q6HRS PRN 08/25/18 09:45 08/26/18 18:15 325 MG Amoxicillin/ Clavulanate Potassium (Augmentin 500/ 125mg) 1 tab BID 08/27/18 12:00 08/28/18 08:24 1 TAB Aspirin (Children'S Aspirin) 81 mg DAILYWBKFT 08/25/18 11:00 08/27/18 16:05 81 MG Barium Sulfate (Varibar Thin Liquid Apple) 148 gm 1X ONCE 08/28/18 10:15 08/28/18 10:16 DC 08/28/18 10:15 148 GM Calcium Acetate (Phoslo) 667 mg TIDWMEALS 08/25/18 12:00 08/28/18 12:39 667 MG Clonidine HCl (Catapres) 0.1 mg QHS 08/25/18 21:00 08/26/18 21:18 0.1 MG Info (PHARMACY MONITORING -- do not chart) 1 each PRN DAILY PRN 08/27/18 09:00 UNV Lactobacillus Rhamnosus (Culturelle) 1 cap BID 08/26/18 21:00 08/28/18 08:25 1 CAP Lactulose (Lactulose) 20 gm 1X ONCE 08/25/18 10:00 08/25/18 10:01 DC Levothyroxine Sodium (Synthroid) 88 mcg DAILY06 08/25/18 11:00 08/28/18 06:39 88 MCG Lidocaine HCl (Xylocaine-Mpf 2% Vial) 2 ml STK-MED ONCE 08/27/18 10:00 08/28/18 08:53 DC Linezolid/Dextrose 300 ml @ 300 mls/hr Q12HR 08/25/18 09:00 08/27/18 10:04 DC 08/27/18 08:20 300 MLS/HR Non-Formulary Medication (Nebivolol Hcl (Bystolic)) 10 mg DAILY 08/28/18 09:00 08/28/18 08:25 10 MG Ondansetron HCl (Zofran) 4 mg PRN Q8HRS PRN 08/24/18 23:45 08/25/18 23:44 DC Piperacillin Sod/ Tazobactam Sod 2.25 gm/Sodium Chloride 50 ml @ 100 mls/hr Q8HRS 08/25/18 06:00 08/27/18 10:04 DC 08/27/18 06:41 100 MLS/HR Piperacillin Sod/ Tazobactam Sod 3.375 gm/Sodium Chloride 50 ml @ 100 mls/hr 1X ONCE 08/24/18 23:30 08/24/18 23:59 DC 08/24/18 23:15 100 MLS/HR Sodium Chloride 1,000 ml @ 400 mls/hr Q2H30M PRN 08/27/18 08:57 08/27/18 20:56 DC Vancomycin HCl 250 ml @ 250 mls/hr 1X ONCE 08/24/18 23:30 08/25/18 00:29 DC 08/24/18 01:05 250 MLS/HR Vitamin B Complex/ Vitamin C (Chelsey-Sudhir) 1 tab DAILY 08/25/18 11:00 08/28/18 08:25 1 TAB Results All relevant outside records, renal labs, imaging studies, telemetry/EKG's were reviewed. IZABELLA MCNULTY MD Aug 28, 2018 15:51
--- NOTE | 2018-08-28 16:38 | PDOC ---
Infectious Disease Note Subjective Subjective c/o constipation and cramps earlier Feeling better after BM + cough w/ phlegm Denies CP/SOA/F/C ROS ROS per HPI otherwise neg Vital Sign Vital Signs Vital Signs Date Time Temp Pulse Resp B/P (MAP) Pulse Ox O2 Delivery O2 Flow Rate FiO2 08/28/18 15:00 97.9 60 18 208/65 (112) 95 Room Air 97.9 Physical Exam PHYSICAL EXAM GEN: Sitting in the wheelchair, alert, NAD LUNGS: Decreased breath sounds at bases. HEART: S1, S2. ABDOMEN: Soft, nontender. EXTREMITIES: Bilateral above-knee amputation. NEUROLOGIC: Alert, responds appropriately SKIN: warm wo rash Labs Lab IMPRESSION: No current evidence of aspiration. Micro Microbiology 08/24/18 Blood Culture - Preliminary, Resulted NO GROWTH AFTER 3 DAYS Objective Assessment Altered mental status, resolved. CT head negative. Fever and leukocytosis, source likely respiratory, could be viral, better End-stage renal disease, on hemodialysis. Coronary artery disease, status post coronary artery bypass grafting and stent placement with pacemaker. Peripheral arterial disease, status post bilateral above-knee amputation. Hypertension/hyperlipidemia. Ischemic cardiomyopathy. ALLERGIES: NUMEROUS INCLUDING QUINOLONES, TETRACYCLINE, Plan Plan of Care Augmentin (08/27) thru 09/03 ID to sign off Attending Co-Sign Attending Co-Sign The patient was seen and interviewed as well as examined at the bedside. The chart was reviewed. The case was discussed. Agree with the plan of care. MARY MORENO APRN Aug 28, 2018 16:38 ITZ JUAREZ MD Aug 28, 2018 17:18
[2018-08-28 19:12] VITALS: BP_SYST 47
[2018-08-28] MEDS: cloNIDine HCL 0.1 MG TABLET PO SCH (21:00)
[2018-08-28] MEDS ORDERED: ASPIRIN CHEWABLE 81 MG TABLET. PO SCH (21:00)
[2018-08-28 23:30] VITALS: BP 169/50
[2018-08-29 03:31] VITALS: BP 197/69
[2018-08-29] MEDS: LEVOTHYROXINE 88 MCG TABLET PO SCH (06:15)
[2018-08-29 07:00] VITALS: BP 209/62
[2018-08-29] MEDS: CALCIUM ACETATE 667 MG CAPSULE PO SCH (08:17)
[2018-08-29] MEDS: AMOXICILLIN/K CLAV 500/125MG TABLET. PO SCH (08:17)
[2018-08-29] MEDS: NEBIVOLOL 10 MG PO SCH (08:17)
[2018-08-29] MEDS: LACTOBACILLUS RHAMNOSUS GG 1 CAPSULE. PO SCH (08:17)
[2018-08-29] MEDS: FOLIC/VIT B COMP W-C (RENAL) TABLET. PO SCH (08:18)
[2018-08-29] MEDS ORDERED: hydrALAZINE 25 MG TABLET PO PRN (08:45)
[2018-08-29 09:30] LABS: BASO % 1 % (0-3); EOS # 0.3 x10^3/uL (0.0-0.7); EOS % 5 % (0-3); HEMATOCRIT 32.4 % (36.0-47.0); HEMOGLOBIN 10.9 g/dL (12.0-15.5); LYMPH # 0.7 x10^3/uL (1.0-4.8); LYMPH % 12 % (24-48); MEAN CORPUSCULAR HEMOGLOBIN 32 pg (25-35); MEAN CORPUSCULAR HGB CONC 34 g/dL (31-37); MEAN CORPUSCULAR VOLUME 95 fL (79-100); MONO # 0.5 x10^3/uL (0.0-1.1); MONO % 8 % (0-9); NEUT # 4.6 x10^3uL (1.8-7.7); NEUT % 75 % (31-73); PLATELET COUNT 187 x10^3/uL (140-400); RED BLOOD COUNT 3.42 x10^6/uL (3.50-5.40); RED CELL DISTRIBUTION WIDTH 13.7 % (11.5-14.5); WHITE BLOOD COUNT 6.1 x10^3/uL (4.0-11.0)
--- NOTE | 2018-08-29 09:42 | PDOC ---
PROGRESS NOTES Subjective Subjective feels better. mental status at baseline. lab reviewed. bp high and ordered prn hydrazine and received her bystolic. expect her bp wiill come down with dialysis today. spoke with son yesterday,. wants to go home. she passed her videoswallow. Objective Objective Vital Signs Date Time Temp Pulse Resp B/P (MAP) Pulse Ox O2 Delivery O2 Flow Rate FiO2 08/29/18 07:00 97.9 60 16 209/62 (111) 97 Room Air 97.9 08/29/18 03:31 2.0 Intake and Output 08/29/18 07:00 Intake Total 100 ml Balance 100 ml Intake Oral 100 ml # Voids 2 # Bowel Movements 3 Physical Exam Abdomen: Soft Heart: Regular rate, Normal S1, Normal S2 Extremities: No edema, Other (bilateral AKA) General: Alert HEENT: Atraumatic Lungs: Clear to auscultation Neuro: Normal speech Psych/Mental Status: Mental status NL Skin: No rashes Assessment Assessment Problems1. Fever. resolved 2. pneumonia.suspect gram positive and gram neg organisms improved clinically 3. Metabolic encephalopathy.resolved 4. End-stage renal disease, treated with hemodialysis Mondays, Wednesdays and Fridays. 5. Hypertension. 6. Hypothyroidism. 7. History of bilateral below- knee amputation. 8. Coronary artery disease. 9. Ischemic cardiomyopathy with a left ventricular ejection fraction of 30%. 10. Coronary artery disease. 11. Peripheral arterial disease. 12. Angioplasty of her right upper extremity fistula a week ago. leukocytosis resolved Medical Problems: (1) Acute on chronic renal failure Status: Acute Plan Plan of Care continue augmentin continue clonidine and bystolic and prn hydralazine hemodialysis today dismiss today Comment Review of Relevant I have reviewed the following items wilbur (where applicable) has been applied. Labs Laboratory Tests Test 08/29/18 08:30 White Blood Count 6.1 x10^3/uL (4.0-11.0) Red Blood Count 3.42 x10^6/uL (3.50-5.40) Hemoglobin 10.9 g/dL (12.0-15.5) Hematocrit 32.4 % (36.0-47.0) Mean Corpuscular Volume 95 fL (79-100) Mean Corpuscular Hemoglobin 32 pg (25-35) Mean Corpuscular Hemoglobin Concent 34 g/dL (31-37) Red Cell Distribution Width 13.7 % (11.5-14.5) Platelet Count 187 x10^3/uL (140-400) Neutrophils (%) (Auto) 75 % (31-73) Lymphocytes (%) (Auto) 12 % (24-48) Monocytes (%) (Auto) 8 % (0-9) Eosinophils (%) (Auto) 5 % (0-3) Basophils (%) (Auto) 1 % (0-3) Neutrophils # (Auto) 4.6 x10^3uL (1.8-7.7) Lymphocytes # (Auto) 0.7 x10^3/uL (1.0-4.8) Monocytes # (Auto) 0.5 x10^3/uL (0.0-1.1) Eosinophils # (Auto) 0.3 x10^3/uL (0.0-0.7) Basophils # (Auto) 0.0 x10^3/uL (0.0-0.2) Laboratory Tests Test 08/29/18 08:30 White Blood Count 6.1 x10^3/uL (4.0-11.0) Red Blood Count 3.42 x10^6/uL (3.50-5.40) Hemoglobin 10.9 g/dL (12.0-15.5) Hematocrit 32.4 % (36.0-47.0) Mean Corpuscular Volume 95 fL (79-100) Mean Corpuscular Hemoglobin 32 pg (25-35) Mean Corpuscular Hemoglobin Concent 34 g/dL (31-37) Red Cell Distribution Width 13.7 % (11.5-14.5) Platelet Count 187 x10^3/uL (140-400) Neutrophils (%) (Auto) 75 % (31-73) Lymphocytes (%) (Auto) 12 % (24-48) Monocytes (%) (Auto) 8 % (0-9) Eosinophils (%) (Auto) 5 % (0-3) Basophils (%) (Auto) 1 % (0-3) Neutrophils # (Auto) 4.6 x10^3uL (1.8-7.7) Lymphocytes # (Auto) 0.7 x10^3/uL (1.0-4.8) Monocytes # (Auto) 0.5 x10^3/uL (0.0-1.1) Eosinophils # (Auto) 0.3 x10^3/uL (0.0-0.7) Basophils # (Auto) 0.0 x10^3/uL (0.0-0.2) Microbiology 08/24/18 Blood Culture - Preliminary, Resulted NO GROWTH AFTER 4 DAYS Medications Current Medications Sodium Chloride 1,000 ml @ 1,000 mls/hr 1X ONCE IV Last administered on 08/24at 23:05; Start 08/24/18 at 23:00; Stop 08/24/18 at 23:59; Status DC Vancomycin HCl 250 ml @ 250 mls/hr 1X ONCE IV Last administered on at 01:05; Start 08/24/18 at 23:30; Stop 08/25/18 at 00:29; Status DC Piperacillin Sod/ Tazobactam Sod 3.375 gm/Sodium Chloride 50 ml @ 100 mls/hr 1X ONCE IV Last administered on 08/24/18at 23:15; Start 08/24/18 at 23:30; Stop 08/24/18 at 23:59; Status DC Ondansetron HCl (Zofran) 4 mg PRN Q8HRS PRN IV NAUSEA/VOMITING 1ST CHOICE; Start 08/24/18 at 23:45; Stop 08/25/18 at 23:44; Status DC Sodium Chloride 1,000 ml @ 150 mls/hr Q6H40M IV Last administered on at 03:30; Start 08/24/18 at 23:45; Stop 08/25/18 at 23:44; Status DC Acetaminophen (Tylenol) 650 mg PRN Q4HRS PRN PO FEVER Last administered on at 08:45; Start 08/24/18 at 23:45; Stop 08/25/18 at 09:49; Status DC Linezolid/Dextrose 300 ml @ 300 mls/hr Q12HR IV Last administered on at 08:20; Start 08/25/18 at 09:00; Stop 08/27/18 at 10:04; Status DC Piperacillin Sod/ Tazobactam Sod 2.25 gm/Sodium Chloride 50 ml @ 100 mls/hr Q8HRS IV Last administered on 08/27/18at 06:41; Start 08/25/18 at 06:00; Stop 08/27/18 at 10:04; Status DC Aspirin (Children'S Aspirin) 81 mg DAILYWBKFT PO Last administered on at 16:05; Start 08/25/18 at 11:00; Stop 08/28/18 at 16:50; Status DC Calcium Acetate (Phoslo) 667 mg TIDWMEALS PO Last administered on 08/29/18at 08: 17; Start 08/25/18 at 12:00 Clonidine HCl (Catapres) 0.1 mg QHS PO Last administered on 08/28/18at 21:00; Start 08/25/18 at 21:00 Levothyroxine Sodium (Synthroid) 88 mcg DAILY06 PO Last administered on at 06:15; Start 08/25/18 at 11:00 Vitamin B Complex/ Vitamin C (Chelsey-Sudhir) 1 tab DAILY PO Last administered on at 08:18; Start 08/25/18 at 11:00 Acetaminophen (Tylenol) 325 mg PRN Q6HRS PRN PO MILD PAIN / TEMP Last administered on 08/26/18at 18:15; Start 08/25/18 at 09:45 Lactulose (Lactulose) 20 gm 1X ONCE PO ; Start 08/25/18 at 10:00; Stop at 10:01; Status DC Sodium Chloride 1,000 ml @ 1,000 mls/hr Q1H PRN IV hypotension; Start at 11:18; Stop 08/25/18 at 17:17; Status DC Info (PHARMACY MONITORING -- do not chart) 1 each PRN DAILY PRN MC SEE COMMENTS ; Start 08/25/18 at 11:30 Info (PHARMACY MONITORING -- do not chart) 1 each PRN DAILY PRN MC SEE COMMENTS ; Start 08/25/18 at 11:30; Status UNV Lactobacillus Rhamnosus (Culturelle) 1 cap BID PO Last administered on at 08:17; Start 08/26/18 at 21:00 Non-Formulary Medication (Nebivolol Hcl (Bystolic)) 10 mg DAILY PO ; Start at 15:00; Stop 08/26/18 at 15:55; Status DC Non-Formulary Medication (Nebivolol Hcl (Bystolic)) 10 mg QHS PO Last administered on 08/27/18at 22:37; Start 08/26/18 at 21:00; Stop 08/27/18 at 23 :14; Status DC Sodium Chloride 1,000 ml @ 1,000 mls/hr Q1H PRN IV hypotension; Start at 08:57; Stop 08/27/18 at 14:56; Status DC Sodium Chloride 1,000 ml @ 400 mls/hr Q2H30M PRN IV PATENCY; Start 08/27/18 at 08:57; Stop 08/27/18 at 20:56; Status DC Info (PHARMACY MONITORING -- do not chart) 1 each PRN DAILY PRN MC SEE COMMENTS ; Start 08/27/18 at 09:00; Status UNV Info (PHARMACY MONITORING -- do not chart) 1 each PRN DAILY PRN MC SEE COMMENTS ; Start 08/27/18 at 09:00; Status UNV Lidocaine HCl (Xylocaine-Mpf 2% Vial) 2 ml STK-MED ONCE .ROUTE ; Start at 09:20; Stop 08/27/18 at 09:21; Status DC Lidocaine HCl (Xylocaine-Mpf 2% Vial) 2 ml 1X ONCE INJ ; Start 08/27/18 at 09: 45; Stop 08/27/18 at 09:59; Status DC Amoxicillin/ Clavulanate Potassium (Augmentin 500/ 125mg) 1 tab BID PO Last administered on 08/29/18at 08:17; Start 08/27/18 at 12:00 Non-Formulary Medication (Nebivolol Hcl (Bystolic)) 10 mg DAILY PO Last administered on 08/29/18at 08:17; Start 08/28/18 at 09:00 Lidocaine HCl (Xylocaine-Mpf 2% Vial) 2 ml STK-MED ONCE .ROUTE ; Start at 10:00; Stop 08/28/18 at 08:53; Status DC Barium Sulfate (Varibar Thin Liquid Apple) 148 gm 1X ONCE PO Last administered on 08/28/18at 10:15; Start 08/28/18 at 10:15; Stop 08/28/18 at 10:16 ; Status DC Aspirin (Children'S Aspirin) 81 mg QHS PO Last administered on 08/28/18at 21:22 ; Start 08/28/18 at 21:00 Hydralazine HCl (Apresoline) 25 mg Q6HRS PRN PO ELEVATED BP, SEE COMMENTS; Start 08/29/18 at 08:45 Active Scripts Active Chelsey-Sudhir Tablet (Folic Acid/Vitamin B Comp W-C) 0.8 Mg Tablet 1 Tab PO DAILY 30 Days Calcium Acetate 667 Mg Tablet 667 Mg PO TIDWMEALS 30 Days Reported Bystolic (Nebivolol) 10 Mg Tablet 10 Mg PO DAILY pt can take 10-30mg daily for elevated bp Hydralazine Hcl 50 Mg Tablet 1 Tab PO TID Aspir 81 (Aspirin) 81 Mg Tablet.dr 1 Tab PO DAILY Levothyroxine Sodium 88 Mcg Tablet 88 Mcg PO DAILYAC Clonidine Hcl 0.1 Mg Tablet 1 Tab PO QHS Clopidogrel (Clopidogrel Bisulfate) 75 Mg Tablet 75 Mg PO DAILY Vitals/I & O Vital Sign - Last 24 Hours 08/28/18 08/28/18 08/28/18 08/28/18 11:00 11:44 15:00 19:12 Temp 95.0 97.9 97.9 95.0 97.9 97.9 Pulse 60 60 60 Resp 18 18 18 B/P (MAP) 183/53 (96) 208/65 (112) 47/ Pulse Ox 94 95 O2 Delivery Room Air Room Air Room Air O2 Flow Rate 96.0 08/28/18 08/28/18 08/28/18 08/29/18 20:00 21:00 23:30 03:31 Temp 97.7 97.6 97.7 97.6 Pulse 60 57 60 Resp 16 18 B/P (MAP) 147/65 169/50 (89) 197/69 (111) Pulse Ox 96 95 O2 Delivery Room Air Room Air Nasal Cannula O2 Flow Rate 2.0 08/29/18 07:00 Temp 97.9 97.9 Pulse 60 Resp 16 B/P (MAP) 209/62 (111) Pulse Ox 97 O2 Delivery Room Air Intake and Output 08/28/18 08/28/18 08/29/18 15:00 23:00 07:00 Intake Total 100 ml Balance 100 ml Nutrition Consultation Dietary Evaluation: Comments: honor food preferences, encourage intake Expected Outcomes/Goals: to meet > 75% est nutr needs Malnutrition Findings: Body Fat Depletion (Non Severe: Mild Depletion Weight Status: Appropriate LYNDA FELIX MD Aug 29, 2018 09:42
[2018-08-29 09:48] LABS: CALCIUM 10.4 mg/dL (8.5-10.1); CREATININE 5.1 mg/dL (0.6-1.0); POTASSIUM 3.8 mmol/L (3.5-5.1)
[2018-08-29 09:51] VITALS: BP 209/62
[2018-08-29] MEDS ORDERED: AMOX1TAB10 PO (09:54)
[2018-08-29] MEDS ORDERED: NEBIVOLOL HCL PO (09:54)
--- NOTE | 2018-08-29 09:56 | DISCH ---
DISCHARGE WITH HOME HEALTH DISCHARGE INFORMATION: Discharge Date: Aug 29, 2018 Final Diagnosis: Problems pneumonia Medical Problems: (1) Acute on chronic renal failure Status: Acute Condition on Discharge: Stable HOME HEALTH: Face to Face: I certify this patient is under my care and that I, or a nurse practitioner or physician's assistant professor of business working with me, had a face to face encounter that meets the physician face to face encounter requirements with this patient on []. Physical Therapy For: Evalulation/Treatment Occupational Therapy For: Evaluation/Treatment POST DISCHARGE ORDERS: Activity Instructions for Disc: Resume previous activity, Activity as tolerated Weight Bearing Status after Di: Other, see below Bathing Instructions: Shower-keep dressing dry DIET AFTER DISCHARGE: Renal Wound/Incision Care: Keep wound elevated, Change dressing CHECKS AFTER DISCHARGE: Checks after discharge: Check blood press - daily TREATMENT/EQUIPMENT ORDERS: Adaptive Equipment Issued: None CERTIFICATION STATEMENT: Certification Statement: Certification Statement: Based on the above finding, I certify that this patient is confined to the home and needs intermittent care home care, physical therapy and/or speech therapy, or continues to need occupational therapy.~ This patient is under my care, and I have initiated the establishment of the plan of care.~ This patient will be followed by myself or a community physician who will periodically review the plan of care. Home Meds Active Scripts [Nebivolol Hcl (Bystolic)] 10 MG No Conflict Check, 10 MG PO DAILY for hypetension MDD 10 mg for 30 Days, #30 Prov:LYNDA FELIX MD 08/29/18 Amoxicillin/Potassium Clav (AMOX TR-K CLV 500-125 MG TAB) 1 Each Tablet, 1 TAB PO BID for pneumonia, #11 TAB 1 po bid thru 09/03 Prov:LYNDA FELIX MD 08/29/18 Folic Acid/Vitamin B Comp W-C (HOA-GIANNI TABLET) 0.8 Mg Tablet, 1 TAB PO DAILY for 30 Days, #30 TAB Prov:LYNDA FELIX MD 10/03/17 Calcium Acetate (CALCIUM ACETATE) 667 Mg Tablet, 667 MG PO TIDWMEALS for DIALYSIS PATIENTS for 30 Days, #90 CAP Prov:LYNDA FELIX MD 08/15/17 Reported Medications Nebivolol Hcl (BYSTOLIC) 10 Mg Tablet, 10 MG PO DAILY for blood pressure, TAB pt can take 10-30mg daily for elevated bp 08/27/18 Hydralazine Hcl (HYDRALAZINE HCL) 50 Mg Tablet, 1 TAB PO TID, #90 TAB 5 Refills 10/01/17 Aspirin (ASPIR 81) 81 Mg Tablet.dr, 1 TAB PO DAILY, #30 TAB 5 Refills 08/12/17 Levothyroxine Sodium (LEVOTHYROXINE SODIUM) 88 Mcg Tablet, 88 MCG PO DAILYAC for THYROID SUPPLEMENT, #30 TAB 0 Refills 08/12/17 Clonidine Hcl (CLONIDINE HCL) 0.1 Mg Tablet, 1 TAB PO QHS, #30 TAB 2 Refills 11/27/15 Clopidogrel Bisulfate (CLOPIDOGREL) 75 Mg Tablet, 75 MG PO DAILY 12/17/13 Discontinued Reported Medications Nebivolol Hcl (BYSTOLIC) 20 Mg Tablet, 20 MG PO DAILY, TAB 08/12/17 LYNDA FELIX MD Aug 29, 2018 09:56
--- NOTE | 2018-08-29 10:00 | PDOC ---
Provider Note Provider Note discharge summary dictated # [id number] LYNDA FELIX MD Aug 29, 2018 10:00
[2018-08-29] MEDS ORDERED: DIALYSIS PATIENT. MC PRN ×2 (10:30)
[2018-08-29] MEDS ORDERED: LIDOCAINE 2% PF 2ML VIAL. ONE ×2 (11:18→12:00)
--- NOTE | 2018-08-29 13:06 | PDOC ---
Renal-Progress Notes Subjective Notes Notes CHRONIC RIGHT HAND PAIN DUE TO STEAL History of Present Illness Hx of present illness STABLE Vitals Vitals Vital Signs Date Time Temp Pulse Resp B/P (MAP) Pulse Ox O2 Delivery O2 Flow Rate FiO2 08/29/18 09:51 60 209/62 08/29/18 08:00 Room Air 08/29/18 07:00 97.9 16 97 97.9 08/29/18 03:31 2.0 Weight Weight [ ] I.O. Intake and Output Intake and Output 08/29/18 07:00 Intake Total 100 ml Balance 100 ml Intake Oral 100 ml # Voids 2 # Bowel Movements 3 Labs Labs Laboratory Tests Test 08/29/18 08:30 White Blood Count 6.1 x10^3/uL (4.0-11.0) Red Blood Count 3.42 x10^6/uL (3.50-5.40) Hemoglobin 10.9 g/dL (12.0-15.5) Hematocrit 32.4 % (36.0-47.0) Mean Corpuscular Volume 95 fL (79-100) Mean Corpuscular Hemoglobin 32 pg (25-35) Mean Corpuscular Hemoglobin Concent 34 g/dL (31-37) Red Cell Distribution Width 13.7 % (11.5-14.5) Platelet Count 187 x10^3/uL (140-400) Neutrophils (%) (Auto) 75 % (31-73) Lymphocytes (%) (Auto) 12 % (24-48) Monocytes (%) (Auto) 8 % (0-9) Eosinophils (%) (Auto) 5 % (0-3) Basophils (%) (Auto) 1 % (0-3) Neutrophils # (Auto) 4.6 x10^3uL (1.8-7.7) Lymphocytes # (Auto) 0.7 x10^3/uL (1.0-4.8) Monocytes # (Auto) 0.5 x10^3/uL (0.0-1.1) Eosinophils # (Auto) 0.3 x10^3/uL (0.0-0.7) Basophils # (Auto) 0.0 x10^3/uL (0.0-0.2) Sodium Level 137 mmol/L (136-145) Potassium Level 3.8 mmol/L (3.5-5.1) Chloride Level 98 mmol/L (98-107) Carbon Dioxide Level 26 mmol/L (21-32) Anion Gap 13 (6-14) Blood Urea Nitrogen 41 mg/dL (7-20) Creatinine 5.1 mg/dL (0.6-1.0) Estimated GFR (Cockcroft-Gault) 8.0 Glucose Level 83 mg/dL (70-99) Calcium Level 10.4 mg/dL (8.5-10.1) Micro Micro Microbiology 08/24/18 Blood Culture - Preliminary, Resulted NO GROWTH AFTER 4 DAYS Review of Systems Constitutional: yes: alert, oriented Ears/Nose/Throat: Yes: no symptom reported Eyes: Yes: no symptom reported Pulmonary: Yes no symptom reported Cardiovascular: Yes no symptom reported Gastrointestional: Yes: no symptom reported Genitourinary: Yes: no symptom reported Musculoskeletal: Yes: arm pain Skin: Yes no symptom reported Psychiatric/Neurological: Yes: no symptom reported Endocrine: Yes: no symptom reported Physical Exam General Appearance: no apparent distress Skin: warm Respiratory: bilateral CTA Heart: S1S2 Abdomen: soft, bowel sounds present Genitourinary: bladder flat Extremities: pulses present Neurology: alert Assessment Assessment IMP ESRD ANEMIA HTN PAD PLAN HD TODAY UF TO DW D/C PLANS NOTED CORY HICKMAN MD Aug 29, 2018 13:06
--- NOTE | 2018-08-29 19:11 | DS ---
DATE OF DISCHARGE: 08/29/2018 CONSULTANTS: Include Dr. Jordan, Dr. Ayan Mares and Dr. Soto. FINAL DIAGNOSES: 1. Pneumonia, suspect gram-positive and gram-negative organisms. 2. Fever. 3. Metabolic encephalopathy. 4. End-stage renal disease, treated with hemodialysis Mondays, Wednesdays, Fridays. 5. Hypertension. 6. Hypothyroidism. 7. History of bilateral below knee amputations. 8. Coronary artery disease. 9. Ischemic cardiomyopathy with left ventricular ejection fraction of 30%. 10. Coronary artery disease. 11. Peripheral arterial disease. 12. Leukocytosis. HOSPITAL COURSE: The patient is an 87-year-old white female with history of hypertension, hypothyroidism, coronary artery disease, ischemic cardiomyopathy with left ventricular ejection fraction of 30%, coronary artery disease, peripheral arterial disease, bilateral below knee amputations with end-stage renal disease on hemodialysis Mondays, Wednesdays and Fridays. Had an angioplasty she said for stenotic right upper extremity AV fistula done a week prior to admission and then subsequent to that was coughing up some thick yellow material. She noted a fever at home. She was noted to be confused, went to the [facility] Emergency Room. CAT scan of head was unremarkable for acute abnormality. White count was high at 15.6 with a left shift, 90 polys and 4 lymphocytes. Chest x-ray showed left lower lobe atelectasis. Blood cultures were ordered. Urinalysis was done without pyuria and she was admitted to the hospital for further evaluation and treatment. A CAT scan of the chest was consistent with bilateral lobe infiltrates consistent with pneumonia. Seen in consultation by Dr. Jordan for pulmonary, Dr. Ayan Mares for Infectious Disease and Dr. Soto for Nephrology. She was thought to have a metabolic encephalopathy, which resolved with IV antibiotics to treat her pneumonia. She eventually was switched to oral Augmentin. She received her hemodialysis. Her mental status came back to baseline. Her cough improved and she felt much better and received physical and occupational therapy. It is anticipated that she will be dismissed to home today after hemodialysis. Her blood pressure was high and I ordered some p.r.n. hydralazine for her. This was not unusual. Hopefully, the hemodialysis will lower blood pressure. It is anticipated she will be dismissed to home after hemodialysis today and nurses to call me with blood pressure after dialysis. She will be dismissed on aspirin 81 mg every day, Plavix 75 mg every day, Bystolic 10 mg every day, PhosLo 667 mg 1 tablet t.i.d. with meals, clonidine 0.1 mg at bedtime, levothyroxine 88 mcg every day, Chelsey-Sudhir 1 every day and Augmentin 500/125 mg 1 b.i.d. through September 03. She was told to make an appointment to see Dr. Cortes in the office next week. She will receive home health with home physical and occupational therapy. LYNDA FELIX MD DR: JOSE/annemarie JOB#: [id number] / [id number]
== END 2018-08-29 17:01 | disposition home or self-care (01) | DRG 177 ==
LOC: ER 20:04 → 6 SOUTH 08-25 02:06
PROVIDERS: ADMIT Internal Medicine; ATTEND Internal Medicine
PROC: 5A1D70Z Performance of Urinary Filtration, Intermittent, Less than 6 Hours Per Day (ICD-10-PCS; principal; 2018-08-25)
PROC: 5A1D70Z Performance of Urinary Filtration, Intermittent, Less than 6 Hours Per Day (ICD-10-PCS; 2018-08-27)
DX: J15.6 Pneumonia due to other Gram-negative bacteria (principal); G93.41 Metabolic encephalopathy; N18.6 End stage renal disease; I13.2 Hypertensive heart and chronic kidney disease with heart failure and with stage 5 chronic kidney disease, or end stage renal disease; J98.11 Atelectasis; N17.9 Acute kidney failure, unspecified; G62.9 Polyneuropathy, unspecified; I25.5 Ischemic cardiomyopathy; I73.9 Peripheral vascular disease, unspecified; I50.9 Heart failure, unspecified; R13.10 Dysphagia, unspecified; D64.9 Anemia, unspecified; I25.10 Atherosclerotic heart disease of native coronary artery without angina pectoris; I25.2 Old myocardial infarction; E03.9 Hypothyroidism, unspecified; E78.5 Hyperlipidemia, unspecified; Z96.642 Presence of left artificial hip joint; J20.9 Acute bronchitis, unspecified; J45.909 Unspecified asthma, uncomplicated; Z95.1 Presence of aortocoronary bypass graft; Z89.611 Acquired absence of right leg above knee; Z89.612 Acquired absence of left leg above knee; Z99.2 Dependence on renal dialysis; Z86.73 Personal history of transient ischemic attack (TIA), and cerebral infarction without residual deficits; Z89.511 Acquired absence of right leg below knee; Z90.49 Acquired absence of other specified parts of digestive tract; Z89.512 Acquired absence of left leg below knee; Z88.6 Allergy status to analgesic agent; Z88.1 Allergy status to other antibiotic agents; Z88.5 Allergy status to narcotic agent; Z88.0 Allergy status to penicillin; Z88.8 Allergy status to other drugs, medicaments and biological substances; Z95.5 Presence of coronary angioplasty implant and graft; Z83.3 Family history of diabetes mellitus; Z82.49 Family history of ischemic heart disease and other diseases of the circulatory system; Z79.82 Long term (current) use of aspirin
CPT/HCPCS: 36415; 70450; 71045; 71250; 74230; 80048; 80053; 81001; 82140; 83605; 83735; 84145; 85007; 85025; 87040; 87804; 93005; 96365; 96367; J2001; J2020; J2543; J3370; J7030; 92526; 92610; 92611; 97110; 97116; 97530; 97535; 99285-25

== ENCOUNTER 2018-09-16 08:24 | Outpatient (CLI) | payer MEDICARE ==
[2018-09-16] VITALS (9 sets, daily range): BP systolic 102–208; BP diastolic 32–103
[~2018-09-16] VITALS: Ht 167.6 cm; Wt 57.2 kg
[~2018-09-16 08:24] MED LIST changes: +AMOX1TAB10 PO; +NEBIVOLOL HCL PO
[2018-09-16 08:54] LABS: BASO % 1 % (0-3); EOS # 0.4 x10^3/uL (0.0-0.7); EOS % 6 % (0-3); HEMATOCRIT 36.7 % (36.0-47.0); HEMOGLOBIN 12.3 g/dL (12.0-15.5); LYMPH # 0.7 x10^3/uL (1.0-4.8); LYMPH % 12 % (24-48); MEAN CORPUSCULAR HEMOGLOBIN 33 pg (25-35); MEAN CORPUSCULAR HGB CONC 34 g/dL (31-37); MEAN CORPUSCULAR VOLUME 97 fL (79-100); MONO # 0.5 x10^3/uL (0.0-1.1); MONO % 8 % (0-9); NEUT # 4.3 x10^3uL (1.8-7.7); NEUT % 73 % (31-73); PLATELET COUNT 164 x10^3/uL (140-400); RED BLOOD COUNT 3.78 x10^6/uL (3.50-5.40); RED CELL DISTRIBUTION WIDTH 15.2 % (11.5-14.5); WHITE BLOOD COUNT 5.9 x10^3/uL (4.0-11.0)
[2018-09-16 09:08] LABS: CALCIUM 9.9 mg/dL (8.5-10.1); CREATININE 2.7 mg/dL (0.6-1.0); GFR 16.7; POTASSIUM 4.1 mmol/L (3.5-5.1)
[2018-09-16] MEDS ORDERED: METOPROLOL TART IMMED RELEASE 50 MG TABLET. PO ONE (09:45)
[2018-09-16] MEDS ORDERED: LEVOTHYROXINE 88 MCG TABLET PO ONE (09:45)
[2018-09-16] MEDS ORDERED: ASPIRIN CHEWABLE 81 MG TABLET. PO ONE (09:45)
[2018-09-16] MEDS ORDERED: CLOPIDOGREL BISULFATE 75 MG TABLET PO ONE (09:45)
[2018-09-16] MEDS ORDERED: cloNIDine HCL 0.1 MG TABLET PO ONE (09:45)
[2018-09-16 09:48] LABS: PROTHROMBIN TIME PATIENT 13.4 SEC (11.7-14.0)
[2018-09-16] MEDS ORDERED: IODIXANOL 320 MG/ML 100 ML VIAL. ONE (09:59)
[2018-09-16] MEDS ORDERED: LIDOCAINE WITH 8.4% SOD BICARB 3 ML DISP.SYRIN. ONE (09:59)
[2018-09-16] MEDS ORDERED: IODIXANOL 320 MG/ML 50ML VIAL. ONE (09:59)
[2018-09-16] MEDS ORDERED: MIDAZOLAM HCL/PF 2 MG/2 ML VIAL. ONE (10:20)
[2018-09-16] MEDS ORDERED: fentaNYL PF VIAL 100 MCG/2 ML VIAL ONE (10:20)
[2018-09-16] MEDS ORDERED: FLUMAZENIL 0.5 MG/5 ML VIAL. IV ONE (10:27)
[2018-09-16] MEDS ORDERED: NALOXONE 0.4 MG/ML VIAL. ONE (10:27)
[2018-09-16] MEDS ORDERED: ONDANSETRON PF 4 MG/2 ML VIAL. ONE (10:42)
[2018-09-16] MEDS ORDERED: HEPARIN for IV BOLUS 10,000 UNIT/10 ML VIAL. ONE (10:50)
[2018-09-16] MEDS ORDERED: LIDOCAINE WITH 8.4% SOD BICARB 3 ML DISP.SYRIN. IJ ONE (11:15)
[2018-09-16] MEDS ORDERED: MIDAZOLAM HCL/PF 2 MG/2 ML VIAL. IV ONE (11:15)
[2018-09-16] MEDS ORDERED: fentaNYL PF VIAL 100 MCG/2 ML VIAL IV ONE (11:15)
[2018-09-16] MEDS ORDERED: HEPARIN for IV BOLUS 10,000 UNIT/10 ML VIAL. IV ONE (11:15)
[2018-09-16] MEDS ORDERED: IODIXANOL 320 MG/ML 100 ML VIAL. IART ONE (11:15)
[2018-09-16] MEDS ORDERED: ONDANSETRON PF 4 MG/2 ML VIAL. IV ONE (11:30)
[2018-09-16] MEDS ORDERED: CONTRAST GIVEN. MC PRN (11:30)
--- NOTE | 2018-09-22 11:21 | RAD ---
September 16, 2018 Procedure: Right upper extremity fistulogram Discussion: the risks and benefits of the procedure were discussed the patient. Informed consent was obtained. A timeout procedure was performed. Ultrasound evaluation demonstrates a right upper extremity AV graft to be patent. The graft was accessed directed towards the arterial inflow using direct ultrasound guidance. Reference ultrasound images were saved the medical record. Fistulogram was were obtained. The graft is widely patent. A self-expanding stent is present in the proximal arm venous outflow which is widely patent. An angled Glidewire and catheter were manipulated into the axillary artery. Arterial limb of the graft appears patent. Mild narrowing of the subclavian and axillary artery are noted. Attempts to initiate the catheter into the more proximal subclavian artery resulted in a short segment, nonflow limiting retrograde dissection. Given the appearance and persistent brisk flow decision was made to abort the procedure at this time with plans for a right upper extremity angiogram in approximately 2 weeks with likely attempted angioplasty of the subclavian and axillary arteries. A pursestring suture was placed. The sheath was removed. Annual pressure was held. Sterile dressings were applied. Fluoro time: 8.2 minutes Dose: 30 Gycm2 The procedures performed under conscious sedation including continuous cardiopulmonary monitoring via a dedicated sedation nurse. [id number]-[id number] sedation time: 40 minutes Impression: 1. Widely patent right upper extremity AV graft. 2. 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 Plan on right upper extremity angiogram in approximately 2 weeks with possible angioplasty of the subclavian and axillary arteries.
== END 2018-09-16 13:00 | disposition home or self-care (01) ==
LOC: INTRAD 08:24
PROVIDERS: ATTEND Registered Nurse Medical-Surgical
DX: I77.1 Stricture of artery (principal); Z88.1 Allergy status to other antibiotic agents; Z88.5 Allergy status to narcotic agent; Z88.6 Allergy status to analgesic agent; Z88.8 Allergy status to other drugs, medicaments and biological substances; Z79.899 Other long term (current) drug therapy; Z79.82 Long term (current) use of aspirin
CPT/HCPCS: 36415; 36901; 76937; 80048; 85025; 85610; 99152; 99153; C1713; C1769; C1892; C1894; J1644; J2250; J2405; J3010; Q9967

== ENCOUNTER 2018-10-02 07:12 | Day surgery (SDC) | payer MEDICARE ==
[~2018-10-02] VITALS: Ht 170.2 cm; Wt 57.2 kg
[2018-10-02] VITALS (12 sets, daily range): BP systolic 113–205; BP diastolic 40–77
[~2018-10-02 07:12] MED LIST changes: -AMLO10TA6 PO; +AMLO10TA8 PO; +AMLO5TAB10 PO; -AMLO5TAB7 PO; -CALC667T PO; +CALC667T4 PO; +CARV3.1210 PO; -CARV3.122 PO; +IV RINGERS,LACTATED 1000ML 1,000 ML IV SCH; +LIDOCAINE 1% PF 2 ML VIAL. ID PRN; +ONDANSETRON PF 4 MG/2 ML VIAL. IV PRN; +PROCHLORPERAZINE 10 MG/2 ML VIAL. IV PRN; +fentaNYL PF VIAL 100 MCG/2 ML VIAL IV PRN
[2018-10-02] MEDS ORDERED: PROPOFOL 20 ML IV ONE (07:28)
[2018-10-02] MEDS ORDERED: PROPOFOL 0 ML IV ONE (07:28)
[2018-10-02] MEDS ORDERED: MIDAZOLAM HCL/PF 2 MG/2 ML VIAL. ONE ×2 (07:29)
[2018-10-02] MEDS ORDERED: IODIXANOL 320 MG/ML 100 ML VIAL. ONE (08:03)
[2018-10-02] MEDS ORDERED: LIDOCAINE WITH 8.4% SOD BICARB 3 ML DISP.SYRIN. ONE (08:03)
[2018-10-02] MEDS ORDERED: HEPARIN for ARTERIAL LINE 1,500 ML ONE (08:04)
[2018-10-02] MEDS ORDERED: IODIXANOL 320 MG/ML 50ML VIAL. ONE (08:04)
[2018-10-02] MEDS ORDERED: hydrALAZINE 20 MG/ML VIAL. ONE (08:17)
[2018-10-02] MEDS ORDERED: hydrALAZINE 20 MG/ML VIAL. IVP ONE (08:30)
--- NOTE | 2018-10-02 08:34 | NUR ---
0820-Pt's SBP was >200. Talked to Dr. Escobedo. HydrAlazine 10mg via IV was administered as Dr. Escobedo ordered.
[2018-10-02] MEDS ORDERED: LIDOCAINE WITH 8.4% SOD BICARB 3 ML DISP.SYRIN. IJ ONE (09:00)
[2018-10-02] MEDS ORDERED: IODIXANOL 320 MG/ML 50ML VIAL. IART ONE (09:00)
[2018-10-02] MEDS ORDERED: IODIXANOL 320 MG/ML 100 ML VIAL. IART ONE (09:00)
[2018-10-02] MEDS ORDERED: CONTRAST GIVEN. MC PRN (09:15)
[2018-10-02] MEDS ORDERED: HEPARIN for IV BOLUS 10,000 UNIT/10 ML VIAL. IV ONE (09:45)
[2018-10-02] MEDS ORDERED: FAMOTIDINE 20 MG/2 ML VIAL ONE (10:13)
[2018-10-02] MEDS ORDERED: FAMOTIDINE 20 MG/2 ML VIAL IVP ONE (10:30)
--- NOTE | 2018-10-02 15:11 | NUR ---
Discharge notes: Pt is alert, oriented x 4. VSS. Pt ate lunch. Incision site has scant of blood but no more spreading to area. Soft. Taught pt how to assess the incision area for hematoma. Discharge instructions w/ activity, diet, medications, F/U w/ vascular surgeon as an outpatient and incision care were reviewed w pt. Dr. Escobedo talked to pt and pt's son around 1300 about the procedure. Pt verbalized understanding. Pt's IV was discontinued by this nurse. Pt's belongings were w/ pt. Pt was taken out to lobby via W/C by this nurse.
--- NOTE | 2018-10-03 12:33 | RAD ---
10/02/2018 Right upper extremity angiography Indication: Probable steal phenomenon, right upper extremity graft Discussion: The risks and benefits of the procedure were discussed the patient. Informed consent was obtained. A timeout procedure was performed. The right groin was prepped and draped using sterile barrier technique. Ultrasound is used to identify patent right common femoral artery. The artery was accessed using micropuncture technique and direct ultrasound guidance. Reference ultrasound images were saved the medical record. The right subclavian artery was selected. Angiograms demonstrated no flow-limiting proximal stenosis. Right upper extremity angiography was performed demonstrating diffuse irregularity of the right axillary artery without definitive flow-limiting stenosis. There is abrupt occlusion of the right brachial artery just beyond the arterial anastomosis of the right upper extremity AV graft. The anastomosis is widely patent. There is reconstitution of the more distal brachial artery after 3 to 4 cm via collaterals. Effective angiography of the hand is limited by lack of inflow, a majority of contrast being diverted through the AV graft. The catheter and guidewire were advanced to the edge of the occluded brachial artery. Multiple wires and catheters were used in attempt to traverse the occluded brachial artery which were unsuccessful. The wires and catheter were removed and manual pressure held to achieve hemostasis. Fluoroscopy time: 21.9 minutes. Dose area product: 87 Gycm2 Anesthesiology Department provided sedation through the procedure Impression: Occlusion of the right brachial artery with distal reconstitution via collaterals. Patent right upper extremity AV graft.
== END 2018-10-02 14:30 | disposition home or self-care (01) ==
LOC: SURG 07:12
PROVIDERS: ATTEND Surgery
DX: I70.8 Atherosclerosis of other arteries (principal); I12.0 Hypertensive chronic kidney disease with stage 5 chronic kidney disease or end stage renal disease; N18.6 End stage renal disease; I25.10 Atherosclerotic heart disease of native coronary artery without angina pectoris; K21.9 Gastro-esophageal reflux disease without esophagitis; Z86.73 Personal history of transient ischemic attack (TIA), and cerebral infarction without residual deficits; Z99.2 Dependence on renal dialysis; Z88.1 Allergy status to other antibiotic agents; Z88.5 Allergy status to narcotic agent; Z88.6 Allergy status to analgesic agent; Z88.8 Allergy status to other drugs, medicaments and biological substances
CPT/HCPCS: 36216; 75710; 76937; C1713; C1760; C1769; C1892; C1894; J0360; J1644; J2250; J2405; J2704; J3490; Q9967; 36218; G0269

== ENCOUNTER 2018-12-05 16:05 | Emergency (ER) | payer MEDICARE ==
[~2018-12-05] VITALS: Ht 167.6 cm; Wt 57.2 kg
[~2018-12-05 16:05] MED LIST changes: +CALC667T PO; -CALC667T4 PO; -IV RINGERS,LACTATED 1000ML 1,000 ML IV SCH; -LIDOCAINE 1% PF 2 ML VIAL. ID PRN; -ONDANSETRON PF 4 MG/2 ML VIAL. IV PRN; -PROCHLORPERAZINE 10 MG/2 ML VIAL. IV PRN; -fentaNYL PF VIAL 100 MCG/2 ML VIAL IV PRN
[2018-12-05 16:11] VITALS: BP 190/77
--- NOTE | 2018-12-05 17:14 | PHYS DOC ---
Past Medical History Past Medical History: CAD, Hypertension, IA, Renal Failure, Stroke, TIA, Other Additional Past Medical Histor: Polyarteritis; neuropathy; polyps Past Surgical History: Appendectomy, Colectomy, Pacemaker, Other Additional Past Surgical Histo: bilateral BKA; Sphincter removed Alcohol Use: None Drug Use: None Adult General Chief Complaint Chief Complaint: OTHER COMPLAINTS [facility] HPI Patient is an 88-year-old female who presents with complaint of right hand pain. Patient states that she was sent over from dialysis clinic because her hand had turned blue. She states that she has a history of steal syndrome after having had dialysis shunt placed in her right arm. Patient states that just prior to arriving to the emergency room her hands color was back to normal. She does indicate that she has chronic pain in that hand. She states that it one point she had taken Neurontin and later had been prescribed Lyrica but she states that the symptoms from the medications are much worse than the neuropathic pain. Review of Systems Review of Systems Constitutional: Denies fever or chills [] Respiratory: Denies cough or shortness of breath [] Cardiovascular: No additional information not addressed in HPI [] GI: Denies abdominal pain, nausea, vomiting or diarrhea [] Musculoskeletal: Positive right hand pain [] Allergies Allergies Allergies Coded Allergies Type Severity Reaction Last Updated Verified Quinolones Allergy Intermediate 11/07/17 Yes atorvastatin Allergy Intermediate 11/07/17 Yes ciprofloxacin Allergy Intermediate 11/07/17 Yes ciprofloxacin HCl Allergy Intermediate 11/07/17 Yes codeine Allergy Intermediate 11/07/17 Yes diazepam Allergy Intermediate 11/07/17 Yes doxazosin Allergy Intermediate 11/07/17 Yes eprosartan Allergy Intermediate 11/07/17 Yes fexofenadine Allergy Intermediate 11/07/17 Yes gabapentin Allergy Intermediate 11/07/17 Yes gatifloxacin Allergy Intermediate 11/07/17 Yes hydrochlorothiazide Allergy Intermediate 08/28/18 Yes isosorbide Allergy Intermediate 11/07/17 Yes labetalol Allergy Intermediate 11/07/17 Yes lisinopril Allergy Intermediate 11/07/17 Yes meloxicam Allergy Intermediate LEG EDEMA 08/25/18 Yes metoprolol Allergy Intermediate 11/07/17 Yes naproxen Allergy Intermediate 11/07/17 Yes neomycin Allergy Intermediate 11/07/17 Yes oxycodone Allergy Intermediate 11/07/17 Yes pantoprazole Allergy Intermediate 11/07/17 Yes pravastatin Allergy Intermediate 11/07/17 Yes pregabalin Allergy Intermediate 11/07/17 Yes quinine Allergy Intermediate 11/07/17 Yes simvastatin Allergy Intermediate 11/07/17 Yes Tetracyclines Adverse Reaction Intermediate DROWSY 11/07/17 Yes calcitonin Adverse Reaction Intermediate 11/07/17 Yes nifedipine Adverse Reaction Intermediate FATIGUE 11/07/17 Yes olmesartan Adverse Reaction Intermediate 11/07/17 Yes tetracycline Adverse Reaction Intermediate DROWSY 11/07/17 Yes tramadol Adverse Reaction Intermediate FOGGY 11/07/17 Yes tramadol HCl Adverse Reaction Intermediate FOGGY 11/07/17 Yes valsartan Adverse Reaction Intermediate FATIGUE 11/07/17 Yes Uncoded Allergies Type Severity Reaction Last Updated Verified CHLOREX GLUE Allergy Intermediate 01/29/17 Physical Exam Physical Exam Constitutional: Well developed, well nourished, no acute distress, non-toxic appearance. [] Neck: Normal range of motion, no tenderness, supple, no stridor. [] Cardiovascular: Regular rate and rhythm [] Lungs & Thorax: Bilateral breath sounds clear to auscultation [] Skin: Warm, dry, no erythema, no rash. [] Extremities: Examination of right hand demonstrates no evidence of cyanosis. [] Neurologic: Alert and oriented X 3, no focal deficits noted. [] Current Patient Data Vital Signs Vital Signs Date Time Temp Pulse Resp B/P (MAP) Pulse Ox O2 Delivery O2 Flow Rate FiO2 12/05/18 16:11 97.9 19 190/77 (114) 98 Room Air 97.9 EKG EKG [] Radiology/Procedures Radiology/Procedures [] Course & Med Decision Making Course & Med Decision Making Pertinent Labs and Imaging studies reviewed. (See chart for details) [] Dragon Disclaimer Dragon Disclaimer This electronic medical record was generated, in whole or in part, using a voice recognition dictation system. Departure Departure Impression: Primary Impression: Neuropathic pain of right hand Disposition: 01 HOME, SELF-CARE Condition: STABLE Referrals: LYNDA FELIX MD (PCP) Patient Instructions: Pain, Neuropathic EDWAR COHEN Jr. DO Dec 05, 2018 17:14
== END 2018-12-05 17:30 | disposition home or self-care (01) ==
LOC: ER 16:05
DX: G56.81 Other specified mononeuropathies of right upper limb (principal); M79.641 Pain in right hand; I12.9 Hypertensive chronic kidney disease with stage 1 through stage 4 chronic kidney disease, or unspecified chronic kidney disease; N18.9 Chronic kidney disease, unspecified; I25.10 Atherosclerotic heart disease of native coronary artery without angina pectoris; I25.2 Old myocardial infarction; Z86.73 Personal history of transient ischemic attack (TIA), and cerebral infarction without residual deficits; Z95.0 Presence of cardiac pacemaker; Z88.1 Allergy status to other antibiotic agents; Z88.6 Allergy status to analgesic agent; Z88.5 Allergy status to narcotic agent; Z88.8 Allergy status to other drugs, medicaments and biological substances; Z91.041 Radiographic dye allergy status
CPT/HCPCS: 99284

== ENCOUNTER → 2019-04-21 | Outpatient (CLI) | payer MEDICARE ==
[~2019-04-21] MED LIST changes: -CALC667T PO; +CALC667T4 PO
--- NOTE | 2019-04-21 17:22 | RAD ---
Examination: CT chest without contrast HISTORY: History of chronic cough COMPARISON: 08/25/2018 TECHNIQUE: Axial CT images were performed without contrast. Coronal and sagittal reformats are performed. Exposure: One or more of the following individualized dose reduction techniques were utilized for this examination: 1. Automated exposure control 2. Adjustment of the mA and/or kV according to patient size 3. Use of iterative reconstruction technique FINDINGS: The central airways are patent. Large cardiomegaly. Diffuse coronary artery calcifications. Small hiatal hernia scattered patchy groundglass airspace opacities identified in the bilateral lungs likely atelectasis or infiltrates. There is focus of airspace opacity identified in the right lung base likely pneumonia or atelectasis. Trace left pleural effusion. Calcified lymph node identified in the subcarinal region similar to prior exam. Moderate degenerative changes thoracic spine. IMPRESSION: 1. Faint scattered groundglass airspace opacities identified in the bilateral lungs with small focus of airspace opacity identified in the right lung base likely atelectasis or infiltrate. Follow-up to resolution. 2. Trace left pleural effusion. 3. Large cardiomegaly with coronary artery calcifications. Electronically signed by: Los Reyes MD (04/21/2019 5:20 PM) [id number]
--- NOTE | 2019-04-21 17:24 | RAD ---
Examination: 2 views of the lumbar spine HISTORY: History of low back pain COMPARISON: None available FINDINGS: The lumbar vertebral body heights are maintained. Severe intervertebral disc height loss identified in the lumbar spine particularly at L2-L3, L3-L4, L4-L5 vertebral levels. Moderate facet degenerative changes identified. Moderate neural foraminal narrowing identified at L2-L3, L3-L4, L4-L5 vertebral levels. Diffuse aortic atherosclerosis. IMPRESSION: Severe degenerative changes lumbar spine. Electronically signed by: Los Reyes MD (04/21/2019 5:21 PM) [id number]
== END | disposition home or self-care (01) ==
LOC: CT 15:47
PROVIDERS: ATTEND Internal Medicine
DX: M47.816 Spondylosis without myelopathy or radiculopathy, lumbar region (principal); M48.061 Spinal stenosis, lumbar region without neurogenic claudication; I70.0 Atherosclerosis of aorta; I25.10 Atherosclerotic heart disease of native coronary artery without angina pectoris; I51.7 Cardiomegaly; K44.9 Diaphragmatic hernia without obstruction or gangrene
CPT/HCPCS: 71250; 72100

== ENCOUNTER 2019-09-04 20:12 | Emergency (ER) | payer MEDICARE ==
[~2019-09-04] VITALS: Ht 152.4 cm; Wt 57.2 kg
[~2019-09-04 20:12] MED LIST changes: -NITR0.4T SL; +NITR0.4T24 SL
[2019-09-04] MEDS ORDERED: IV NORMAL SALINE 1000ML BAG 1,000 ML IV SCH (20:27)
[2019-09-04] MEDS ORDERED: ONDANSETRON PF 4 MG/2 ML VIAL. IV ONE (20:30)
--- NOTE | 2019-09-04 20:34 | PHYS DOC ---
Past Medical History Past Medical History: CAD, Hypertension, [place], Renal Failure, Stroke, TIA, Other Additional Past Medical Histor: Polyarteritis; neuropathy; polyps Past Surgical History: Appendectomy, Colectomy, Pacemaker, Other Additional Past Surgical Histo: bilateral BKA; Sphincter removed Alcohol Use: None Drug Use: None Adult General Chief Complaint Chief Complaint: NAUSEA/VOMITING/DIARRHA HPI HPI 88-year-old presents to emergency department history of hypertension, CVA, coronary artery disease. Patient states she developed low back pain ongoing today with radiation to the front around her left breast. She describes nausea as well as vomiting. Denies any chest pain. Denies any shortness of breath. She does have occasional cough. Patient states she was seen by primary care physician recently for similar complaints of pain and was told it was likely musculoskeletal. Given the continued discomfort she presented to the ER for further evaluation. Patient is well describes intermittent diarrhea. Nothing makes her symptoms worse, nothing makes her symptoms better Review of Systems Review of Systems Constitutional: Denies fever or chills [] Respiratory: Denies cough or shortness of breath [] Cardiovascular: No additional information not addressed in HPI [] GI: Denies abdominal pain, + nausea, vomiting, no bloody stools or diarrhea [] : Denies dysuria or hematuria [] Musculoskeletal: Denies back pain or joint pain [] Integument: Denies rash or skin lesions [] Neurologic: Denies headache, focal weakness or sensory changes [] All other systems were reviewed and found to be within normal limits, except as documented in this note. Current Medications Current Medications Current Medications Medications (Trade) Dose Ordered Sig/Sarah Start Time Stop Time Status Last Admin Dose Admin Info (CONTRAST GIVEN -- Rx MONITORING) 1 each PRN DAILY PRN 09/04/19 21:45 09/06/19 21:44 Iohexol (Omnipaque 300 Mg/ml) 60 ml 1X ONCE 09/04/19 22:00 09/04/19 22:01 DC 09/04/19 23:00 60 ML Ondansetron HCl (Zofran) 4 mg 1X ONCE 09/04/19 20:30 09/04/19 20:34 DC 09/04/19 20:52 4 MG Sodium Chloride 1,000 ml @ 1,000 mls/hr Q1H 09/04/19 20:27 09/04/19 21:26 DC 09/04/19 20:52 1,000 MLS/HR Allergies Allergies Allergies Coded Allergies Type Severity Reaction Last Updated Verified Quinolones Allergy Intermediate 11/07/17 Yes atorvastatin Allergy Intermediate 11/07/17 Yes ciprofloxacin Allergy Intermediate 11/07/17 Yes ciprofloxacin HCl Allergy Intermediate 11/07/17 Yes codeine Allergy Intermediate 11/07/17 Yes diazepam Allergy Intermediate 11/07/17 Yes doxazosin Allergy Intermediate 11/07/17 Yes eprosartan Allergy Intermediate 11/07/17 Yes fexofenadine Allergy Intermediate 11/07/17 Yes gabapentin Allergy Intermediate 11/07/17 Yes gatifloxacin Allergy Intermediate 11/07/17 Yes hydrochlorothiazide Allergy Intermediate 08/28/18 Yes isosorbide Allergy Intermediate 11/07/17 Yes labetalol Allergy Intermediate 11/07/17 Yes lisinopril Allergy Intermediate 11/07/17 Yes meloxicam Allergy Intermediate LEG EDEMA 08/25/18 Yes metoprolol Allergy Intermediate 11/07/17 Yes naproxen Allergy Intermediate 11/07/17 Yes neomycin Allergy Intermediate 11/07/17 Yes oxycodone Allergy Intermediate 11/07/17 Yes pantoprazole Allergy Intermediate 11/07/17 Yes pravastatin Allergy Intermediate 11/07/17 Yes pregabalin Allergy Intermediate 11/07/17 Yes quinine Allergy Intermediate 11/07/17 Yes simvastatin Allergy Intermediate 11/07/17 Yes Tetracyclines Adverse Reaction Intermediate DROWSY 11/07/17 Yes calcitonin Adverse Reaction Intermediate 11/07/17 Yes nifedipine Adverse Reaction Intermediate FATIGUE 11/07/17 Yes olmesartan Adverse Reaction Intermediate 11/07/17 Yes tetracycline Adverse Reaction Intermediate DROWSY 11/07/17 Yes tramadol Adverse Reaction Intermediate FOGGY 11/07/17 Yes tramadol HCl Adverse Reaction Intermediate FOGGY 11/07/17 Yes valsartan Adverse Reaction Intermediate FATIGUE 11/07/17 Yes Uncoded Allergies Type Severity Reaction Last Updated Verified CHLOREX GLUE Allergy Intermediate 01/29/17 Physical Exam Physical Exam Constitutional: Well developed, well nourished, no acute distress, non-toxic adriel earance. [] HENT: Normocephalic, atraumatic, bilateral external ears normal, oropharynx moist, no oral exudates, nose normal. [] Eyes: PERRLA, EOMI, conjunctiva normal, no discharge. [] Cardiovascular:Heart rate regular rhythm, no murmur [] Lungs & Thorax: Bilateral breath sounds clear to auscultation [] Abdomen: Bowel sounds normal, soft, no tenderness, no masses, no pulsatile masses. [] Skin: Warm, dry, no erythema, no rash. [] Back: No tenderness, no CVA tenderness. [] Extremities: No tenderness, no edema. [] Neurologic: Alert and oriented X 3, no focal deficits noted. [] Psychologic: Affect normal, judgement normal, mood normal. [] Current Patient Data Vital Signs Vital Signs Date Time Temp Pulse Resp B/P (MAP) Pulse Ox O2 Delivery O2 Flow Rate FiO2 09/04/19 23:34 60 16 217/107 (143) 96 Room Air 09/04/19 20:25 98.3 98.3 Lab Values Laboratory Tests Test 09/04/19 20:40 09/04/19 21:55 White Blood Count 4.3 x10^3/uL (4.0-11.0) Red Blood Count 4.37 x10^6/uL (3.50-5.40) Hemoglobin 13.8 g/dL (12.0-15.5) Hematocrit 41.4 % (36.0-47.0) Mean Corpuscular Volume 95 fL (79-100) Mean Corpuscular Hemoglobin 32 pg (25-35) Mean Corpuscular Hemoglobin Concent 33 g/dL (31-37) Red Cell Distribution Width 13.9 % (11.5-14.5) Platelet Count 200 x10^3/uL (140-400) Neutrophils (%) (Auto) 61 % (31-73) Lymphocytes (%) (Auto) 13 % (24-48) L Monocytes (%) (Auto) 22 % (0-9) H Eosinophils (%) (Auto) 3 % (0-3) Basophils (%) (Auto) 1 % (0-3) Neutrophils # (Auto) 2.6 x10^3/uL (1.8-7.7) Lymphocytes # (Auto) 0.6 x10^3/uL (1.0-4.8) L Monocytes # (Auto) 0.9 x10^3/uL (0.0-1.1) Eosinophils # (Auto) 0.1 x10^3/uL (0.0-0.7) Basophils # (Auto) 0.0 x10^3/uL (0.0-0.2) Segmented Neutrophils % 65 % (35-66) Band Neutrophils % 1 % (0-9) Lymphocytes % 12 % (24-48) L Monocytes % 20 % (0-10) H Eosinophils % 2 % (0-5) Platelet Estimate Adequate (ADEQUATE) Poikilocytosis Slight Sodium Level 137 mmol/L (136-145) Potassium Level 3.4 mmol/L (3.5-5.1) L Chloride Level 98 mmol/L (98-107) Carbon Dioxide Level 28 mmol/L (21-32) Anion Gap 11 (6-14) Blood Urea Nitrogen 40 mg/dL (7-20) H Creatinine 2.5 mg/dL (0.6-1.0) H Estimated GFR (Cockcroft-Gault) 18.2 BUN/Creatinine Ratio 16 (6-20) Glucose Level 139 mg/dL (70-99) H Lactic Acid Level 1.7 mmol/L (0.4-2.0) Calcium Level 9.9 mg/dL (8.5-10.1) Total Bilirubin 0.4 mg/dL (0.2-1.0) Aspartate Amino Transferase (AST) 30 U/L (15-37) Alanine Aminotransferase (ALT) 30 U/L (14-59) Alkaline Phosphatase 113 U/L (46-116) Troponin I Quantitative 0.068 ng/mL (0.000-0.055) Total Protein 7.7 g/dL (6.4-8.2) Albumin 3.4 g/dL (3.4-5.0) Albumin/Globulin Ratio 0.8 (1.0-1.7) L Urine Collection Type U cath Urine Color Yellow Urine Clarity Clear Urine pH 5.5 Urine Specific [place] 1.020 Urine Protein >=300 mg/dL (NEG-TRACE) Urine Glucose (UA) Negative mg/dL (NEG) Urine Ketones (Stick) Negative mg/dL (NEG) Urine Blood Negative (NEG) Urine Nitrite Negative (NEG) Urine Bilirubin Negative (NEG) Urine Urobilinogen Dipstick 0.2 mg/dL (0.2 mg/dL) Urine Leukocyte Esterase Small (NEG) Urine RBC 3-5 /HPF (0-2) Urine WBC 1-4 /HPF (0-4) Urine Squamous Epithelial Cells Mod /LPF Urine Transitional Epithelial Cells Few /LPF Urine Amorphous Sediment Present /HPF Urine Bacteria Few /HPF (0-FEW) Urine Hyaline Casts Many /HPF Urine Mucus Mod /LPF Laboratory Tests 09/04/19 20:40 Laboratory Tests 09/04/19 20:40 EKG EKG [] Radiology/Procedures Radiology/Procedures [facility] [address] [place] [address] IMAGING REPORT Signed PATIENT: SHERRI BENITEZ ACCOUNT: [id number] : 1930 LOCATION: ER AGE: 88 SEX: F EXAM STATUS: REG ER ORD. PHYSICIAN: MARGARET HARVEY MD REASON: left back pain radiation to left abd with nausea/vomiting PROCEDURE: CT ABD PELV W/ IV CONTRST ONLY CT abdomen pelvis with contrast. HISTORY: Left-sided back pain radiating to left abdomen, nausea and vomiting CT scan of the abdomen pelvis was done using 60 mL Omnipaque 300 contrast. There are small bilateral effusions. There is mild atelectasis in the lung bases. There are also groundglass infiltrates or atelectasis or edema in the lung bases. Heart is enlarged. A liver lesion is not identified. There are gallstones in the gallbladder. There is a hepatic cyst. Spleen and adrenal glands are normal. There are multiple bilateral renal cysts. There is cortical thinning of the kidneys with atrophy of the lower left kidney and right kidney. Pancreas is unremarkable. There is no retroperitoneal adenopathy. There is no bowel obstruction. Patient's had a right hemicolectomy. There is extensive diverticulosis of the colon. There are artifacts off the left hip prosthesis. I do not see a definite diverticulitis. Ovaries are unremarkable. There is degenerative change in the lumbar spine with scoliosis. There is mild spondylolisthesis at L4-5. There is disc space narrowing at all levels in the lumbar spine. IMPRESSION: 1. Cholelithiasis. 2. Hepatic and renal cysts. 3. Previous right hemicolectomy. 4. No bowel obstruction or other acute finding. 5. Scoliosis and degenerative change in the lumbar spine. 6. Small bilateral pleural effusions with mild groundglass atelectasis or edema in the lung bases. PQRS Compliance Statement: One or more of the following individualized dose reduction techniques were utilized for this examination: 1. Automated exposure control 2. Adjustment of the mA and/or kV according to patient size 3. Use of iterative reconstruction technique Electronically signed by: Aj Gomez MD (09/04/2019 11:27 PM) [facility] DICTATED and SIGNED BY: AJ GOMEZ MD DATE: 09/04/19 2327 [] Course & Med Decision Making Course & Med Decision Making Pertinent Labs and Imaging studies reviewed. (See chart for details) []88-year-old presents to emergency department history of hypertension, CVA, coronary artery disease. Patient states she developed low back pain ongoing today with radiation to the front around her left breast. She describes nausea as well as vomiting. Denies any chest pain. Denies any shortness of breath. She does have occasional cough. Patient states she was seen by primary care physician recently for similar complaints of pain and was told it was likely musculoskeletal. Given the continued discomfort she presented to the ER for further evaluation. Patient is well describes intermittent diarrhea. Nothing makes her symptoms worse, nothing makes her symptoms better. Offered nausea medication and pain medication to patient however she declines CT reviewed - evidence of cholelithiasis, no cholecystitis appreciated per exam and labs Lactic 1.7, WBC within normal limit Pain 2/2 biliary colic, discussed pain medications/nausea medications however patient declines. Dragon Disclaimer Dragon Disclaimer This electronic medical record was generated, in whole or in part, using a voice recognition dictation system. Departure Departure Impression: Primary Impression: Biliary colic Disposition: 01 HOME, SELF-CARE Condition: IMPROVED Referrals: LYNDA FELIX MD (PCP) Patient Instructions: Biliary Colic Additional Instructions: Recommend follow up with PCP 3 - 5 days Return to the ER with worsening symptoms, intractable pain, fever, altered mental status Tylenol/Motrin as needed for pain MARGARET HARVEY MD Sep 04, 2019 20:34
[2019-09-04 20:52] LABS: BASO % 1 % (0-3); EOS # 0.1 x10^3/uL (0.0-0.7); EOS % 3 % (0-3); HEMATOCRIT 41.4 % (36.0-47.0); HEMOGLOBIN 13.8 g/dL (12.0-15.5); LYMPH # 0.6 x10^3/uL (1.0-4.8); LYMPH % 13 % (24-48); MEAN CORPUSCULAR HEMOGLOBIN 32 pg (25-35); MEAN CORPUSCULAR HGB CONC 33 g/dL (31-37); MEAN CORPUSCULAR VOLUME 95 fL (79-100); MONO # 0.9 x10^3/uL (0.0-1.1); MONO % 22 % (0-9); NEUT # 2.6 x10^3/uL (1.8-7.7); NEUT % 61 % (31-73); PLATELET COUNT 200 x10^3/uL (140-400); RED BLOOD COUNT 4.37 x10^6/uL (3.50-5.40); RED CELL DISTRIBUTION WIDTH 13.9 % (11.5-14.5); WHITE BLOOD COUNT 4.3 x10^3/uL (4.0-11.0)
[2019-09-04 21:15] LABS: CALCIUM 9.9 mg/dL (8.5-10.1); CREATININE 2.5 mg/dL (0.6-1.0); GFR 18.2; POTASSIUM 3.4 mmol/L (3.5-5.1)
[2019-09-04 21:20] LABS: ALBUMIN 3.4 g/dL (3.4-5.0); ALBUMIN/GLOBULIN RATIO 0.8 (1.0-1.7); TOTAL BILIRUBIN 0.4 mg/dL (0.2-1.0); TOTAL PROTEIN 7.7 g/dL (6.4-8.2)
[2019-09-04] MEDS ORDERED: CONTRAST GIVEN. MC PRN (21:45)
[2019-09-04 21:55] LABS: % BANDS 1 % (0-9); % EOS 2 % (0-5); % LYMPHS 12 % (24-48); % MONOS 20 % (0-10); % SEGS 65 % (35-66); PLT ESTIMATE ADEQUATE (ADEQUATE); POIKILOCYTOSIS SLIGHT
[2019-09-04] MEDS ORDERED: IOHEXOL 300 MG/ML 100ML VIAL. IV ONE (22:00)
[2019-09-04 22:08] LABS: BILIRUBIN,URINE NEGATIVE (NEG); CLARITY,URINE CLEAR; COLOR,URINE YELLOW; NITRITE,URINE NEGATIVE (NEG); PH,URINE 5.5; PROTEIN,URINE >=300 mg/dL (NEG-TRACE); UROBILINOGEN,URINE 0.2 mg/dL (0.2 mg/dL)
[2019-09-04 22:21] LABS: AMORPHOUS SEDIMENT,UR PRESENT /HPF; HYALINE CASTS, URINE MANY /HPF; SQUAMOUS EPITHELIAL CELL,UR MOD /LPF
[2019-09-04 22:22] LABS: BACTERIA,URINE FEW /HPF (0-FEW)
--- NOTE | 2019-09-04 23:30 | RAD ---
CT abdomen pelvis with contrast. HISTORY: Left-sided back pain radiating to left abdomen, nausea and vomiting CT scan of the abdomen pelvis was done using 60 mL Omnipaque 300 contrast. There are small bilateral effusions. There is mild atelectasis in the lung bases. There are also groundglass infiltrates or atelectasis or edema in the lung bases. Heart is enlarged. A liver lesion is not identified. There are gallstones in the gallbladder. There is a hepatic cyst. Spleen and adrenal glands are normal. There are multiple bilateral renal cysts. There is cortical thinning of the kidneys with atrophy of the lower left kidney and right kidney. Pancreas is unremarkable. There is no retroperitoneal adenopathy. There is no bowel obstruction. Patient's had a right hemicolectomy. There is extensive diverticulosis of the colon. There are artifacts off the left hip prosthesis. I do not see a definite diverticulitis. Ovaries are unremarkable. There is degenerative change in the lumbar spine with scoliosis. There is mild spondylolisthesis at L4-5. There is disc space narrowing at all levels in the lumbar spine. IMPRESSION: 1. Cholelithiasis. 2. Hepatic and renal cysts. 3. Previous right hemicolectomy. 4. No bowel obstruction or other acute finding. 5. Scoliosis and degenerative change in the lumbar spine. 6. Small bilateral pleural effusions with mild groundglass atelectasis or edema in the lung bases. PQRS Compliance Statement: One or more of the following individualized dose reduction techniques were utilized for this examination: 1. Automated exposure control 2. Adjustment of the mA and/or kV according to patient size 3. Use of iterative reconstruction technique Electronically signed by: Aj Gomez MD (09/04/2019 11:27 PM) [facility]
[2019-09-04 23:34] VITALS: BP 217/107
--- NOTE | 2019-09-05 04:32 | EKG ---
[facility] [address] [place] [address] Test Date: 2019-09-04 Test Time: 20:17:24 Pat Name: SHERRI BENITEZ Department: Room: Gender: F [employer] [place]: : 1930 Requested By: MARGARET HARVEY Order Number: [id number] Reading MD: Measurements Intervals [place] Rate: 68 P: 114 WA: 220 QRS: -9 QRSD: 118 T: 90 QT: 450 QTc: 484 Interpretive Statements SINUS RHYTHM VENTRICULAR PREMATURE COMPLEX(ES) PROLONGED WA INTERVAL LEFTWARD AXIS LVH WITH REPOLARIZATION ABNORMALITY QRS(T) CONTOUR ABNORMALITY CONSIDER ANTEROSEPTAL MYOCARDIAL DAMAGE PROLONGED QT ABNORMAL ECG RI6.01 No previous ECG available for comparison
== END 2019-09-05 00:12 | disposition home or self-care (01) ==
LOC: ER 20:12
DX: K80.50 Calculus of bile duct without cholangitis or cholecystitis without obstruction (principal); R11.2 Nausea with vomiting, unspecified; I12.9 Hypertensive chronic kidney disease with stage 1 through stage 4 chronic kidney disease, or unspecified chronic kidney disease; N18.9 Chronic kidney disease, unspecified; I25.2 Old myocardial infarction; Z90.49 Acquired absence of other specified parts of digestive tract; I25.10 Atherosclerotic heart disease of native coronary artery without angina pectoris; Z86.73 Personal history of transient ischemic attack (TIA), and cerebral infarction without residual deficits; Z90.89 Acquired absence of other organs; Z95.0 Presence of cardiac pacemaker; Z88.1 Allergy status to other antibiotic agents; Z88.5 Allergy status to narcotic agent; Z88.6 Allergy status to analgesic agent; Z88.8 Allergy status to other drugs, medicaments and biological substances
CPT/HCPCS: 36415; 74177; 80053; 81001; 83605; 84484; 85007; 85025; 87086; 93005; 96361; 96374; 99285; J7030; P9612; Q9967; J2405

== ENCOUNTER 2020-03-19 00:53 | Inpatient (IN) | payer MEDICARE ==
[~2020-03-19] VITALS: Ht 167.6 cm; Wt 58.0 kg
[~2020-03-19 00:53] MED LIST changes: +ACET500T68 PO; +ALBU2.5V5 INH; +CYAN500T17 PO; +LEVO112T49 PO
--- NOTE | 2020-03-19 01:14 | PHYS DOC ---
Past Medical History Past Medical History: CAD, Hypertension, [place], Renal Failure, Stroke, TIA, Other Additional Past Medical Histor: Polyarteritis; neuropathy; polyps Past Surgical History: Appendectomy, Colectomy, Pacemaker, Other Additional Past Surgical Histo: bilateral BKA; Sphincter removed Smoking Status: Never Smoker Alcohol Use: None Drug Use: None General Adult EDM: Chief Complaint: chest pain HPI: HPI: Patient is a 89 year old female who presents with complaint of chest pain that started at about 11:00. Patient states that she has had 3 different episodes of pain lasting approximately 10 minutes each. She describes pain as squeezing type pain to her heart. She states that she became nauseated but did not vomit. Patient is unable to assign a number to level of pain when it was present but stated that it was bad. Patient currently denies any chest pain. [] Review of Systems: Review of Systems: Constitutional: Denies fever or chills. [] Respiratory: Denies cough or shortness of breath. [] Cardiovascular: Complains of chest pain. [] GI: Denies abdominal pain, vomiting or diarrhea. [] Integument: Denies rash. [] Neurologic: Denies headache, focal weakness or sensory changes. [] A full 10 point review of systems has been reviewed and is otherwise negative. Heart Score: HEART Score for Chest Pain: HEART Score for Chest Pain Response (Comments) Value History Moderately Suspicious 1 ECG Nonspecific Repolarizatio 1 Age > 65 2 Risk Factors >3 Risk Factors or Hx CAD 2 Troponin >1-<3x Normal Limit 1 Total 7 Risk Factors: Risk Factors: DM, Current or recent (<one month) smoker, HTN, HLP, family history of CAD, obesity. Risk Scores: Score 0 - 3: 2.5% MACE over next 6 weeks - Discharge Home Score 4 - 6: 20.3% MACE over next 6 weeks - Admit for Clinical Observation Score 7 - 10: 72.7% MACE over next 6 weeks - Early Invasive Strategies Allergies: Allergies: Allergies Coded Allergies Type Severity Reaction Last Updated Verified Quinolones Allergy Intermediate 11/07/17 Yes atorvastatin Allergy Intermediate 11/07/17 Yes ciprofloxacin Allergy Intermediate 11/07/17 Yes ciprofloxacin HCl Allergy Intermediate 11/07/17 Yes codeine Allergy Intermediate 11/07/17 Yes diazepam Allergy Intermediate 11/07/17 Yes doxazosin Allergy Intermediate 11/07/17 Yes eprosartan Allergy Intermediate 11/07/17 Yes fexofenadine Allergy Intermediate 11/07/17 Yes gabapentin Allergy Intermediate 11/07/17 Yes gatifloxacin Allergy Intermediate 11/07/17 Yes hydrochlorothiazide Allergy Intermediate 08/28/18 Yes isosorbide Allergy Intermediate 11/07/17 Yes labetalol Allergy Intermediate 11/07/17 Yes lisinopril Allergy Intermediate 11/07/17 Yes meloxicam Allergy Intermediate LEG EDEMA 08/25/18 Yes metoprolol Allergy Intermediate 11/07/17 Yes naproxen Allergy Intermediate DIALYSIS PT 12/13/19 Yes neomycin Allergy Intermediate 11/07/17 Yes oxycodone Allergy Intermediate 11/07/17 Yes pantoprazole Allergy Intermediate 11/07/17 Yes pravastatin Allergy Intermediate 11/07/17 Yes pregabalin Allergy Intermediate 11/07/17 Yes quinine Allergy Intermediate 11/07/17 Yes simvastatin Allergy Intermediate 11/07/17 Yes Tetracyclines Adverse Reaction Intermediate DROWSY 11/07/17 Yes calcitonin Adverse Reaction Intermediate 11/07/17 Yes nifedipine Adverse Reaction Intermediate FATIGUE 11/07/17 Yes olmesartan Adverse Reaction Intermediate 11/07/17 Yes tetracycline Adverse Reaction Intermediate DROWSY 11/07/17 Yes tramadol Adverse Reaction Intermediate FOGGY 11/07/17 Yes tramadol HCl Adverse Reaction Intermediate FOGGY 11/07/17 Yes valsartan Adverse Reaction Intermediate FATIGUE 11/07/17 Yes Uncoded Allergies Type Severity Reaction Last Updated Verified CHLOREX GLUE Allergy Intermediate 01/29/17 Physical Exam: PE: Constitutional: Well developed, well nourished, no acute distress, non-toxic appearance. [] HENT: Normocephalic, atraumatic, bilateral external ears normal, oropharynx moist, no oral exudates, nose normal. [] Eyes: PERRLA, EOMI, conjunctiva normal, no discharge. [] Neck: Normal range of motion, no tenderness, supple, no stridor. [] Cardiovascular: Regular rate and rhythm [] Lungs & Thorax: Bilateral breath sounds clear to auscultation [] Abdomen: Bowel sounds normal, soft, no tenderness. [] Skin: Warm, dry, no erythema, no rash. [] Extremities: No tenderness, no cyanosis, no clubbing, with bilateral below the knee amputations noted. [] Neurologic: Awake and alert, no focal deficits noted. [] EKG: EKG: EKG demonstrates normal sinus rhythm with rate of 60. [] Radiology/Procedures: Radiology/Procedures: [] Course & Med Decision Making: Course & Med Decision Making Pertinent Labs and Imaging studies reviewed. (See chart for details) [] Dragon Disclaimer: Dragon Disclaimer: This electronic medical record was generated, in whole or in part, using a voice recognition dictation system. Departure Departure Impression: Primary Impression: Chest pain Qualified Codes: R07.9 - Chest pain, unspecified Additional Impressions: End stage renal disease Elevated troponin Disposition: ADMITTED INPATIENT Admitting Physician: Lynda Woods Condition: IMPROVED Referrals: LYNDA WOODS MD (PCP) EDWAR COHEN Jr. DO March 19, 2020 01:14
[2020-03-19 01:20] LABS: BASO % 1 % (0-3); EOS # 0.5 x10^3/uL (0.0-0.7); EOS % 13 % (0-3); HEMATOCRIT 34.7 % (36.0-47.0); HEMOGLOBIN 11.4 g/dL (12.0-15.5); LYMPH % 29 % (24-48); MEAN CORPUSCULAR HEMOGLOBIN 32 pg (25-35); MEAN CORPUSCULAR HGB CONC 33 g/dL (31-37); MEAN CORPUSCULAR VOLUME 96 fL (79-100); MONO % 27 % (0-9); NEUT # 1.1 x10^3/uL (1.8-7.7); NEUT % 30 % (31-73); PLATELET COUNT 189 x10^3/uL (140-400); RED BLOOD COUNT 3.62 x10^6/uL (3.50-5.40); WHITE BLOOD COUNT 3.6 x10^3/uL (4.0-11.0)
[2020-03-19 01:29] LABS: CALCIUM 9.9 mg/dL (8.5-10.1); CREATININE 3.6 mg/dL (0.6-1.0); GFR 11.9; POTASSIUM 4.6 mmol/L (3.5-5.1)
[2020-03-19 01:34] LABS: ALBUMIN 2.9 g/dL (3.4-5.0); ALBUMIN/GLOBULIN RATIO 0.7 (1.0-1.7); MAGNESIUM 2.1 mg/dL (1.8-2.4); TOTAL BILIRUBIN 0.3 mg/dL (0.2-1.0)
[2020-03-19] MEDS ORDERED: HEPARIN for IV BOLUS 10,000 UNIT/10 ML VIAL. IV PRN (01:45)
[2020-03-19] MEDS ORDERED: HEPARIN 25,000UTS/250ML PREMIX 250 ML IV PRN (01:45)
[2020-03-19] MEDS ORDERED: ANTI-COAG MONITOR BY PHARMACY. MC PRN (02:00)
[2020-03-19] MEDS ORDERED: HEPARIN for IV BOLUS 10,000 UNIT/10 ML VIAL. IV ONE (02:00)
--- NOTE | 2020-03-19 02:01 | RAD ---
AP portable chest radiograph 03/19/2020 Clinical History: Chest pain. An AP erect portable digital radiograph of the chest was obtained. Comparison study is dated 12/13/2019. A left-sided pacemaker is unchanged in position. Stents overlie the medial soft tissues of the right arm. The cardiac silhouette is mildly enlarged. The thoracic aorta is tortuous. Atherosclerotic calcification of the thoracic aorta is seen. A linear band of subsegmental atelectasis is seen involving the left lower lobe, unchanged. No acute pulmonary infiltrate is seen. No pleural effusion or pneumothorax is noted. The osseous structures are unchanged. Impression: No acute abnormality is seen. Electronically signed by: Abebe Glaser MD (03/19/2020 1:58 AM) [id number]
[2020-03-19] MEDS ORDERED: ONDANSETRON PF 4 MG/2 ML VIAL. IV PRN (02:15)
[2020-03-19] MEDS ORDERED: MORPHINE SULFATE 2 MG/ML VIAL. IV PRN (02:15)
[2020-03-19 04:49] LABS: % ATYL 1 % (0-0); % BANDS 2 % (0-9); % BASOS 2 % (0-3); % EOS 13 % (0-5); % LYMPHS 31 % (24-48); % MONOS 17 % (0-10); % SEGS 34 % (35-66)
[2020-03-19 04:50] LABS: PLT ESTIMATE ADEQUATE (ADEQUATE)
--- NOTE | 2020-03-19 05:12 | NUR ---
The patient, SHERRI BENITEZ, 89 y/o, F admitted by LYNDA FELIX MD, was given written information regarding hospital policies, unit procedures and contact persons. Valuables were checked and left in room with patient . call light within reach, will continue to monitor
[2020-03-19 07:00] VITALS: BP 121/40
[2020-03-19 11:00] VITALS: BP 153/55
--- NOTE | 2020-03-19 11:14 | EKG ---
[facility] [address] [place] [address] Test Date: 2020-03-19 Test Time: 01:01:40 Pat Name: SHERRI BENITEZ Department: Room: 248 1 Gender: F [employer] Handler: : 1930 Requested By: EDWAR COHEN Order Number: [id number] Reading MD: Yemi Vital MD Measurements Intervals [place] Rate: 60 P: 120 VA: 212 QRS: -13 QRSD: 118 T: 126 QT: 452 QTc: 457 Interpretive Statements SINUS RHYTHM LVH NON-SPECIFIC ST/T CHANGES Electronically Signed On 03-22-2020 14:16:29 CDT by Yemi Vital MD
[2020-03-19] MEDS ORDERED: ACETAMINOPHEN 325 MG TABLET. PO PRN (12:00)
--- NOTE | 2020-03-19 12:11 | PDOC2 ---
CONSULT Date of Consult Date of Consult DATE: 03/19/20 TIME: 12:01 Reason for Consult Reason for Consult: ESRD, possibly clotted AV access Referring Physician Referring Physician: Chuck Identification/Chief Complaint Chief Complaint Chest pain Source Source: Chart review, Patient History of Present Illness Reason for Visit: Joanna is a pleasant 89-year-old female well known to me from her pre-ESRD days. She has been on hemodialysis for 2-1/2 years now under the care of Dr. Henley. She dialyzes on a Saturday basis at [facility]. She has not missed any dialysis treatments at this time. She did have a recent intervention to her right AV graft on . She dialyzed well yesterday however she felt that she had a fainter thrill than usual in her graft. She had called us regarding the same also. She decided to come into the ER with complaints of chest pain. She has been placed on a heparin drip. She does complain of some cramping with dialysis mostly in her right hand. Past Medical History Cardiovascular: CAD, HTN, [place], Hyperlipidemia, Other Pulmonary: Asthma CENTRAL NERVOUS SYSTEM: Periperal neuropathy Heme/Onc: Anemia NOS Renal/: Chronic renal failure, Other Endocrine: Hypothyroidism, Hyperparathyroidism Past Surgical History Past Surgical History: Pacemaker, Total hip replacement, Colon Resection, Other Family History Family History: Coronary Artery Disease, Diabetes Social History ALCOHOL: none Drugs: None Lives: Alone Domestic Violence: Neg Current Problem List Problem List Problems Medical Problems: (1) Chest pain Status: Acute (2) Elevated troponin Status: Acute Current Medications Current Medications Current Medications Heparin Sodium (Porcine) (Heparin Sodium) 3,550 unit 1X ONCE IV Last administered on 03/19/20at 02:11; Start 03/19/20 at 02:00; Stop 03/19/20 at 02:01; Status DC Heparin Sodium/ Dextrose 250 ml @ 0 mls/hr CONT PRN IV PER PROTOCOL Last administered on 03/19/20at 02:09; Start 03/19/20 at 01:45 Heparin Sodium (Porcine) (Heparin Sodium) 1,500 unit PRN Q6HRS PRN IV FOR UFH LEVEL LESS THAN 0.2; Start 03/19/20 at 01:45 Info (Anti-Coagulation Monitoring By Pharmacy) 1 each PRN DAILY PRN MC SEE COMMENTS Last administered on 03/19/20at 03:32; Start 03/19/20 at 02:00 Ondansetron HCl (Zofran) 4 mg PRN Q8HRS PRN IV NAUSEA/VOMITING 1ST CHOICE; Start 03/19/20 at 02:15; Stop 03/20/20 at 02:14 Morphine Sulfate (Morphine Sulfate) 2 mg PRN Q2HR PRN IV SEVERE PAIN 7-10; Start 03/19/20 at 02:15; Stop 03/20/20 at 02:14 Active Scripts Active Hydralazine Hcl 25 Mg Tablet 1 Tab PO BID Amox Tr-K Clv 500-125 Mg Tab (Amoxicillin/Potassium Clav) 1 Each Tablet 1 Tab PO DAILY Levothyroxine Sodium 88 Mcg Tablet 1 Tab PO DAILY Reported Calcium Acetate 667 Mg Tablet 1 Tab PO TID 30 Days Chelsey-Sudhir Tablet (Folic Acid/Vitamin B Comp W-C) 0.8 Mg Tablet 1 Tab PO DAILY 30 Days Acetaminophen 500 Mg Tablet 1 Tab PO PRN Q6HRS PRN 15 Days Bystolic (Nebivolol) 10 Mg Tablet 10 Mg PO DAILY pt can take 10-30mg daily for elevated bp Aspir 81 (Aspirin) 81 Mg Tablet.dr 1 Tab PO DAILY Clonidine Hcl 0.1 Mg Tablet 1 Tab PO QHS Clopidogrel (Clopidogrel Bisulfate) 75 Mg Tablet 75 Mg PO DAILY Allergies Allergies: Coded Allergies: Quinolones (Verified Allergy, Intermediate, 11/07/17) atorvastatin (Verified Allergy, Intermediate, 11/07/17) MYALGIA ciprofloxacin (Verified Allergy, Intermediate, 11/07/17) ciprofloxacin HCl (Verified Allergy, Intermediate, 11/07/17) codeine (Verified Allergy, Intermediate, 11/07/17) diazepam (Verified Allergy, Intermediate, 11/07/17) doxazosin (Verified Allergy, Intermediate, 11/07/17) eprosartan (Verified Allergy, Intermediate, 11/07/17) fexofenadine (Verified Allergy, Intermediate, 11/07/17) gabapentin (Verified Allergy, Intermediate, 11/07/17) gatifloxacin (Verified Allergy, Intermediate, 11/07/17) hydrochlorothiazide (Verified Allergy, Intermediate, 08/28/18) isosorbide (Verified Allergy, Intermediate, 11/07/17) labetalol (Verified Allergy, Intermediate, 11/07/17) lisinopril (Verified Allergy, Intermediate, 11/07/17) meloxicam (Verified Allergy, Intermediate, LEG EDEMA, 08/25/18) TAKES ASA AT HOME metoprolol (Verified Allergy, Intermediate, 11/07/17) naproxen (Verified Allergy, Intermediate, DIALYSIS PT, 12/13/19) neomycin (Verified Allergy, Intermediate, 11/07/17) oxycodone (Verified Allergy, Intermediate, 11/07/17) pantoprazole (Verified Allergy, Intermediate, 11/07/17) pravastatin (Verified Allergy, Intermediate, 11/07/17) pregabalin (Verified Allergy, Intermediate, 11/07/17) quinine (Verified Allergy, Intermediate, 11/07/17) simvastatin (Verified Allergy, Intermediate, 11/07/17) MYALGIAS Tetracyclines (Verified Adverse Reaction, Intermediate, DROWSY, 11/07/17) calcitonin (Verified Adverse Reaction, Intermediate, 11/07/17) nifedipine (Verified Adverse Reaction, Intermediate, FATIGUE, 11/07/17) FATIGUE olmesartan (Verified Adverse Reaction, Intermediate, 11/07/17) tetracycline (Verified Adverse Reaction, Intermediate, DROWSY, 11/07/17) DROWSY tramadol (Verified Adverse Reaction, Intermediate, FOGGY, 11/07/17) FOGGY tramadol HCl (Verified Adverse Reaction, Intermediate, FOGGY, 11/07/17) valsartan (Verified Adverse Reaction, Intermediate, FATIGUE, 11/07/17) FATIGUE Uncoded Allergies: CHLOREX GLUE (Allergy, Intermediate, 01/29/17) ROS Review of System 14 point system review conducted with the patient is grossly negative currently Physical Exam Physical Exam General Appearance: Awake Alert Oriented x 3 In no Distress Eyes: VIsion Unchanged Conjunctiva Normal EN: No EN Drainage Mucous Memb. moist Neck: no JVD no JVP Supple no Thyromegaly CVS: S1 S2 soft Murmur No Gallop No Rub no Edema Resp: no Rales no Rhonchi no Acc. Muscle use GI: BAS +ve NO Bruit Non Tender Non Distended : no CVA tenderness; no Suprapubic Tenderness SKIN: no Rashes Breast Exam deferred Mu.Sk: Adequate ROM + Muscle Atrophy; Tad BKA Heme: Unable to palpate Obvious LAD no palp Splenomegaly NEURO: Good Strength and Tone Cranial Nerves II - XII grossly intact Psych: not Depressed no Active hallucination Vital Signs Vital Signs Date Time Temp Pulse Resp B/P (MAP) Pulse Ox O2 Delivery O2 Flow Rate FiO2 03/19/20 07:50 Room Air 03/19/20 07:00 97.9 60 18 121/40 (67) 93 97.9 Assessment & Plan ESRD: Current FLuid and E-lyte status does not necessitate emergent need for Dialysis. Will re-evaluate for Dialysis in am and continue on MWF schedule. Anemia: no Epogen for hgb > 11. Transfuse with next HD as needed. HTN: Current BP meds reviewed. Defer to cardiology to optimize medical management Possible dysfunction of AV graft: Recent intervention as noted. Will check duplex for patency Chest pain/ ? Angina: Defer to cardiology. We will coordinate dialysis with cardiac work-up is required. Okay to discharge from renal standpoint if AV graft is patent and no further cardiac work-up is required Discussed Plan of Care and prognosis etc. at length with family/son yesterday over the phone Labs Labs Laboratory Tests Test 03/19/20 01:10 03/19/20 05:20 03/19/20 08:20 White Blood Count 3.6 x10^3/uL (4.0-11.0) Red Blood Count 3.62 x10^6/uL (3.50-5.40) Hemoglobin 11.4 g/dL (12.0-15.5) Hematocrit 34.7 % (36.0-47.0) Mean Corpuscular Volume 96 fL (79-100) Mean Corpuscular Hemoglobin 32 pg (25-35) Mean Corpuscular Hemoglobin Concent 33 g/dL (31-37) Red Cell Distribution Width 14.0 % (11.5-14.5) Platelet Count 189 x10^3/uL (140-400) Neutrophils (%) (Auto) 30 % (31-73) Lymphocytes (%) (Auto) 29 % (24-48) Monocytes (%) (Auto) 27 % (0-9) Eosinophils (%) (Auto) 13 % (0-3) Basophils (%) (Auto) 1 % (0-3) Neutrophils # (Auto) 1.1 x10^3/uL (1.8-7.7) Lymphocytes # (Auto) 1.0 x10^3/uL (1.0-4.8) Monocytes # (Auto) 1.0 x10^3/uL (0.0-1.1) Eosinophils # (Auto) 0.5 x10^3/uL (0.0-0.7) Basophils # (Auto) 0.0 x10^3/uL (0.0-0.2) Segmented Neutrophils % 34 % (35-66) Band Neutrophils % 2 % (0-9) Lymphocytes % 31 % (24-48) Atypical Lymphocytes % (Manual) 1 % (0-0) Monocytes % 17 % (0-10) Eosinophils % 13 % (0-5) Basophils % 2 % (0-3) Platelet Estimate Adequate (ADEQUATE) Sodium Level 132 mmol/L (136-145) Potassium Level 4.6 mmol/L (3.5-5.1) Chloride Level 95 mmol/L (98-107) Carbon Dioxide Level 26 mmol/L (21-32) Anion Gap 11 (6-14) Blood Urea Nitrogen 78 mg/dL (7-20) Creatinine 3.6 mg/dL (0.6-1.0) Estimated GFR (Cockcroft-Gault) 11.9 BUN/Creatinine Ratio 22 (6-20) Glucose Level 102 mg/dL (70-99) Calcium Level 9.9 mg/dL (8.5-10.1) Magnesium Level 2.1 mg/dL (1.8-2.4) Total Bilirubin 0.3 mg/dL (0.2-1.0) Aspartate Amino Transf (AST/SGOT) 23 U/L (15-37) Alanine Aminotransferase (ALT/SGPT) 22 U/L (14-59) Alkaline Phosphatase 125 U/L (46-116) Troponin I Quantitative 0.122 ng/mL (0.000-0.055) 0.119 ng/mL (0.000-0.055) 0.135 ng/mL (0.000-0.055) UX-Uhx-J-Type Natriuretic Peptide 8425 pg/mL (0-449) Total Protein 7.0 g/dL (6.4-8.2) Albumin 2.9 g/dL (3.4-5.0) Albumin/Globulin Ratio 0.7 (1.0-1.7) Heparin Anti-Xa Act, Unfractionated 0.47 IU/mL (0.30-0.70) Laboratory Tests Test 03/19/20 01:10 03/19/20 05:20 03/19/20 08:20 White Blood Count 3.6 x10^3/uL (4.0-11.0) Red Blood Count 3.62 x10^6/uL (3.50-5.40) Hemoglobin 11.4 g/dL (12.0-15.5) Hematocrit 34.7 % (36.0-47.0) Mean Corpuscular Volume 96 fL (79-100) Mean Corpuscular Hemoglobin 32 pg (25-35) Mean Corpuscular Hemoglobin Concent 33 g/dL (31-37) Red Cell Distribution Width 14.0 % (11.5-14.5) Platelet Count 189 x10^3/uL (140-400) Neutrophils (%) (Auto) 30 % (31-73) Lymphocytes (%) (Auto) 29 % (24-48) Monocytes (%) (Auto) 27 % (0-9) Eosinophils (%) (Auto) 13 % (0-3) Basophils (%) (Auto) 1 % (0-3) Neutrophils # (Auto) 1.1 x10^3/uL (1.8-7.7) Lymphocytes # (Auto) 1.0 x10^3/uL (1.0-4.8) Monocytes # (Auto) 1.0 x10^3/uL (0.0-1.1) Eosinophils # (Auto) 0.5 x10^3/uL (0.0-0.7) Basophils # (Auto) 0.0 x10^3/uL (0.0-0.2) Segmented Neutrophils % 34 % (35-66) Band Neutrophils % 2 % (0-9) Lymphocytes % 31 % (24-48) Atypical Lymphocytes % (Manual) 1 % (0-0) Monocytes % 17 % (0-10) Eosinophils % 13 % (0-5) Basophils % 2 % (0-3) Platelet Estimate Adequate (ADEQUATE) Sodium Level 132 mmol/L (136-145) Potassium Level 4.6 mmol/L (3.5-5.1) Chloride Level 95 mmol/L (98-107) Carbon Dioxide Level 26 mmol/L (21-32) Anion Gap 11 (6-14) Blood Urea Nitrogen 78 mg/dL (7-20) Creatinine 3.6 mg/dL (0.6-1.0) Estimated GFR (Cockcroft-Gault) 11.9 BUN/Creatinine Ratio 22 (6-20) Glucose Level 102 mg/dL (70-99) Calcium Level 9.9 mg/dL (8.5-10.1) Magnesium Level 2.1 mg/dL (1.8-2.4) Total Bilirubin 0.3 mg/dL (0.2-1.0) Aspartate Amino Transf (AST/SGOT) 23 U/L (15-37) Alanine Aminotransferase (ALT/SGPT) 22 U/L (14-59) Alkaline Phosphatase 125 U/L (46-116) Troponin I Quantitative 0.122 ng/mL (0.000-0.055) 0.119 ng/mL (0.000-0.055) 0.135 ng/mL (0.000-0.055) YK-Dey-D-Type Natriuretic Peptide 8425 pg/mL (0-449) Total Protein 7.0 g/dL (6.4-8.2) Albumin 2.9 g/dL (3.4-5.0) Albumin/Globulin Ratio 0.7 (1.0-1.7) Heparin Anti-Xa Act, Unfractionated 0.47 IU/mL (0.30-0.70) Review All relevant outside records, renal labs, imaging studies, telemetry/EKG's were reviewed. Images Images Comparison study is dated 12/13/2019. A left-sided pacemaker is unchanged in position. Stents overlie the medial soft tissues of the right arm. The cardiac silhouette is mildly enlarged. The thoracic aorta is tortuous. Atherosclerotic calcification of the thoracic aorta is seen. A linear band of subsegmental atelectasis is seen involving the left lower lobe, unchanged. No acute pulmonary infiltrate is seen. No pleural effusion or pneumothorax is noted. The osseous structures are unchanged. Impression: No acute abnormality is seen. JAY PRICE MD March 19, 2020 12:11
--- NOTE | 2020-03-19 12:14 | PDOC ---
Provider Note Provider Note history and physical dictated # [id number] LYNDA FELIX MD March 19, 2020 12:14
[2020-03-19] MEDS ORDERED: NITROGLYCERIN SUBLINGUAL 0.4 MG BOTTLE OF 25. SL PRN (12:15)
[2020-03-19] MEDS ORDERED: MAG HYDROX/ALUMINUM HYD/SIMETH 30 ML ORAL.SUSP PO PRN (12:15)
--- NOTE | 2020-03-19 12:24 | RAD ---
Right upper extremity venous Doppler dated 03/19/2020. No comparison available. Clinical data indication: Right hand numbness. AV graft. FINDINGS: Grayscale, color-flow and spectral waveform analysis performed to include the deep venous system of the right upper extremity. There is normal compressibility, phasicity and augmentation of flow throughout. No filling defects are seen. The right arm graft is patent. Increased velocity at the proximal graft anastomosis could be related to turbulent flow or stenosis. IMPRESSION: 1. No evidence of right upper extremity deep vein thrombosis. 2. Patent AV graft. Elevated velocity at the proximal graft anastomosis could be related to turbulent flow or focal stenosis. Electronically signed by: Paul Chaudhary MD (03/19/2020 12:21 PM) [id number]
[2020-03-19] MEDS: CALCIUM ACETATE 667 MG CAPSULE PO SCH ×2 (12:29→17:09)
[2020-03-19] MEDS: FOLIC/VIT B COMP W-C (RENAL) TABLET. PO SCH (12:29)
[2020-03-19] MEDS: ASPIRIN ENTERIC COATED 81 MG TABLET.DR. PO SCH ×3 (12:30→21:49)
--- NOTE | 2020-03-19 13:17 | HP ---
ADMIT DATE: 03/19/2020 LOCATION: She is in room 248. HISTORY OF PRESENT ILLNESS: The patient is an 89-year-old white female with a history of coronary artery disease, moderate aortic stenosis, hypertension, end-stage renal disease, on hemodialysis on Mondays, Wednesdays, and Fridays with peripheral arterial disease, bilateral below-knee amputations, who does have bilateral lower extremity prosthesis who has hypothyroidism and cholelithiasis and was admitted to [facility] through the Emergency Room on 03/19/2020 with chest pain. She noted 3 episodes yesterday of chest pain, each lasting about 10 minutes, described as a sharp pain without any radiation, nausea, vomiting or diaphoresis. She did not take a sublingual nitroglycerin and sought help at the [facility] Emergency Room. Her troponin level was just minimally elevated as they had been in the past and subsequently was admitted to the hospital for further evaluation and treatment. She did have an EKG and I spoke with Dr. Whitmore and cannot find it and he will be checking into that. She is presently pain free. She does have a history of hypertension for which she takes Bystolic and clonidine. She has a lot of intolerances to medications including statins. She is therefore admitted for further evaluation and treatment of her chest pain. Furthermore 2 days ago on she apparently had a procedure done on her right upper extremity AV shunt for dialysis as it was clotted and she notes that since her dialysis was done yesterday that she does not have prominent pulsations in that graft. ALLERGIES AND INTOLERANCES: NUMEROUS AND THEY ARE ON THE CHART, WHICH INCLUDE CLOROX GLUE, QUINOLONES, TETRACYCLINE, ATORVASTATIN, CALCITONIN, CIPROFLOXACIN, CODEINE, DIAZEPAM, DOXAZOSIN, CHASTITY, GABAPENTIN, QUINOLONES, HYDROCHLOROTHIAZIDE, ISORDIL, LABETALOL, LISINOPRIL, MELOXICAM. MEDICATIONS: Include aspirin 81 mg every day, Plavix 75 mg every day, Bystolic 10 mg every day, calcium acetate 667 mg t.i.d. with meals, clonidine 0.1 mg at bedtime, levothyroxine 88 mcg every day and Chelsey-Sudhir 1 every day. PAST MEDICAL HISTORY: Significant for coronary artery disease, peripheral arterial disease, hypertension, hyperlipidemia, hypothyroidism, bilateral below-knee amputations. She wears bilateral lower extremity prosthesis and has a permanent pacemaker for sick sinus syndrome, bilateral lower extremity arterial bypasses, left total hip arthroplasty, PTCA and stent to the right coronary artery x 2, left anterior descending coronary artery and circumflex artery in 2017. She had a left carotid endarterectomy in 2017, right carotid endarterectomy in 2013, end-stage renal disease, on hemodialysis on Mondays, Wednesdays, and Fridays, followed by Dr. Henley. She has had an appendectomy in the past. She does have cholelithiasis and diverticulosis. SOCIAL HISTORY: She does not drink alcohol nor does she smoke cigarettes. I believe she lives with her son She has been using a walker and wears bilateral lower extremity prosthesis, but also uses a wheelchair. FAMILY HISTORY: Noncontributory. REVIEW OF SYSTEMS: GENERAL: There has been no fever, chills or sweats in the last 3 days. CARDIOVASCULAR: She had the chest pain. PULMONARY: No cough or shortness of breath. GASTROINTESTINAL: No constipation. ENDOCRINE: No diabetes. SKIN: No rashes. Rest of systems reviewed are negative except as stated in history of present illness. PHYSICAL EXAMINATION: VITAL SIGNS: Temperature 97.9 degrees, apical pulse regular at 60, respiratory rate 18, blood pressure 121/40, oxygen saturation 93% on room air. HEENT: Eyes: Gaze is conjugate. Mouth: Tongue is midline. NECK: There is no cervical lymphadenopathy or thyroid enlargement. HEART: Reveals an S1, S2. There is no S3 or murmur. LUNGS: Clear posteriorly. ABDOMEN: Soft, nontender. EXTREMITIES: Lower extremities with bilateral below-knee amputations. SKIN: No rashes. Examination of right upper extremity, AV shunt shows there I felt a slight pulse, but there was no thrill. NEUROLOGIC: Revealed no focal weakness of extremities or facial asymmetry. LABORATORY DATA: Sodium 132, potassium 4.6, chloride 95, total CO2 is 26. Blood sugar 102, magnesium 2.1, calcium 9.1, alkaline phosphatase 125. Troponin level was steady about 0.122, 0.119 and 0.135. ProBNP was 8425, but she is a dialysis patient. Albumin 2.9. The white count was 3.6, hemoglobin 11.4, platelet count 189,000 with 30 polys and 29 lymphocytes, 27 monocytes, 13 eosinophils and 1 basophil. She had a chest x-ray done, which showed no acute abnormality. ASSESSMENT: 1. Chest pain. It does not appear that she had an acute myocardial infarction. 2. Coronary artery disease. 3. Hypertension. 4. Hyperlipidemia, statin intolerant. 5. Peripheral arterial disease. 6. End-stage renal disease, on hemodialysis Mondays, Wednesdays, and Fridays. 7. Bilateral below-knee amputations. 8. Moderate aortic stenosis. 9. Hypothyroidism. 10. Ischemic cardiomyopathy with LVEF of 45%. She had an echocardiogram done in 12/15/2019 and showed moderate aortic stenosis with LV EF of 45%. PLAN: At this time is to consult Dr. Whitmore for Cardiology and Dr. Soto and Dr. Henley for Nephrology and I will take a look at that right upper extremity vascular shunt and as per discussion with the nurse. She is still on IV heparin, which was started from the Emergency Room and if she does have a clot in that shunt, it would certainly will help with that. So, I will leave it up to the semiconductor development technician whether we need to discontinue IV heparin because she does not need it any longer for the heart at this point. She will be dialyzed on Saturday, Saturday and Saturday. I just entered her home medications into the chart and I will put her on a renal diet. Monitor for any arrhythmias or any recurrent chest pain. Order some nitroglycerin also p.r.n. LYNDA FELIX MD DR: JOSE/annemarie JOB#: [id number] / [id number]
--- NOTE | 2020-03-19 14:45 | PDOC2 ---
CONSULT Date of Consult Date of Consult DATE: 03/19/20 TIME: 14:37 Reason for Consult Reason for Consult: Chest pain Referring Physician Referring Physician: Dr. Woods Identification/Chief Complaint Chief Complaint Chest pain Source Source: Chart review, Patient History of Present Illness Reason for Visit: The patient is an 89-year-old female who was admitted from the emergency room for several episodes of relatively brief chest pain lasting less than 10 minutes. Patient has an extensive medical history including cardiac artery disease with previous stenting, end-stage renal disease on hemodialysis with a possible recent procedure to her AV graft, hypertension, CVA and severe peripheral vascular disease status post bilateral BKA's. Overnight the patient has been feeling better. Today she denies chest pain. Troponins have been minimally elevated on 3 occasions with a peak of 0.122. BNP however is elevated to 8425. Chest x-ray shows no acute changes. A recent echocardiogram showed an ejection fraction of 45% with moderate aortic stenosis. The patient's last cardiac catheterization was from 12/07/2014 that showed patent stents in the right coronary artery and left circumflex but a new area in the right coronary artery which required stenting. The patient is feeling significantly better today. Past Medical History Cardiovascular: CAD, HTN, DC, Hyperlipidemia, Other Pulmonary: Asthma CENTRAL NERVOUS SYSTEM: Periperal neuropathy Heme/Onc: Anemia NOS Renal/: Chronic renal failure, Other Endocrine: Hypothyroidism, Hyperparathyroidism Past Surgical History Past Surgical History: Pacemaker, Cholecystectomy (Pacemaker and coronary stenting), Total hip replacement, Colon Resection, Other Family History Family History: Coronary Artery Disease, Diabetes Social History No ALCOHOL: none Drugs: None Lives: Alone Domestic Violence: Neg Current Problem List Problem List Problems Medical Problems: (1) Chest pain Status: Acute (2) Elevated troponin Status: Acute Current Medications Current Medications Current Medications Heparin Sodium (Porcine) (Heparin Sodium) 3,550 unit 1X ONCE IV Last administered on 03/19/20at 02:11; Start 03/19/20 at 02:00; Stop 03/19/20 at 02:01; Status DC Heparin Sodium/ Dextrose 250 ml @ 0 mls/hr CONT PRN IV PER PROTOCOL Last administered on 03/19/20at 02:09; Start 03/19/20 at 01:45 Heparin Sodium (Porcine) (Heparin Sodium) 1,500 unit PRN Q6HRS PRN IV FOR UFH LEVEL LESS THAN 0.2; Start 03/19/20 at 01:45 Info (Anti-Coagulation Monitoring By Pharmacy) 1 each PRN DAILY PRN MC SEE COMMENTS Last administered on 03/19/20at 03:32; Start 03/19/20 at 02:00 Ondansetron HCl (Zofran) 4 mg PRN Q8HRS PRN IV NAUSEA/VOMITING 1ST CHOICE; Start 03/19/20 at 02:15; Stop 03/20/20 at 02:14 Morphine Sulfate (Morphine Sulfate) 2 mg PRN Q2HR PRN IV SEVERE PAIN 7-10; Start 03/19/20 at 02:15; Stop 03/20/20 at 02:14 Aspirin (Ecotrin) 81 mg DAILYWBKFT PO ; Start 03/19/20 at 12:30 Clopidogrel Bisulfate (Plavix) 75 mg DAILYWBKFT PO ; Start 03/19/20 at 12:30 Calcium Acetate (Phoslo) 667 mg TIDWMEALS PO Last administered on 03/19/20at 12:29; Start 03/19/20 at 12:00 Clonidine HCl (Catapres) 0.1 mg QHS PO ; Start 03/19/20 at 21:00 Levothyroxine Sodium (Synthroid) 88 mcg DAILY06 PO ; Start 03/19/20 at 12:30 Vitamin B Complex/ Vitamin C (Chelsey-Sudhir) 1 tab DAILY PO Last administered on 03/19/20at 12:29; Start 03/19/20 at 12:30 Acetaminophen (Tylenol) 650 mg PRN Q6HRS PRN PO MILD PAIN / TEMP > 100.3'F; Start 03/19/20 at 12:00 Al Hydroxide/Mg Hydroxide (Mylanta Plus Xs) 30 ml PRN Q2HR PRN PO HEARTBURN / GAS; Start 03/19/20 at 12:15 Nitroglycerin (Nitrostat) 0.4 mg PRN Q5MIN PRN SL CHEST PAIN; Start 03/19/20 at 12:15 Active Scripts Active Hydralazine Hcl 25 Mg Tablet 1 Tab PO BID Amox Tr-K Clv 500-125 Mg Tab (Amoxicillin/Potassium Clav) 1 Each Tablet 1 Tab PO DAILY Levothyroxine Sodium 88 Mcg Tablet 1 Tab PO DAILY Reported Calcium Acetate 667 Mg Tablet 1 Tab PO TID 30 Days Chelsey-Sudhir Tablet (Folic Acid/Vitamin B Comp W-C) 0.8 Mg Tablet 1 Tab PO DAILY 30 Days Acetaminophen 500 Mg Tablet 1 Tab PO PRN Q6HRS PRN 15 Days Bystolic (Nebivolol) 10 Mg Tablet 10 Mg PO DAILY pt can take 10-30mg daily for elevated bp Aspir 81 (Aspirin) 81 Mg Tablet. 1 Tab PO DAILY Clonidine Hcl 0.1 Mg Tablet 1 Tab PO QHS Clopidogrel (Clopidogrel Bisulfate) 75 Mg Tablet 75 Mg PO DAILY Allergies Allergies: Coded Allergies: Quinolones (Verified Allergy, Intermediate, 11/07/17) atorvastatin (Verified Allergy, Intermediate, 11/07/17) MYALGIA ciprofloxacin (Verified Allergy, Intermediate, 11/07/17) ciprofloxacin HCl (Verified Allergy, Intermediate, 11/07/17) codeine (Verified Allergy, Intermediate, 11/07/17) diazepam (Verified Allergy, Intermediate, 11/07/17) doxazosin (Verified Allergy, Intermediate, 11/07/17) eprosartan (Verified Allergy, Intermediate, 11/07/17) fexofenadine (Verified Allergy, Intermediate, 11/07/17) gabapentin (Verified Allergy, Intermediate, 11/07/17) gatifloxacin (Verified Allergy, Intermediate, 11/07/17) hydrochlorothiazide (Verified Allergy, Intermediate, 08/28/18) isosorbide (Verified Allergy, Intermediate, 11/07/17) labetalol (Verified Allergy, Intermediate, 11/07/17) lisinopril (Verified Allergy, Intermediate, 11/07/17) meloxicam (Verified Allergy, Intermediate, LEG EDEMA, 08/25/18) TAKES ASA AT HOME metoprolol (Verified Allergy, Intermediate, 11/07/17) naproxen (Verified Allergy, Intermediate, DIALYSIS PT, 12/13/19) neomycin (Verified Allergy, Intermediate, 11/07/17) oxycodone (Verified Allergy, Intermediate, 11/07/17) pantoprazole (Verified Allergy, Intermediate, 11/07/17) pravastatin (Verified Allergy, Intermediate, 11/07/17) pregabalin (Verified Allergy, Intermediate, 11/07/17) quinine (Verified Allergy, Intermediate, 11/07/17) simvastatin (Verified Allergy, Intermediate, 11/07/17) MYALGIAS Tetracyclines (Verified Adverse Reaction, Intermediate, DROWSY, 11/07/17) calcitonin (Verified Adverse Reaction, Intermediate, 11/07/17) nifedipine (Verified Adverse Reaction, Intermediate, FATIGUE, 11/07/17) FATIGUE olmesartan (Verified Adverse Reaction, Intermediate, 11/07/17) tetracycline (Verified Adverse Reaction, Intermediate, DROWSY, 11/07/17) DROWSY tramadol (Verified Adverse Reaction, Intermediate, FOGGY, 11/07/17) FOGGY tramadol HCl (Verified Adverse Reaction, Intermediate, FOGGY, 11/07/17) valsartan (Verified Adverse Reaction, Intermediate, FATIGUE, 11/07/17) FATIGUE Uncoded Allergies: CHLOREX GLUE (Allergy, Intermediate, 01/29/17) ROS General: YES: Fatigue Cardiovascular: yes Chest Pain Physical Exam General: No acute distress Lungs: Other (Slightly decreased breath sounds) Heart: Regular rate Abdomen: Normal bowel sounds Vitals VITALS Vital Signs Date Time Temp Pulse Resp B/P (MAP) Pulse Ox O2 Delivery O2 Flow Rate FiO2 03/19/20 11:00 98.0 60 18 153/55 (87) 95 Room Air 98.0 Labs Labs Laboratory Tests Test 03/19/20 01:10 03/19/20 05:20 03/19/20 08:20 White Blood Count 3.6 x10^3/uL (4.0-11.0) Red Blood Count 3.62 x10^6/uL (3.50-5.40) Hemoglobin 11.4 g/dL (12.0-15.5) Hematocrit 34.7 % (36.0-47.0) Mean Corpuscular Volume 96 fL (79-100) Mean Corpuscular Hemoglobin 32 pg (25-35) Mean Corpuscular Hemoglobin Concent 33 g/dL (31-37) Red Cell Distribution Width 14.0 % (11.5-14.5) Platelet Count 189 x10^3/uL (140-400) Neutrophils (%) (Auto) 30 % (31-73) Lymphocytes (%) (Auto) 29 % (24-48) Monocytes (%) (Auto) 27 % (0-9) Eosinophils (%) (Auto) 13 % (0-3) Basophils (%) (Auto) 1 % (0-3) Neutrophils # (Auto) 1.1 x10^3/uL (1.8-7.7) Lymphocytes # (Auto) 1.0 x10^3/uL (1.0-4.8) Monocytes # (Auto) 1.0 x10^3/uL (0.0-1.1) Eosinophils # (Auto) 0.5 x10^3/uL (0.0-0.7) Basophils # (Auto) 0.0 x10^3/uL (0.0-0.2) Segmented Neutrophils % 34 % (35-66) Band Neutrophils % 2 % (0-9) Lymphocytes % 31 % (24-48) Atypical Lymphocytes % (Manual) 1 % (0-0) Monocytes % 17 % (0-10) Eosinophils % 13 % (0-5) Basophils % 2 % (0-3) Platelet Estimate Adequate (ADEQUATE) Sodium Level 132 mmol/L (136-145) Potassium Level 4.6 mmol/L (3.5-5.1) Chloride Level 95 mmol/L (98-107) Carbon Dioxide Level 26 mmol/L (21-32) Anion Gap 11 (6-14) Blood Urea Nitrogen 78 mg/dL (7-20) Creatinine 3.6 mg/dL (0.6-1.0) Estimated GFR (Cockcroft-Gault) 11.9 BUN/Creatinine Ratio 22 (6-20) Glucose Level 102 mg/dL (70-99) Calcium Level 9.9 mg/dL (8.5-10.1) Magnesium Level 2.1 mg/dL (1.8-2.4) Total Bilirubin 0.3 mg/dL (0.2-1.0) Aspartate Amino Transf (AST/SGOT) 23 U/L (15-37) Alanine Aminotransferase (ALT/SGPT) 22 U/L (14-59) Alkaline Phosphatase 125 U/L (46-116) Troponin I Quantitative 0.122 ng/mL (0.000-0.055) 0.119 ng/mL (0.000-0.055) 0.135 ng/mL (0.000-0.055) UC-Bzm-N-Type Natriuretic Peptide 8425 pg/mL (0-449) Total Protein 7.0 g/dL (6.4-8.2) Albumin 2.9 g/dL (3.4-5.0) Albumin/Globulin Ratio 0.7 (1.0-1.7) Heparin Anti-Xa Act, Unfractionated 0.47 IU/mL (0.30-0.70) Laboratory Tests Test 03/19/20 01:10 03/19/20 05:20 03/19/20 08:20 White Blood Count 3.6 x10^3/uL (4.0-11.0) Red Blood Count 3.62 x10^6/uL (3.50-5.40) Hemoglobin 11.4 g/dL (12.0-15.5) Hematocrit 34.7 % (36.0-47.0) Mean Corpuscular Volume 96 fL (79-100) Mean Corpuscular Hemoglobin 32 pg (25-35) Mean Corpuscular Hemoglobin Concent 33 g/dL (31-37) Red Cell Distribution Width 14.0 % (11.5-14.5) Platelet Count 189 x10^3/uL (140-400) Neutrophils (%) (Auto) 30 % (31-73) Lymphocytes (%) (Auto) 29 % (24-48) Monocytes (%) (Auto) 27 % (0-9) Eosinophils (%) (Auto) 13 % (0-3) Basophils (%) (Auto) 1 % (0-3) Neutrophils # (Auto) 1.1 x10^3/uL (1.8-7.7) Lymphocytes # (Auto) 1.0 x10^3/uL (1.0-4.8) Monocytes # (Auto) 1.0 x10^3/uL (0.0-1.1) Eosinophils # (Auto) 0.5 x10^3/uL (0.0-0.7) Basophils # (Auto) 0.0 x10^3/uL (0.0-0.2) Segmented Neutrophils % 34 % (35-66) Band Neutrophils % 2 % (0-9) Lymphocytes % 31 % (24-48) Atypical Lymphocytes % (Manual) 1 % (0-0) Monocytes % 17 % (0-10) Eosinophils % 13 % (0-5) Basophils % 2 % (0-3) Platelet Estimate Adequate (ADEQUATE) Sodium Level 132 mmol/L (136-145) Potassium Level 4.6 mmol/L (3.5-5.1) Chloride Level 95 mmol/L (98-107) Carbon Dioxide Level 26 mmol/L (21-32) Anion Gap 11 (6-14) Blood Urea Nitrogen 78 mg/dL (7-20) Creatinine 3.6 mg/dL (0.6-1.0) Estimated GFR (Cockcroft-Gault) 11.9 BUN/Creatinine Ratio 22 (6-20) Glucose Level 102 mg/dL (70-99) Calcium Level 9.9 mg/dL (8.5-10.1) Magnesium Level 2.1 mg/dL (1.8-2.4) Total Bilirubin 0.3 mg/dL (0.2-1.0) Aspartate Amino Transf (AST/SGOT) 23 U/L (15-37) Alanine Aminotransferase (ALT/SGPT) 22 U/L (14-59) Alkaline Phosphatase 125 U/L (46-116) Troponin I Quantitative 0.122 ng/mL (0.000-0.055) 0.119 ng/mL (0.000-0.055) 0.135 ng/mL (0.000-0.055) TT-Mch-O-Type Natriuretic Peptide 8425 pg/mL (0-449) Total Protein 7.0 g/dL (6.4-8.2) Albumin 2.9 g/dL (3.4-5.0) Albumin/Globulin Ratio 0.7 (1.0-1.7) Heparin Anti-Xa Act, Unfractionated 0.47 IU/mL (0.30-0.70) Images Images Chest x-ray with no acute changes. Assessment/Plan Assessment/Plan 1. Chest pain. History of coronary artery disease with most recent stenting in 2014. Minimally elevated troponin at 0.122. BNP however elevated 8425. Will repeat an EKG. We will continue medical treatment at this time. Based on patient's clinical course will determine if further cardiac testing is appropriate. 2. End-stage renal disease. Hemodialysis and evaluation the patient's AV graft as per the renal service. 3. Hypertension. Controlled. Continue to monitor. 4. Status post bilateral BKA's. 5. History of a CVA. Thank you for allowing us to participate in the care of your patient. SHILA NELSON MD March 19, 2020 14:45
[2020-03-19 15:00] VITALS: BP 145/44
[2020-03-19] MEDS: LEVOTHYROXINE 88 MCG TABLET PO SCH (15:31)
[2020-03-19] MEDS: CLOPIDOGREL BISULFATE 75 MG TABLET PO SCH (15:31)
[2020-03-19 19:15] VITALS: BP 151/50
[2020-03-19] MEDS: cloNIDine HCL 0.1 MG TABLET PO SCH (21:55)
[2020-03-19 23:34] VITALS: BP 109/42
[2020-03-20 03:00] VITALS: BP 108/39
[2020-03-20 04:15] LABS: HEMATOCRIT 29.8 % (36.0-47.0); RED BLOOD COUNT 3.14 x10^6/uL (3.50-5.40); WHITE BLOOD COUNT 3.2 x10^3/uL (4.0-11.0)
[2020-03-20] MEDS: LEVOTHYROXINE 88 MCG TABLET PO SCH (05:55)
[2020-03-20 07:00] VITALS: BP 178/56
[2020-03-20] MEDS: CALCIUM ACETATE 667 MG CAPSULE PO SCH ×3 (08:03→17:06)
[2020-03-20] MEDS: CLOPIDOGREL BISULFATE 75 MG TABLET PO SCH (08:03)
[2020-03-20] MEDS: FOLIC/VIT B COMP W-C (RENAL) TABLET. PO SCH (08:03)
[2020-03-20] MEDS: BYSTOLIC 10 MG PO SCH (08:03)
--- NOTE | 2020-03-20 10:24 | PDOC ---
PROGRESS NOTES Subjective Subjective denies chest pain. bp high this morning and receiving bp meds. RUE doppler shows no clot in right AV fistula but may show a proximal stenosis. wbc 3.2 has a leukopenia since 12/17. afebrile. lab reviewed. Objective Objective Vital Signs Date Time Temp Pulse Resp B/P (MAP) Pulse Ox O2 Delivery O2 Flow Rate FiO2 03/20/20 08:00 Room Air 03/20/20 07:00 97.6 60 20 178/56 (96) 95 97.6 Intake and Output 03/20/20 06:59 Intake Total 900 ml Output Total 700 ml Balance 200 ml Intake Oral 900 ml Output Urine Total 700 ml Physical Exam Abdomen: Soft Heart: Regular rate, Normal S1, Normal S2 Extremities: No edema, Other (bilateral BKA) General: Alert HEENT: Atraumatic Lungs: Clear to auscultation Neuro: Normal speech Psych/Mental Status: Mental status NL Skin: No rashes Assessment Assessment Problems1. Chest pain. no recurrence. possible angina 2. Coronary artery disease. 3. Hypertension. 4. Hyperlipidemia, statin intolerant. 5. Peripheral arterial disease. 6. End-stage renal disease, on hemodialysis Mondays, Wednesdays, and Fridays. 7. Bilateral below-knee amputations. 8. Moderate aortic stenosis. 9. Hypothyroidism. 10. Ischemic cardiomyopathy with LVEF of 45%. She had an echocardiogram done in 12/15/2019 and showed moderate aortic stenosis with LV EF of 45%. leukopenia noted since 12/17 Medical Problems: (1) Chest pain Status: Acute (2) Elevated troponin Status: Acute Plan Plan of Care discussed with nurse d/c iv heparin if okay with nephrology dismiss tomorrow after dialysis and make sure that left AV shunt is working well consult hematology Comment Review of Relevant I have reviewed the following items wilbur (where applicable) has been applied. Labs Laboratory Tests Test 03/19/20 01:10 03/19/20 05:20 03/19/20 08:20 03/19/20 15:15 White Blood Count 3.6 x10^3/uL (4.0-11.0) Red Blood Count 3.62 x10^6/uL (3.50-5.40) Hemoglobin 11.4 g/dL (12.0-15.5) Hematocrit 34.7 % (36.0-47.0) Mean Corpuscular Volume 96 fL (79-100) Mean Corpuscular Hemoglobin 32 pg (25-35) Mean Corpuscular Hemoglobin Concent 33 g/dL (31-37) Red Cell Distribution Width 14.0 % (11.5-14.5) Platelet Count 189 x10^3/uL (140-400) Neutrophils (%) (Auto) 30 % (31-73) Lymphocytes (%) (Auto) 29 % (24-48) Monocytes (%) (Auto) 27 % (0-9) Eosinophils (%) (Auto) 13 % (0-3) Basophils (%) (Auto) 1 % (0-3) Neutrophils # (Auto) 1.1 x10^3/uL (1.8-7.7) Lymphocytes # (Auto) 1.0 x10^3/uL (1.0-4.8) Monocytes # (Auto) 1.0 x10^3/uL (0.0-1.1) Eosinophils # (Auto) 0.5 x10^3/uL (0.0-0.7) Basophils # (Auto) 0.0 x10^3/uL (0.0-0.2) Segmented Neutrophils % 34 % (35-66) Band Neutrophils % 2 % (0-9) Lymphocytes % 31 % (24-48) Atypical Lymphocytes % (Manual) 1 % (0-0) Monocytes % 17 % (0-10) Eosinophils % 13 % (0-5) Basophils % 2 % (0-3) Platelet Estimate Adequate (ADEQUATE) Sodium Level 132 mmol/L (136-145) Potassium Level 4.6 mmol/L (3.5-5.1) Chloride Level 95 mmol/L (98-107) Carbon Dioxide Level 26 mmol/L (21-32) Anion Gap 11 (6-14) Blood Urea Nitrogen 78 mg/dL (7-20) Creatinine 3.6 mg/dL (0.6-1.0) Estimated GFR (Cockcroft-Gault) 11.9 BUN/Creatinine Ratio 22 (6-20) Glucose Level 102 mg/dL (70-99) Calcium Level 9.9 mg/dL (8.5-10.1) Magnesium Level 2.1 mg/dL (1.8-2.4) Total Bilirubin 0.3 mg/dL (0.2-1.0) Aspartate Amino Transf (AST/SGOT) 23 U/L (15-37) Alanine Aminotransferase (ALT/SGPT) 22 U/L (14-59) Alkaline Phosphatase 125 U/L (46-116) Troponin I Quantitative 0.122 ng/mL (0.000-0.055) 0.119 ng/mL (0.000-0.055) 0.135 ng/mL (0.000-0.055) AN-Tvy-F-Type Natriuretic Peptide 8425 pg/mL (0-449) Total Protein 7.0 g/dL (6.4-8.2) Albumin 2.9 g/dL (3.4-5.0) Albumin/Globulin Ratio 0.7 (1.0-1.7) Heparin Anti-Xa Act, Unfractionated 0.47 IU/mL (0.30-0.70) 0.37 IU/mL (0.30-0.70) Test 03/20/20 03:30 White Blood Count 3.2 x10^3/uL (4.0-11.0) Red Blood Count 3.14 x10^6/uL (3.50-5.40) Hemoglobin 10.0 g/dL (12.0-15.5) Hematocrit 29.8 % (36.0-47.0) Mean Corpuscular Volume 95 fL (79-100) Mean Corpuscular Hemoglobin 32 pg (25-35) Mean Corpuscular Hemoglobin Concent 33 g/dL (31-37) Red Cell Distribution Width 14.0 % (11.5-14.5) Platelet Count 174 x10^3/uL (140-400) Laboratory Tests Test 03/19/20 15:15 03/20/20 03:30 Heparin Anti-Xa Act, Unfractionated 0.37 IU/mL (0.30-0.70) White Blood Count 3.2 x10^3/uL (4.0-11.0) Red Blood Count 3.14 x10^6/uL (3.50-5.40) Hemoglobin 10.0 g/dL (12.0-15.5) Hematocrit 29.8 % (36.0-47.0) Mean Corpuscular Volume 95 fL (79-100) Mean Corpuscular Hemoglobin 32 pg (25-35) Mean Corpuscular Hemoglobin Concent 33 g/dL (31-37) Red Cell Distribution Width 14.0 % (11.5-14.5) Platelet Count 174 x10^3/uL (140-400) Medications Current Medications Heparin Sodium (Porcine) (Heparin Sodium) 3,550 unit 1X ONCE IV Last administered on 03/19/20at 02:11; Start 03/19/20 at 02:00; Stop 03/19/20 at 02:01; Status DC Heparin Sodium/ Dextrose 250 ml @ 0 mls/hr CONT PRN IV PER PROTOCOL Last administered on 03/19/20at 02:09; Start 03/19/20 at 01:45 Heparin Sodium (Porcine) (Heparin Sodium) 1,500 unit PRN Q6HRS PRN IV FOR UFH LEVEL LESS THAN 0.2; Start 03/19/20 at 01:45 Info (Anti-Coagulation Monitoring By Pharmacy) 1 each PRN DAILY PRN MC SEE COMMENTS Last administered on 03/19/20at 03:32; Start 03/19/20 at 02:00 Ondansetron HCl (Zofran) 4 mg PRN Q8HRS PRN IV NAUSEA/VOMITING 1ST CHOICE; Start 03/19/20 at 02:15; Stop 03/20/20 at 02:14; Status DC Morphine Sulfate (Morphine Sulfate) 2 mg PRN Q2HR PRN IV SEVERE PAIN 7-10; Start 03/19/20 at 02:15; Stop 03/20/20 at 02:14; Status DC Aspirin (Ecotrin) 81 mg DAILYWBKFT PO ; Start 03/19/20 at 12:30; Stop 03/19/20 at 15:38; Status DC Clopidogrel Bisulfate (Plavix) 75 mg DAILYWBKFT PO Last administered on 03/20/20at 08:03; Start 03/19/20 at 12:30 Calcium Acetate (Phoslo) 667 mg TIDWMEALS PO Last administered on 03/20/20at 08:03; Start 03/19/20 at 12:00 Clonidine HCl (Catapres) 0.1 mg QHS PO Last administered on 03/19/20at 21:55; Start 03/19/20 at 21:00 Levothyroxine Sodium (Synthroid) 88 mcg DAILY06 PO Last administered on 03/20/20at 05:55; Start 03/19/20 at 12:30 Vitamin B Complex/ Vitamin C (Chelsey-Sudhir) 1 tab DAILY PO Last administered on 03/20/20at 08:03; Start 03/19/20 at 12:30 Acetaminophen (Tylenol) 650 mg PRN Q6HRS PRN PO MILD PAIN / TEMP > 100.3'F; Start 03/19/20 at 12:00 Al Hydroxide/Mg Hydroxide (Mylanta Plus Xs) 30 ml PRN Q2HR PRN PO HEARTBURN / GAS; Start 03/19/20 at 12:15 Nitroglycerin (Nitrostat) 0.4 mg PRN Q5MIN PRN SL CHEST PAIN; Start 03/19/20 at 12:15 Non-Formulary Medication 1 ea DAILY PO Last administered on 03/20/20at 08:03; Start 03/20/20 at 09:00 Aspirin (Ecotrin) 81 mg HS PO Last administered on 03/19/20at 21:49; Start 03/19/20 at 21:00 Active Scripts Active Hydralazine Hcl 25 Mg Tablet 1 Tab PO BID Amox Tr-K Clv 500-125 Mg Tab (Amoxicillin/Potassium Clav) 1 Each Tablet 1 Tab PO DAILY Levothyroxine Sodium 88 Mcg Tablet 1 Tab PO DAILY Reported Calcium Acetate 667 Mg Tablet 1 Tab PO TID 30 Days Chelsey-Sudhir Tablet (Folic Acid/Vitamin B Comp W-C) 0.8 Mg Tablet 1 Tab PO DAILY 30 Days Acetaminophen 500 Mg Tablet 1 Tab PO PRN Q6HRS PRN 15 Days Bystolic (Nebivolol) 10 Mg Tablet 10 Mg PO DAILY pt can take 10-30mg daily for elevated bp Aspir 81 (Aspirin) 81 Mg Tablet.dr 1 Tab PO DAILY Clonidine Hcl 0.1 Mg Tablet 1 Tab PO QHS Clopidogrel (Clopidogrel Bisulfate) 75 Mg Tablet 75 Mg PO DAILY Vitals/I & O Vital Sign - Last 24 Hours 03/19/20 03/19/20 03/19/20 03/19/20 11:00 15:00 19:15 20:07 Temp 98.0 98.1 98.2 98.0 98.1 98.2 Pulse 60 60 60 Resp 18 20 20 B/P (MAP) 153/55 (87) 145/44 (77) 151/50 (83) Pulse Ox 95 94 94 O2 Delivery Room Air Room Air Room Air Room Air 03/19/20 03/19/20 03/20/20 03/20/20 21:55 23:34 03:00 07:00 Temp 98.0 98.3 97.6 98.0 98.3 97.6 Pulse 60 60 59 60 Resp 20 18 20 B/P (MAP) 151/50 109/42 (64) 108/39 (62) 178/56 (96) Pulse Ox 92 96 95 O2 Delivery Room Air Room Air Room Air 03/20/20 08:00 O2 Delivery Room Air Intake and Output 03/19/20 03/19/20 03/20/20 14:59 22:59 06:59 Intake Total 200 ml 700 ml Output Total 400 ml 300 ml Balance -400 ml 200 ml 400 ml LYNDA FELIX MD March 20, 2020 10:24
[2020-03-20 10:54] VITALS: BP 162/40
--- NOTE | 2020-03-20 12:00 | PDOC ---
PROGRESS NOTES Subjective Subjective Patient seen and examined Objective Objective Vital Signs Date Time Temp Pulse Resp B/P (MAP) Pulse Ox O2 Delivery O2 Flow Rate FiO2 03/20/20 10:54 97.7 61 20 162/40 (80) 94 Room Air 97.7 Intake and Output 03/20/20 07:00 Intake Total 900 ml Output Total 700 ml Balance 200 ml Intake Oral 900 ml Output Urine Total 700 ml Physical Exam Abdomen: Normal bowel sounds Heart: Regular rate General: No acute distress Lungs: Clear to auscultation Assessment Assessment Problems Medical Problems: (1) Chest pain Status: Acute (2) Elevated troponin Status: Acute 1. Chest pain. History of coronary artery disease with most recent stenting in 2014. Minimally elevated troponin at 0.122. Pain-free overnight. Continue medical treatment. Outpatient follow-up. 2. End-stage renal disease. Hemodialysis and evaluation the patient's AV graft as per the renal service. 3. Hypertension. Blood pressure elevated today. Will recheck meds. 4. Status post bilateral BKA's. 5. History of a CVA. Comment Review of Relevant I have reviewed the following items wilbur (where applicable) has been applied. Labs Laboratory Tests Test 03/19/20 01:10 03/19/20 05:20 03/19/20 08:20 03/19/20 15:15 White Blood Count 3.6 x10^3/uL (4.0-11.0) Red Blood Count 3.62 x10^6/uL (3.50-5.40) Hemoglobin 11.4 g/dL (12.0-15.5) Hematocrit 34.7 % (36.0-47.0) Mean Corpuscular Volume 96 fL (79-100) Mean Corpuscular Hemoglobin 32 pg (25-35) Mean Corpuscular Hemoglobin Concent 33 g/dL (31-37) Red Cell Distribution Width 14.0 % (11.5-14.5) Platelet Count 189 x10^3/uL (140-400) Neutrophils (%) (Auto) 30 % (31-73) Lymphocytes (%) (Auto) 29 % (24-48) Monocytes (%) (Auto) 27 % (0-9) Eosinophils (%) (Auto) 13 % (0-3) Basophils (%) (Auto) 1 % (0-3) Neutrophils # (Auto) 1.1 x10^3/uL (1.8-7.7) Lymphocytes # (Auto) 1.0 x10^3/uL (1.0-4.8) Monocytes # (Auto) 1.0 x10^3/uL (0.0-1.1) Eosinophils # (Auto) 0.5 x10^3/uL (0.0-0.7) Basophils # (Auto) 0.0 x10^3/uL (0.0-0.2) Segmented Neutrophils % 34 % (35-66) Band Neutrophils % 2 % (0-9) Lymphocytes % 31 % (24-48) Atypical Lymphocytes % (Manual) 1 % (0-0) Monocytes % 17 % (0-10) Eosinophils % 13 % (0-5) Basophils % 2 % (0-3) Platelet Estimate Adequate (ADEQUATE) Sodium Level 132 mmol/L (136-145) Potassium Level 4.6 mmol/L (3.5-5.1) Chloride Level 95 mmol/L (98-107) Carbon Dioxide Level 26 mmol/L (21-32) Anion Gap 11 (6-14) Blood Urea Nitrogen 78 mg/dL (7-20) Creatinine 3.6 mg/dL (0.6-1.0) Estimated GFR (Cockcroft-Gault) 11.9 BUN/Creatinine Ratio 22 (6-20) Glucose Level 102 mg/dL (70-99) Calcium Level 9.9 mg/dL (8.5-10.1) Magnesium Level 2.1 mg/dL (1.8-2.4) Total Bilirubin 0.3 mg/dL (0.2-1.0) Aspartate Amino Transf (AST/SGOT) 23 U/L (15-37) Alanine Aminotransferase (ALT/SGPT) 22 U/L (14-59) Alkaline Phosphatase 125 U/L (46-116) Troponin I Quantitative 0.122 ng/mL (0.000-0.055) 0.119 ng/mL (0.000-0.055) 0.135 ng/mL (0.000-0.055) OL-Hje-S-Type Natriuretic Peptide 8425 pg/mL (0-449) Total Protein 7.0 g/dL (6.4-8.2) Albumin 2.9 g/dL (3.4-5.0) Albumin/Globulin Ratio 0.7 (1.0-1.7) Heparin Anti-Xa Act, Unfractionated 0.47 IU/mL (0.30-0.70) 0.37 IU/mL (0.30-0.70) Test 03/20/20 03:30 White Blood Count 3.2 x10^3/uL (4.0-11.0) Red Blood Count 3.14 x10^6/uL (3.50-5.40) Hemoglobin 10.0 g/dL (12.0-15.5) Hematocrit 29.8 % (36.0-47.0) Mean Corpuscular Volume 95 fL (79-100) Mean Corpuscular Hemoglobin 32 pg (25-35) Mean Corpuscular Hemoglobin Concent 33 g/dL (31-37) Red Cell Distribution Width 14.0 % (11.5-14.5) Platelet Count 174 x10^3/uL (140-400) Laboratory Tests Test 03/19/20 15:15 03/20/20 03:30 Heparin Anti-Xa Act, Unfractionated 0.37 IU/mL (0.30-0.70) White Blood Count 3.2 x10^3/uL (4.0-11.0) Red Blood Count 3.14 x10^6/uL (3.50-5.40) Hemoglobin 10.0 g/dL (12.0-15.5) Hematocrit 29.8 % (36.0-47.0) Mean Corpuscular Volume 95 fL (79-100) Mean Corpuscular Hemoglobin 32 pg (25-35) Mean Corpuscular Hemoglobin Concent 33 g/dL (31-37) Red Cell Distribution Width 14.0 % (11.5-14.5) Platelet Count 174 x10^3/uL (140-400) Medications Current Medications Heparin Sodium (Porcine) (Heparin Sodium) 3,550 unit 1X ONCE IV Last a dministered on 03/19/20at 02:11; Start 03/19/20 at 02:00; Stop 03/19/20 at 02:01; Status DC Heparin Sodium/ Dextrose 250 ml @ 0 mls/hr CONT PRN IV PER PROTOCOL Last administered on 03/19/20at 02:09; Start 03/19/20 at 01:45 Heparin Sodium (Porcine) (Heparin Sodium) 1,500 unit PRN Q6HRS PRN IV FOR UFH LEVEL LESS THAN 0.2; Start 03/19/20 at 01:45 Info (Anti-Coagulation Monitoring By Pharmacy) 1 each PRN DAILY PRN MC SEE COMMENTS Last administered on 03/19/20at 03:32; Start 03/19/20 at 02:00 Ondansetron HCl (Zofran) 4 mg PRN Q8HRS PRN IV NAUSEA/VOMITING 1ST CHOICE; Start 03/19/20 at 02:15; Stop 03/20/20 at 02:14; Status DC Morphine Sulfate (Morphine Sulfate) 2 mg PRN Q2HR PRN IV SEVERE PAIN 7-10; Start 03/19/20 at 02:15; Stop 03/20/20 at 02:14; Status DC Aspirin (Ecotrin) 81 mg DAILYWBKFT PO ; Start 03/19/20 at 12:30; Stop 03/19/20 at 15:38; Status DC Clopidogrel Bisulfate (Plavix) 75 mg DAILYWBKFT PO Last administered on 03/20/20at 08:03; Start 03/19/20 at 12:30 Calcium Acetate (Phoslo) 667 mg TIDWMEALS PO Last administered on 03/20/20at 08:03; Start 03/19/20 at 12:00 Clonidine HCl (Catapres) 0.1 mg QHS PO Last administered on 03/19/20at 21:55; Start 03/19/20 at 21:00 Levothyroxine Sodium (Synthroid) 88 mcg DAILY06 PO Last administered on 03/20/20at 05:55; Start 03/19/20 at 12:30 Vitamin B Complex/ Vitamin C (Chelsey-Sudhir) 1 tab DAILY PO Last administered on 03/20/20at 08:03; Start 03/19/20 at 12:30 Acetaminophen (Tylenol) 650 mg PRN Q6HRS PRN PO MILD PAIN / TEMP > 100.3'F; Start 03/19/20 at 12:00 Al Hydroxide/Mg Hydroxide (Mylanta Plus Xs) 30 ml PRN Q2HR PRN PO HEARTBURN / GAS; Start 03/19/20 at 12:15 Nitroglycerin (Nitrostat) 0.4 mg PRN Q5MIN PRN SL CHEST PAIN; Start 03/19/20 at 12:15 Non-Formulary Medication 1 ea DAILY PO Last administered on 03/20/20at 08:03; Start 03/20/20 at 09:00 Aspirin (Ecotrin) 81 mg HS PO Last administered on 03/19/20at 21:49; Start 03/19/20 at 21:00 Active Scripts Active Hydralazine Hcl 25 Mg Tablet 1 Tab PO BID Amox Tr-K Clv 500-125 Mg Tab (Amoxicillin/Potassium Clav) 1 Each Tablet 1 Tab PO DAILY Levothyroxine Sodium 88 Mcg Tablet 1 Tab PO DAILY Reported Calcium Acetate 667 Mg Tablet 1 Tab PO TID 30 Days Chelsey-Sudhir Tablet (Folic Acid/Vitamin B Comp W-C) 0.8 Mg Tablet 1 Tab PO DAILY 30 Days Acetaminophen 500 Mg Tablet 1 Tab PO PRN Q6HRS PRN 15 Days Bystolic (Nebivolol) 10 Mg Tablet 10 Mg PO DAILY pt can take 10-30mg daily for elevated bp Aspir 81 (Aspirin) 81 Mg Tablet.dr 1 Tab PO DAILY Clonidine Hcl 0.1 Mg Tablet 1 Tab PO QHS Clopidogrel (Clopidogrel Bisulfate) 75 Mg Tablet 75 Mg PO DAILY Vitals/I & O Vital Sign - Last 24 Hours 03/19/20 03/19/20 03/19/20 03/19/20 15:00 19:15 20:07 21:55 Temp 98.1 98.2 98.1 98.2 Pulse 60 60 60 Resp 20 20 B/P (MAP) 145/44 (77) 151/50 (83) 151/50 Pulse Ox 94 94 O2 Delivery Room Air Room Air Room Air 03/19/20 03/20/20 03/20/20 03/20/20 23:34 03:00 07:00 08:00 Temp 98.0 98.3 97.6 98.0 98.3 97.6 Pulse 60 59 60 Resp 20 18 20 B/P (MAP) 109/42 (64) 108/39 (62) 178/56 (96) Pulse Ox 92 96 95 O2 Delivery Room Air Room Air Room Air Room Air 03/20/20 03/20/20 08:05 10:54 Temp 97.7 97.7 Pulse 61 Resp 20 B/P (MAP) 162/40 (80) Pulse Ox 94 O2 Delivery Room Air Room Air Intake and Output 03/19/20 03/19/20 03/20/20 15:00 23:00 07:00 Intake Total 200 ml 700 ml Output Total 400 ml 300 ml Balance -400 ml 200 ml 400 ml SHILA NELSON MD March 20, 2020 12:00
--- NOTE | 2020-03-20 12:25 | PDOC ---
SUBJECTIVE ROS Follow-up for ESRD on hemodialysis Saturday Patient denies any new complaints but is concerned about her graft not having a palpable thrill. We discussed results of her ultrasound from yesterday, she has a good audible bruit CVS: no Orthopnea, no CP RESP: no SOB, no DAMIAN GI: no Nausea, no Vomiting : no Dysuria, no Urgency OBJECTIVE Vital Signs Vital Signs Date Time Temp Pulse Resp B/P (MAP) Pulse Ox O2 Delivery O2 Flow Rate FiO2 03/20/20 10:54 97.7 61 20 162/40 (80) 94 Room Air 97.7 I & 0 Intake and Output 03/20/20 07:00 Intake Total 900 ml Output Total 700 ml Balance 200 ml Intake Oral 900 ml Output Urine Total 700 ml PHYSICAL EXAM Physical Exam General Appearance: Awake Alert Oriented x 3 In no Distress Eyes: VIsion Unchanged Conjunctiva Normal EN: No EN Drainage Mucous Memb. moist Neck: no JVD no JVP Supple no Thyromegaly CVS: S1 S2 soft Murmur No Gallop No Rub no Edema Resp: no Rales no Rhonchi no Acc. Muscle use GI: BAS +ve NO Bruit Non Tender Non Distended : no CVA tenderness; no Suprapubic Tenderness SKIN: no Rashes Breast Exam deferred Assessment & Plan ESRD: Current FLuid and E-lyte status does not necessitate emergent need for Dialysis. Will re-evaluate for Dialysis in am and continue on MWF schedule. Anemia in the setting of ESRD: Aranesp as ordered HTN: Current BP meds reviewed. Defer to cardiology to optimize medical management due to ongoing issues with chest pain/angina Possible dysfunction of AV graft: Recent intervention as noted. Duplex results as below. Do not see emergent need for intervention at this time. Chest pain/ ? Angina: Defer to cardiology. We will coordinate dialysis with cardiac work-up is required. Okay to discharge from renal standpoint if no further cardiac work-up is required Discussed Plan of Care and prognosis etc. at length with patient at bedside COMMENT/RELEVANT DATA Meds Current Medications Medications (Trade) Dose Ordered Sig/Sarah Start Time Stop Time Status Last Admin Dose Admin Acetaminophen (Tylenol) 650 mg PRN Q6HRS PRN 03/19/20 12:00 Al Hydroxide/Mg Hydroxide (Mylanta Plus Xs) 30 ml PRN Q2HR PRN 03/19/20 12:15 Aspirin (Ecotrin) 81 mg HS 03/19/20 21:00 03/19/20 21:49 81 MG Calcium Acetate (Phoslo) 667 mg TIDWMEALS 03/19/20 12:00 03/20/20 08:03 667 MG Clonidine HCl (Catapres) 0.1 mg QHS 03/19/20 21:00 03/19/20 21:55 0.1 MG Clopidogrel Bisulfate (Plavix) 75 mg DAILYWBKFT 03/19/20 12:30 03/20/20 08:03 75 MG Heparin Sodium (Porcine) (Heparin Sodium) 1,500 unit PRN Q6HRS PRN 03/19/20 01:45 Heparin Sodium/ Dextrose 250 ml @ 0 mls/hr CONT PRN 03/19/20 01:45 03/19/20 02:09 7.12 MLS/HR Info (Anti-Coagulation Monitoring By Pharmacy) 1 each PRN DAILY PRN 03/19/20 02:00 03/19/20 03:32 1 EACH Levothyroxine Sodium (Synthroid) 88 mcg DAILY06 03/19/20 12:30 03/20/20 05:55 88 MCG Morphine Sulfate (Morphine Sulfate) 2 mg PRN Q2HR PRN 03/19/20 02:15 03/20/20 02:14 DC Nitroglycerin (Nitrostat) 0.4 mg PRN Q5MIN PRN 03/19/20 12:15 Non-Formulary Medication 1 ea DAILY 03/20/20 09:00 03/20/20 08:03 1 EA Ondansetron HCl (Zofran) 4 mg PRN Q8HRS PRN 03/19/20 02:15 03/20/20 02:14 DC Vitamin B Complex/ Vitamin C (Chelsey-Sudhir) 1 tab DAILY 03/19/20 12:30 03/20/20 08:03 1 TAB Lab Laboratory Tests Test 03/19/20 15:15 03/20/20 03:30 Heparin Anti-Xa Act, Unfractionated 0.37 IU/mL (0.30-0.70) White Blood Count 3.2 x10^3/uL (4.0-11.0) Red Blood Count 3.14 x10^6/uL (3.50-5.40) Hemoglobin 10.0 g/dL (12.0-15.5) Hematocrit 29.8 % (36.0-47.0) Mean Corpuscular Volume 95 fL (79-100) Mean Corpuscular Hemoglobin 32 pg (25-35) Mean Corpuscular Hemoglobin Concent 33 g/dL (31-37) Red Cell Distribution Width 14.0 % (11.5-14.5) Platelet Count 174 x10^3/uL (140-400) Results All relevant outside records, renal labs, imaging studies, telemetry/EKG's were reviewed. Other IMPRESSION: 1. No evidence of right upper extremity deep vein thrombosis. 2. Patent AV graft. Elevated velocity at the proximal graft anastomosis could be related to turbulent flow or focal stenosis. JAY PRICE MD March 20, 2020 12:25
[2020-03-20 15:00] VITALS: BP 146/49
--- NOTE | 2020-03-20 18:28 | PDOC2 ---
CONSULT Date of Consult Date of Consult DATE: 03/20/20 TIME: 18:09 Reason for Consult Reason for Consult: Leukopenia, WBC 3.2. Neutropenia, ANC 1.1. Anemia, Hgb 10. Referring Physician Referring Physician: Dr. Paul Woods Source Source: Chart review History of Present Illness Reason for Visit: Leukopenia since at least 11/2019. Joanna is an 89 year-old female with history of ESRD on dialysis, bilateral BKA, was admitted on 03/19/20 with chest pain for several days. Past Medical History Cardiovascular: CAD, HTN, HI, Hyperlipidemia, Other Pulmonary: Asthma CENTRAL NERVOUS SYSTEM: Periperal neuropathy Heme/Onc: Anemia NOS Renal/: Chronic renal failure, Other Endocrine: Hypothyroidism, Hyperparathyroidism Past Surgical History Past Surgical History: Pacemaker, Cholecystectomy (Pacemaker and coronary stenting), Total hip replacement, Colon Resection, Other Family History Family History: Coronary Artery Disease, Diabetes Social History No ALCOHOL: none Drugs: None Lives: Alone Domestic Violence: Neg Current Problem List Problem List Problems Medical Problems: (1) Chest pain Status: Acute (2) Elevated troponin Status: Acute Current Medications Current Medications Current Medications Heparin Sodium (Porcine) (Heparin Sodium) 3,550 unit 1X ONCE IV Last administered on 03/19/20at 02:11; Start 03/19/20 at 02:00; Stop 03/19/20 at 02:01; Status DC Heparin Sodium/ Dextrose 250 ml @ 0 mls/hr CONT PRN IV PER PROTOCOL Last administered on 03/19/20at 02:09; Start 03/19/20 at 01:45; Stop 03/20/20 at 14:56; Status DC Heparin Sodium (Porcine) (Heparin Sodium) 1,500 unit PRN Q6HRS PRN IV FOR UFH LEVEL LESS THAN 0.2; Start 03/19/20 at 01:45; Stop 03/20/20 at 14:56; Status DC Info (Anti-Coagulation Monitoring By Pharmacy) 1 each PRN DAILY PRN MC SEE COMMENTS Last administered on 03/19/20at 03:32; Start 03/19/20 at 02:00 Ondansetron HCl (Zofran) 4 mg PRN Q8HRS PRN IV NAUSEA/VOMITING 1ST CHOICE; Start 03/19/20 at 02:15; Stop 03/20/20 at 02:14; Status DC Morphine Sulfate (Morphine Sulfate) 2 mg PRN Q2HR PRN IV SEVERE PAIN 7-10; Start 03/19/20 at 02:15; Stop 03/20/20 at 02:14; Status DC Aspirin (Ecotrin) 81 mg DAILYWBKFT PO ; Start 03/19/20 at 12:30; Stop 03/19/20 at 15:38; Status DC Clopidogrel Bisulfate (Plavix) 75 mg DAILYWBKFT PO Last administered on 03/20/20at 08:03; Start 03/19/20 at 12:30 Calcium Acetate (Phoslo) 667 mg TIDWMEALS PO Last administered on 03/20/20at 17:06; Start 03/19/20 at 12:00 Clonidine HCl (Catapres) 0.1 mg QHS PO Last administered on 03/19/20at 21:55; Start 03/19/20 at 21:00 Levothyroxine Sodium (Synthroid) 88 mcg DAILY06 PO Last administered on 03/20/20at 05:55; Start 03/19/20 at 12:30 Vitamin B Complex/ Vitamin C (Chelsey-Sudhir) 1 tab DAILY PO Last administered on 03/20/20at 08:03; Start 03/19/20 at 12:30 Acetaminophen (Tylenol) 650 mg PRN Q6HRS PRN PO MILD PAIN / TEMP > 100.3'F; Start 03/19/20 at 12:00 Al Hydroxide/Mg Hydroxide (Mylanta Plus Xs) 30 ml PRN Q2HR PRN PO HEARTBURN / GAS; Start 03/19/20 at 12:15 Nitroglycerin (Nitrostat) 0.4 mg PRN Q5MIN PRN SL CHEST PAIN; Start 03/19/20 at 12:15 Non-Formulary Medication 1 ea DAILY PO Last administered on 03/20/20at 08:03; Start 03/20/20 at 09:00 Aspirin (Ecotrin) 81 mg HS PO Last administered on 03/19/20at 21:49; Start 03/19/20 at 21:00 Darbepoetin Nate (ARANESP for DIALYSIS PTS) 60 mcg WEEKLYHS SQ ; Start 03/20/20 at 21:00 Active Scripts Active Hydralazine Hcl 25 Mg Tablet 1 Tab PO BID Amox Tr-K Clv 500-125 Mg Tab (Amoxicillin/Potassium Clav) 1 Each Tablet 1 Tab PO DAILY Levothyroxine Sodium 88 Mcg Tablet 1 Tab PO DAILY Reported Calcium Acetate 667 Mg Tablet 1 Tab PO TID 30 Days Chelsey-Sudhir Tablet (Folic Acid/Vitamin B Comp W-C) 0.8 Mg Tablet 1 Tab PO DAILY 30 Days Acetaminophen 500 Mg Tablet 1 Tab PO PRN Q6HRS PRN 15 Days Bystolic (Nebivolol) 10 Mg Tablet 10 Mg PO DAILY pt can take 10-30mg daily for elevated bp Aspir 81 (Aspirin) 81 Mg Tablet.dr 1 Tab PO DAILY Clonidine Hcl 0.1 Mg Tablet 1 Tab PO QHS Clopidogrel (Clopidogrel Bisulfate) 75 Mg Tablet 75 Mg PO DAILY Allergies Allergies: Coded Allergies: Quinolones (Verified Allergy, Intermediate, 11/07/17) atorvastatin (Verified Allergy, Intermediate, 11/07/17) MYALGIA ciprofloxacin (Verified Allergy, Intermediate, 11/07/17) ciprofloxacin HCl (Verified Allergy, Intermediate, 11/07/17) codeine (Verified Allergy, Intermediate, 11/07/17) diazepam (Verified Allergy, Intermediate, 11/07/17) doxazosin (Verified Allergy, Intermediate, 11/07/17) eprosartan (Verified Allergy, Intermediate, 11/07/17) fexofenadine (Verified Allergy, Intermediate, 11/07/17) gabapentin (Verified Allergy, Intermediate, 11/07/17) gatifloxacin (Verified Allergy, Intermediate, 11/07/17) hydrochlorothiazide (Verified Allergy, Intermediate, 08/28/18) isosorbide (Verified Allergy, Intermediate, 11/07/17) labetalol (Verified Allergy, Intermediate, 11/07/17) lisinopril (Verified Allergy, Intermediate, 11/07/17) meloxicam (Verified Allergy, Intermediate, LEG EDEMA, 08/25/18) TAKES ASA AT HOME metoprolol (Verified Allergy, Intermediate, 11/07/17) naproxen (Verified Allergy, Intermediate, DIALYSIS PT, 12/13/19) neomycin (Verified Allergy, Intermediate, 11/07/17) oxycodone (Verified Allergy, Intermediate, 11/07/17) pantoprazole (Verified Allergy, Intermediate, 11/07/17) pravastatin (Verified Allergy, Intermediate, 11/07/17) pregabalin (Verified Allergy, Intermediate, 11/07/17) quinine (Verified Allergy, Intermediate, 11/07/17) simvastatin (Verified Allergy, Intermediate, 11/07/17) MYALGIAS Tetracyclines (Verified Adverse Reaction, Intermediate, DROWSY, 11/07/17) calcitonin (Verified Adverse Reaction, Intermediate, 11/07/17) nifedipine (Verified Adverse Reaction, Intermediate, FATIGUE, 11/07/17) FATIGUE olmesartan (Verified Adverse Reaction, Intermediate, 11/07/17) tetracycline (Verified Adverse Reaction, Intermediate, DROWSY, 11/07/17) DROWSY tramadol (Verified Adverse Reaction, Intermediate, FOGGY, 11/07/17) FOGGY tramadol HCl (Verified Adverse Reaction, Intermediate, FOGGY, 11/07/17) valsartan (Verified Adverse Reaction, Intermediate, FATIGUE, 11/07/17) FATIGUE Uncoded Allergies: CHLOREX GLUE (Allergy, Intermediate, 01/29/17) ROS General: YES: Fatigue Hematological and Lymphatic: YES: Brusing, Pallor Respiratory: YES: Shortness of breath Cardiovascular: yes Chest Pain Genitourinary: YES Urgency Musculoskeletal: Yes Gait Disturbance Skin: Yes Dry Skin Physical Exam Physical Exam Telehealth consultation. Vitals VITALS Vital Signs Date Time Temp Pulse Resp B/P (MAP) Pulse Ox O2 Delivery O2 Flow Rate FiO2 03/20/20 15:00 98.2 61 20 146/49 (81) 94 Room Air 98.2 Labs Labs Laboratory Tests Test 03/19/20 01:10 03/19/20 05:20 03/19/20 08:20 03/19/20 15:15 White Blood Count 3.6 x10^3/uL (4.0-11.0) Red Blood Count 3.62 x10^6/uL (3.50-5.40) Hemoglobin 11.4 g/dL (12.0-15.5) Hematocrit 34.7 % (36.0-47.0) Mean Corpuscular Volume 96 fL (79-100) Mean Corpuscular Hemoglobin 32 pg (25-35) Mean Corpuscular Hemoglobin Concent 33 g/dL (31-37) Red Cell Distribution Width 14.0 % (11.5-14.5) Platelet Count 189 x10^3/uL (140-400) Neutrophils (%) (Auto) 30 % (31-73) Lymphocytes (%) (Auto) 29 % (24-48) Monocytes (%) (Auto) 27 % (0-9) Eosinophils (%) (Auto) 13 % (0-3) Basophils (%) (Auto) 1 % (0-3) Neutrophils # (Auto) 1.1 x10^3/uL (1.8-7.7) Lymphocytes # (Auto) 1.0 x10^3/uL (1.0-4.8) Monocytes # (Auto) 1.0 x10^3/uL (0.0-1.1) Eosinophils # (Auto) 0.5 x10^3/uL (0.0-0.7) Basophils # (Auto) 0.0 x10^3/uL (0.0-0.2) Segmented Neutrophils % 34 % (35-66) Band Neutrophils % 2 % (0-9) Lymphocytes % 31 % (24-48) Atypical Lymphocytes % (Manual) 1 % (0-0) Monocytes % 17 % (0-10) Eosinophils % 13 % (0-5) Basophils % 2 % (0-3) Platelet Estimate Adequate (ADEQUATE) Sodium Level 132 mmol/L (136-145) Potassium Level 4.6 mmol/L (3.5-5.1) Chloride Level 95 mmol/L (98-107) Carbon Dioxide Level 26 mmol/L (21-32) Anion Gap 11 (6-14) Blood Urea Nitrogen 78 mg/dL (7-20) Creatinine 3.6 mg/dL (0.6-1.0) Estimated GFR (Cockcroft-Gault) 11.9 BUN/Creatinine Ratio 22 (6-20) Glucose Level 102 mg/dL (70-99) Calcium Level 9.9 mg/dL (8.5-10.1) Magnesium Level 2.1 mg/dL (1.8-2.4) Total Bilirubin 0.3 mg/dL (0.2-1.0) Aspartate Amino Transf (AST/SGOT) 23 U/L (15-37) Alanine Aminotransferase (ALT/SGPT) 22 U/L (14-59) Alkaline Phosphatase 125 U/L (46-116) Troponin I Quantitative 0.122 ng/mL (0.000-0.055) 0.119 ng/mL (0.000-0.055) 0.135 ng/mL (0.000-0.055) ST-Kzl-M-Type Natriuretic Peptide 8425 pg/mL (0-449) Total Protein 7.0 g/dL (6.4-8.2) Albumin 2.9 g/dL (3.4-5.0) Albumin/Globulin Ratio 0.7 (1.0-1.7) Heparin Anti-Xa Act, Unfractionated 0.47 IU/mL (0.30-0.70) 0.37 IU/mL (0.30-0.70) Test 03/20/20 03:30 White Blood Count 3.2 x10^3/uL (4.0-11.0) Red Blood Count 3.14 x10^6/uL (3.50-5.40) Hemoglobin 10.0 g/dL (12.0-15.5) Hematocrit 29.8 % (36.0-47.0) Mean Corpuscular Volume 95 fL (79-100) Mean Corpuscular Hemoglobin 32 pg (25-35) Mean Corpuscular Hemoglobin Concent 33 g/dL (31-37) Red Cell Distribution Width 14.0 % (11.5-14.5) Platelet Count 174 x10^3/uL (140-400) Laboratory Tests Test 03/20/20 03:30 White Blood Count 3.2 x10^3/uL (4.0-11.0) Red Blood Count 3.14 x10^6/uL (3.50-5.40) Hemoglobin 10.0 g/dL (12.0-15.5) Hematocrit 29.8 % (36.0-47.0) Mean Corpuscular Volume 95 fL (79-100) Mean Corpuscular Hemoglobin 32 pg (25-35) Mean Corpuscular Hemoglobin Concent 33 g/dL (31-37) Red Cell Distribution Width 14.0 % (11.5-14.5) Platelet Count 174 x10^3/uL (140-400) Assessment/Plan Assessment/Plan Assessment: 89 year-old female with leukopenia since at least 11/201920. Grade 2 neutropenia, ANC 1.1 on 03/20/20. Neutropenia could be related to primary bone marrow disorder (the patient has relative monocytosis, 27%, relative eosinophilia, 13%), could be drug-induced (hydralazine has been associated with agranulocytosis), dietary deficiencies (including copper), vitamin B12/folate deficiency, and others (liver congestion due to aortic stenosis, EF 45%, less likely due to normal platelet count). Anemia, likely related to ESRD and chronic disease, based on retic 0.6%. No evidence of hemolytic anemia (could be a rare complication of hydralazine therapy), due to low retic count and no substantial elevation of bilirubin. Plan: 1. B12, methylmalonic acid, folate, copper levels. 2. Continue holding off on hydralazine. 3. Peripheral blood flow cytometry could be considered if no improvement in blood counts over the next 2-3 weeks. 4. Follow-up at the Hem/Onc clinic in [place] within 2 weeks after discharge. ADDENDUM: B12 [id number] on 03/20/20. Elevated B12 levels could be associated with primary bone marrow disorder. Thank you so much for the opportunity to see your patient. Please call with any questions. Luis Palomino MD MARICARMEN PALOMINO MD March 20, 2020 18:28
[2020-03-20 19:00] VITALS: BP 166/61
--- NOTE | 2020-03-20 19:30 | NUR ---
Pt in bed assessment completed vss poc explained pt denied pain at time of assessment will resume care and continue to monitor pt. Call light in reach.
[2020-03-20] MEDS: ASPIRIN ENTERIC COATED 81 MG TABLET.DR. PO SCH (20:24)
[2020-03-20] MEDS: cloNIDine HCL 0.1 MG TABLET PO SCH (20:25)
[2020-03-20] MEDS ORDERED: DARBEPOETIN ALFA 60 MCG/0.3 ML DISP.SYRIN. SQ SCH (21:00)
[2020-03-20 22:56] VITALS: BP 123/48
[2020-03-21 02:55] VITALS: BP 173/57
[2020-03-21 04:50] LABS: BASO # 0.1 x10^3/uL (0.0-0.2); BASO % 2 % (0-3); EOS # 0.5 x10^3/uL (0.0-0.7); EOS % 11 % (0-3); HEMOGLOBIN 10.3 g/dL (12.0-15.5); LYMPH # 0.9 x10^3/uL (1.0-4.8); LYMPH % 19 % (24-48); MEAN CORPUSCULAR HEMOGLOBIN 33 pg (25-35); MEAN CORPUSCULAR HGB CONC 34 g/dL (31-37); MEAN CORPUSCULAR VOLUME 96 fL (79-100); MONO % 21 % (0-9); NEUT # 2.3 x10^3/uL (1.8-7.7); NEUT % 48 % (31-73); PLATELET COUNT 175 x10^3/uL (140-400); RED BLOOD COUNT 3.14 x10^6/uL (3.50-5.40); WHITE BLOOD COUNT 4.7 x10^3/uL (4.0-11.0)
[2020-03-21 05:53] LABS: CALCIUM 9.5 mg/dL (8.5-10.1); CREATININE 5.1 mg/dL (0.6-1.0); POTASSIUM 4.2 mmol/L (3.5-5.1)
[2020-03-21] MEDS: LEVOTHYROXINE 88 MCG TABLET PO SCH (06:23)
[2020-03-21 07:00] VITALS: BP 157/45
[2020-03-21] MEDS ORDERED: IV NORMAL SALINE 1000ML BAG 1,000 ML IV PRN ×2 (07:09)
[2020-03-21] MEDS ORDERED: DIALYSIS PATIENT. MC PRN (07:15)
[2020-03-21] MEDS: CALCIUM ACETATE 667 MG CAPSULE PO SCH ×2 (08:00→12:00)
[2020-03-21] MEDS: FOLIC/VIT B COMP W-C (RENAL) TABLET. PO SCH (09:00)
--- NOTE | 2020-03-21 10:35 | PDOC ---
Dialysis Progress Note Dialysis Note Dialysis Note Seen on Hemodialysis, tolerating treatment Well so far Vitals on Hemodialysis: 140/ 68 60 afeb General Appearance: Awake: Alert Oriented x 3 Neck: No JVD or JVP Chest: CTA Tad Heart: S1 S2 Abdomen - Soft NTND Extremities - No Edema ESRD: Dialysis as below F 180 NR 3.0 Hrs 3 K 2.5 Ca 140 Na 35 HC03 Qb 350 + Qd 500+ Heparin 0 Units Uf 1 Kgs or to dry weight as tolerated May give 25-50 gms of 25% Albumin if needed to maintain Hemodynamic stability Treatment plan reviewed and discussed with casting chipper Vitals Vital Signs Vital Signs Date Time Temp Pulse Resp B/P (MAP) Pulse Ox O2 Delivery O2 Flow Rate FiO2 03/21/20 08:00 Room Air 03/21/20 07:00 98.0 60 18 157/45 (82) 93 98.0 Labs Last Labs Laboratory Tests Test 03/19/20 15:15 03/20/20 03:30 03/21/20 04:20 Heparin Anti-Xa Act, Unfractionated 0.37 IU/mL (0.30-0.70) White Blood Count 3.2 x10^3/uL (4.0-11.0) 4.7 x10^3/uL (4.0-11.0) Red Blood Count 3.14 x10^6/uL (3.50-5.40) 3.14 x10^6/uL (3.50-5.40) Hemoglobin 10.0 g/dL (12.0-15.5) 10.3 g/dL (12.0-15.5) Hematocrit 29.8 % (36.0-47.0) 30.0 % (36.0-47.0) Mean Corpuscular Volume 95 fL (79-100) 96 fL (79-100) Mean Corpuscular Hemoglobin 32 pg (25-35) 33 pg (25-35) Mean Corpuscular Hemoglobin Concent 33 g/dL (31-37) 34 g/dL (31-37) Red Cell Distribution Width 14.0 % (11.5-14.5) 14.0 % (11.5-14.5) Platelet Count 174 x10^3/uL (140-400) 175 x10^3/uL (140-400) Neutrophils (%) (Auto) 48 % (31-73) Lymphocytes (%) (Auto) 19 % (24-48) Monocytes (%) (Auto) 21 % (0-9) Eosinophils (%) (Auto) 11 % (0-3) Basophils (%) (Auto) 2 % (0-3) Neutrophils # (Auto) 2.3 x10^3/uL (1.8-7.7) Lymphocytes # (Auto) 0.9 x10^3/uL (1.0-4.8) Monocytes # (Auto) 1.0 x10^3/uL (0.0-1.1) Eosinophils # (Auto) 0.5 x10^3/uL (0.0-0.7) Basophils # (Auto) 0.1 x10^3/uL (0.0-0.2) Sodium Level 139 mmol/L (136-145) Potassium Level 4.2 mmol/L (3.5-5.1) Chloride Level 103 mmol/L (98-107) Carbon Dioxide Level 24 mmol/L (21-32) Anion Gap 12 (6-14) Blood Urea Nitrogen 116 mg/dL (7-20) Creatinine 5.1 mg/dL (0.6-1.0) Estimated GFR (Cockcroft-Gault) 8.0 Glucose Level 98 mg/dL (70-99) Calcium Level 9.5 mg/dL (8.5-10.1) Laboratory Tests Test 03/21/20 04:20 White Blood Count 4.7 x10^3/uL (4.0-11.0) Red Blood Count 3.14 x10^6/uL (3.50-5.40) Hemoglobin 10.3 g/dL (12.0-15.5) Hematocrit 30.0 % (36.0-47.0) Mean Corpuscular Volume 96 fL (79-100) Mean Corpuscular Hemoglobin 33 pg (25-35) Mean Corpuscular Hemoglobin Concent 34 g/dL (31-37) Red Cell Distribution Width 14.0 % (11.5-14.5) Platelet Count 175 x10^3/uL (140-400) Neutrophils (%) (Auto) 48 % (31-73) Lymphocytes (%) (Auto) 19 % (24-48) Monocytes (%) (Auto) 21 % (0-9) Eosinophils (%) (Auto) 11 % (0-3) Basophils (%) (Auto) 2 % (0-3) Neutrophils # (Auto) 2.3 x10^3/uL (1.8-7.7) Lymphocytes # (Auto) 0.9 x10^3/uL (1.0-4.8) Monocytes # (Auto) 1.0 x10^3/uL (0.0-1.1) Eosinophils # (Auto) 0.5 x10^3/uL (0.0-0.7) Basophils # (Auto) 0.1 x10^3/uL (0.0-0.2) Sodium Level 139 mmol/L (136-145) Potassium Level 4.2 mmol/L (3.5-5.1) Chloride Level 103 mmol/L (98-107) Carbon Dioxide Level 24 mmol/L (21-32) Anion Gap 12 (6-14) Blood Urea Nitrogen 116 mg/dL (7-20) Creatinine 5.1 mg/dL (0.6-1.0) Estimated GFR (Cockcroft-Gault) 8.0 Glucose Level 98 mg/dL (70-99) Calcium Level 9.5 mg/dL (8.5-10.1) Assessment Assessment Problems Medical Problems: (1) Chest pain Status: Acute (2) Elevated troponin Status: Acute Plan Plan of Care Problems Medical Problems: (1) Chest pain Status: Acute (2) Elevated troponin Status: Acute JAY PRICE MD March 21, 2020 10:35
--- NOTE | 2020-03-21 11:28 | PDOC ---
PROGRESS NOTES Subjective Subjective seen during dialysis. no chest pain. lab reviewed. Objective Objective Vital Signs Date Time Temp Pulse Resp B/P (MAP) Pulse Ox O2 Delivery O2 Flow Rate FiO2 03/21/20 08:00 Room Air 03/21/20 07:00 98.0 60 18 157/45 (82) 93 98.0 Intake and Output 03/21/20 07:00 Intake Total 635 ml Output Total 800 ml Balance -165 ml Intake Oral 635 ml Output Urine Total 800 ml # Voids 51 # Bowel Movements 1 Physical Exam Abdomen: Soft Heart: Regular rate, Normal S1, Normal S2 Extremities: No edema General: Alert HEENT: Atraumatic Lungs: Clear to auscultation Neuro: Normal speech Psych/Mental Status: Mental status NL Skin: No rashes Assessment Assessment Problems1. Chest pain. no recurrence. possible angina 2. Coronary artery disease. 3. Hypertension. 4. Hyperlipidemia, statin intolerant. 5. Peripheral arterial disease. 6. End-stage renal disease, on hemodialysis Mondays, Wednesdays, and Fridays. 7. Bilateral below-knee amputations. 8. Moderate aortic stenosis. 9. Hypothyroidism. 10. Ischemic cardiomyopathy with LVEF of 45%. She had an echocardiogram done in 12/15/2019 and showed moderate aortic stenosis with LV EF of 45%. leukopenia noted since 12/17 Medical Problems: (1) Chest pain Status: Acute (2) Elevated troponin Status: Acute Plan Plan of Care dismiss today after hemodialysis Comment Review of Relevant I have reviewed the following items wilbur (where applicable) has been applied. Labs Laboratory Tests Test 03/19/20 15:15 03/20/20 03:30 03/21/20 04:20 Heparin Anti-Xa Act, Unfractionated 0.37 IU/mL (0.30-0.70) White Blood Count 3.2 x10^3/uL (4.0-11.0) 4.7 x10^3/uL (4.0-11.0) Red Blood Count 3.14 x10^6/uL (3.50-5.40) 3.14 x10^6/uL (3.50-5.40) Hemoglobin 10.0 g/dL (12.0-15.5) 10.3 g/dL (12.0-15.5) Hematocrit 29.8 % (36.0-47.0) 30.0 % (36.0-47.0) Mean Corpuscular Volume 95 fL (79-100) 96 fL (79-100) Mean Corpuscular Hemoglobin 32 pg (25-35) 33 pg (25-35) Mean Corpuscular Hemoglobin Concent 33 g/dL (31-37) 34 g/dL (31-37) Red Cell Distribution Width 14.0 % (11.5-14.5) 14.0 % (11.5-14.5) Platelet Count 174 x10^3/uL (140-400) 175 x10^3/uL (140-400) Neutrophils (%) (Auto) 48 % (31-73) Lymphocytes (%) (Auto) 19 % (24-48) Monocytes (%) (Auto) 21 % (0-9) Eosinophils (%) (Auto) 11 % (0-3) Basophils (%) (Auto) 2 % (0-3) Neutrophils # (Auto) 2.3 x10^3/uL (1.8-7.7) Lymphocytes # (Auto) 0.9 x10^3/uL (1.0-4.8) Monocytes # (Auto) 1.0 x10^3/uL (0.0-1.1) Eosinophils # (Auto) 0.5 x10^3/uL (0.0-0.7) Basophils # (Auto) 0.1 x10^3/uL (0.0-0.2) Sodium Level 139 mmol/L (136-145) Potassium Level 4.2 mmol/L (3.5-5.1) Chloride Level 103 mmol/L (98-107) Carbon Dioxide Level 24 mmol/L (21-32) Anion Gap 12 (6-14) Blood Urea Nitrogen 116 mg/dL (7-20) Creatinine 5.1 mg/dL (0.6-1.0) Estimated GFR (Cockcroft-Gault) 8.0 Glucose Level 98 mg/dL (70-99) Calcium Level 9.5 mg/dL (8.5-10.1) Laboratory Tests Test 03/21/20 04:20 White Blood Count 4.7 x10^3/uL (4.0-11.0) Red Blood Count 3.14 x10^6/uL (3.50-5.40) Hemoglobin 10.3 g/dL (12.0-15.5) Hematocrit 30.0 % (36.0-47.0) Mean Corpuscular Volume 96 fL (79-100) Mean Corpuscular Hemoglobin 33 pg (25-35) Mean Corpuscular Hemoglobin Concent 34 g/dL (31-37) Red Cell Distribution Width 14.0 % (11.5-14.5) Platelet Count 175 x10^3/uL (140-400) Neutrophils (%) (Auto) 48 % (31-73) Lymphocytes (%) (Auto) 19 % (24-48) Monocytes (%) (Auto) 21 % (0-9) Eosinophils (%) (Auto) 11 % (0-3) Basophils (%) (Auto) 2 % (0-3) Neutrophils # (Auto) 2.3 x10^3/uL (1.8-7.7) Lymphocytes # (Auto) 0.9 x10^3/uL (1.0-4.8) Monocytes # (Auto) 1.0 x10^3/uL (0.0-1.1) Eosinophils # (Auto) 0.5 x10^3/uL (0.0-0.7) Basophils # (Auto) 0.1 x10^3/uL (0.0-0.2) Sodium Level 139 mmol/L (136-145) Potassium Level 4.2 mmol/L (3.5-5.1) Chloride Level 103 mmol/L (98-107) Carbon Dioxide Level 24 mmol/L (21-32) Anion Gap 12 (6-14) Blood Urea Nitrogen 116 mg/dL (7-20) Creatinine 5.1 mg/dL (0.6-1.0) Estimated GFR (Cockcroft-Gault) 8.0 Glucose Level 98 mg/dL (70-99) Calcium Level 9.5 mg/dL (8.5-10.1) Medications Current Medications Heparin Sodium (Porcine) (Heparin Sodium) 3,550 unit 1X ONCE IV Last administered on 03/19/20at 02:11; Start 03/19/20 at 02:00; Stop 03/19/20 at 02:01; Status DC Heparin Sodium/ Dextrose 250 ml @ 0 mls/hr CONT PRN IV PER PROTOCOL Last administered on 03/19/20at 02:09; Start 03/19/20 at 01:45; Stop 03/20/20 at 14:56 ; Status DC Heparin Sodium (Porcine) (Heparin Sodium) 1,500 unit PRN Q6HRS PRN IV FOR UFH LEVEL LESS THAN 0.2; Start 03/19/20 at 01:45; Stop 03/20/20 at 14:56; Status DC Info (Anti-Coagulation Monitoring By Pharmacy) 1 each PRN DAILY PRN MC SEE COMMENTS Last administered on 03/19/20at 03:32; Start 03/19/20 at 02:00 Ondansetron HCl (Zofran) 4 mg PRN Q8HRS PRN IV NAUSEA/VOMITING 1ST CHOICE; Start 03/19/20 at 02:15; Stop 03/20/20 at 02:14; Status DC Morphine Sulfate (Morphine Sulfate) 2 mg PRN Q2HR PRN IV SEVERE PAIN 7-10; Start 03/19/20 at 02:15; Stop 03/20/20 at 02:14; Status DC Aspirin (Ecotrin) 81 mg DAILYWBKFT PO ; Start 03/19/20 at 12:30; Stop 03/19/20 at 15:38; Status DC Clopidogrel Bisulfate (Plavix) 75 mg DAILYWBKFT PO Last administered on 02/26 02/14at 08:03; Start 03/19/20 at 12:30 Calcium Acetate (Phoslo) 667 mg TIDWMEALS PO Last administered on 03/20/20at 17:06; Start 03/19/20 at 12:00 Clonidine HCl (Catapres) 0.1 mg QHS PO Last administered on 03/20/20at 20:25; Start 03/19/20 at 21:00 Levothyroxine Sodium (Synthroid) 88 mcg DAILY06 PO Last administered on 03/21/20at 06:23; Start 03/19/20 at 12:30 Vitamin B Complex/ Vitamin C (Chelsey-Sudhir) 1 tab DAILY PO Last administered on 03/20/20at 08:03; Start 03/19/20 at 12:30 Acetaminophen (Tylenol) 650 mg PRN Q6HRS PRN PO MILD PAIN / TEMP > 100.3'F; Start 03/19/20 at 12:00 Al Hydroxide/Mg Hydroxide (Mylanta Plus Xs) 30 ml PRN Q2HR PRN PO HEARTBURN / GAS; Start 03/19/20 at 12:15 Nitroglycerin (Nitrostat) 0.4 mg PRN Q5MIN PRN SL CHEST PAIN; Start 03/19/20 at 12:15 Non-Formulary Medication 1 ea DAILY PO Last administered on 03/20/20at 08:03; Start 03/20/20 at 09:00 Aspirin (Ecotrin) 81 mg HS PO Last administered on 03/20/20at 20:24; Start 03/19/20 at 21:00 Darbepoetin Nate (ARANESP for DIALYSIS PTS) 60 mcg WEEKLYHS SQ Last administered on 03/20/20at 20:25; Start 03/20/20 at 21:00 Sodium Chloride 1,000 ml @ 1,000 mls/hr Q1H PRN IV hypotension; Start 03/21/20 at 07:09; Stop 03/21/20 at 13:08 Sodium Chloride 1,000 ml @ 400 mls/hr Q2H30M PRN IV PATENCY; Start 03/21/20 at 07:09; Stop 03/21/20 at 19:08 Info (PHARMACY MONITORING -- do not chart) 1 each PRN DAILY PRN MC SEE COMMENTS; Start 03/21/20 at 07:15 Active Scripts Active Hydralazine Hcl 25 Mg Tablet 1 Tab PO BID Amox Tr-K Clv 500-125 Mg Tab (Amoxicillin/Potassium Clav) 1 Each Tablet 1 Tab PO DAILY Levothyroxine Sodium 88 Mcg Tablet 1 Tab PO DAILY Reported Calcium Acetate 667 Mg Tablet 1 Tab PO TID 30 Days Chelsey-Sudhir Tablet (Folic Acid/Vitamin B Comp W-C) 0.8 Mg Tablet 1 Tab PO DAILY 30 Days Acetaminophen 500 Mg Tablet 1 Tab PO PRN Q6HRS PRN 15 Days Bystolic (Nebivolol) 10 Mg Tablet 10 Mg PO DAILY pt can take 10-30mg daily for elevated bp Aspir 81 (Aspirin) 81 Mg Tablet.dr 1 Tab PO DAILY Clonidine Hcl 0.1 Mg Tablet 1 Tab PO QHS Clopidogrel (Clopidogrel Bisulfate) 75 Mg Tablet 75 Mg PO DAILY Vitals/I & O Vital Sign - Last 24 Hours 03/20/20 03/20/20 03/20/20 03/20/20 15:00 19:00 19:30 20:25 Temp 98.2 98.3 98.2 98.3 Pulse 61 60 60 Resp 20 16 B/P (MAP) 146/49 (81) 166/61 (96) 166/61 Pulse Ox 94 93 O2 Delivery Room Air Room Air Room Air 03/20/20 03/21/20 03/21/20 03/21/20 22:56 02:55 07:00 08:00 Temp 98.1 98.1 98.0 98.1 98.1 98.0 Pulse 60 60 60 Resp 18 18 18 B/P (MAP) 123/48 (73) 173/57 (95) 157/45 (82) Pulse Ox 93 95 93 O2 Delivery Room Air Room Air Room Air Room Air Intake and Output 03/20/20 03/20/20 03/21/20 15:00 23:00 07:00 Intake Total 375 ml 60 ml 200 ml Output Total 500 ml 200 ml 100 ml Balance -125 ml -140 ml 100 ml LYNDA FELIX MD March 21, 2020 11:28
[2020-03-21] MEDS ORDERED: NITR0.4T24 SL (11:42)
--- NOTE | 2020-03-21 11:43 | DISCH ---
DISCHARGE INSTRUCTIONS Condition on Discharge Condition on Discharge: Stable Activity After Discharge Activity Instructions for Disc: Activity as tolerated Bathing Instructions: Shower-keep dressing dry, No Tub Bath until see Lifting Instructions after Dis: No heavy lifting, No pulling or pushing, Do not lift >10 pounds Exercise Instruction after Dis: Progress as tolerated Driving Instructions after Dis: Other, see below Weight Bearing Status after Di: As tolerated Diet after Discharge Diet after Discharge: Renal Dialysis Diet Texture: Regular Liquid Texture: Thin Liquid Swallowing Supervision: None needed Wound Incision Care Wound/Incision Care: Keep wound/cast CDI Wound Care Equipment: Dressings Checks after Discharge Checks after discharge: Check blood press - daily Contacting the DRSummer after DC Call your doctor for: Concerns you may have Follow-Up Follow up with: dr. barbosa next week Follow Up With: dr. mathur in 2 weeks Treatment/Equipment after DC Adaptive Equipment Issued: LYNDA Veronica MD March 21, 2020 11:43
--- NOTE | 2020-03-21 11:48 | PDOC ---
Provider Note Provider Note discharge summary dictated # [id number] LYNDA FELIX MD March 21, 2020 11:48
[2020-03-21 12:06] VITALS: BP 167/55
--- NOTE | 2020-03-21 12:24 | PDOC ---
PROGRESS NOTES Subjective Subjective Patient seen and examined Objective Objective Vital Signs Date Time Temp Pulse Resp B/P (MAP) Pulse Ox O2 Delivery O2 Flow Rate FiO2 03/21/20 08:00 Room Air 03/21/20 07:00 98.0 60 18 157/45 (82) 93 98.0 Intake and Output 03/21/20 07:00 Intake Total 635 ml Output Total 800 ml Balance -165 ml Intake Oral 635 ml Output Urine Total 800 ml # Voids 51 # Bowel Movements 1 Physical Exam Abdomen: Normal bowel sounds Heart: Regular rate General: No acute distress Lungs: Clear to auscultation Assessment Assessment Problems Medical Problems: (1) Chest pain Status: Acute (2) Elevated troponin Status: Acute 1. Chest pain. History of coronary artery disease with most recent stenting in 2014. Minimally elevated troponin at 0.122. Chest pain-free. Continue medical treatment. Outpatient follow-up. 2. End-stage renal disease. Hemodialysis and evaluation the patient's AV graft as per the renal service. 3. Hypertension. Continue medical treatment. 4. Status post bilateral BKA's. 5. History of a CVA. Comment Review of Relevant I have reviewed the following items wilbur (where applicable) has been applied. Labs Laboratory Tests Test 03/19/20 15:15 03/20/20 03:30 03/21/20 04:20 Heparin Anti-Xa Act, Unfractionated 0.37 IU/mL (0.30-0.70) White Blood Count 3.2 x10^3/uL (4.0-11.0) 4.7 x10^3/uL (4.0-11.0) Red Blood Count 3.14 x10^6/uL (3.50-5.40) 3.14 x10^6/uL (3.50-5.40) Hemoglobin 10.0 g/dL (12.0-15.5) 10.3 g/dL (12.0-15.5) Hematocrit 29.8 % (36.0-47.0) 30.0 % (36.0-47.0) Mean Corpuscular Volume 95 fL (79-100) 96 fL (79-100) Mean Corpuscular Hemoglobin 32 pg (25-35) 33 pg (25-35) Mean Corpuscular Hemoglobin Concent 33 g/dL (31-37) 34 g/dL (31-37) Red Cell Distribution Width 14.0 % (11.5-14.5) 14.0 % (11.5-14.5) Platelet Count 174 x10^3/uL (140-400) 175 x10^3/uL (140-400) Vitamin B12 Level 1362 pg/mL (247-911) Neutrophils (%) (Auto) 48 % (31-73) Lymphocytes (%) (Auto) 19 % (24-48) Monocytes (%) (Auto) 21 % (0-9) Eosinophils (%) (Auto) 11 % (0-3) Basophils (%) (Auto) 2 % (0-3) Neutrophils # (Auto) 2.3 x10^3/uL (1.8-7.7) Lymphocytes # (Auto) 0.9 x10^3/uL (1.0-4.8) Monocytes # (Auto) 1.0 x10^3/uL (0.0-1.1) Eosinophils # (Auto) 0.5 x10^3/uL (0.0-0.7) Basophils # (Auto) 0.1 x10^3/uL (0.0-0.2) Sodium Level 139 mmol/L (136-145) Potassium Level 4.2 mmol/L (3.5-5.1) Chloride Level 103 mmol/L (98-107) Carbon Dioxide Level 24 mmol/L (21-32) Anion Gap 12 (6-14) Blood Urea Nitrogen 116 mg/dL (7-20) Creatinine 5.1 mg/dL (0.6-1.0) Estimated GFR (Cockcroft-Gault) 8.0 Glucose Level 98 mg/dL (70-99) Calcium Level 9.5 mg/dL (8.5-10.1) Laboratory Tests Test 03/21/20 04:20 White Blood Count 4.7 x10^3/uL (4.0-11.0) Red Blood Count 3.14 x10^6/uL (3.50-5.40) Hemoglobin 10.3 g/dL (12.0-15.5) Hematocrit 30.0 % (36.0-47.0) Mean Corpuscular Volume 96 fL (79-100) Mean Corpuscular Hemoglobin 33 pg (25-35) Mean Corpuscular Hemoglobin Concent 34 g/dL (31-37) Red Cell Distribution Width 14.0 % (11.5-14.5) Platelet Count 175 x10^3/uL (140-400) Neutrophils (%) (Auto) 48 % (31-73) Lymphocytes (%) (Auto) 19 % (24-48) Monocytes (%) (Auto) 21 % (0-9) Eosinophils (%) (Auto) 11 % (0-3) Basophils (%) (Auto) 2 % (0-3) Neutrophils # (Auto) 2.3 x10^3/uL (1.8-7.7) Lymphocytes # (Auto) 0.9 x10^3/uL (1.0-4.8) Monocytes # (Auto) 1.0 x10^3/uL (0.0-1.1) Eosinophils # (Auto) 0.5 x10^3/uL (0.0-0.7) Basophils # (Auto) 0.1 x10^3/uL (0.0-0.2) Sodium Level 139 mmol/L (136-145) Potassium Level 4.2 mmol/L (3.5-5.1) Chloride Level 103 mmol/L (98-107) Carbon Dioxide Level 24 mmol/L (21-32) Anion Gap 12 (6-14) Blood Urea Nitrogen 116 mg/dL (7-20) Creatinine 5.1 mg/dL (0.6-1.0) Estimated GFR (Cockcroft-Gault) 8.0 Glucose Level 98 mg/dL (70-99) Calcium Level 9.5 mg/dL (8.5-10.1) Medications Current Medications Heparin Sodium (Porcine) (Heparin Sodium) 3,550 unit 1X ONCE IV Last administered on 03/19/20at 02:11; Start 03/19/20 at 02:00; Stop 03/19/20 at 02:01; Status DC Heparin Sodium/ Dextrose 250 ml @ 0 mls/hr CONT PRN IV PER PROTOCOL Last administered on 03/19/20at 02:09; Start 03/19/20 at 01:45; Stop 03/20/20 at 14:56; Status DC Heparin Sodium (Porcine) (Heparin Sodium) 1,500 unit PRN Q6HRS PRN IV FOR UFH LEVEL LESS THAN 0.2; Start 03/19/20 at 01:45; Stop 03/20/20 at 14:56; Status DC Info (Anti-Coagulation Monitoring By Pharmacy) 1 each PRN DAILY PRN MC SEE COMMENTS Last administered on 03/19/20at 03:32; Start 03/19/20 at 02:00 Ondansetron HCl (Zofran) 4 mg PRN Q8HRS PRN IV NAUSEA/VOMITING 1ST CHOICE; Start 03/19/20 at 02:15; Stop 03/20/20 at 02:14; Status DC Morphine Sulfate (Morphine Sulfate) 2 mg PRN Q2HR PRN IV SEVERE PAIN 7-10; Start 03/19/20 at 02:15; Stop 03/20/20 at 02:14; Status DC Aspirin (Ecotrin) 81 mg DAILYWBKFT PO ; Start 03/19/20 at 12:30; Stop 03/19/20 at 15:38; Status DC Clopidogrel Bisulfate (Plavix) 75 mg DAILYWBKFT PO Last administered on 03/20/20at 08:03; Start 03/19/20 at 12:30 Calcium Acetate (Phoslo) 667 mg TIDWMEALS PO Last administered on 03/20/20at 17:06; Start 03/19/20 at 12:00 Clonidine HCl (Catapres) 0.1 mg QHS PO Last administered on 03/20/20at 20:25; Start 03/19/20 at 21:00 Levothyroxine Sodium (Synthroid) 88 mcg DAILY06 PO Last administered on 03/21/20at 06:23; Start 03/19/20 at 12:30 Vitamin B Complex/ Vitamin C (Chelsey-Sudhir) 1 tab DAILY PO Last administered on 03/20/20at 08:03; Start 03/19/20 at 12:30 Acetaminophen (Tylenol) 650 mg PRN Q6HRS PRN PO MILD PAIN / TEMP > 100.3'F; Start 03/19/20 at 12:00 Al Hydroxide/Mg Hydroxide (Mylanta Plus Xs) 30 ml PRN Q2HR PRN PO HEARTBURN / GAS; Start 03/19/20 at 12:15 Nitroglycerin (Nitrostat) 0.4 mg PRN Q5MIN PRN SL CHEST PAIN; Start 03/19/20 at 12:15 Non-Formulary Medication 1 ea DAILY PO Last administered on 03/20/20at 08:03; Start 03/20/20 at 09:00 Aspirin (Ecotrin) 81 mg HS PO Last administered on 03/20/20at 20:24; Start 03/19/20 at 21:00 Darbepoetin Nate (ARANESP for DIALYSIS PTS) 60 mcg WEEKLYHS SQ Last administered on 03/20/20at 20:25; Start 03/20/20 at 21:00 Sodium Chloride 1,000 ml @ 1,000 mls/hr Q1H PRN IV hypotension; Start 03/21/20 at 07:09; Stop 03/21/20 at 13:08 Sodium Chloride 1,000 ml @ 400 mls/hr Q2H30M PRN IV PATENCY; Start 03/21/20 at 07:09; Stop 03/21/20 at 19:08 Info (PHARMACY MONITORING -- do not chart) 1 each PRN DAILY PRN MC SEE COMMENTS; Start 03/21/20 at 07:15 Active Scripts Active Nitrostat (Nitroglycerin) 0.4 Mg Tab.subl 0.4 Mg SL PRN Q5MIN PRN Levothyroxine Sodium 88 Mcg Tablet 1 Tab PO DAILY Reported Calcium Acetate 667 Mg Tablet 1 Tab PO TID 30 Days Chelsey-Sudhir Tablet (Folic Acid/Vitamin B Comp W-C) 0.8 Mg Tablet 1 Tab PO DAILY 30 Days Acetaminophen 500 Mg Tablet 1 Tab PO PRN Q6HRS PRN 15 Days Bystolic (Nebivolol) 10 Mg Tablet 10 Mg PO DAILY pt can take 10-30mg daily for elevated bp Aspir 81 (Aspirin) 81 Mg Tablet.dr 1 Tab PO DAILY Clonidine Hcl 0.1 Mg Tablet 1 Tab PO QHS Clopidogrel (Clopidogrel Bisulfate) 75 Mg Tablet 75 Mg PO DAILY Vitals/I & O Vital Sign - Last 24 Hours 03/20/20 03/20/20 03/20/20 03/20/20 15:00 19:00 19:30 20:25 Temp 98.2 98.3 98.2 98.3 Pulse 61 60 60 Resp 20 16 B/P (MAP) 146/49 (81) 166/61 (96) 166/61 Pulse Ox 94 93 O2 Delivery Room Air Room Air Room Air 03/20/20 03/21/20 03/21/20/25/20 22:56 02:55 07:00 08:00 Temp 98.1 98.1 98.0 98.1 98.1 98.0 Pulse 60 60 60 Resp 18 18 18 B/P (MAP) 123/48 (73) 173/57 (95) 157/45 (82) Pulse Ox 93 95 93 O2 Delivery Room Air Room Air Room Air Room Air Intake and Output 03/20/20 03/20/20 03/21/20 15:00 23:00 07:00 Intake Total 375 ml 60 ml 200 ml Output Total 500 ml 200 ml 100 ml Balance -125 ml -140 ml 100 ml SHILA NELSON MD March 21, 2020 12:24
[2020-03-21] MEDS: CLOPIDOGREL BISULFATE 75 MG TABLET PO SCH (12:47)
[2020-03-21] MEDS: BYSTOLIC 10 MG PO SCH (12:47)
--- NOTE | 2020-03-21 12:54 | DS ---
DATE OF DISCHARGE: 03/21/2020 CONSULTANTS: Dr. Mercado, Dr. Whitmore, and Dr. Laura Mares. PROCEDURE: Hemodialysis. FINAL DIAGNOSES: 1. Chest pain, most likely secondary to angina pectoris. 2. Coronary artery disease. 3. Hypertension. 4. Hyperlipidemia, statin intolerant. 5. Peripheral arterial disease. 6. End-stage renal disease, on hemodialysis Mondays, Wednesdays, and Fridays. 7. Bilateral below-knee amputations. 8. Moderate aortic stenosis. 9. Hypothyroidism. 10. Ischemic cardiomyopathy, LVEF of 45%. 11. Moderate aortic stenosis. 12. Leukopenia, resolved. HOSPITAL COURSE: The patient is an 89-year-old white female with history of coronary artery disease, moderate aortic stenosis, hypertension, end-stage renal disease, on hemodialysis on Mondays, Wednesdays, and Fridays with peripheral arterial disease, bilateral below-knee amputations with bilateral lower extremity prosthesis who has hypothyroidism and cholelithiasis, admitted to [facility] through Emergency Room on 03/19/2020 with chest pain. She had 3 episodes of chest pain, each lasting about 10 minutes, described as a sharp pain without any radiation, nausea, vomiting or diaphoresis. She did not take a sublingual nitroglycerin or sought help at [facility] Emergency Room. Troponin levels were just minimally elevated as before. She was seen by Dr. Whitmore in consultation. She was felt not to have an acute myocardial infarction. Possibly could have been angina and her blood pressure was treated with Bystolic and clonidine. She had some leukopenia that she has had since 11/2019. Seen by Dr. Mercado, a Hematology consultation who felt that hydralazine sometimes can do that, however, she was not on that every day, which was started p.r.n. while she was in the hospital and the white count has been low since 11/2019. She did not have any further chest pain. She had a Doppler of her right AV shunt and it was working fine without any blood clot. She is tolerating dialysis well today without any problems. She therefore will be dismissed to home on aspirin 81 mg every day, Plavix 75 mg every day, Bystolic 10 mg every day, calcium acetate 667 mg t.i.d. with meals, clonidine 0.1 mg at bedtime, levothyroxine 88 mcg every day and Chelsey-Sudhir 1 every day, nitroglycerin 0.4 mg sublingual p.r.n. chest pain. She will make an appointment to see Dr. Woods in the office next week. An appointment with Dr. Mercado in 2 weeks. LYNDA WOODS MD DR: JOSE/annemarie JOB#: [id number] / [id number]
--- NOTE | 2020-03-21 13:22 | NUR ---
Discharge: Once dialysis was complete, patient was ready for discharge. Teaching verbal and written. Reviewed medications, follow-up, renal diet, Chest pain, ect. patient verbalized understanding. Written prescription for Nitroglycerin given to patient by Dr. Woods. Returned 5 home medication bottles. All belongings with patient, including BLE prosthesis. Patient assisted off of unit via wheelchair accompanied by [employer]. Patient tested for Covid19. Results are pending. Dr. Woods notified results take 24-48 hours. Message sent to [email or web address] to watch for results and send to patients dialysis center. Patient goes to the center at [address] [employer] work phone number given to patient.
--- NOTE | 2020-03-22 12:06 | NUR ---
IP: Pt was COVID negative.
[2020-03-24 05:10] LABS: COPPER LEVEL 90 ug/dL (72-166)
== END 2020-03-21 13:25 | disposition home or self-care (01) | DRG 302 ==
LOC: ER 00:53 → 2 SOUTH 03:25
PROVIDERS: ADMIT Internal Medicine; ATTEND Internal Medicine
PROC: 5A1D70Z Performance of Urinary Filtration, Intermittent, Less than 6 Hours Per Day (ICD-10-PCS; principal; 2020-03-21)
DX: I25.119 Atherosclerotic heart disease of native coronary artery with unspecified angina pectoris (principal); N18.6 End stage renal disease; I12.0 Hypertensive chronic kidney disease with stage 5 chronic kidney disease or end stage renal disease; Z96.642 Presence of left artificial hip joint; I49.5 Sick sinus syndrome; G62.9 Polyneuropathy, unspecified; E03.9 Hypothyroidism, unspecified; E78.5 Hyperlipidemia, unspecified; I73.9 Peripheral vascular disease, unspecified; I35.0 Nonrheumatic aortic (valve) stenosis; I25.5 Ischemic cardiomyopathy; D70.9 Neutropenia, unspecified; J45.909 Unspecified asthma, uncomplicated; D64.9 Anemia, unspecified; Z99.2 Dependence on renal dialysis; Z95.5 Presence of coronary angioplasty implant and graft; Z90.49 Acquired absence of other specified parts of digestive tract; Z89.512 Acquired absence of left leg below knee; Z89.511 Acquired absence of right leg below knee; Z86.73 Personal history of transient ischemic attack (TIA), and cerebral infarction without residual deficits; Z83.3 Family history of diabetes mellitus; Z82.49 Family history of ischemic heart disease and other diseases of the circulatory system; Z79.899 Other long term (current) drug therapy; Z79.82 Long term (current) use of aspirin; Z79.02 Long term (current) use of antithrombotics/antiplatelets; Z88.8 Allergy status to other drugs, medicaments and biological substances; Z20.828 Contact with and (suspected) exposure to other viral communicable diseases
CPT/HCPCS: 36415; 71045; 80048; 80053; 82525; 82607; 83735; 83880; 83921; 84484; 85007; 85025; 85027; 85520; 93005; 93971; 96365; 96366; 96376; J0882; J1644; 99285-25; G0378; U0003-CS

== ENCOUNTER 2020-04-29 06:42 | Inpatient (IN) | payer MEDICARE ==
[~2020-04-29] VITALS: Ht 149.9 cm; Wt 62.1 kg
[2020-04-29 07:32] LABS: CALCIUM 9.7 mg/dL (8.5-10.1); CREATININE 4.7 mg/dL (0.6-1.0); GFR 8.8; POTASSIUM 4.8 mmol/L (3.5-5.1)
[2020-04-29 07:34] LABS: BASO # 0.1 x10^3/uL (0.0-0.2); BASO % 2 % (0-3); EOS # 0.1 x10^3/uL (0.0-0.7); EOS % 3 % (0-3); HEMATOCRIT 32.1 % (36.0-47.0); HEMOGLOBIN 10.9 g/dL (12.0-15.5); LYMPH # 0.4 x10^3/uL (1.0-4.8); LYMPH % 15 % (24-48); MEAN CORPUSCULAR HEMOGLOBIN 33 pg (25-35); MEAN CORPUSCULAR HGB CONC 34 g/dL (31-37); MEAN CORPUSCULAR VOLUME 96 fL (79-100); MONO % 37 % (0-9); NEUT # 1.1 x10^3/uL (1.8-7.7); NEUT % 42 % (31-73); PLATELET COUNT 236 x10^3/uL (140-400); RED BLOOD COUNT 3.34 x10^6/uL (3.50-5.40); WHITE BLOOD COUNT 2.6 x10^3/uL (4.0-11.0)
[2020-04-29 07:38] LABS: ALBUMIN 2.9 g/dL (3.4-5.0); ALBUMIN/GLOBULIN RATIO 0.9 (1.0-1.7); TOTAL BILIRUBIN 0.4 mg/dL (0.2-1.0); TOTAL PROTEIN 6.3 g/dL (6.4-8.2)
--- NOTE | 2020-04-29 07:46 | RAD ---
Examination: CHEST AP ONLY History: Reason: sob / Spl. Instructions: / History: Comparison: 04/17/2020 PA view of the chest. Findings: AP portable upright frontal view of the chest was obtained. No free left-sided pacemaker is present. The cardiomediastinal silhouette is normal. Borderline pulmonary vasculature noted. There is no pneumothorax. Small bilateral pleural effusions are present. Mild adjacent atelectasis present. Stent material is noted at the medial aspect of the proximal right upper extremity. No acute bone abnormality. IMPRESSION: Small pleural effusions are present with increase noted in the interval. Adjacent minimal atelectasis is also seen in the interval on the left. Electronically signed by: Jimmy Solis MD (04/29/2020 7:42 AM) [id number]
--- NOTE | 2020-04-29 07:48 | PHYS DOC ---
Past Medical History Past Medical History: CAD, Hypertension, VA, Renal Failure, Stroke, TIA, Other Additional Past Medical Histor: Polyarteritis; neuropathy; polyps Past Surgical History: Appendectomy, Colectomy, Pacemaker, Other Additional Past Surgical Histo: bilateral BKA; Sphincter removed, AV fistula Smoking Status: Never Smoker Alcohol Use: None Drug Use: None General Adult EDM: Chief Complaint: WEAKNESS/GENERALIZED HPI: HPI: Patient is a 89 year old female who presents with generalized weakness. Patient states she was due for dialysis this morning and while trying to get in the car with her son she became very short of breath. She states she has had generalized weakness for the last several days. SOB has improved some since she has arrived to the ED. She states she has had intermittent shortness of breath with exertion over the last few days. She denies cough, fever, sore throat, abdominal pain, nausea, vomiting, diarrhea. She believes her symptoms are due to dialysis not taking enough off. Review of Systems: Review of Systems: General: Denies fever, chills, sweats. Reports fatigue Eyes: Denies drainage, blurred vision HENT: Denies rhinorrhea, sore throat Respiratory: Denies cough, wheezing Reports SOB Cardiac: Denies edema, palpitations, chest pain GI: Denies abdominal pain, N/V MSK: Denies back pain, neck pain Skin: Denies rash, jaundice Neuro: Denies headache, dizziness Psychiatric: Denies SI/HI Heart Score: Risk Factors: Risk Factors: DM, Current or recent (<one month) smoker, HTN, HLP, family history of CAD, obesity. Risk Scores: Score 0 - 3: 2.5% MACE over next 6 weeks - Discharge Home Score 4 - 6: 20.3% MACE over next 6 weeks - Admit for Clinical Observation Score 7 - 10: 72.7% MACE over next 6 weeks - Early Invasive Strategies Allergies: Allergies: Allergies Coded Allergies Type Severity Reaction Last Updated Verified Quinolones Allergy Intermediate 11/07/17 Yes atorvastatin Allergy Intermediate 11/07/17 Yes chlorhexidine Allergy Intermediate 04/20/20 Yes ciprofloxacin Allergy Intermediate 11/07/17 Yes ciprofloxacin HCl Allergy Intermediate 11/07/17 Yes codeine Allergy Intermediate 11/07/17 Yes diazepam Allergy Intermediate 11/07/17 Yes doxazosin Allergy Intermediate 11/07/17 Yes eprosartan Allergy Intermediate 11/07/17 Yes fexofenadine Allergy Intermediate 11/07/17 Yes gabapentin Allergy Intermediate 11/07/17 Yes gatifloxacin Allergy Intermediate 11/07/17 Yes hydrochlorothiazide Allergy Intermediate 08/28/18 Yes isosorbide Allergy Intermediate 11/07/17 Yes labetalol Allergy Intermediate 11/07/17 Yes lisinopril Allergy Intermediate 11/07/17 Yes meloxicam Allergy Intermediate LEG EDEMA 08/25/18 Yes metoprolol Allergy Intermediate 11/07/17 Yes naproxen Allergy Intermediate DIALYSIS PT 12/13/19 Yes neomycin Allergy Intermediate 11/07/17 Yes oxycodone Allergy Intermediate 11/07/17 Yes pantoprazole Allergy Intermediate 11/07/17 Yes pravastatin Allergy Intermediate 11/07/17 Yes pregabalin Allergy Intermediate 11/07/17 Yes quinine Allergy Intermediate 11/07/17 Yes simvastatin Allergy Intermediate 11/07/17 Yes Tetracyclines Adverse Reaction Intermediate DROWSY 11/07/17 Yes calcitonin Adverse Reaction Intermediate 11/07/17 Yes nifedipine Adverse Reaction Intermediate FATIGUE 11/07/17 Yes olmesartan Adverse Reaction Intermediate 11/07/17 Yes tetracycline Adverse Reaction Intermediate DROWSY 11/07/17 Yes tramadol Adverse Reaction Intermediate FOGGY 11/07/17 Yes tramadol HCl Adverse Reaction Intermediate FOGGY 11/07/17 Yes valsartan Adverse Reaction Intermediate FATIGUE 11/07/17 Yes Physical Exam: PE: Constitutional: Well developed, well nourished, Cooperative, NAD, non-toxic appearing HEENT: Normocephalic, atraumatic, oropharynx moist, EOMI, PERRL, no drainage fro m eyes, normal conjunctiva Neck: Supple, normal range of motion, no stridor Cardiovascular: RRR, 2+ radial pulses bilaterally Respiratory: decreased breath sounds bilateral bases with diffuse minimal crackles, no respiratory distress, no wheezing Abdomen: Soft, nontender, mild distention, no masses Skin: Warm, dry, intact Extremities: bilateral BKA Neurologic: Alert and Oriented x3, motor and sensory function grossly normal, no focal deficits Psychologic: Normal affect, normal judgment, normal mood. No SI/HI Current Patient Data: Labs: Laboratory Tests Test 04/29/20 07:10 White Blood Count 2.6 x10^3/uL (4.0-11.0) L Red Blood Count 3.34 x10^6/uL (3.50-5.40) L Hemoglobin 10.9 g/dL (12.0-15.5) L Hematocrit 32.1 % (36.0-47.0) L Mean Corpuscular Volume 96 fL (79-100) Mean Corpuscular Hemoglobin 33 pg (25-35) Mean Corpuscular Hemoglobin Concent 34 g/dL (31-37) Red Cell Distribution Width 14.0 % (11.5-14.5) Platelet Count 236 x10^3/uL (140-400) Neutrophils (%) (Auto) 42 % (31-73) Lymphocytes (%) (Auto) 15 % (24-48) L Monocytes (%) (Auto) 37 % (0-9) H Eosinophils (%) (Auto) 3 % (0-3) Basophils (%) (Auto) 2 % (0-3) Neutrophils # (Auto) 1.1 x10^3/uL (1.8-7.7) L Lymphocytes # (Auto) 0.4 x10^3/uL (1.0-4.8) L Monocytes # (Auto) 1.0 x10^3/uL (0.0-1.1) Eosinophils # (Auto) 0.1 x10^3/uL (0.0-0.7) Basophils # (Auto) 0.1 x10^3/uL (0.0-0.2) Platelet Estimate Pending Laboratory Tests 04/29/20 07:10 Vital Signs: Vital Signs Date Time Temp Pulse Resp B/P (MAP) Pulse Ox O2 Delivery O2 Flow Rate FiO2 04/29/20 06:43 97.8 70 16 173/70 (104) 96 Room Air 97.8 EKG: EKG: [] Radiology/Procedures: Radiology/Procedures: [] Course & Med Decision Making: Course & Med Decision Making Pertinent Labs and Imaging studies reviewed. (See chart for details) Patient is an 89-year-old female with past medical history of end-stage renal disease who presents to the emergency room complaining of edema, fatigue, shortness of breath. She believes they are not taking off fluid at dialysis. Patient does appear to be fluid overloaded on exam. Chest x-ray, CBC, BMP, BNP, troponin, EKG were ordered. Patient has worsening pleural effusions. She does have a mildly elevated troponin, however she has had this many times in the past and is likely due to her end-stage renal disease. She does not have any chest pain at this time and EKG does not show any signs of STEMI. Nephrology will be consulted for dialysis with fluid overload. Patient will be admitted to Dr. Woods. Taylor Disclaimer: Taylor Disclaimer: This electronic medical record was generated, in whole or in part, using a voice recognition dictation system. Departure Departure Impression: Primary Impression: Fluid overload Additional Impressions: ESRD (end stage renal disease) Pleural effusion due to another disorder Disposition: ADMITTED INPATIENT Condition: STABLE Referrals: LYNDA WOODS MD (PCP) Justicifation of Admission Dx: Justifications for Admission: Justification of Admission Dx: Yes CONNIE GILL MD Apr 29, 2020 07:48
[2020-04-29 09:01] LABS: % BANDS 2 % (0-9); % BASOS 1 % (0-3); % EOS 9 % (0-5); % LYMPHS 24 % (24-48); % MONOS 23 % (0-10); % SEGS 41 % (35-66)
[2020-04-29 09:02] LABS: PLT ESTIMATE ADEQUATE (ADEQUATE)
[2020-04-29] MEDS ORDERED: NITROGLYCERIN SUBLINGUAL 0.4 MG BOTTLE OF 25. SL PRN (11:30)
[2020-04-29] MEDS ORDERED: MAG HYDROX/ALUMINUM HYD/SIMETH 30 ML ORAL.SUSP PO PRN (11:30)
--- NOTE | 2020-04-29 11:48 | PDOC ---
Provider Note Provider Note history and physical dictated # [id number] Justicifation of Admission Dx: Justifications for Admission: Justification of Admission Dx: Yes LYNDA FELIX MD Apr 29, 2020 11:48
[2020-04-29] MEDS ORDERED: ASPIRIN 325 MG TABLET PO SCH (12:00)
--- NOTE | 2020-04-29 12:20 | PDOC2 ---
CONSULT Date of Consult Date of Consult DATE: 04/29/20 TIME: 12:19 Reason for Consult Reason for Consult: ESRD Source Source: Chart review, Patient History of Present Illness Reason for Visit: Pt is a 89-year-old CF with history of coronary artery disease, peripheral arterial disease, moderate aortic stenosis, ESRD , bilateral BKA ischemic cardiomyopathy with LVEF 45%, admitted with generalized weakness and some shortness of breath. She has been feeling weak for several days. She said that during hemodialysis, they have not been taking fluid off because she has been having some muscle pain. She states she has been having some edema, especially in her left stump, making it difficult to put her prosthesis Pt seen on HD, sitting up, Not SOB. No complaints Chest x-ray showed increasing bilateral pleural effusions and some pulmonary venous congestion Past Medical History Cardiovascular: CAD, CHF, HTN, Hyperlipidemia, Other Pulmonary: Asthma CENTRAL NERVOUS SYSTEM: Periperal neuropathy GI: GERD Heme/Onc: Anemia NOS Psych: Anxiety, Depression Musculoskeletal: Osteoarthritis, Other Renal/: Chronic renal failure Endocrine: Hypothyroidism Past Surgical History Past Surgical History: Pacemaker, Appendectomy, Tonsillectomy, Hysterectomy, Colon Resection Family History Family History: Diabetes, Hypertension Social History ALCOHOL: none Drugs: None Lives: with Family Domestic Violence: Neg Current Problem List Problem List Problems Medical Problems: (1) ESRD (end stage renal disease) Status: Acute (2) Fluid overload Status: Acute (3) Pleural effusion due to another disorder Status: Acute Current Medications Current Medications Current Medications Aspirin (Rayne Aspirin) 81 mg DAILYWBKFT PO ; Start 04/29/20 at 12:00 Clopidogrel Bisulfate (Plavix) 75 mg DAILYWBKFT PO ; Start 04/29/20 at 15:00 Calcium Acetate (Phoslo) 667 mg TIDWMEALS PO ; Start 04/29/20 at 12:00 Vitamin B Complex/ Vitamin C (Chelsey-Sudhir) 1 tab DAILY PO ; Start 04/29/20 at 12:00 Nitroglycerin (Nitrostat) 0.4 mg PRN Q5MIN PRN SL CHEST PAIN; Start 04/29/20 at 11:30 Al Hydroxide/Mg Hydroxide (Mylanta Plus Xs) 30 ml PRN Q4HRS PRN PO HEARTBURN / GAS; Start 04/29/20 at 11:30 Clonidine HCl (Catapres) 0.1 mg QHS PO ; Start 04/29/20 at 21:00 Acetaminophen (Tylenol) 650 mg PRN Q6HRS PRN PO MILD PAIN / TEMP > 100.3'F; Start 04/29/20 at 11:30 Hydralazine HCl (Apresoline) 25 mg BID PO ; Start 04/29/20 at 12:00 Levothyroxine Sodium (Synthroid) 88 mcg DAILY06 PO ; Start 04/30/20 at 06:00 Active Scripts Active Hydralazine Hcl 25 Mg Tablet 25 Mg PO BID 30 Days Nitrostat (Nitroglycerin) 0.4 Mg Tab.subl 0.4 Mg SL PRN Q5MIN PRN Levothyroxine Sodium 88 Mcg Tablet 1 Tab PO DAILY Reported Calcium Acetate 667 Mg Tablet 1 Tab PO TID 30 Days Chelsey-Sudhir Tablet (Folic Acid/Vitamin B Comp W-C) 0.8 Mg Tablet 1 Tab PO DAILY 30 Days Acetaminophen 500 Mg Tablet 1 Tab PO PRN Q6HRS PRN 15 Days Bystolic (Nebivolol) 10 Mg Tablet 10 Mg PO DAILY pt can take 10-30mg daily for elevated bp Aspir 81 (Aspirin) 81 Mg Tablet.dr 1 Tab PO HS Clonidine Hcl 0.1 Mg Tablet 1 Tab PO QHS Clopidogrel (Clopidogrel Bisulfate) 75 Mg Tablet 75 Mg PO DAILY Allergies Allergies: Coded Allergies: Quinolones (Verified Allergy, Intermediate, 11/07/17) atorvastatin (Verified Allergy, Intermediate, 11/07/17) MYALGIA chlorhexidine (Verified Allergy, Intermediate, 04/20/20) ciprofloxacin (Verified Allergy, Intermediate, 11/07/17) ciprofloxacin HCl (Verified Allergy, Intermediate, 11/07/17) codeine (Verified Allergy, Intermediate, 11/07/17) diazepam (Verified Allergy, Intermediate, 11/07/17) doxazosin (Verified Allergy, Intermediate, 11/07/17) eprosartan (Verified Allergy, Intermediate, 11/07/17) fexofenadine (Verified Allergy, Intermediate, 11/07/17) gabapentin (Verified Allergy, Intermediate, 11/07/17) gatifloxacin (Verified Allergy, Intermediate, 11/07/17) hydrochlorothiazide (Verified Allergy, Intermediate, 08/28/18) isosorbide (Verified Allergy, Intermediate, 11/07/17) labetalol (Verified Allergy, Intermediate, 11/07/17) lisinopril (Verified Allergy, Intermediate, 11/07/17) metoprolol (Verified Allergy, Intermediate, 11/07/17) neomycin (Verified Allergy, Intermediate, 11/07/17) oxycodone (Verified Allergy, Intermediate, 11/07/17) pantoprazole (Verified Allergy, Intermediate, 11/07/17) pravastatin (Verified Allergy, Intermediate, 11/07/17) pregabalin (Verified Allergy, Intermediate, 11/07/17) quinine (Verified Allergy, Intermediate, 11/07/17) simvastatin (Verified Allergy, Intermediate, 11/07/17) MYALGIAS Tetracyclines (Verified Adverse Reaction, Intermediate, DROWSY, 11/07/17) calcitonin (Verified Adverse Reaction, Intermediate, 11/07/17) meloxicam (Verified Adverse Reaction, Intermediate, LEG EDEMA, 04/29/20) TAKES ASA AT HOME naproxen (Verified Adverse Reaction, Intermediate, DIALYSIS PT, 04/29/20) nifedipine (Verified Adverse Reaction, Intermediate, FATIGUE, 11/07/17) FATIGUE olmesartan (Verified Adverse Reaction, Intermediate, 11/07/17) tetracycline (Verified Adverse Reaction, Intermediate, DROWSY, 11/07/17) DROWSY tramadol (Verified Adverse Reaction, Intermediate, FOGGY, 11/07/17) FOGGY tramadol HCl (Verified Adverse Reaction, Intermediate, FOGGY, 11/07/17) valsartan (Verified Adverse Reaction, Intermediate, FATIGUE, 11/07/17) FATIGUE ROS Review of System per HPI Physical Exam Physical Exam GENERAL: no apparent distress. HEENT: Pupils equally round. Oropharynx pink and moist. NECK: Supple. LUNGS: Clear to auscultation. HEART: S1, S2. Left-sided pacemaker site unremarkable. Murmur present. ABDOMEN: Nondistended, soft, nontender with bowel sounds present. EXTREMITIES: No gross edema or cyanosis. Bilateral below-knee amputation. RUE-AV fistula SKIN: Warm to touch without signs of rash. NEUROLOGIC: Alert and oriented x 3 No Espino Vital Signs Vital Signs Date Time Temp Pulse Resp B/P (MAP) Pulse Ox O2 Delivery O2 Flow Rate FiO2 04/29/20 09:12 72 96 04/29/20 06:43 97.8 16 173/70 (104) Room Air 97.8 Assessment & Plan ESRD - On HD MWF under Dr. Henley's care Seen on HD , tolerating well, continue as ordered, Dw Dr4n HTN Moderate Shortness of breath - UF with HD schemic cardiomyopathy. Bilateral below-knee amputation. Bilateral pleural effusions. Labs Labs Laboratory Tests Test 04/29/20 07:10 White Blood Count 2.6 x10^3/uL (4.0-11.0) Red Blood Count 3.34 x10^6/uL (3.50-5.40) Hemoglobin 10.9 g/dL (12.0-15.5) Hematocrit 32.1 % (36.0-47.0) Mean Corpuscular Volume 96 fL (79-100) Mean Corpuscular Hemoglobin 33 pg (25-35) Mean Corpuscular Hemoglobin Concent 34 g/dL (31-37) Red Cell Distribution Width 14.0 % (11.5-14.5) Platelet Count 236 x10^3/uL (140-400) Neutrophils (%) (Auto) 42 % (31-73) Lymphocytes (%) (Auto) 15 % (24-48) Monocytes (%) (Auto) 37 % (0-9) Eosinophils (%) (Auto) 3 % (0-3) Basophils (%) (Auto) 2 % (0-3) Neutrophils # (Auto) 1.1 x10^3/uL (1.8-7.7) Lymphocytes # (Auto) 0.4 x10^3/uL (1.0-4.8) Monocytes # (Auto) 1.0 x10^3/uL (0.0-1.1) Eosinophils # (Auto) 0.1 x10^3/uL (0.0-0.7) Basophils # (Auto) 0.1 x10^3/uL (0.0-0.2) Segmented Neutrophils % 41 % (35-66) Band Neutrophils % 2 % (0-9) Lymphocytes % 24 % (24-48) Monocytes % 23 % (0-10) Eosinophils % 9 % (0-5) Basophils % 1 % (0-3) Platelet Estimate Adequate (ADEQUATE) Sodium Level 133 mmol/L (136-145) Potassium Level 4.8 mmol/L (3.5-5.1) Chloride Level 97 mmol/L (98-107) Carbon Dioxide Level 23 mmol/L (21-32) Anion Gap 13 (6-14) Blood Urea Nitrogen 85 mg/dL (7-20) Creatinine 4.7 mg/dL (0.6-1.0) Estimated GFR (Cockcroft-Gault) 8.8 BUN/Creatinine Ratio 18 (6-20) Glucose Level 125 mg/dL (70-99) Calcium Level 9.7 mg/dL (8.5-10.1) Total Bilirubin 0.4 mg/dL (0.2-1.0) Aspartate Amino Transf (AST/SGOT) 36 U/L (15-37) Alanine Aminotransferase (ALT/SGPT) 57 U/L (14-59) Alkaline Phosphatase 236 U/L (46-116) Troponin I Quantitative 0.142 ng/mL (0.000-0.055) Total Protein 6.3 g/dL (6.4-8.2) Albumin 2.9 g/dL (3.4-5.0) Albumin/Globulin Ratio 0.9 (1.0-1.7) Laboratory Tests Test 04/29/20 07:10 White Blood Count 2.6 x10^3/uL (4.0-11.0) Red Blood Count 3.34 x10^6/uL (3.50-5.40) Hemoglobin 10.9 g/dL (12.0-15.5) Hematocrit 32.1 % (36.0-47.0) Mean Corpuscular Volume 96 fL (79-100) Mean Corpuscular Hemoglobin 33 pg (25-35) Mean Corpuscular Hemoglobin Concent 34 g/dL (31-37) Red Cell Distribution Width 14.0 % (11.5-14.5) Platelet Count 236 x10^3/uL (140-400) Neutrophils (%) (Auto) 42 % (31-73) Lymphocytes (%) (Auto) 15 % (24-48) Monocytes (%) (Auto) 37 % (0-9) Eosinophils (%) (Auto) 3 % (0-3) Basophils (%) (Auto) 2 % (0-3) Neutrophils # (Auto) 1.1 x10^3/uL (1.8-7.7) Lymphocytes # (Auto) 0.4 x10^3/uL (1.0-4.8) Monocytes # (Auto) 1.0 x10^3/uL (0.0-1.1) Eosinophils # (Auto) 0.1 x10^3/uL (0.0-0.7) Basophils # (Auto) 0.1 x10^3/uL (0.0-0.2) Segmented Neutrophils % 41 % (35-66) Band Neutrophils % 2 % (0-9) Lymphocytes % 24 % (24-48) Monocytes % 23 % (0-10) Eosinophils % 9 % (0-5) Basophils % 1 % (0-3) Platelet Estimate Adequate (ADEQUATE) Sodium Level 133 mmol/L (136-145) Potassium Level 4.8 mmol/L (3.5-5.1) Chloride Level 97 mmol/L (98-107) Carbon Dioxide Level 23 mmol/L (21-32) Anion Gap 13 (6-14) Blood Urea Nitrogen 85 mg/dL (7-20) Creatinine 4.7 mg/dL (0.6-1.0) Estimated GFR (Cockcroft-Gault) 8.8 BUN/Creatinine Ratio 18 (6-20) Glucose Level 125 mg/dL (70-99) Calcium Level 9.7 mg/dL (8.5-10.1) Total Bilirubin 0.4 mg/dL (0.2-1.0) Aspartate Amino Transf (AST/SGOT) 36 U/L (15-37) Alanine Aminotransferase (ALT/SGPT) 57 U/L (14-59) Alkaline Phosphatase 236 U/L (46-116) Troponin I Quantitative 0.142 ng/mL (0.000-0.055) Total Protein 6.3 g/dL (6.4-8.2) Albumin 2.9 g/dL (3.4-5.0) Albumin/Globulin Ratio 0.9 (1.0-1.7) Review All relevant outside records, renal labs, imaging studies, telemetry/EKG's were reviewed. Images Images Small pleural effusions are present with increase noted in the interval. Adjacent minimal atelectasis is also seen in the interval on the left. IZABELLA MCNULTY MD Apr 29, 2020 12:20
--- NOTE | 2020-04-29 12:22 | HP ---
ADMIT DATE: 04/29/2020 LOCATION: She is in room 667. HISTORY OF PRESENT ILLNESS: The patient is an 89-year-old white female with history of coronary artery disease, peripheral arterial disease, moderate aortic stenosis, end-stage renal disease, on hemodialysis Mondays, Wednesdays, and Fridays, who has hypertension, hyperlipidemia, statin intolerance and bilateral below-knee amputations and who has hypothyroidism, ischemic cardiomyopathy with left ventricular ejection fraction 45%, was admitted to [facility] through the Emergency Room on 04/29/2020 with generalized weakness and some shortness of breath. She was trying to get from the wheelchair into the chair, but could not stand up and transferred herself. She became fairly short of breath in the process of trying to stand up. She has been feeling weak for several days. She said that during hemodialysis, they have not been taking fluid off because she has been having some myalgias. So, she was admitted to the hospital. Chest x-ray showed increasing bilateral pleural effusions and some pulmonary venous congestion that was borderline. She actually was admitted to the hospital and is currently receiving hemodialysis with a goal of trying to remove 2 liters of fluid today. She also notes that she has been having some edema, especially in her left stump, making it quite difficult to put her leg all the way down into her prosthesis and so she has not been able to use her prosthesis to transfer, for example, from wheelchair to the car or wheelchair to commode. She is therefore admitted for further evaluation of her fluid overload and for hemodialysis and also physical therapy. ALLERGIES AND INTOLERANCES: NUMEROUS AND INCLUDE QUINOLONES, TETRACYCLINE, ATORVASTATIN, CALCITONIN, CIPROFLOXACIN, CODEINE, DIAZEPAM, DOXAZOSIN, CHASTITY, GABAPENTIN, GATIFLOXACIN, HYDROCHLOROTHIAZIDE, ISOSORBIDE BUT SHE CAN TAKE SUBLINGUAL NITROGLYCERIN, ALSO INTOLERANCE TO LABETALOL, LISINOPRIL, AND MELOXICAM. MEDICATIONS: Include aspirin 81 mg every day, Plavix 75 mg every day, Bystolic 10 mg every day, calcium acetate 667 mg t.i.d. with meals, Chelsey-Sudhir 1 every day, nitroglycerin 0.4 mg sublingual p.r.n., Mylanta 30 mL every 4 hours p.r.n. and also takes clonidine 0.1 mg at bedtime. PAST MEDICAL HISTORY: Significant for hospitalization in late 03/2020 with atypical chest pain, thought to be due to esophageal spasm. She had an echocardiogram recently with a left ventricular ejection fraction of 45%. She has moderate aortic stenosis. End-stage renal disease, on hemodialysis Mondays, Wednesdays, and Fridays. She has ischemic cardiomyopathy, bilateral below-knee amputations, peripheral arterial disease, coronary artery disease, hypertension, hyperlipidemia, hypothyroidism. I believe she also takes levothyroxine. As mentioned, bilateral below-knee amputation, she has bilateral leg prosthesis. She has had PTCA and stent to the right coronary artery in 2017, left carotid endarterectomy in 2016, right carotid endarterectomy in 2012, had an appendectomy, cholelithiasis, diverticulosis and bilateral below-knee amputations. SOCIAL HISTORY: She does not drink alcohol nor does she smoke cigarettes. Lives with her son FAMILY HISTORY: Not contributory. REVIEW OF SYSTEMS: GENERAL: There is no fever, chills or sweats. CARDIOVASCULAR: No chest pain. PULMONARY: Shortness of breath with standing. GASTROINTESTINAL: No constipation. ENDOCRINE: No diabetes mellitus. SKIN: No rashes. Rest of systems reviewed are negative except as stated in history of present illness. PHYSICAL EXAMINATION: VITAL SIGNS: Temperature 97.8 degrees, apical pulse 72, respiratory rate 16, blood pressure is 173/70, oxygen saturation 96% on room air. HEENT: Eyes: Gaze is conjugate. Extraocular muscles are intact. Mouth is symmetrical. NECK: No cervical lymphadenopathy. HEART: Reveals an S1, S2. There is no S3 or murmur. LUNGS: Reveal decreased breath sounds in the bases. ABDOMEN: Soft, nontender. EXTREMITIES: Lower extremities got bilateral below-knee amputations. Her stump sites look okay without any wounds bilaterally. NEUROLOGIC: Coherent, has no focal weakness of the arms or legs. Upper extremities, she has an AV shunt. LABORATORY DATA: Review of laboratory tests, white count is 2.6 which is not new, hemoglobin 10.9, platelet count is 236,000, 43 polys, 15 lymphocytes, 37 monocytes. Sodium 133, potassium 4.8, chloride 97, total CO2 is 23. Blood sugar is 125, albumin 2.9. Troponin level 0.142. She has end-stage renal disease. The chest x-ray showed small pleural effusions with an increase in amount of pleural effusions since the last chest x-ray with minimal atelectasis in the left lung. Electrocardiogram was done, but I do not see a scan in the chart yet. ASSESSMENT: 1. Fluid overload, most likely secondary to not removing fluid during hemodialysis. 2. End-stage renal disease, on hemodialysis. 3. Disuse myopathy with generalized weakness. 4. Coronary artery disease. 5. Hypertension. 6. Moderate aortic stenosis. 7. Ischemic cardiomyopathy. 8. Bilateral below-knee amputation. 9. Peripheral arterial disease. 10. Bilateral pleural effusions. PLAN: At this time is to consult Dr. Henley for Nephrology and also consult Dr. Kumar for Cardiology. She will be dialyzed today and they are going to try to remove 2 liters of fluid. Consult physical and occupational therapy for disuse myopathy and try to strengthen her. She is going to contact [facility] and make an appointment to see if they can make any adjustments for her bilateral lower extremity prosthesis. We will continue with her home medications, which she did not take today, so we gave her amlodipine and diastolic after dialysis today and continue with aspirin and Plavix. I believe she is also on levothyroxine. We will put her on a renal diet. LYNDA FELIX MD DR: JOSE/annemarie JOB#: [id number] / [id number]
[2020-04-29 14:08] VITALS: BP 149/39
[2020-04-29] MEDS: hydrALAZINE 25 MG TABLET PO SCH ×2 (14:19→20:43)
[2020-04-29] MEDS: CALCIUM ACETATE 667 MG CAPSULE PO SCH ×2 (14:19→17:13)
[2020-04-29] MEDS: FOLIC/VIT B COMP W-C (RENAL) TABLET. PO SCH (16:43)
[2020-04-29] MEDS: CLOPIDOGREL BISULFATE 75 MG TABLET PO SCH (17:13)
[2020-04-29 17:14] VITALS: BP 148/37
[2020-04-29 19:25] VITALS: BP 148/33
[2020-04-29] MEDS: ASPIRIN CHEWABLE 81 MG TABLET. PO SCH (22:02)
[2020-04-29] MEDS: cloNIDine HCL 0.1 MG TABLET PO SCH (22:03)
[2020-04-29 22:35] VITALS: BP 157/41
[2020-04-30 02:36] VITALS: BP 148/48
[2020-04-30] MEDS: LEVOTHYROXINE 88 MCG TABLET PO SCH (06:29)
[2020-04-30 07:00] VITALS: BP 133/32
[2020-04-30] MEDS: CALCIUM ACETATE 667 MG CAPSULE PO SCH ×3 (08:00→17:21)
[2020-04-30] MEDS: FOLIC/VIT B COMP W-C (RENAL) TABLET. PO SCH (09:02)
[2020-04-30] MEDS: hydrALAZINE 25 MG TABLET PO SCH ×2 (09:02→21:00)
[2020-04-30] MEDS: CLOPIDOGREL BISULFATE 75 MG TABLET PO SCH (09:02)
--- NOTE | 2020-04-30 09:41 | PDOC2 ---
CONSULT Date of Consult Date of Consult DATE: 04/30/20 TIME: 09:41 Reason for Consult Reason for Consult: Congestive heart failure Referring Physician Referring Physician: Dr. Woods Identification/Chief Complaint Chief Complaint Generalized weakness and shortness of breath Source Source: Chart review, Patient History of Present Illness Reason for Visit: 89-year-old female with history of coronary artery disease, PAD, end-stage renal disease on hemodialysis presented with generalized weakness, edema at the amputation stump site and dyspnea on exertion. Chest x-ray was consistent with congestive heart failure and she was admitted for further management. Patient stated that they were not taking fluid off recently during hemodialysis secondary to myalgias. She received hemodialysis on admission with removal of 2 L of fluid. Patient presently feels better. She denied any chest pain, palpitations or syncope. Past Medical History Cardiovascular: CAD, CHF, HTN, Hyperlipidemia, Other Pulmonary: Asthma CENTRAL NERVOUS SYSTEM: Periperal neuropathy GI: GERD Heme/Onc: Anemia NOS Psych: Anxiety, Depression Musculoskeletal: Osteoarthritis, Other Renal/: Chronic renal failure Endocrine: Hypothyroidism Past Surgical History Past Surgical History: Pacemaker, Appendectomy, Tonsillectomy, Hysterectomy, Colon Resection Family History Family History: Diabetes, Hypertension Social History ALCOHOL: none Drugs: None Lives: with Family Domestic Violence: Neg Current Problem List Problem List Problems Medical Problems: (1) ESRD (end stage renal disease) Status: Acute (2) Fluid overload Status: Acute (3) Pleural effusion due to another disorder Status: Acute Current Medications Current Medications Current Medications Aspirin (Rayne Aspirin) 81 mg DAILYWBKFT PO ; Start 04/29/20 at 12:00; Status Cancel Clopidogrel Bisulfate (Plavix) 75 mg DAILYWBKFT PO Last administered on 04/30/20at 09:02; Start 04/29/20 at 15:00 Calcium Acetate (Phoslo) 667 mg TIDWMEALS PO Last administered on 04/29/20at 17:13; Start 04/29/20 at 12:00 Vitamin B Complex/ Vitamin C (Chelsey-Sudhir) 1 tab DAILY PO Last administered on 04/30/20at 09:02; Start 04/29/20 at 12:00 Nitroglycerin (Nitrostat) 0.4 mg PRN Q5MIN PRN SL CHEST PAIN; Start 04/29/20 at 11:30 Al Hydroxide/Mg Hydroxide (Mylanta Plus Xs) 30 ml PRN Q4HRS PRN PO HEARTBURN / GAS; Start 04/29/20 at 11:30 Clonidine HCl (Catapres) 0.1 mg QHS PO Last administered on 04/29/20at 22:03; Start 04/29/20 at 21:00 Acetaminophen (Tylenol) 650 mg PRN Q6HRS PRN PO MILD PAIN / TEMP > 100.3'F; Start 04/29/20 at 11:30 Hydralazine HCl (Apresoline) 25 mg BID PO Last administered on 04/30/20at 09:02; Start 04/29/20 at 12:00 Levothyroxine Sodium (Synthroid) 88 mcg DAILY06 PO Last administered on 04/30/20at 06:29; Start 04/30/20 at 06:00 Aspirin (Aspirin Chewable) 81 mg HS PO Last administered on 04/29/20at 22:02; Start 04/29/20 at 21:00 Non-Formulary Medication 1 ea DAILY PO Last administered on 04/30/20at 09:03; Start 04/29/20 at 17:10 Active Scripts Active Hydralazine Hcl 25 Mg Tablet 25 Mg PO BID 30 Days Nitrostat (Nitroglycerin) 0.4 Mg Tab.subl 0.4 Mg SL PRN Q5MIN PRN Levothyroxine Sodium 88 Mcg Tablet 1 Tab PO DAILY Reported Calcium Acetate 667 Mg Tablet 1 Tab PO TID 30 Days Chelsey-Sudhir Tablet (Folic Acid/Vitamin B Comp W-C) 0.8 Mg Tablet 1 Tab PO DAILY 30 Days Acetaminophen 500 Mg Tablet 1 Tab PO PRN Q6HRS PRN 15 Days Bystolic (Nebivolol) 10 Mg Tablet 10 Mg PO DAILY pt can take 10-30mg daily for elevated bp Aspir 81 (Aspirin) 81 Mg Tablet.dr 1 Tab PO HS Clonidine Hcl 0.1 Mg Tablet 1 Tab PO QHS Clopidogrel (Clopidogrel Bisulfate) 75 Mg Tablet 75 Mg PO DAILY Allergies Allergies: Coded Allergies: Quinolones (Verified Allergy, Intermediate, 11/07/17) atorvastatin (Verified Allergy, Intermediate, 11/07/17) MYALGIA chlorhexidine (Verified Allergy, Intermediate, 04/20/20) ciprofloxacin (Verified Allergy, Intermediate, 11/07/17) ciprofloxacin HCl (Verified Allergy, Intermediate, 11/07/17) codeine (Verified Allergy, Intermediate, 11/07/17) diazepam (Verified Allergy, Intermediate, 11/07/17) doxazosin (Verified Allergy, Intermediate, 11/07/17) eprosartan (Verified Allergy, Intermediate, 11/07/17) fexofenadine (Verified Allergy, Intermediate, 11/07/17) gabapentin (Verified Allergy, Intermediate, 11/07/17) gatifloxacin (Verified Allergy, Intermediate, 11/07/17) hydrochlorothiazide (Verified Allergy, Intermediate, 08/28/18) isosorbide (Verified Allergy, Intermediate, 11/07/17) labetalol (Verified Allergy, Intermediate, 11/07/17) lisinopril (Verified Allergy, Intermediate, 11/07/17) metoprolol (Verified Allergy, Intermediate, 11/07/17) neomycin (Verified Allergy, Intermediate, 11/07/17) oxycodone (Verified Allergy, Intermediate, 11/07/17) pantoprazole (Verified Allergy, Intermediate, 11/07/17) pravastatin (Verified Allergy, Intermediate, 11/07/17) pregabalin (Verified Allergy, Intermediate, 11/07/17) quinine (Verified Allergy, Intermediate, 11/07/17) simvastatin (Verified Allergy, Intermediate, 11/07/17) MYALGIAS Tetracyclines (Verified Adverse Reaction, Intermediate, DROWSY, 11/07/17) calcitonin (Verified Adverse Reaction, Intermediate, 11/07/17) meloxicam (Verified Adverse Reaction, Intermediate, LEG EDEMA, 04/29/20) TAKES ASA AT HOME naproxen (Verified Adverse Reaction, Intermediate, DIALYSIS PT, 04/29/20) nifedipine (Verified Adverse Reaction, Intermediate, FATIGUE, 11/07/17) FATIGUE olmesartan (Verified Adverse Reaction, Intermediate, 11/07/17) tetracycline (Verified Adverse Reaction, Intermediate, DROWSY, 11/07/17) DROWSY tramadol (Verified Adverse Reaction, Intermediate, FOGGY, 11/07/17) FOGGY tramadol HCl (Verified Adverse Reaction, Intermediate, FOGGY, 11/07/17) valsartan (Verified Adverse Reaction, Intermediate, FATIGUE, 11/07/17) FATIGUE ROS General: YES: Fatigue PSYCHOLOGICAL ROS: No: Hallucinations Eyes: No Loss of vision HEENT: No: Epistaxis Respiratory: YES: Shortness of breath; No: Hemoptysis Cardiovascular: No Chest Pain Gastrointestinal: No Vomiting, No Diarrhea Genitourinary: No Hematuria Neurological: No Seizures Skin: No Rash Physical Exam General: Alert, Oriented X3 HEENT: Atraumatic Lungs: Clear to auscultation Heart: Regular rate, Other (ESM aortic) Abdomen: Soft Extremities: Other (s/p bilateral BKA) Vitals VITALS Vital Signs Date Time Temp Pulse Resp B/P (MAP) Pulse Ox O2 Delivery O2 Flow Rate FiO2 04/30/20 09:02 59 133/32 04/30/20 07:00 98.0 16 91 Room Air 98.0 Labs Labs Laboratory Tests Test 04/29/20 07:10 White Blood Count 2.6 x10^3/uL (4.0-11.0) Red Blood Count 3.34 x10^6/uL (3.50-5.40) Hemoglobin 10.9 g/dL (12.0-15.5) Hematocrit 32.1 % (36.0-47.0) Mean Corpuscular Volume 96 fL (79-100) Mean Corpuscular Hemoglobin 33 pg (25-35) Mean Corpuscular Hemoglobin Concent 34 g/dL (31-37) Red Cell Distribution Width 14.0 % (11.5-14.5) Platelet Count 236 x10^3/uL (140-400) Neutrophils (%) (Auto) 42 % (31-73) Lymphocytes (%) (Auto) 15 % (24-48) Monocytes (%) (Auto) 37 % (0-9) Eosinophils (%) (Auto) 3 % (0-3) Basophils (%) (Auto) 2 % (0-3) Neutrophils # (Auto) 1.1 x10^3/uL (1.8-7.7) Lymphocytes # (Auto) 0.4 x10^3/uL (1.0-4.8) Monocytes # (Auto) 1.0 x10^3/uL (0.0-1.1) Eosinophils # (Auto) 0.1 x10^3/uL (0.0-0.7) Basophils # (Auto) 0.1 x10^3/uL (0.0-0.2) Segmented Neutrophils % 41 % (35-66) Band Neutrophils % 2 % (0-9) Lymphocytes % 24 % (24-48) Monocytes % 23 % (0-10) Eosinophils % 9 % (0-5) Basophils % 1 % (0-3) Platelet Estimate Adequate (ADEQUATE) Sodium Level 133 mmol/L (136-145) Potassium Level 4.8 mmol/L (3.5-5.1) Chloride Level 97 mmol/L (98-107) Carbon Dioxide Level 23 mmol/L (21-32) Anion Gap 13 (6-14) Blood Urea Nitrogen 85 mg/dL (7-20) Creatinine 4.7 mg/dL (0.6-1.0) Estimated GFR (Cockcroft-Gault) 8.8 BUN/Creatinine Ratio 18 (6-20) Glucose Level 125 mg/dL (70-99) Calcium Level 9.7 mg/dL (8.5-10.1) Total Bilirubin 0.4 mg/dL (0.2-1.0) Aspartate Amino Transf (AST/SGOT) 36 U/L (15-37) Alanine Aminotransferase (ALT/SGPT) 57 U/L (14-59) Alkaline Phosphatase 236 U/L (46-116) Troponin I Quantitative 0.142 ng/mL (0.000-0.055) Total Protein 6.3 g/dL (6.4-8.2) Albumin 2.9 g/dL (3.4-5.0) Albumin/Globulin Ratio 0.9 (1.0-1.7) Assessment/Plan Assessment/Plan 1. 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 2D echo 12/17 showed LVEF 45%, moderate aortic stenosis. 2. Coronary artery disease s/p PCI/stent to RCA and LCx in the past and more recent PCI/stents to LAD/LCx/RCA, chest pain-free. Slight troponin elevation probably secondary to demand ischemia and renal insufficiency. She has a history of chronic troponin elevation. Continue current secondary prevention measures. We will consider ischemic evaluation as an outpatient. 3. PAD s/p bilateral BKA, stable. 4. SSS s/p PPM implantation. Recent interrogation showed normal function. 5. Hypertension: Controlled 6. Hyperlipidemia: Statin intolerant. Consider PCSK9 as outpatient. 7. ESRD: Hemodialysis per nephrology team. Thank you for your consultation. KARL ROGEL MD Apr 30, 2020 09:41
--- NOTE | 2020-04-30 10:52 | PDOC ---
PROGRESS NOTES Subjective Subjective feels better. had fluid removed during dialysis yesterday . seen by PT. she is able to place her left BKA stump into her prosthesis. she concurs with transfer to [facility] once she is screened. Objective Objective Vital Signs Date Time Temp Pulse Resp B/P (MAP) Pulse Ox O2 Delivery O2 Flow Rate FiO2 04/30/20 09:02 59 133/32 04/30/20 08:00 Room Air 04/30/20 07:00 98.0 16 91 98.0 Intake and Output 04/30/20 07:00 Intake Total 790 ml Balance 790 ml Intake Oral 790 ml # Voids 3 # Bowel Movements 1 Physical Exam Abdomen: Soft Heart: Regular rate, Normal S1, Normal S2 Extremities: No edema, Other (bilateral BKA) General: Alert HEENT: Atraumatic Lungs: Clear to auscultation Neuro: Normal speech Psych/Mental Status: Mental status NL Skin: No rashes Assessment Assessment Problems1. Fluid overload, most likely secondary to not removing fluid during hemodialysis. improved with hemodialysis 2. End-stage renal disease, on hemodialysis. 3. Disuse myopathy with generalized weakness. 4. Coronary artery disease. 5. Hypertension. 6. Moderate aortic stenosis. 7. Ischemic cardiomyopathy. 8. Bilateral below-knee amputation. 9. Peripheral arterial disease. 10. Bilateral pleural effusions. Medical Problems: (1) ESRD (end stage renal disease) Status: Acute (2) Fluid overload Status: Acute (3) Pleural effusion due to another disorder Status: Acute Plan Plan of Care PT and OT screen for [facility] hemodialysis m-w-f continue clonidine and bystolic and hydralazine Comment Review of Relevant I have reviewed the following items wilbur (where applicable) has been applied. Labs Laboratory Tests Test 04/29/20 07:10 White Blood Count 2.6 x10^3/uL (4.0-11.0) Red Blood Count 3.34 x10^6/uL (3.50-5.40) Hemoglobin 10.9 g/dL (12.0-15.5) Hematocrit 32.1 % (36.0-47.0) Mean Corpuscular Volume 96 fL (79-100) Mean Corpuscular Hemoglobin 33 pg (25-35) Mean Corpuscular Hemoglobin Concent 34 g/dL (31-37) Red Cell Distribution Width 14.0 % (11.5-14.5) Platelet Count 236 x10^3/uL (140-400) Neutrophils (%) (Auto) 42 % (31-73) Lymphocytes (%) (Auto) 15 % (24-48) Monocytes (%) (Auto) 37 % (0-9) Eosinophils (%) (Auto) 3 % (0-3) Basophils (%) (Auto) 2 % (0-3) Neutrophils # (Auto) 1.1 x10^3/uL (1.8-7.7) Lymphocytes # (Auto) 0.4 x10^3/uL (1.0-4.8) Monocytes # (Auto) 1.0 x10^3/uL (0.0-1.1) Eosinophils # (Auto) 0.1 x10^3/uL (0.0-0.7) Basophils # (Auto) 0.1 x10^3/uL (0.0-0.2) Segmented Neutrophils % 41 % (35-66) Band Neutrophils % 2 % (0-9) Lymphocytes % 24 % (24-48) Monocytes % 23 % (0-10) Eosinophils % 9 % (0-5) Basophils % 1 % (0-3) Platelet Estimate Adequate (ADEQUATE) Sodium Level 133 mmol/L (136-145) Potassium Level 4.8 mmol/L (3.5-5.1) Chloride Level 97 mmol/L (98-107) Carbon Dioxide Level 23 mmol/L (21-32) Anion Gap 13 (6-14) Blood Urea Nitrogen 85 mg/dL (7-20) Creatinine 4.7 mg/dL (0.6-1.0) Estimated GFR (Cockcroft-Gault) 8.8 BUN/Creatinine Ratio 18 (6-20) Glucose Level 125 mg/dL (70-99) Calcium Level 9.7 mg/dL (8.5-10.1) Total Bilirubin 0.4 mg/dL (0.2-1.0) Aspartate Amino Transf (AST/SGOT) 36 U/L (15-37) Alanine Aminotransferase (ALT/SGPT) 57 U/L (14-59) Alkaline Phosphatase 236 U/L (46-116) Troponin I Quantitative 0.142 ng/mL (0.000-0.055) Total Protein 6.3 g/dL (6.4-8.2) Albumin 2.9 g/dL (3.4-5.0) Albumin/Globulin Ratio 0.9 (1.0-1.7) Medications Current Medications Aspirin (Rayne Aspirin) 81 mg DAILYWBKFT PO ; Start 04/29/20 at 12:00; Status Cancel Clopidogrel Bisulfate (Plavix) 75 mg DAILYWBKFT PO Last administered on 04/30/20 09:02; Start 04/29/20 at 15:00 Calcium Acetate (Phoslo) 667 mg TIDWMEALS PO Last administered on 04/29/20 17:13; Start 04/29/20 at 12:00 Vitamin B Complex/ Vitamin C (Chelsey-Sudhir) 1 tab DAILY PO Last administered on 04/30/20 09:02; Start 04/29/20 at 12:00 Nitroglycerin (Nitrostat) 0.4 mg PRN Q5MIN PRN SL CHEST PAIN; Start 04/29/20 at 11:30 Al Hydroxide/Mg Hydroxide (Mylanta Plus Xs) 30 ml PRN Q4HRS PRN PO HEARTBURN / GAS; Start 04/29/20 at 11:30 Clonidine HCl (Catapres) 0.1 mg QHS PO Last administered on 04/29/20 22:03; Start 04/29/20 at 21:00 Acetaminophen (Tylenol) 650 mg PRN Q6HRS PRN PO MILD PAIN / TEMP > 100.3'F; Start 04/29/20 at 11:30 Hydralazine HCl (Apresoline) 25 mg BID PO Last administered on 04/30/20 09:02; Start 04/29/20 at 12:00 Levothyroxine Sodium (Synthroid) 88 mcg DAILY06 PO Last administered on 04/30/20 06:29; Start 04/30/20 at 06:00 Aspirin (Aspirin Chewable) 81 mg HS PO Last administered on 04/29/20 22:02; Start 04/29/20 at 21:00 Non-Formulary Medication 1 ea DAILY PO Last administered on 04/30/20 09:03; Start 04/29/20 at 17:10 Active Scripts Active Hydralazine Hcl 25 Mg Tablet 25 Mg PO BID 30 Days Nitrostat (Nitroglycerin) 0.4 Mg Tab.subl 0.4 Mg SL PRN Q5MIN PRN Levothyroxine Sodium 88 Mcg Tablet 1 Tab PO DAILY Reported Calcium Acetate 667 Mg Tablet 1 Tab PO TID 30 Days Chelsey-Sudhir Tablet (Folic Acid/Vitamin B Comp W-C) 0.8 Mg Tablet 1 Tab PO DAILY 30 Days Acetaminophen 500 Mg Tablet 1 Tab PO PRN Q6HRS PRN 15 Days Bystolic (Nebivolol) 10 Mg Tablet 10 Mg PO DAILY pt can take 10-30mg daily for elevated bp Aspir 81 (Aspirin) 81 Mg Tablet.dr 1 Tab PO HS Clonidine Hcl 0.1 Mg Tablet 1 Tab PO QHS Clopidogrel (Clopidogrel Bisulfate) 75 Mg Tablet 75 Mg PO DAILY Vitals/I & O Vital Sign - Last 24 Hours 04/29/20 04/29/20 04/29/20 04/29/20 14:08 14:19 14:30 17:14 Temp 98.2 98.2 Pulse 60 60 60 Resp 16 B/P (MAP) 149/39 (75) 149/39 148/37 (74) Pulse Ox 95 O2 Delivery Room Air Room Air 04/29/20 04/29/20 04/29/20 04/29/20 19:25 20:00 20:43 22:03 Temp 98.8 98.8 Pulse 60 60 60 Resp 16 B/P (MAP) 148/33 (71) 148/33 148/33 Pulse Ox 93 O2 Delivery Room Air Room Air 04/29/20 04/30/20 04/30/20 04/30/20 22:35 02:36 07:00 08:00 Temp 98.3 97.8 98.0 98.3 97.8 98.0 Pulse 69 56 59 Resp 16 16 16 B/P (MAP) 157/41 (79) 148/48 (81) 133/32 (65) Pulse Ox 93 92 91 O2 Delivery Room Air Room Air Room Air Room Air 04/30/20 09:02 Pulse 59 B/P (MAP) 133/32 Intake and Output 04/29/20 04/29/20 04/30/20 15:00 23:00 07:00 Intake Total 0 ml 250 ml 540 ml Balance 0 ml 250 ml 540 ml Justicifation of Admission Dx: Justifications for Admission: Justification of Admission Dx: Yes LYNDA FELIX MD Apr 30, 2020 10:52
[2020-04-30 11:00] VITALS: BP 147/41
--- NOTE | 2020-04-30 12:02 | PDOC ---
SUBJECTIVE ROS feels better , she is able to place her left prosthesis OBJECTIVE Vital Signs Vital Signs Date Time Temp Pulse Resp B/P (MAP) Pulse Ox O2 Delivery O2 Flow Rate FiO2 04/30/20 11:00 98.0 60 16 147/41 (76) 97 Room Air 98.0 I & 0 Intake and Output 04/30/20 07:00 Intake Total 790 ml Balance 790 ml Intake Oral 790 ml # Voids 3 # Bowel Movements 1 PHYSICAL EXAM Physical Exam GENERAL: no apparent distress. HEENT: Pupils equally round. Oropharynx pink and moist. NECK: Supple. LUNGS: Clear to auscultation. HEART: S1, S2. Left-sided pacemaker site unremarkable. Murmur present. ABDOMEN: Nondistended, soft, nontender with bowel sounds present. EXTREMITIES: No gross edema or cyanosis. Bilateral below-knee amputation. RUE-AV fistula SKIN: Warm to touch without signs of rash. NEUROLOGIC: Alert and oriented x 3 No Espino DIAGNOSIS/ASSESSMENT Assessment & Plan ESRD - On HD MWF under Dr. Henley's care No indication for HD today, dialyzed yesterday with UF HTN Moderate Shortness of breath - Improved Ischemic cardiomyopathy. Bilateral below-knee amputation. Bilateral pleural effusions. COMMENT/RELEVANT DATA Meds Current Medications Medications (Trade) Dose Ordered Sig/Sarah Start Time Stop Time Status Last Admin Dose Admin Acetaminophen (Tylenol) 650 mg PRN Q6HRS PRN 04/29/20 11:30 Al Hydroxide/Mg Hydroxide (Mylanta Plus Xs) 30 ml PRN Q4HRS PRN 04/29/20 11:30 Aspirin (Aspirin Chewable) 81 mg HS 04/29/20 21:00 04/29/20 22:02 81 MG Aspirin (Rayne Aspirin) 81 mg DAILYWBKFT 04/29/20 12:00 Cancel Calcium Acetate (Phoslo) 667 mg TIDWMEALS 04/29/20 12:00 04/30/20 11:41 667 MG Clonidine HCl (Catapres) 0.1 mg QHS 04/29/20 21:00 04/29/20 22:03 0.1 MG Clopidogrel Bisulfate (Plavix) 75 mg DAILYWBKFT 04/29/20 15:00 04/30/20 09:02 75 MG Hydralazine HCl (Apresoline) 25 mg BID 04/29/20 12:00 04/30/20 09:02 25 MG Levothyroxine Sodium (Synthroid) 88 mcg DAILY06 04/30/20 06:00 04/30/20 06:29 88 MCG Nitroglycerin (Nitrostat) 0.4 mg PRN Q5MIN PRN 04/29/20 11:30 Non-Formulary Medication 1 ea DAILY 04/29/20 17:10 04/30/20 09:03 1 EA Vitamin B Complex/ Vitamin C (Chelsey-Sudhir) 1 tab DAILY 04/29/20 12:00 04/30/20 09:02 1 TAB Results All relevant outside records, renal labs, imaging studies, telemetry/EKG's were reviewed. Justicifation of Admission Dx: Justifications for Admission: Justification of Admission Dx: Yes IZABELLA MCNULTY MD Apr 30, 2020 12:01
[2020-04-30 15:00] VITALS: BP 153/43
[2020-04-30] MEDS: ACETAMINOPHEN 325 MG TABLET. PO PRN (17:21)
[2020-04-30 19:55] VITALS: BP 167/74
[2020-04-30] MEDS: cloNIDine HCL 0.1 MG TABLET PO SCH (21:00)
[2020-04-30] MEDS: ASPIRIN CHEWABLE 81 MG TABLET. PO SCH (21:00)
[2020-04-30 23:27] VITALS: BP 146/50
[2020-05-01 03:58] VITALS: BP 151/43
[2020-05-01] MEDS: LEVOTHYROXINE 88 MCG TABLET PO SCH (06:23)
[2020-05-01 07:43] VITALS: BP 118/61
[2020-05-01] MEDS: CALCIUM ACETATE 667 MG CAPSULE PO SCH ×3 (08:12→17:14)
[2020-05-01] MEDS: FOLIC/VIT B COMP W-C (RENAL) TABLET. PO SCH (08:12)
[2020-05-01] MEDS: hydrALAZINE 25 MG TABLET PO SCH ×2 (08:13→20:42)
[2020-05-01] MEDS: CLOPIDOGREL BISULFATE 75 MG TABLET PO SCH (08:13)
--- NOTE | 2020-05-01 10:41 | PDOC ---
PROGRESS NOTES Subjective Subjective feels better . had PT today. wearing her bilateral LE leg prosthesis. not short of breath. bp is okay. she wants to eat eggs Objective Objective Vital Signs Date Time Temp Pulse Resp B/P (MAP) Pulse Ox O2 Delivery O2 Flow Rate FiO2 05/01/20 08:13 60 118/61 05/01/20 08:00 Room Air 05/01/20 07:43 97.6 18 94 97.6 Intake and Output 05/01/20 07:00 Intake Total 200 ml Balance 200 ml Intake Oral 200 ml # Voids 5 # Bowel Movements 2 Physical Exam Abdomen: Soft Heart: Regular rate, Normal S1, Normal S2 Extremities: No edema General: Alert HEENT: Atraumatic Lungs: Clear to auscultation Neuro: Normal speech Psych/Mental Status: Mental status NL Skin: No rashes Assessment Assessment Problems1. Fluid overload, most likely secondary to not removing fluid during hemodialysis.clinically resolved with hemodialysis 2. End-stage renal disease, on hemodialysis. 3. Disuse myopathy with generalized weakness. 4. Coronary artery disease. 5. Hypertension. 6. Moderate aortic stenosis. 7. Ischemic cardiomyopathy. 8. Bilateral below-knee amputation. 9. Peripheral arterial disease. 10. Bilateral pleural effusions. Medical Problems: (1) ESRD (end stage renal disease) Status: Acute (2) Fluid overload Status: Acute (3) Pleural effusion due to another disorder Status: Acute Plan Plan of Care PT and OT hemodialysis tomorrow screen for [facility] and anticipate transfer to [facility] tomorrow after hemodialysis Comment Review of Relevant I have reviewed the following items wilbur (where applicable) has been applied. Medications Current Medications Aspirin (Rayne Aspirin) 81 mg DAILYWBKFT PO ; Start 04/29/20 at 12:00; Status Cancel Clopidogrel Bisulfate (Plavix) 75 mg DAILYWBKFT PO Last administered on 05/01/20at 08:13; Start 04/29/20 at 15:00 Calcium Acetate (Phoslo) 667 mg TIDWMEALS PO Last administered on 05/01/20at 08:12; Start 04/29/20 at 12:00 Vitamin B Complex/ Vitamin C (Chelsey-Sudhir) 1 tab DAILY PO Last administered on 05/01/20at 08:12; Start 04/29/20 at 12:00 Nitroglycerin (Nitrostat) 0.4 mg PRN Q5MIN PRN SL CHEST PAIN; Start 04/29/20 at 11:30 Al Hydroxide/Mg Hydroxide (Mylanta Plus Xs) 30 ml PRN Q4HRS PRN PO HEARTBURN / GAS; Start 04/29/20 at 11:30 Clonidine HCl (Catapres) 0.1 mg QHS PO Last administered on 04/30/20 21:00; Start 04/29/20 at 21:00 Acetaminophen (Tylenol) 650 mg PRN Q6HRS PRN PO MILD PAIN / TEMP > 100.3'F Last administered on 04/30/20at 17:21; Start 04/29/20 at 11:30 Hydralazine HCl (Apresoline) 25 mg BID PO Last administered on 05/01/20at 08:13; Start 04/29/20 at 12:00 Levothyroxine Sodium (Synthroid) 88 mcg DAILY06 PO Last administered on 05/01/20at 06:23; Start 04/30/20 at 06:00 Aspirin (Aspirin Chewable) 81 mg HS PO Last administered on 04/30/20at 21:00; Start 04/29/20 at 21:00 Non-Formulary Medication 1 ea DAILY PO Last administered on 05/01/20at 08:13; Start 04/29/20 at 17:10 Active Scripts Active Hydralazine Hcl 25 Mg Tablet 25 Mg PO BID 30 Days Nitrostat (Nitroglycerin) 0.4 Mg Tab.subl 0.4 Mg SL PRN Q5MIN PRN Levothyroxine Sodium 88 Mcg Tablet 1 Tab PO DAILY Reported Calcium Acetate 667 Mg Tablet 1 Tab PO TID 30 Days Chelsey-Sudhir Tablet (Folic Acid/Vitamin B Comp W-C) 0.8 Mg Tablet 1 Tab PO DAILY 30 Days Acetaminophen 500 Mg Tablet 1 Tab PO PRN Q6HRS PRN 15 Days Bystolic (Nebivolol) 10 Mg Tablet 10 Mg PO DAILY pt can take 10-30mg daily for elevated bp Aspir 81 (Aspirin) 81 Mg Tablet.dr 1 Tab PO HS Clonidine Hcl 0.1 Mg Tablet 1 Tab PO QHS Clopidogrel (Clopidogrel Bisulfate) 75 Mg Tablet 75 Mg PO DAILY Vitals/I & O Vital Sign - Last 24 Hours 7/4/20 7/4/20 7/4/20 7/4/20 11:00 15:00 19:55 20:20 Temp 98.0 98.1 98.7 98.0 98.1 98.7 Pulse 60 60 60 Resp 16 16 16 B/P (MAP) 147/41 (76) 153/43 (79) 167/74 (105) Pulse Ox 97 94 94 O2 Delivery Room Air Room Air Room Air Room Air 04/30/20 04/30/20 04/30/20 05/01/20 21:00 21:00 23:27 03:58 Temp 98.4 97.4 98.4 97.4 Pulse 60 60 60 59 Resp 16 16 B/P (MAP) 167/74 167/74 146/50 (82) 151/43 (79) Pulse Ox 94 90 O2 Delivery Room Air Room Air 05/01/20 05/01/20 05/01/20 07:43 08:00 08:13 Temp 97.6 97.6 Pulse 60 60 Resp 18 B/P (MAP) 118/61 (80) 118/61 Pulse Ox 94 O2 Delivery Room Air Room Air Intake and Output 04/30/20 04/30/20 05/01/20 15:00 23:00 07:00 Intake Total 200 ml Balance 200 ml Justicifation of Admission Dx: Justifications for Admission: Justification of Admission Dx: Yes LYNDA FELIX MD May 01, 2020 10:41
--- NOTE | 2020-05-01 10:46 | SNU/HH DC ---
DISCHARGE ORDERS DISCHARGE INFORMATION: DISCHARGE DATE: May 02, 2020 FINAL DIAGNOSIS Problems Medical Problems: (1) ESRD (end stage renal disease) Status: Acute (2) Fluid overload Status: Acute (3) Pleural effusion due to another disorder Status: Acute CONDITION ON DISCHARGE: Stable CODE STATUS: Code Status: Full POST DISCHARGE ORDERS: ACTIVITY ORDERS: Activity as tolerated WEIGHT BEARING STATUS: As tolerated BATHING ORDERS: Shower-keep dressing dry, No Tub Bath until see Dr. VARGAS AFTER DISCHARGE: Renal WOUND/INCISION CARE: No wound care needed CHECKS AFTER DISCHARGE: CHECKS AFTER DISCHARGE: Check blood press - daily FOLLOW-UP: PHYSICIAN FOLLOW-UP: admit to dr. felix TREATMENT/EQUIPMENT ORDERS: ADAPTIVE EQUIPMENT NEEDED: Wheelchair Physical Therapy For: Evalulation/Treatment Occupational Therapy For: Evaluation/Treatment DISCHARGE MEDICATIONS: Home Meds Active Scripts Hydralazine Hcl (HYDRALAZINE HCL) 25 Mg Tablet, 25 MG PO BID for HTN for 30 Days, #60 TAB 3 Refills Prov:LONDON JARA BREAST SPLITTER 04/19/20 Nitroglycerin (NITROSTAT) 0.4 Mg Tab.subl, 0.4 MG SL PRN Q5MIN PRN for CHEST PAIN, #1 BOT Prov:LYNDA FELIX MD 03/21/20 Levothyroxine Sodium (LEVOTHYROXINE SODIUM) 88 Mcg Tablet, 1 TAB PO DAILY for hypothyroidism, #30 TAB 5 Refills Prov:LYNDA FELIX MD 11/01/19 Reported Medications Calcium Acetate (CALCIUM ACETATE) 667 Mg Tablet, 1 TAB PO TID for supp for 30 Days, #90 TAB 0 Refills 10/31/19 Folic Acid/Vitamin B Comp W-C (HOA-GIANNI TABLET) 0.8 Mg Tablet, 1 TAB PO DAILY for supplement for 30 Days, #30 TAB 0 Refills 10/31/19 Acetaminophen (ACETAMINOPHEN) 500 Mg Tablet, 1 TAB PO PRN Q6HRS PRN for pain or fever for 15 Days, #60 TAB 0 Refills 10/30/19 Nebivolol Hcl (BYSTOLIC) 10 Mg Tablet, 10 MG PO DAILY for blood pressure, TAB pt can take 10-30mg daily for elevated bp 08/27/18 Aspirin (ASPIR 81) 81 Mg Tablet., 1 TAB PO HS for heart, #30 TAB 5 Refills 08/12/17 Clonidine Hcl (CLONIDINE HCL) 0.1 Mg Tablet, 1 TAB PO QHS, #30 TAB 2 Refills 11/27/15 Clopidogrel Bisulfate (CLOPIDOGREL) 75 Mg Tablet, 75 MG PO DAILY 12/17/13 LYNDA FELIX MD May 01, 2020 10:46
--- NOTE | 2020-05-01 10:51 | PDOC ---
Provider Note Provider Note discharge summary dictated [id number] Justicifation of Admission Dx: Justifications for Admission: Justification of Admission Dx: Yes LYNDA FELIX MD May 01, 2020 10:51
--- NOTE | 2020-05-01 11:07 | DS ---
DATE OF DISCHARGE: DATE OF ANTICIPATED DISMISSAL: 05/02/2020. CONSULTANTS: Dr. Kumar and Dr. Soto. PROCEDURE: Hemodialysis. FINAL DIAGNOSES: 1. Fluid overload, most likely secondary to not removing enough fluid during hemodialysis as she was complaining of myalgias as an outpatient, limiting the amount of fluid that could be removed at that time. 2. End-stage renal disease, on hemodialysis. 3. Disuse myopathy. 4. Coronary artery disease. 5. Hypertension. 6. Moderate aortic stenosis. 7. Ischemic cardiomyopathy. 8. Bilateral below-knee amputation. 9. Peripheral arterial disease. 10. Bilateral pleural effusions. HOSPITAL COURSE: The patient is an 89-year-old white female who lives at home with her son and has a history of coronary artery disease, peripheral arterial disease, moderate aortic stenosis, end-stage renal disease, on hemodialysis Mondays, Wednesdays, and Fridays, who has hypertension, hyperlipidemia with statin intolerance. She has bilateral below-knee amputations and does have bilateral lower extremity leg prosthesis who has hypothyroidism, ischemic cardiomyopathy with LVEF of 45%, admitted to [facility] at the Emergency Room on 04/29/2020 with generalized weakness and shortness of breath. She is attempting to get into the car from the wheelchair, but could not stand up due to generalized weakness and then she became short of breath. She has sought help at the [facility] Emergency Room 04/29/2020 where chest x-ray showed an increase in the previous small bilateral pleural effusions and some pulmonary venous congestion consistent with fluid overload. The patient was admitted to the hospital, seen by Dr. Soto for Nephrology on hemodialysis and Dr. Kumar for Cardiology. The patient did receive hemodialysis and had fluid removed and felt much better. She had generalized weakness and received physical therapy. Her home medication was continued. She also had some problems putting her left leg into her prosthesis because of edema of the left below knee amputation stump, but after dialysis, she was able to do that and she has been able to do that this morning, so she is able to put on both of her leg prosthesis. Labs were reviewed and it is anticipated that she will be dismissed to [facility] for physical and occupational therapy on 05/02/2020 after hemodialysis tomorrow. She will be dismissed on Tylenol 500 mg every 6 hours p.r.n., aspirin 81 mg every day, calcium acetate 667 mg 1 tablet t.i.d. with meals, clonidine 0.1 mg at bedtime, Plavix 75 mg every day, Chelsey-Sudhir 1 every day, hydralazine 25 mg b.i.d., levothyroxine 88 mcg every day, Bystolic 10 mg every day, nitroglycerin 0.4 mg sublingual p.r.n. chest pain. LYNDA FELIX MD DR: JOSE/annemarie JOB#: [id number] / [id number]
[2020-05-01 11:19] VITALS: BP 120/68
--- NOTE | 2020-05-01 12:47 | PDOC ---
PROGRESS NOTES Subjective Subjective Feeling better, denied any chest pain or shortness of breath Objective Objective Vital Signs Date Time Temp Pulse Resp B/P (MAP) Pulse Ox O2 Delivery O2 Flow Rate FiO2 05/01/20 11:19 97.9 59 16 120/68 (85) 96 Room Air 97.9 Intake and Output 05/01/20 07:00 Intake Total 200 ml Balance 200 ml Intake Oral 200 ml # Voids 5 # Bowel Movements 2 Physical Exam Abdomen: Soft Heart: Regular rate, Normal S1, Normal S2 Extremities: No edema General: Alert HEENT: Atraumatic Lungs: Clear to auscultation MUSCULOSKELETAL: Osteoarthritic changes both hands Neuro: Normal speech Psych/Mental Status: Mental status NL Skin: No rashes Assessment Assessment 1. 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 2D echo 12/17 showed LVEF 45%, moderate aortic stenosis. 2. Coronary artery disease s/p PCI/stent to RCA and LCx in the past and more recent PCI/stents to LAD/LCx/RCA, chest pain-free. Slight troponin elevation probably secondary to demand ischemia and renal insufficiency. She has a hist ory of chronic troponin elevation. Continue current secondary prevention measures. We will consider ischemic evaluation as an outpatient. 3. PAD s/p bilateral BKA, stable. 4. SSS s/p PPM implantation. Recent interrogation showed normal function. 5. Hypertension: Controlled 6. Hyperlipidemia: Statin intolerant. Consider PCSK9 as outpatient. 7. ESRD: Hemodialysis per nephrology team. Okay for discharge from cardiac standpoint Plan Plan of Care Problems Medical Problems: (1) ESRD (end stage renal disease) Status: Acute (2) Fluid overload Status: Acute (3) Pleural effusion due to another disorder Status: Acute Comment Review of Relevant I have reviewed the following items wilbur (where applicable) has been applied. Vitals/I & O Vital Sign - Last 24 Hours 04/30/20 04/30/20 04/30/20 04/30/20 15:00 19:55 20:20 21:00 Temp 98.1 98.7 98.1 98.7 Pulse 60 60 60 Resp 16 16 B/P (MAP) 153/43 (79) 167/74 (105) 167/74 Pulse Ox 94 94 O2 Delivery Room Air Room Air Room Air 04/30/20 04/30/20 05/01/2020 21:00 23:27 03:58 07:43 Temp 98.4 97.4 97.6 98.4 97.4 97.6 Pulse 60 60 59 60 Resp 16 16 18 B/P (MAP) 167/74 146/50 (82) 151/43 (79) 118/61 (80) Pulse Ox 94 90 94 O2 Delivery Room Air Room Air Room Air 05/01/20 05/01/20 05/01/20 08:00 08:13 11:19 Temp 97.9 97.9 Pulse 60 59 Resp 16 B/P (MAP) 118/61 120/68 (85) Pulse Ox 96 O2 Delivery Room Air Room Air Intake and Output 04/30/20 04/30/20 05/01/20 15:00 23:00 07:00 Intake Total 200 ml Balance 200 ml KARL ROGEL MD May 01, 2020 12:47
--- NOTE | 2020-05-01 13:09 | PDOC ---
SUBJECTIVE ROS No complaints, sitting up, eating lunch OBJECTIVE Vital Signs Vital Signs Date Time Temp Pulse Resp B/P (MAP) Pulse Ox O2 Delivery O2 Flow Rate FiO2 05/01/20 11:19 97.9 59 16 120/68 (85) 96 Room Air 97.9 I & 0 Intake and Output 05/01/20 07:00 Intake Total 200 ml Balance 200 ml Intake Oral 200 ml # Voids 5 # Bowel Movements 2 PHYSICAL EXAM Physical Exam GENERAL: no apparent distress. HEENT: Pupils equally round. Oropharynx pink and moist. NECK: Supple. LUNGS: Clear to auscultation. HEART: S1, S2. Left-sided pacemaker site unremarkable. Murmur present. ABDOMEN: Nondistended, soft, nontender with bowel sounds present. EXTREMITIES: No gross edema or cyanosis. Bilateral below-knee amputation. RUE-AV fistula SKIN: Warm to touch without signs of rash. NEUROLOGIC: Alert and oriented x 3 No Espino DIAGNOSIS/ASSESSMENT Assessment & Plan ESRD - On HD MWF under Dr. Henley's care No indication for HD today, HTN- stable Moderate -2D echo 12/17 showed LVEF 45%, moderate aortic stenosis. Shortness of breath - Improved Ischemic cardiomyopathy. Bilateral below-knee amputation. Bilateral pleural effusions. DC per primary COMMENT/RELEVANT DATA Meds Current Medications Medications (Trade) Dose Ordered Sig/Sarah Start Time Stop Time Status Last Admin Dose Admin Acetaminophen (Tylenol) 650 mg PRN Q6HRS PRN 04/29/20 11:30 04/30/20 17:21 650 MG Al Hydroxide/Mg Hydroxide (Mylanta Plus Xs) 30 ml PRN Q4HRS PRN 04/29/20 11:30 Aspirin (Aspirin Chewable) 81 mg HS 04/29/20 21:00 04/30/20 21:00 81 MG Aspirin (Rayne Aspirin) 81 mg DAILYWBKFT 04/29/20 12:00 Cancel Calcium Acetate (Phoslo) 667 mg TIDWMEALS 04/29/20 12:00 05/01/20 12:04 667 MG Clonidine HCl (Catapres) 0.1 mg QHS 04/29/20 21:00 04/30/20 21:00 0.1 MG Clopidogrel Bisulfate (Plavix) 75 mg DAILYWBKFT 04/29/20 15:00 05/01/20 08:13 75 MG Hydralazine HCl (Apresoline) 25 mg BID 04/29/20 12:00 05/01/20 08:13 25 MG Levothyroxine Sodium (Synthroid) 88 mcg DAILY06 04/30/20 06:00 05/01/20 06:23 88 MCG Nitroglycerin (Nitrostat) 0.4 mg PRN Q5MIN PRN 04/29/20 11:30 Non-Formulary Medication 1 ea DAILY 04/29/20 17:10 05/01/20 08:13 1 EA Vitamin B Complex/ Vitamin C (Chelsey-Sudhir) 1 tab DAILY 04/29/20 12:00 05/01/20 08:12 1 TAB Results All relevant outside records, renal labs, imaging studies, telemetry/EKG's were reviewed. Justicifation of Admission Dx: Justifications for Admission: Justification of Admission Dx: Yes IZABELLA MCNULTY MD May 01, 2020 13:09
[2020-05-01 15:30] VITALS: BP 152/38
[2020-05-01 19:32] VITALS: BP 160/38
[2020-05-01] MEDS: cloNIDine HCL 0.1 MG TABLET PO SCH (20:42)
[2020-05-01] MEDS: ASPIRIN CHEWABLE 81 MG TABLET. PO SCH (20:42)
[2020-05-01 22:52] VITALS: BP 170/41
[2020-05-02 02:47] VITALS: BP 178/43
[2020-05-02 05:37] LABS: BASO % 1 % (0-3); EOS # 0.3 x10^3/uL (0.0-0.7); EOS % 10 % (0-3); HEMATOCRIT 29.9 % (36.0-47.0); HEMOGLOBIN 10.1 g/dL (12.0-15.5); LYMPH # 0.6 x10^3/uL (1.0-4.8); LYMPH % 18 % (24-48); MEAN CORPUSCULAR HEMOGLOBIN 33 pg (25-35); MEAN CORPUSCULAR HGB CONC 34 g/dL (31-37); MEAN CORPUSCULAR VOLUME 96 fL (79-100); MONO # 0.9 x10^3/uL (0.0-1.1); MONO % 28 % (0-9); NEUT # 1.4 x10^3/uL (1.8-7.7); NEUT % 43 % (31-73); PLATELET COUNT 181 x10^3/uL (140-400); WHITE BLOOD COUNT 3.3 x10^3/uL (4.0-11.0)
[2020-05-02 05:49] LABS: CALCIUM 9.2 mg/dL (8.5-10.1); CREATININE 5.1 mg/dL (0.6-1.0); POTASSIUM 4.4 mmol/L (3.5-5.1)
[2020-05-02] MEDS: LEVOTHYROXINE 88 MCG TABLET PO SCH (06:11)
[2020-05-02] MEDS: CALCIUM ACETATE 667 MG CAPSULE PO SCH ×3 (08:26→17:00)
[2020-05-02] MEDS: FOLIC/VIT B COMP W-C (RENAL) TABLET. PO SCH (08:26)
[2020-05-02] MEDS: CLOPIDOGREL BISULFATE 75 MG TABLET PO SCH (08:29)
[2020-05-02] MEDS: hydrALAZINE 25 MG TABLET PO SCH ×2 (08:29→20:40)
--- NOTE | 2020-05-02 09:52 | PDOC ---
PROGRESS NOTES Subjective Subjective feels well. not short of breath. bp is high and took hydralazine. other bp meds to be given. lab reviewed. Objective Objective Vital Signs Date Time Temp Pulse Resp B/P (MAP) Pulse Ox O2 Delivery O2 Flow Rate FiO2 05/02/20 08:29 65 183/53 05/02/20 02:47 97.5 18 98 Room Air 97.5 Intake and Output 05/02/20 07:00 Intake Total 800 ml Output Total 1 ml Balance 799 ml Intake Oral 800 ml Output Urine Total 1 ml # Voids 2 # Bowel Movements 2 Physical Exam Abdomen: Soft Heart: Regular rate, Normal S1, Normal S2 Extremities: Other (bilateral BKA and wearing prosthesis) General: Alert HEENT: Atraumatic Lungs: Clear to auscultation Neuro: Normal speech Psych/Mental Status: Mental status NL Skin: No rashes Assessment Assessment Problems1. 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 2. End-stage renal disease, on hemodialysis. 3. Disuse myopathy with generalized weakness. 4. Coronary artery disease. 5. Hypertension. 6. Moderate aortic stenosis. 7. Ischemic cardiomyopathy. 8. Bilateral below-knee amputation. 9. Peripheral arterial disease. 10. Bilateral pleural effusions.treated with hemodialysis Medical Problems: (1) ESRD (end stage renal disease) Status: Acute (2) Fluid overload Status: Acute (3) Pleural effusion due to another disorder Status: Acute Plan Plan of Care PT and OT hemodialysis today screen for [facility], transfer to [facility] after dialysis today if accepted Comment Review of Relevant I have reviewed the following items wilbur (where applicable) has been applied. Labs Laboratory Tests Test 05/02/20 04:50 White Blood Count 3.3 x10^3/uL (4.0-11.0) Red Blood Count 3.10 x10^6/uL (3.50-5.40) Hemoglobin 10.1 g/dL (12.0-15.5) Hematocrit 29.9 % (36.0-47.0) Mean Corpuscular Volume 96 fL (79-100) Mean Corpuscular Hemoglobin 33 pg (25-35) Mean Corpuscular Hemoglobin Concent 34 g/dL (31-37) Red Cell Distribution Width 14.0 % (11.5-14.5) Platelet Count 181 x10^3/uL (140-400) Neutrophils (%) (Auto) 43 % (31-73) Lymphocytes (%) (Auto) 18 % (24-48) Monocytes (%) (Auto) 28 % (0-9) Eosinophils (%) (Auto) 10 % (0-3) Basophils (%) (Auto) 1 % (0-3) Neutrophils # (Auto) 1.4 x10^3/uL (1.8-7.7) Lymphocytes # (Auto) 0.6 x10^3/uL (1.0-4.8) Monocytes # (Auto) 0.9 x10^3/uL (0.0-1.1) Eosinophils # (Auto) 0.3 x10^3/uL (0.0-0.7) Basophils # (Auto) 0.0 x10^3/uL (0.0-0.2) Sodium Level 136 mmol/L (136-145) Potassium Level 4.4 mmol/L (3.5-5.1) Chloride Level 99 mmol/L (98-107) Carbon Dioxide Level 27 mmol/L (21-32) Anion Gap 10 (6-14) Blood Urea Nitrogen 77 mg/dL (7-20) Creatinine 5.1 mg/dL (0.6-1.0) Estimated GFR (Cockcroft-Gault) 8.0 Glucose Level 102 mg/dL (70-99) Calcium Level 9.2 mg/dL (8.5-10.1) Laboratory Tests Test 05/02/20 04:50 White Blood Count 3.3 x10^3/uL (4.0-11.0) Red Blood Count 3.10 x10^6/uL (3.50-5.40) Hemoglobin 10.1 g/dL (12.0-15.5) Hematocrit 29.9 % (36.0-47.0) Mean Corpuscular Volume 96 fL (79-100) Mean Corpuscular Hemoglobin 33 pg (25-35) Mean Corpuscular Hemoglobin Concent 34 g/dL (31-37) Red Cell Distribution Width 14.0 % (11.5-14.5) Platelet Count 181 x10^3/uL (140-400) Neutrophils (%) (Auto) 43 % (31-73) Lymphocytes (%) (Auto) 18 % (24-48) Monocytes (%) (Auto) 28 % (0-9) Eosinophils (%) (Auto) 10 % (0-3) Basophils (%) (Auto) 1 % (0-3) Neutrophils # (Auto) 1.4 x10^3/uL (1.8-7.7) Lymphocytes # (Auto) 0.6 x10^3/uL (1.0-4.8) Monocytes # (Auto) 0.9 x10^3/uL (0.0-1.1) Eosinophils # (Auto) 0.3 x10^3/uL (0.0-0.7) Basophils # (Auto) 0.0 x10^3/uL (0.0-0.2) Sodium Level 136 mmol/L (136-145) Potassium Level 4.4 mmol/L (3.5-5.1) Chloride Level 99 mmol/L (98-107) Carbon Dioxide Level 27 mmol/L (21-32) Anion Gap 10 (6-14) Blood Urea Nitrogen 77 mg/dL (7-20) Creatinine 5.1 mg/dL (0.6-1.0) Estimated GFR (Cockcroft-Gault) 8.0 Glucose Level 102 mg/dL (70-99) Calcium Level 9.2 mg/dL (8.5-10.1) Medications Current Medications Aspirin (Rayne Aspirin) 81 mg DAILYWBKFT PO ; Start 04/29/20 at 12:00; Status Cancel Clopidogrel Bisulfate (Plavix) 75 mg DAILYWBKFT PO Last administered on 05/02/20at 08:29; Start 04/29/20 at 15:00 Calcium Acetate (Phoslo) 667 mg TIDWMEALS PO Last administered on 05/02/20at 08: 26; Start 04/29/20 at 12:00 Vitamin B Complex/ Vitamin C (Chelsey-Sudhir) 1 tab DAILY PO Last administered on 05/02/20at 08:26; Start 04/29/20 at 12:00 Nitroglycerin (Nitrostat) 0.4 mg PRN Q5MIN PRN SL CHEST PAIN; Start 04/29/20 at 11:30 Al Hydroxide/Mg Hydroxide (Mylanta Plus Xs) 30 ml PRN Q4HRS PRN PO HEARTBURN / GAS; Start 04/29/20 at 11:30 Clonidine HCl (Catapres) 0.1 mg QHS PO Last administered on 05/01/20 20:42; Start 04/29/20 at 21:00 Acetaminophen (Tylenol) 650 mg PRN Q6HRS PRN PO MILD PAIN / TEMP > 100.3'F Last administered on 04/30/20at 17:21; Start 04/29/20 at 11:30 Hydralazine HCl (Apresoline) 25 mg BID PO Last administered on 05/02/20 08:29; Start 04/29/20 at 12:00 Levothyroxine Sodium (Synthroid) 88 mcg DAILY06 PO Last administered on 05/02/20 06:11; Start 04/30/20 at 06:00 Aspirin (Aspirin Chewable) 81 mg HS PO Last administered on 05/01/20 20:42; Start 04/29/20 at 21:00 Non-Formulary Medication 1 ea DAILY PO Last administered on 05/01/20at 08:13; Start 04/29/20 at 17:10 Active Scripts Active Hydralazine Hcl 25 Mg Tablet 25 Mg PO BID 30 Days Nitrostat (Nitroglycerin) 0.4 Mg Tab.subl 0.4 Mg SL PRN Q5MIN PRN Levothyroxine Sodium 88 Mcg Tablet 1 Tab PO DAILY Reported Calcium Acetate 667 Mg Tablet 1 Tab PO TID 30 Days Chelsey-Sudhir Tablet (Folic Acid/Vitamin B Comp W-C) 0.8 Mg Tablet 1 Tab PO DAILY 30 Days Acetaminophen 500 Mg Tablet 1 Tab PO PRN Q6HRS PRN 15 Days Bystolic (Nebivolol) 10 Mg Tablet 10 Mg PO DAILY pt can take 10-30mg daily for elevated bp Aspir 81 (Aspirin) 81 Mg Tablet.dr 1 Tab PO HS Clonidine Hcl 0.1 Mg Tablet 1 Tab PO QHS Clopidogrel (Clopidogrel Bisulfate) 75 Mg Tablet 75 Mg PO DAILY Vitals/I & O Vital Sign - Last 24 Hours 05/01/20 05/01/20 05/01/20 05/01/20 11:19 15:30 19:32 20:00 Temp 97.9 98.1 97.6 97.9 98.1 97.6 Pulse 59 60 58 Resp 16 18 18 B/P (MAP) 120/68 (85) 152/38 (76) 160/38 (78) Pulse Ox 96 98 97 O2 Delivery Room Air Room Air Room Air Room Air 05/01/20 05/01/20 05/01/20 05/02/20 20:42 20:42 22:52 02:47 Temp 98.2 97.5 98.2 97.5 Pulse 58 58 60 61 Resp 18 18 B/P (MAP) 160/38 160/38 170/41 (84) 178/43 (88) Pulse Ox 94 98 O2 Delivery Room Air Room Air 05/02/20 08:29 Pulse 65 B/P (MAP) 183/53 Intake and Output 05/01/20 05/01/20 05/02/20 15:00 23:00 07:00 Intake Total 300 ml 250 ml 250 ml Output Total 1 ml Balance 300 ml 250 ml 249 ml Justicifation of Admission Dx: Justifications for Admission: Justification of Admission Dx: Yes LYNDA FELIX MD May 02, 2020 09:52
--- NOTE | 2020-05-02 10:00 | PDOC ---
Provider Note Provider Note addendum to discharge summary dictated # [id number] Justicifation of Admission Dx: Justifications for Admission: Justification of Admission Dx: Yes LYNDA FELIX MD May 02, 2020 10:00
--- NOTE | 2020-05-02 11:03 | DS ---
DATE OF DISCHARGE: 05/02/2020 ADDENDUM The discharge summary is already on the chart. FINAL DIAGNOSES: 1. Acute on chronic combined systolic and diastolic congestive heart failure. 2. End-stage renal disease, on hemodialysis. 3. Disuse myopathy. 4. Coronary artery disease. 5. Hypertension. 6. Moderate aortic stenosis. 7. Ischemic cardiomyopathy. 8. Bilateral below-knee amputation. 9. Peripheral arterial disease. 10. Bilateral pleural effusions. Everything else in the discharge summary is the same. LYNDA FELIX MD DR: JOSE/annemarie JOB#: [id number] / [id number]
[2020-05-02] MEDS: ACETAMINOPHEN 325 MG TABLET. PO PRN ×2 (13:30→18:39)
[2020-05-02 15:00] VITALS: BP 157/40
--- NOTE | 2020-05-02 16:02 | EKG ---
[facility] [address] [place] [address] Test Date: 2020-04-29 Test Time: 07:01:18 Pat Name: SHERRI BENITEZ Department: Room: Gender: F Radar Engineer: : [id number] Requested By: CONNIE GILL Order Number: [id number] Reading MD: Measurements Intervals [place] Rate: 75 P: 0 NE: 84 QRS: -14 QRSD: 138 T: 126 QT: 432 QTc: 485 Interpretive Statements SINUS RHYTHM COMPLEX(ES) WITH ABERRANT INTRAVENTRICULAR CONDUCTION VENTRICULAR PREMATURE COMPLEX(ES) ATRIAL PREMATURE COMPLEX(ES) LEFTWARD AXIS RIGHT BUNDLE BRANCH BLOCK ABNORMAL ECG RI6.01 No previous ECG available for comparison
--- NOTE | 2020-05-02 16:04 | PDOC ---
PROGRESS NOTES Subjective Subjective Denied any chest pain or shortness of breath Objective Objective Vital Signs Date Time Temp Pulse Resp B/P (MAP) Pulse Ox O2 Delivery O2 Flow Rate FiO2 05/02/20 15:00 97.7 59 20 157/40 (79) 93 Room Air 97.7 Intake and Output 05/02/20 07:00 Intake Total 800 ml Output Total 1 ml Balance 799 ml Intake Oral 800 ml Output Urine Total 1 ml # Voids 2 # Bowel Movements 2 Physical Exam Abdomen: Soft Heart: Regular rate, Normal S1, Normal S2 Extremities: Other (bilateral BKA and wearing prosthesis) General: Alert HEENT: Atraumatic Lungs: Clear to auscultation MUSCULOSKELETAL: Osteoarthritic changes both hands Neuro: Normal speech Psych/Mental Status: Mental status NL Skin: No rashes Assessment Assessment 1. 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 2D echo 12/17 showed LVEF 45%, moderate aortic stenosis. 2. Coronary artery disease s/p PCI/stent to RCA and LCx in the past and more recent PCI/stents to LAD/LCx/RCA, presently stable and chest pain-free. Slight troponin elevation probably secondary to demand ischemia and renal insufficiency. She has a history of chronic troponin elevation. Continue current secondary prevention measures. We will consider ischemic evaluation as an outpatient. 3. PAD s/p bilateral BKA, stable. 4. SSS s/p PPM implantation. Recent interrogation showed normal function. 5. Hypertension: Controlled 6. Hyperlipidemia: Statin intolerant. Consider PCSK9 as outpatient. 7. ESRD: Hemodialysis per nephrology team. Okay for discharge from cardiac standpoint Plan Plan of Care Problems Medical Problems: (1) ESRD (end stage renal disease) Status: Acute (2) Fluid overload Status: Acute (3) Pleural effusion due to another disorder Status: Acute Comment Review of Relevant I have reviewed the following items wilbur (where applicable) has been applied. Labs Laboratory Tests Test 05/02/20 04:50 White Blood Count 3.3 x10^3/uL (4.0-11.0) Red Blood Count 3.10 x10^6/uL (3.50-5.40) Hemoglobin 10.1 g/dL (12.0-15.5) Hematocrit 29.9 % (36.0-47.0) Mean Corpuscular Volume 96 fL (79-100) Mean Corpuscular Hemoglobin 33 pg (25-35) Mean Corpuscular Hemoglobin Concent 34 g/dL (31-37) Red Cell Distribution Width 14.0 % (11.5-14.5) Platelet Count 181 x10^3/uL (140-400) Neutrophils (%) (Auto) 43 % (31-73) Lymphocytes (%) (Auto) 18 % (24-48) Monocytes (%) (Auto) 28 % (0-9) Eosinophils (%) (Auto) 10 % (0-3) Basophils (%) (Auto) 1 % (0-3) Neutrophils # (Auto) 1.4 x10^3/uL (1.8-7.7) Lymphocytes # (Auto) 0.6 x10^3/uL (1.0-4.8) Monocytes # (Auto) 0.9 x10^3/uL (0.0-1.1) Eosinophils # (Auto) 0.3 x10^3/uL (0.0-0.7) Basophils # (Auto) 0.0 x10^3/uL (0.0-0.2) Sodium Level 136 mmol/L (136-145) Potassium Level 4.4 mmol/L (3.5-5.1) Chloride Level 99 mmol/L (98-107) Carbon Dioxide Level 27 mmol/L (21-32) Anion Gap 10 (6-14) Blood Urea Nitrogen 77 mg/dL (7-20) Creatinine 5.1 mg/dL (0.6-1.0) Estimated GFR (Cockcroft-Gault) 8.0 Glucose Level 102 mg/dL (70-99) Calcium Level 9.2 mg/dL (8.5-10.1) Hepatitis B Surface Antigen Nonreactive (Nonreactive) Hepatitis B Surface Antibody Nonreactive Hepatitis B Core Total Antibody Nonreactive (Nonreactive) Vitals/I & O Vital Sign - Last 24 Hours 05/01/20 05/01/20 05/01/20 05/01/20 19:32 20:00 20:42 20:42 Temp 97.6 97.6 Pulse 58 58 58 Resp 18 B/P (MAP) 160/38 (78) 160/38 160/38 Pulse Ox 97 O2 Delivery Room Air Room Air 05/01/20 05/02/20 05/02/2005/02/20 22:52 02:47 08:00 08:29 Temp 98.2 97.5 98.2 97.5 Pulse 60 61 65 Resp 18 18 B/P (MAP) 170/41 (84) 178/43 (88) 183/53 Pulse Ox 94 98 O2 Delivery Room Air Room Air Room Air 05/02/20 15:00 Temp 97.7 97.7 Pulse 59 Resp 20 B/P (MAP) 157/40 (79) Pulse Ox 93 O2 Delivery Room Air Intake and Output 05/01/20 05/01/20 05/02/20 15:00 23:00 07:00 Intake Total 300 ml 250 ml 250 ml Output Total 1 ml Balance 300 ml 250 ml 249 ml KARL ROGEL MD May 02, 2020 16:04
--- NOTE | 2020-05-02 18:23 | NUR ---
Patient did not discharge due to pending COVID results for placement to [facility]. Dr. Woods called and was notified of the delay of discharge.
[2020-05-02 19:00] VITALS: BP 158/48
[2020-05-02] MEDS: cloNIDine HCL 0.1 MG TABLET PO SCH (20:40)
[2020-05-02] MEDS: ASPIRIN CHEWABLE 81 MG TABLET. PO SCH (20:40)
--- NOTE | 2020-05-02 22:17 | PDOC ---
SUBJECTIVE ROS seen on HD this am , No complaints OBJECTIVE Vital Signs Vital Signs Date Time Temp Pulse Resp B/P (MAP) Pulse Ox O2 Delivery O2 Flow Rate FiO2 05/02/20 20:40 59 157/40 05/02/20 20:00 Room Air 05/02/20 19:00 97.4 20 98 97.4 I & 0 Intake and Output 05/02/20 07:00 Intake Total 800 ml Output Total 1 ml Balance 799 ml Intake Oral 800 ml Output Urine Total 1 ml # Voids 2 # Bowel Movements 2 PHYSICAL EXAM Physical Exam GENERAL: no apparent distress. HEENT: Pupils equally round. Oropharynx pink and moist. NECK: Supple. LUNGS: Clear to auscultation. HEART: S1, S2. Left-sided pacemaker site unremarkable. Murmur present. ABDOMEN: Nondistended, soft, nontender with bowel sounds present. EXTREMITIES: No gross edema or cyanosis. Bilateral below-knee amputation. RUE-AV fistula SKIN: Warm to touch without signs of rash. NEUROLOGIC: Alert and oriented x 3 No Espino DIAGNOSIS/ASSESSMENT Assessment & Plan ESRD - On HD MWF under Dr. Henley's care seen on HD, tolerating well, continue as ordered, Dw Bahman HTN- stable Moderate -2D echo 12/17 showed LVEF 45%, moderate aortic stenosis. Shortness of breath - Improved Ischemic cardiomyopathy. Bilateral below-knee amputation. Bilateral pleural effusions. DC per primary COMMENT/RELEVANT DATA Meds Current Medications Medications (Trade) Dose Ordered Sig/Sarah Start Time Stop Time Status Last Admin Dose Admin Acetaminophen (Tylenol) 650 mg PRN Q6HRS PRN 04/29/20 11:30 05/02/20 18:39 650 MG Al Hydroxide/Mg Hydroxide (Mylanta Plus Xs) 30 ml PRN Q4HRS PRN 04/29/20 11:30 Aspirin (Aspirin Chewable) 81 mg HS 04/29/20 21:00 05/02/20 20:40 81 MG Aspirin (Rayne Aspirin) 81 mg DAILYWBKFT 04/29/20 12:00 Cancel Calcium Acetate (Phoslo) 667 mg TIDWMEALS 04/29/20 12:00 05/02/20 08:26 667 MG Clonidine HCl (Catapres) 0.1 mg QHS 04/29/20 21:00 05/02/20 20:40 0.1 MG Clopidogrel Bisulfate (Plavix) 75 mg DAILYWBKFT 04/29/20 15:00 05/02/20 08:29 75 MG Hydralazine HCl (Apresoline) 25 mg BID 04/29/20 12:00 05/02/20 20:40 25 MG Levothyroxine Sodium (Synthroid) 88 mcg DAILY06 04/30/20 06:00 05/02/20 06:11 88 MCG Nitroglycerin (Nitrostat) 0.4 mg PRN Q5MIN PRN 04/29/20 11:30 Non-Formulary Medication 1 ea DAILY 04/29/20 17:10 05/02/20 18:41 1 EA Vitamin B Complex/ Vitamin C (Chelsey-Sudhir) 1 tab DAILY 04/29/20 12:00 05/02/20 08:26 1 TAB Lab Laboratory Tests Test 05/02/20 04:50 White Blood Count 3.3 x10^3/uL (4.0-11.0) Red Blood Count 3.10 x10^6/uL (3.50-5.40) Hemoglobin 10.1 g/dL (12.0-15.5) Hematocrit 29.9 % (36.0-47.0) Mean Corpuscular Volume 96 fL (79-100) Mean Corpuscular Hemoglobin 33 pg (25-35) Mean Corpuscular Hemoglobin Concent 34 g/dL (31-37) Red Cell Distribution Width 14.0 % (11.5-14.5) Platelet Count 181 x10^3/uL (140-400) Neutrophils (%) (Auto) 43 % (31-73) Lymphocytes (%) (Auto) 18 % (24-48) Monocytes (%) (Auto) 28 % (0-9) Eosinophils (%) (Auto) 10 % (0-3) Basophils (%) (Auto) 1 % (0-3) Neutrophils # (Auto) 1.4 x10^3/uL (1.8-7.7) Lymphocytes # (Auto) 0.6 x10^3/uL (1.0-4.8) Monocytes # (Auto) 0.9 x10^3/uL (0.0-1.1) Eosinophils # (Auto) 0.3 x10^3/uL (0.0-0.7) Basophils # (Auto) 0.0 x10^3/uL (0.0-0.2) Sodium Level 136 mmol/L (136-145) Potassium Level 4.4 mmol/L (3.5-5.1) Chloride Level 99 mmol/L (98-107) Carbon Dioxide Level 27 mmol/L (21-32) Anion Gap 10 (6-14) Blood Urea Nitrogen 77 mg/dL (7-20) Creatinine 5.1 mg/dL (0.6-1.0) Estimated GFR (Cockcroft-Gault) 8.0 Glucose Level 102 mg/dL (70-99) Calcium Level 9.2 mg/dL (8.5-10.1) Hepatitis B Surface Antigen Nonreactive (Nonreactive) Hepatitis B Surface Antibody Nonreactive Hepatitis B Core Total Antibody Nonreactive (Nonreactive) Results All relevant outside records, renal labs, imaging studies, telemetry/EKG's were reviewed. Justicifation of Admission Dx: Justifications for Admission: Justification of Admission Dx: Yes IZABELLA MCNULTY MD May 02, 2020 22:17
[2020-05-02 23:00] VITALS: BP 189/64
[2020-05-03 03:00] VITALS: BP 154/56
[2020-05-03] MEDS: LEVOTHYROXINE 88 MCG TABLET PO SCH (06:28)
[2020-05-03 07:00] VITALS: BP 166/42
[2020-05-03] MEDS: FOLIC/VIT B COMP W-C (RENAL) TABLET. PO SCH (09:10)
[2020-05-03] MEDS: CALCIUM ACETATE 667 MG CAPSULE PO SCH (09:10)
[2020-05-03] MEDS: hydrALAZINE 25 MG TABLET PO SCH (09:10)
[2020-05-03] MEDS: CLOPIDOGREL BISULFATE 75 MG TABLET PO SCH (09:10)
--- NOTE | 2020-05-03 10:23 | PDOC ---
PROGRESS NOTES Subjective Subjective feels better. covid 19 test is negative. in good spirits. Objective Objective Vital Signs Date Time Temp Pulse Resp B/P (MAP) Pulse Ox O2 Delivery O2 Flow Rate FiO2 05/03/20 09:10 61 166/42 05/03/20 07:42 Room Air 05/03/20 07:00 97.8 20 94 97.8 Intake and Output 05/03/20 07:00 Intake Total 700 ml Output Total 200 ml Balance 500 ml Intake Oral 700 ml Output Urine Total 200 ml # Voids 4 # Bowel Movements 9 Physical Exam Abdomen: Soft Heart: Regular rate, Normal S1, Normal S2 Extremities: No edema, Other (bilateral BKA) General: Alert HEENT: Atraumatic Lungs: Clear to auscultation Neuro: Normal speech Skin: No rashes Assessment Assessment Problems1. 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 2. End-stage renal disease, on hemodialysis. 3. Disuse myopathy with generalized weakness. 4. Coronary artery disease. 5. Hypertension. 6. Moderate aortic stenosis. 7. Ischemic cardiomyopathy. 8. Bilateral below-knee amputation. 9. Peripheral arterial disease. 10. Bilateral pleural effusions.treated with hemodialysis Medical Problems: (1) ESRD (end stage renal disease) Status: Acute (2) Fluid overload Status: Acute (3) Pleural effusion due to another disorder Status: Acute Plan Plan of Care dismiss today to MAROriana Comment Review of Relevant I have reviewed the following items wilbur (where applicable) has been applied. Labs Laboratory Tests Test 05/01/20 11:30 05/02/20 04:50 Coronavirus (COVID-19)(PCR) Not detected (NOT DETECT.) White Blood Count 3.3 x10^3/uL (4.0-11.0) Red Blood Count 3.10 x10^6/uL (3.50-5.40) Hemoglobin 10.1 g/dL (12.0-15.5) Hematocrit 29.9 % (36.0-47.0) Mean Corpuscular Volume 96 fL (79-100) Mean Corpuscular Hemoglobin 33 pg (25-35) Mean Corpuscular Hemoglobin Concent 34 g/dL (31-37) Red Cell Distribution Width 14.0 % (11.5-14.5) Platelet Count 181 x10^3/uL (140-400) Neutrophils (%) (Auto) 43 % (31-73) Lymphocytes (%) (Auto) 18 % (24-48) Monocytes (%) (Auto) 28 % (0-9) Eosinophils (%) (Auto) 10 % (0-3) Basophils (%) (Auto) 1 % (0-3) Neutrophils # (Auto) 1.4 x10^3/uL (1.8-7.7) Lymphocytes # (Auto) 0.6 x10^3/uL (1.0-4.8) Monocytes # (Auto) 0.9 x10^3/uL (0.0-1.1) Eosinophils # (Auto) 0.3 x10^3/uL (0.0-0.7) Basophils # (Auto) 0.0 x10^3/uL (0.0-0.2) Sodium Level 136 mmol/L (136-145) Potassium Level 4.4 mmol/L (3.5-5.1) Chloride Level 99 mmol/L (98-107) Carbon Dioxide Level 27 mmol/L (21-32) Anion Gap 10 (6-14) Blood Urea Nitrogen 77 mg/dL (7-20) Creatinine 5.1 mg/dL (0.6-1.0) Estimated GFR (Cockcroft-Gault) 8.0 Glucose Level 102 mg/dL (70-99) Calcium Level 9.2 mg/dL (8.5-10.1) Hepatitis B Surface Antigen Nonreactive (Nonreactive) Hepatitis B Surface Antibody Nonreactive Hepatitis B Core Total Antibody Nonreactive (Nonreactive) Medications Current Medications Aspirin (Rayne Aspirin) 81 mg DAILYWBKFT PO ; Start 04/29/20 at 12:00; Status Cancel Clopidogrel Bisulfate (Plavix) 75 mg DAILYWBKFT PO Last administered on 05/03/20at 09:10; Start 04/29/20 at 15:00 Calcium Acetate (Phoslo) 667 mg TIDWMEALS PO Last administered on 05/03/20at 09:10; Start 04/29/20 at 12:00 Vitamin B Complex/ Vitamin C (Chelsey-Sudhir) 1 tab DAILY PO Last administered on 05/03/20at 09:10; Start 04/29/20 at 12:00 Nitroglycerin (Nitrostat) 0.4 mg PRN Q5MIN PRN SL CHEST PAIN; Start 04/29/20 at 11:30 Al Hydroxide/Mg Hydroxide (Mylanta Plus Xs) 30 ml PRN Q4HRS PRN PO HEARTBURN / GAS; Start 04/29/20 at 11:30 Clonidine HCl (Catapres) 0.1 mg QHS PO Last administered on 05/02/20 20:40; Start 04/29/20 at 21:00 Acetaminophen (Tylenol) 650 mg PRN Q6HRS PRN PO MILD PAIN / TEMP > 100.3'F Last administered on 05/02/20at 18:39; Start 04/29/20 at 11:30 Hydralazine HCl (Apresoline) 25 mg BID PO Last administered on 05/03/20 09:10; Start 04/29/20 at 12:00 Levothyroxine Sodium (Synthroid) 88 mcg DAILY06 PO Last administered on 05/03/20 06:28; Start 04/30/20 at 06:00 Aspirin (Aspirin Chewable) 81 mg HS PO Last administered on 05/02/20at 20:40; Start 04/29/20 at 21:00 Non-Formulary Medication 1 ea DAILY PO Last administered on 05/03/20at 09:52; Start 04/29/20 at 17:10 Active Scripts Active Hydralazine Hcl 25 Mg Tablet 25 Mg PO BID 30 Days Nitrostat (Nitroglycerin) 0.4 Mg Tab.subl 0.4 Mg SL PRN Q5MIN PRN Levothyroxine Sodium 88 Mcg Tablet 1 Tab PO DAILY Reported Calcium Acetate 667 Mg Tablet 1 Tab PO TID 30 Days Chelsey-Sudhir Tablet (Folic Acid/Vitamin B Comp W-C) 0.8 Mg Tablet 1 Tab PO DAILY 30 Days Acetaminophen 500 Mg Tablet 1 Tab PO PRN Q6HRS PRN 15 Days Bystolic (Nebivolol) 10 Mg Tablet 10 Mg PO DAILY pt can take 10-30mg daily for elevated bp Aspir 81 (Aspirin) 81 Mg Tablet.dr 1 Tab PO HS Clonidine Hcl 0.1 Mg Tablet 1 Tab PO QHS Clopidogrel (Clopidogrel Bisulfate) 75 Mg Tablet 75 Mg PO DAILY Vitals/I & O Vital Sign - Last 24 Hours 05/02/20 05/02/20 05/02/20 05/02/20 15:00 19:00 20:00 20:40 Temp 97.7 97.4 97.7 97.4 Pulse 59 60 59 Resp 20 20 B/P (MAP) 157/40 (79) 158/48 (84) 157/40 Pulse Ox 93 98 O2 Delivery Room Air Room Air Room Air 05/02/20 05/02/20 05/03/20 05/03/20 20:40 23:00 03:00 07:00 Temp 97.7 98.1 97.8 97.7 98.1 97.8 Pulse 59 57 77 61 Resp 20 20 20 B/P (MAP) 157/40 189/64 (105) 154/56 (88) 166/42 (83) Pulse Ox 99 94 94 O2 Delivery Room Air Room Air Room Air 05/03/20 05/03/20 07:42 09:10 Pulse 61 B/P (MAP) 166/42 O2 Delivery Room Air Intake and Output 05/02/20 05/02/20 05/03/20 15:00 23:00 07:00 Intake Total 200 ml 500 ml Output Total 200 ml Balance 0 ml 500 ml Justicifation of Admission Dx: Justifications for Admission: Justification of Admission Dx: Yes LYNDA FELIX MD May 03, 2020 10:23
--- NOTE | 2020-05-03 10:24 | PDOC ---
SUBJECTIVE ROS No complaints, states she is dcing to [facility] this afternoon OBJECTIVE Vital Signs Vital Signs Date Time Temp Pulse Resp B/P (MAP) Pulse Ox O2 Delivery O2 Flow Rate FiO2 05/03/20 09:10 61 166/42 05/03/20 07:42 Room Air 05/03/20 07:00 97.8 20 94 97.8 I & 0 Intake and Output 05/03/20 07:00 Intake Total 700 ml Output Total 200 ml Balance 500 ml Intake Oral 700 ml Output Urine Total 200 ml # Voids 4 # Bowel Movements 9 PHYSICAL EXAM Physical Exam GENERAL: no apparent distress. HEENT: Pupils equally round. Oropharynx pink and moist. NECK: Supple. LUNGS: Clear to auscultation. HEART: S1, S2. Left-sided pacemaker site unremarkable. Murmur present. ABDOMEN: Nondistended, soft, nontender with bowel sounds present. EXTREMITIES: No gross edema or cyanosis. Bilateral below-knee amputation. RUE-AV fistula SKIN: Warm to touch without signs of rash. NEUROLOGIC: Alert and oriented x 3 No Espino DIAGNOSIS/ASSESSMENT Assessment & Plan ESRD - On HD MWF under Dr. Henley's care No indication for HD today HTN- stable Moderate -2D echo 12/17 showed LVEF 45%, moderate aortic stenosis. Shortness of breath - Improved Ischemic cardiomyopathy. Bilateral below-knee amputation. Bilateral pleural effusions. Anticipating dc to [facility] today COMMENT/RELEVANT DATA Meds Current Medications Medications (Trade) Dose Ordered Sig/Sarah Start Time Stop Time Status Last Admin Dose Admin Acetaminophen (Tylenol) 650 mg PRN Q6HRS PRN 04/29/20 11:30 05/02/20 18:39 650 MG Al Hydroxide/Mg Hydroxide (Mylanta Plus Xs) 30 ml PRN Q4HRS PRN 04/29/20 11:30 Aspirin (Aspirin Chewable) 81 mg HS 04/29/20 21:00 05/02/20 20:40 81 MG Aspirin (Rayne Aspirin) 81 mg DAILYWBKFT 04/29/20 12:00 Cancel Calcium Acetate (Phoslo) 667 mg TIDWMEALS 04/29/20 12:00 05/03/20 09:10 667 MG Clonidine HCl (Catapres) 0.1 mg QHS 04/29/20 21:00 05/02/20 20:40 0.1 MG Clopidogrel Bisulfate (Plavix) 75 mg DAILYWBKFT 04/29/20 15:00 05/03/20 09:10 75 MG Hydralazine HCl (Apresoline) 25 mg BID 04/29/20 12:00 05/03/20 09:10 25 MG Levothyroxine Sodium (Synthroid) 88 mcg DAILY06 04/30/20 06:00 05/03/20 06:28 88 MCG Nitroglycerin (Nitrostat) 0.4 mg PRN Q5MIN PRN 04/29/20 11:30 Non-Formulary Medication 1 ea DAILY 04/29/20 17:10 05/03/20 09:52 1 EA Vitamin B Complex/ Vitamin C (Chelsey-Sudhir) 1 tab DAILY 04/29/20 12:00 05/03/20 09:10 1 TAB Results All relevant outside records, renal labs, imaging studies, telemetry/EKG's were reviewed. Justicifation of Admission Dx: Justifications for Admission: Justification of Admission Dx: Yes IZABELLA MCNULTY MD May 03, 2020 10:24
[2020-05-03 11:00] VITALS: BP 165/44
--- NOTE | 2020-05-03 11:49 | NUR ---
This RN called report to ISAIAH Islas at [facility] at 1145.
--- NOTE | 2020-05-03 12:00 | NUR ---
Pt left unit at 1200 by wheelchair via transportation. IV removed with no complications, VSS. Discharge paperwork sent with transport. All belongings returned to pt, including personal wheelchair and her prosthetics.
== END 2020-05-03 12:00 | DRG 291 ==
LOC: ER 06:42 → 6 SOUTH 08:30 → OBSVTOIN 11:36
PROVIDERS: ADMIT Internal Medicine; ATTEND Internal Medicine
PROC: 5A1D70Z Performance of Urinary Filtration, Intermittent, Less than 6 Hours Per Day (ICD-10-PCS; principal; 2020-04-29)
DX: I13.2 Hypertensive heart and chronic kidney disease with heart failure and with stage 5 chronic kidney disease, or end stage renal disease (principal); I50.43 Acute on chronic combined systolic (congestive) and diastolic (congestive) heart failure; N18.6 End stage renal disease; Z79.899 Other long term (current) drug therapy; F32.9 Major depressive disorder, single episode, unspecified; F41.9 Anxiety disorder, unspecified; G62.9 Polyneuropathy, unspecified; K21.9 Gastro-esophageal reflux disease without esophagitis; K57.90 Diverticulosis of intestine, part unspecified, without perforation or abscess without bleeding; M19.90 Unspecified osteoarthritis, unspecified site; E03.9 Hypothyroidism, unspecified; E78.5 Hyperlipidemia, unspecified; G72.89 Other specified myopathies; I25.10 Atherosclerotic heart disease of native coronary artery without angina pectoris; I35.0 Nonrheumatic aortic (valve) stenosis; I25.5 Ischemic cardiomyopathy; I49.5 Sick sinus syndrome; I73.9 Peripheral vascular disease, unspecified; J45.909 Unspecified asthma, uncomplicated; Z20.828 Contact with and (suspected) exposure to other viral communicable diseases; Z79.02 Long term (current) use of antithrombotics/antiplatelets; Z79.82 Long term (current) use of aspirin; Z82.49 Family history of ischemic heart disease and other diseases of the circulatory system; Z83.3 Family history of diabetes mellitus; Z86.73 Personal history of transient ischemic attack (TIA), and cerebral infarction without residual deficits; Z89.511 Acquired absence of right leg below knee; Z89.512 Acquired absence of left leg below knee; Z90.49 Acquired absence of other specified parts of digestive tract; Z90.710 Acquired absence of both cervix and uterus; Z95.0 Presence of cardiac pacemaker; Z95.5 Presence of coronary angioplasty implant and graft; Z99.2 Dependence on renal dialysis
CPT/HCPCS: 36415; 71045; 80048; 80053; 84484; 85007; 85025; 86704; 86706; 87340; 93005; G0378; G0379; 97530-GP; 97535-GO; 99285-25; U0003-CS

== ENCOUNTER → 2020-07-07 | Outpatient (CLI) | payer MEDICARE ==
[2020-07-07 08:59] LABS: BASO # 0.1 x10^3/uL (0.0-0.2); BASO % 1 % (0-3); EOS # 0.3 x10^3/uL (0.0-0.7); EOS % 5 % (0-3); HEMATOCRIT 36.6 % (36.0-47.0); HEMOGLOBIN 12.1 g/dL (12.0-15.5); LYMPH # 0.4 x10^3/uL (1.0-4.8); LYMPH % 8 % (24-48); MEAN CORPUSCULAR HEMOGLOBIN 32 pg (25-35); MEAN CORPUSCULAR HGB CONC 33 g/dL (31-37); MEAN CORPUSCULAR VOLUME 95 fL (79-100); MONO # 0.5 x10^3/uL (0.0-1.1); MONO % 9 % (0-9); NEUT # 4.3 x10^3/uL (1.8-7.7); NEUT % 77 % (31-73); PLATELET COUNT 245 x10^3/uL (140-400); RED BLOOD COUNT 3.86 x10^6/uL (3.50-5.40); RED CELL DISTRIBUTION WIDTH 15.1 % (11.5-14.5); WHITE BLOOD COUNT 5.5 x10^3/uL (4.0-11.0)
[2020-07-13 14:13] LABS: METHYLMALONIC ACID 590 nmol/L (0-378)
== END | disposition home or self-care (01) ==
LOC: ONCLAB 08:37
PROVIDERS: ATTEND Internal Medicine Hematology & Oncology
DX: D64.89 Other specified anemias (principal); D72.818 Other decreased white blood cell count
CPT/HCPCS: 36415; 83921; 85025

== ENCOUNTER → 2020-08-24 | Outpatient (CLI) | payer MEDICARE ==
[~2020-08-24] MED LIST changes: +AMLO-186 PO; +AMLO-187 PO; -AMLO10TA8 PO; -AMLO5TAB10 PO
[2020-08-24 15:09] LABS: BASO % 1 % (0-3); EOS # 0.2 x10^3/uL (0.0-0.7); EOS % 9 % (0-3); HEMATOCRIT 38.2 % (36.0-47.0); HEMOGLOBIN 12.7 g/dL (12.0-15.5); LYMPH # 0.5 x10^3/uL (1.0-4.8); LYMPH % 24 % (24-48); MEAN CORPUSCULAR HEMOGLOBIN 32 pg (25-35); MEAN CORPUSCULAR HGB CONC 33 g/dL (31-37); MEAN CORPUSCULAR VOLUME 95 fL (79-100); MONO # 0.6 x10^3/uL (0.0-1.1); MONO % 29 % (0-9); NEUT # 0.7 x10^3/uL (1.8-7.7); NEUT % 37 % (31-73); PLATELET COUNT 164 x10^3/uL (140-400); RED BLOOD COUNT 4.01 x10^6/uL (3.50-5.40); RED CELL DISTRIBUTION WIDTH 16.4 % (11.5-14.5)
[2020-08-24 15:50] LABS: % EOS 4 % (0-5); % LYMPHS 26 % (24-48); % MONOS 28 % (0-10); % SEGS 42 % (35-66); PLATELET CLUMP PRESENT; PLT ESTIMATE ADEQUATE (ADEQUATE)
[2020-08-24 15:51] LABS: OVALOCYTES OCC; POIKILOCYTOSIS SLIGHT; SCHISTOCYTES OCC; TEAR DROP CELLS OCC
== END ==
LOC: ONCLAB 14:43
PROVIDERS: ATTEND Internal Medicine Hematology & Oncology
DX: D72.818 Other decreased white blood cell count (principal)
CPT/HCPCS: 36415; 82607; 82746; 85007; 85025

== ENCOUNTER → 2020-09-01 | Outpatient (CLI) | payer MEDICARE ==
[2020-09-01 14:22] LABS: BASO # 0.1 x10^3/uL (0.0-0.2); BASO % 1 % (0-3); EOS # 0.2 x10^3/uL (0.0-0.7); EOS % 5 % (0-3); HEMATOCRIT 37.6 % (36.0-47.0); HEMOGLOBIN 12.4 g/dL (12.0-15.5); LYMPH # 0.6 x10^3/uL (1.0-4.8); LYMPH % 16 % (24-48); MEAN CORPUSCULAR HEMOGLOBIN 32 pg (25-35); MEAN CORPUSCULAR HGB CONC 33 g/dL (31-37); MEAN CORPUSCULAR VOLUME 96 fL (79-100); MONO # 0.5 x10^3/uL (0.0-1.1); MONO % 14 % (0-9); NEUT # 2.3 x10^3/uL (1.8-7.7); NEUT % 64 % (31-73); PLATELET COUNT 195 x10^3/uL (140-400); RED BLOOD COUNT 3.93 x10^6/uL (3.50-5.40); RED CELL DISTRIBUTION WIDTH 15.9 % (11.5-14.5); WHITE BLOOD COUNT 3.6 x10^3/uL (4.0-11.0)
== END ==
LOC: ONCLAB 14:06
PROVIDERS: ATTEND Internal Medicine Hematology & Oncology
DX: D64.89 Other specified anemias (principal)
CPT/HCPCS: 36415; 85025

== ENCOUNTER 2020-09-06 07:09 | Outpatient (CLI) | payer MEDICARE ==
[~2020-09-06] VITALS: Ht 167.6 cm; Wt 59.0 kg
[2020-09-06] VITALS (10 sets, daily range): BP systolic 93–155; BP diastolic 35–86
[2020-09-06 07:58] LABS: BASO # 0.1 x10^3/uL (0.0-0.2); BASO % 1 % (0-3); EOS # 0.3 x10^3/uL (0.0-0.7); EOS % 5 % (0-3); HEMATOCRIT 36.4 % (36.0-47.0); HEMOGLOBIN 12.1 g/dL (12.0-15.5); LYMPH # 0.4 x10^3/uL (1.0-4.8); LYMPH % 8 % (24-48); MEAN CORPUSCULAR HEMOGLOBIN 32 pg (25-35); MEAN CORPUSCULAR HGB CONC 33 g/dL (31-37); MEAN CORPUSCULAR VOLUME 95 fL (79-100); MONO # 0.4 x10^3/uL (0.0-1.1); MONO % 7 % (0-9); NEUT # 4.2 x10^3/uL (1.8-7.7); NEUT % 79 % (31-73); PLATELET COUNT 173 x10^3/uL (140-400); RED BLOOD COUNT 3.81 x10^6/uL (3.50-5.40); RED CELL DISTRIBUTION WIDTH 15.7 % (11.5-14.5); WHITE BLOOD COUNT 5.3 x10^3/uL (4.0-11.0)
[2020-09-06 08:20] LABS: PROTHROMBIN TIME PATIENT 14.6 SEC (11.7-14.0)
[2020-09-06] MEDS ORDERED: LIDOCAINE WITH 8.4% SOD BICARB 3 ML DISP.SYRIN. ONE (08:30)
--- NOTE | 2020-09-06 08:30 | PDOC ---
MODERATE SEDATION ASSESSMENT RISKS/ALTERNATIVES Risks/Alternatives Risks and alternatives of this type of sedation and procedure discussed with: RISK/ALTERNATIVES: Patient H & P ON CHART H & P H & P on chart and reviewed for co-morbid conditions and appropriate labs. H&P ON CHART: Yes STATUS PREG STATUS ASSESSED: Yes MEDS/ALLERGIES REVIEWED Meds/Allergies Reviewed Medications and Allergies including time and route of recently administered narcotics and sedatives. MEDS/ALLERGIES REVIEWED: Yes ASA RATING ASA RATING: III AIRWAY ASSESSMENT Airway Assessment Airway patency, oral function limitations, presence of caps, crowns, dentures, partials, and ability to extend neck assessed. AIRWAY ASSESSMENT: Yes MALLAMPATI SCORE MALLAMPATI SCORE: II PRE-SEDATION ASSESSMENT PRE-SEDATION ASSESSMENT: Yes HILLARY JOE MD Sep 06, 2020 08:30
[2020-09-06] MEDS ORDERED: MIDAZOLAM HCL/PF 2 MG/2 ML VIAL. ONE (08:39)
[2020-09-06] MEDS ORDERED: fentaNYL PF VIAL 100 MCG/2 ML VIAL ONE (08:39)
[2020-09-06] MEDS ORDERED: MIDAZOLAM HCL/PF 2 MG/2 ML VIAL. IV ONE (09:00)
[2020-09-06] MEDS ORDERED: fentaNYL PF VIAL 100 MCG/2 ML VIAL IV ONE (09:00)
[2020-09-06] MEDS ORDERED: LIDOCAINE WITH 8.4% SOD BICARB 3 ML DISP.SYRIN. IJ ONE (09:00)
--- NOTE | 2020-09-06 09:17 | RAD ---
CT-guided bone marrow biopsy. 09/06/2020 7:11 AM Indication: LEUKOPENIA Discussion: The risks and benefits of the procedure, including but not limited to, bleeding and infection were discussed patient. Informed consent was obtained. The patient was brought to the CT scanner and placed in the left lateral decubitus position. A timeout procedure was performed. Display Trimmer CT imaging of the pelvis demonstrated right ilium amenable to bone marrow biopsy. The overlying soft tissues were prepped and draped using maximum sterile barrier technique. 1% lidocaine without epinephrine was administered for local anesthesia. Under intermittent CT guidance, an OncControl needle was advanced into the bone marrow of the targeted iliac crest. 2 Aspirates and 1 core biopsy samples were obtained. Samples were delivered to pathology was present at the time of procedure. The needle was removed and manual pressure held to achieve hemostasis. No immediate complications were identified. EBL: 15 cc (sample + 2 cc) Anesthesia: Local only Complications: None Disposition: Observe in outpatient x 2 hours with expected discharge. Impression: Successful CT-guided bone marrow biopsy of the right iliac crest . PQRS Compliance Statement: One or more of the following individualized dose reduction techniques were utilized for this examination: 1. Automated exposure control 2. Adjustment of the mA and/or kV according to patient size 3. Use of iterative reconstruction technique
--- NOTE | 2020-09-06 11:00 | NUR ---
Pt S&O x4. Denies any new pains. VSS. tolerating po well. dressing on left sacral area is clean and dry. d/c instructions given, questions answered. out to vehicle per w/c, family to drive her home
--- NOTE | 2020-09-14 15:10 | PATHOLOGY ---
[facility] Accession Number: [id number] . 01 Material submitted: . PART A: bone - BONE MARROW BIOPSY PART B: bone - BONE MARROW CLOT PART C: bone - BONE MARROW ASPIRATE SLIDES PART D: bone - PERIPHERAL BLOOD SMEARS PART E: bone - BONE MARROW FLOW . 01 Clinical history: . LEUKOPENIA . 02 Diagnosis: Peripheral smear: - Low normal WBC count with absolute lymphopenia. . Bone marrow, aspirate smears, clot section and core biopsy: - Essentially normocellular marrow showing trilineage hematopoiesis, no significant dyspoiesis, and increased reticuloendothelial iron stores. (JPM/db; 09/13/2020) LBQ 09/13/2020 1455 Local . 02 Comment: The peripheral smear shows a low normal WBC count with an absolute lymphopenia. The bone marrow is essentially normocellular and shows trilineage hematopoiesis, no significant dyspoiesis, and mildly increased reticuloendothelial iron stores. The WBC count has rebounded to normal range from a previous low of 2.0 K/CMM on 08/24/20. The bone marrow shows no overt morphologic evidence of dysplasia. Bone marrow flow cytometric analysis shows no immunophenotypic evidence of a lymphoproliferative disorder, acute leukemia, increase in blasts, or plasma cell neoplasm. Bone marrow cytogenetic analysis shows a normal female karyotype. (JPM/db; 09/13/2020) . Special stains performed: Iron stain on C1, retic stain on A1 and iron stain on A1 and B1 . 02 Electronically signed: . Jonny Wtit MD, Pathologist NPI- [id number] . 01 Gross description: . A. The specimen is received in formalin, labeled "Joanna Anderson, BM BX". Received is a single needle core of light rodriguez bone measuring 1.8 cm in length by 0.3 cm in diameter. The specimen is submitted entirely in cassette A1, following light decalcification. . B. The specimen is received in formalin, labeled "Joanna Anderson, BM aspirate clot". Received is blood coagulum measuring 4.5 x 4.3 x 0.5 cm in aggregate dimensions. The specimen is filtered and entirely submitted in cassette B1 through B3. (CAA; 09/06/2020) QA/[facility] 09/06/2020 1718 Local . 02 Microscopic: . Laboratory Data: The WBC count is 5.3 K/CMM, and the automated WBC differential reveals 79% neutrophils, 8% lymphs, 7% monos, 5% eos, and 1% baso. The RBC count is 3.81 M/CMM, hemoglobin 12.1 G/DL, hematocrit 36.4%, MCV 95 FL, MCH 32 PG, MCHC 33 G/DL, and the RDW is 15.7%. The platelet count is 173 K/CMM. . Peripheral Smear: The peripheral smear is reviewed. The WBC count is low normal. There is an absolute lymphopenia. The WBC differential reveals a predominance of segmented neutrophils, with small populations of lymphocytes, monocytes and eosinophils noted. Neutrophils do not show dysplastic changes. There is no significant neutrophilic left shift. There are no circulating blasts. There is no leukoerythroblastic reaction. The lymphocyte population consists predominantly of small lymphocytes. Red blood cells predominantly appear normochromic and normocytic. Red blood cells do show mild anisocytosis and mild poikilocytosis comprised of ovalocytes and a few spiculated red blood cells. Platelets are normal in number and morphology. . Aspirate Smears: Two Holloway's-stained and one iron-stained aspirate smears are examined. The smears contain multiple marrow particles. The M/E ratio is approximately 2:1. Erythroid maturation appears normoblastic. There are no megaloblastic or overt dysplastic changes. Granulopoiesis qualitatively appears normal. There is no significant left shift or dysplastic changes. There is no increase of blasts. Megakaryocytes appear adequate in number and are of variable ploidy. Plasma cells are not increased. There is no increase of lymphocytes. There are no cells foreign to the marrow. The iron stained smear shows mildly increased iron stores. No ringed sideroblasts are identified. . Bone Marrow Biopsy and Clot Sections Sections of the bone marrow biopsy reveal segments of blood clot and bone marrow showing focal aspiration artifact. Preserved areas of the bone marrow are approximately 20% cellular. Sections of the bone marrow clot reveal multiple marrow particles, the majority of which range between 10-20% and 30% cellular. There is trilineage hematopoiesis. There is a good admixture of erythroid and granulocytic percursors, which are present in varying stages of maturation. Megakaryocytes appear adequate in number and are of variable ploidy. Plasma cells are not increased. There is a single non-paratrabecular discrete lymphoid aggregate present within the bone marrow biopsy. There are several small discrete lymphoid aggregates present within the clot section marrow particles. These lymphoid aggregates are comprised of small, relatively mature appearing lymphocytes. There are no abnormal lymphoid aggregates, granulomas, or cells foreign to the marrow. A reticulin stain obtained on the biopsy shows no significant increase of reticulin fibers. An iron stain of the biopsy shows mildly increased reticuloendothelial iron stores. An iron stain obtained on the clot section also shows mildly increased reticuloendothelial iron stores. No ringed sideroblasts are identified. . Special Studies: Bone marrow submitted for flow cytometric analysis has a viability of 87.4%. Granulocytes comprise 90.1% of total cells and show phenotypic evidence of maturation. Monocytes comprise 1.7% of total cells and show phenotypic evidence of maturation. CD45 dim, CD34 positive cells comprise 0.6% of total cells. Plasma cells comprise 0.1% of total cells and are not increased. Lymphocytes comprise 6.3% of total cells. T-cells comprise 89% of lymphoid cells and show a CD4/CD8 ratio of 1.9. NK-cells comprise 4% of lymphoid cells. Mature B-cells comprise 3% of lymphoid cells and are polyclonal with a kappa:lambda ratio of 1.0. . Bone marrow submitted for cytogenetic analysis reveals a normal female karyotype in all cells analyzed. (JPM:floorhand:db; 09/12/2020) . 02 Pathologist provided ICD-10: D72.810 . 02 CPT . 747691, 664660, 008873, 695415, 614341, [id number], [id number], [id number], [id number] Specimen Comment: A courtesy copy of this report has been sent to [phone], [phone] Specimen Comment: [id number], Specimen Comment: Report sent to ,DR THOMAS / DR FELIX Performed at: [address] [facility] [address], [place], [place] [id number] MD Jose Mckay MD Phone: [phone] Performed at: 02 [facility] [address] [place], [place] [id number] MD Jonny Witt MD Phone: [phone]
== END 2020-09-06 11:05 | disposition home or self-care (01) ==
LOC: INTRAD 07:09
PROVIDERS: ATTEND Internal Medicine Hematology & Oncology
DX: D72.810 Lymphocytopenia (principal); I13.2 Hypertensive heart and chronic kidney disease with heart failure and with stage 5 chronic kidney disease, or end stage renal disease; N18.6 End stage renal disease; I50.9 Heart failure, unspecified; E78.00 Pure hypercholesterolemia, unspecified; M19.90 Unspecified osteoarthritis, unspecified site; J45.909 Unspecified asthma, uncomplicated; E66.9 Obesity, unspecified; F41.9 Anxiety disorder, unspecified; F32.9 Major depressive disorder, single episode, unspecified; I25.10 Atherosclerotic heart disease of native coronary artery without angina pectoris; E03.9 Hypothyroidism, unspecified; Z85.828 Personal history of other malignant neoplasm of skin; Z99.2 Dependence on renal dialysis; Z79.899 Other long term (current) drug therapy; Z98.890 Other specified postprocedural states; Z82.49 Family history of ischemic heart disease and other diseases of the circulatory system; Z83.3 Family history of diabetes mellitus; Z88.1 Allergy status to other antibiotic agents; Z88.5 Allergy status to narcotic agent; Z88.8 Allergy status to other drugs, medicaments and biological substances
CPT/HCPCS: 36415; 38221; 77012; 85025; 85610; 88184; 88185; 88237; J2250; J3490; 38222

== ENCOUNTER → 2020-09-16 | Outpatient (CLI) | payer MEDICARE ==
[2020-09-06 10:35] VITALS: BP 120/55
[2020-09-16 14:20] LABS: BASO % 3 % (0-3); EOS # 0.2 x10^3/uL (0.0-0.7); EOS % 15 % (0-3); HEMATOCRIT 36.8 % (36.0-47.0); LYMPH # 0.4 x10^3/uL (1.0-4.8); LYMPH % 30 % (24-48); MEAN CORPUSCULAR HEMOGLOBIN 32 pg (25-35); MEAN CORPUSCULAR HGB CONC 33 g/dL (31-37); MEAN CORPUSCULAR VOLUME 97 fL (79-100); MONO # 0.5 x10^3/uL (0.0-1.1); MONO % 38 % (0-9); NEUT # 0.2 x10^3/uL (1.8-7.7); NEUT % 15 % (31-73); PLATELET COUNT 181 x10^3/uL (140-400); RED BLOOD COUNT 3.79 x10^6/uL (3.50-5.40); RED CELL DISTRIBUTION WIDTH 16.5 % (11.5-14.5)
[2020-09-16 14:31] LABS: WHITE BLOOD COUNT 1.2 x10^3/uL (4.0-11.0)
[2020-09-16 15:51] LABS: % EOS 26 % (0-5); % LYMPHS 40 % (24-48); % MONOS 26 % (0-10); % SEGS 8 % (35-66); PLT ESTIMATE ADEQUATE (ADEQUATE); POIKILOCYTOSIS SLIGHT; TARGET CELLS OCC
[2020-09-16 15:52] LABS: ACANTHOCYTES OCC; OVALOCYTES FEW; SCHISTOCYTES OCC; TEAR DROP CELLS OCC
== END ==
LOC: ONCLAB 13:38
PROVIDERS: ATTEND Internal Medicine Hematology & Oncology
DX: D64.89 Other specified anemias (principal)
CPT/HCPCS: 36415; 85007; 85025

== ENCOUNTER 2020-11-09 01:29 | Emergency (ER) | payer MEDICARE ==
[~2020-11-09] VITALS: Ht 167.6 cm; Wt 59.0 kg
[2020-11-09] MEDS ORDERED: TRANEXAMIC ACID 1,000 MG/10 ML VIAL. TOP ONE (02:15)
--- NOTE | 2020-11-09 02:50 | ED.ADGEN ---
Past Medical History Past Medical History: CAD, Hypertension, AR, Renal Failure, Stroke, TIA, Other Additional Past Medical Histor: Polyarteritis; neuropathy; polyps Past Surgical History: Appendectomy, Colectomy, Pacemaker, Other Additional Past Surgical Histo: bilateral BKA; Sphincter removed, AV fistula Smoking Status: Never Smoker Alcohol Use: None Drug Use: None General Adult EDM: Chief Complaint: NOSEBLEED HPI: HPI: Patient is a 89 year old female coming in for EMS for nosebleed after a fall. Patient states she was sitting her wheelchair for sleep and fell forward onto the floor. States she does not think she lost consciousness she remembers everything. She is currently taking Plavix. States the bleeding is lower side of the left side and has been going on her throat was causing her to vomit up blood. Denies any other injuries, otherwise been well. Also has a laceration across the bridge of her nose Review of Systems: Review of Systems: All other systems within normal limits except for as noted in the HPI Current Medications: Current Medications Medications (Trade) Dose Ordered Sig/Sarah Start Time Stop Time Status Last Admin Dose Admin Acetaminophen (Tylenol) 650 mg 1X ONCE 11/09/20 05:00 11/09/20 05:01 DC 11/09/20 06:15 650 MG Ondansetron HCl (Zofran) 4 mg 1X ONCE 11/09/20 03:30 11/09/20 03:31 DC Oxymetazoline HCl (Afrin) 2 spray 1X ONCE 11/09/20 03:30 11/09/20 03:31 DC Tranexamic Acid (Cyklokapron) 1,000 mg 1X ONCE 11/09/20 02:15 11/09/20 02:16 DC Allergies: Allergies: Allergies Coded Allergies Type Severity Reaction Last Updated Verified Quinolones Allergy Intermediate 11/07/17 Yes atorvastatin Allergy Intermediate 11/07/17 Yes chlorhexidine Allergy Intermediate 04/20/20 Yes ciprofloxacin HCl Allergy Intermediate 11/07/17 Yes codeine Allergy Intermediate 11/07/17 Yes diazepam Allergy Intermediate 11/07/17 Yes doxazosin Allergy Intermediate 11/07/17 Yes eprosartan Allergy Intermediate 11/07/17 Yes fexofenadine Allergy Intermediate 11/07/17 Yes gabapentin Allergy Intermediate 11/07/17 Yes gatifloxacin Allergy Intermediate 11/07/17 Yes hydrochlorothiazide Allergy Intermediate 08/28/18 Yes isosorbide Allergy Intermediate 11/07/17 Yes labetalol Allergy Intermediate 11/07/17 Yes lisinopril Allergy Intermediate 11/07/17 Yes metoprolol Allergy Intermediate 11/07/17 Yes neomycin Allergy Intermediate 11/07/17 Yes oxycodone Allergy Intermediate 11/07/17 Yes pantoprazole Allergy Intermediate 11/07/17 Yes pravastatin Allergy Intermediate 11/07/17 Yes pregabalin Allergy Intermediate 11/07/17 Yes quinine Allergy Intermediate 11/07/17 Yes simvastatin Allergy Intermediate 11/07/17 Yes Tetracyclines Adverse Reaction Intermediate DROWSY 11/07/17 Yes calcitonin Adverse Reaction Intermediate 11/07/17 Yes meloxicam Adverse Reaction Intermediate LEG EDEMA 04/29/20 Yes naproxen Adverse Reaction Intermediate DIALYSIS PT 04/29/20 Yes nifedipine Adverse Reaction Intermediate FATIGUE 11/07/17 Yes olmesartan Adverse Reaction Intermediate 11/07/17 Yes tetracycline Adverse Reaction Intermediate DROWSY 11/07/17 Yes tramadol Adverse Reaction Intermediate FOGGY 11/07/17 Yes valsartan Adverse Reaction Intermediate FATIGUE 11/07/17 Yes Physical Exam: PE: Constitutional: Well developed, well nourished, no acute distress, non-toxic appearance. [] HENT: Normocephalic, swelling of bridge of nose with bleeding from both nares [] Eyes: PERRLA, conjunctiva normal, no discharge. [] Neck: No rigidity, supple, no stridor. [] Cardiovascular: Regular rate and rhythm, brisk cap refill [] Lungs & Thorax: Non labored symmetric respirations, no tachypnea or respiratory distress [] Abdomen: Soft, nondistended. Skin: Warm, dry, no erythema, no rash. [] Back: No tenderness, no CVA tenderness. [] Extremities: No deformities, range of motion grossly intact, no lower extremity edema [] Neurologic: Alert and oriented X 3, no focal deficits noted. [] Psychologic: Affect normal, judgement normal, mood normal. [] Current Patient Data: Labs: Laboratory Tests Test 11/09/20 03:05 White Blood Count 7.7 x10^3/uL (4.0-11.0) Red Blood Count 2.81 x10^6/uL (3.50-5.40) L Hemoglobin 9.4 g/dL (12.0-15.5) L Hematocrit 28.1 % (36.0-47.0) L Mean Corpuscular Volume 100 fL (79-100) Mean Corpuscular Hemoglobin 34 pg (25-35) Mean Corpuscular Hemoglobin Concent 34 g/dL (31-37) Red Cell Distribution Width 15.8 % (11.5-14.5) H Platelet Count 167 x10^3/uL (140-400) Neutrophils (%) (Auto) 86 % (31-73) H Lymphocytes (%) (Auto) 4 % (24-48) L Monocytes (%) (Auto) 8 % (0-9) Eosinophils (%) (Auto) 2 % (0-3) Basophils (%) (Auto) 1 % (0-3) Neutrophils # (Auto) 6.6 x10^3/uL (1.8-7.7) Lymphocytes # (Auto) 0.3 x10^3/uL (1.0-4.8) L Monocytes # (Auto) 0.6 x10^3/uL (0.0-1.1) Eosinophils # (Auto) 0.1 x10^3/uL (0.0-0.7) Basophils # (Auto) 0.1 x10^3/uL (0.0-0.2) Segmented Neutrophils % 86 % (35-66) H Lymphocytes % 8 % (24-48) L Monocytes % 5 % (0-10) Eosinophils % 1 % (0-5) Platelet Estimate Adequate (ADEQUATE) Hypochromasia Slight Poikilocytosis Mod Target Cells Occ Ovalocytes Mod Helmet Cells Occ Schistocytes Occ Prothrombin Time 15.5 SEC (11.7-14.0) H Prothrombin Time INR 1.3 (0.8-1.1) H Sodium Level 137 mmol/L (136-145) Potassium Level 4.5 mmol/L (3.5-5.1) Chloride Level 103 mmol/L (98-107) Carbon Dioxide Level 25 mmol/L (21-32) Anion Gap 9 (6-14) Blood Urea Nitrogen 66 mg/dL (7-20) H Creatinine 4.1 mg/dL (0.6-1.0) H Estimated GFR (Cockcroft-Gault) 10.2 BUN/Creatinine Ratio 16 (6-20) Glucose Level 124 mg/dL (70-99) H Calcium Level 9.9 mg/dL (8.5-10.1) Total Bilirubin 0.9 mg/dL (0.2-1.0) Aspartate Amino Transferase (AST) 29 U/L (15-37) Alanine Aminotransferase (ALT) 30 U/L (14-59) Alkaline Phosphatase 150 U/L (46-116) H Total Protein 6.5 g/dL (6.4-8.2) Albumin 2.6 g/dL (3.4-5.0) L Albumin/Globulin Ratio 0.7 (1.0-1.7) L Laboratory Tests 11/09/20 03:05 Laboratory Tests 11/09/20 03:05 Vital Signs: Vital Signs Date Time Temp Pulse Resp B/P (MAP) Pulse Ox O2 Delivery O2 Flow Rate FiO2 11/09/20 01:45 97.8 90 20 101/56 (71) 93 Room Air 97.8 EKG: EKG: [] Heart Score: Risk Factors: Risk Factors: DM, Current or recent (<one month) smoker, HTN, HLP, family history of CAD, obesity. Risk Scores: Score 0 - 3: 2.5% MACE over next 6 weeks - Discharge Home Score 4 - 6: 20.3% MACE over next 6 weeks - Admit for Clinical Observation Score 7 - 10: 72.7% MACE over next 6 weeks - Early Invasive Strategies Radiology/Procedures: Radiology/Procedures: EXAM: CT Head without IV contrast CLINICAL HISTORY: Reason: face injury / Spl. Instructions: / History: COMPARISON: None. TECHNIQUE: Routine CT of the head without contrast. PQRS compliance statement - One or more of the following individualized dose reduction techniques were utilized for this study: 1. Automated exposure control 2. Adjustment of the mA and/or kV according to patient size 3. Use of iterative reconstruction technique FINDINGS: There is no evidence of hemorrhage, mass or extra-axial fluid collection. Castellanos-white differentiation is maintained with no evidence of edema. Subcortical, periventricular as well as deep white matter foci of hypoattenuation likely changes of chronic small vessel disease. There is no mass effect or shift of the intracranial structures. The ventricles and cerebral sulci are prominent for the patients stated age consistent with generalized cerebral volume loss. The cerebellum and brainstem are unremarkable. The calvarium demonstrates no evidence of fracture or focal lesion. There is normal aeration of the visualized paranasal sinuses and mastoid air cells. The visualized portions of the orbits are normal. Atherosclerotic calcifications of the intracranial internal carotid and vertebral arteries is seen. Scalp hematoma overlying the forehead. IMPRESSION: No evidence for acute intracranial process. White matter changes likely chronic small vessel disease. EXAM: CT facial bones without contrast CLINICAL HISTORY: Reason: face injury / Spl. Instructions: / History: COMPARISON: None available. TECHNIQUE: Helical CT of the face/paranasal sinuses was acquired and axial, coronal and sagittal reformatted images were generated. ---PQRS compliance statement - One or more of the following individualized dose reduction techniques were utilized for this study: 1. Automated exposure control 2. Adjustment of the mA and/or kV according to patient size 3. Use of iterative reconstruction technique--- FINDINGS: Nondisplaced fractures of the anterior wall of both maxillary sinuses. The anterior right maxillary wall fracture extends to the right nasal bone. Hemorrhagic products are seen within the nasal cavity extending into the nasopharynx. Patchy opacification of scattered ethmoid air cells. The nasal kaiden are not well seen, likely from associated hemorrhagic products although nondisplaced fractures may have this appearance. Hemorrhagic material is seen within the dependent portion of the maxillary sinuses. Atlantodental degenerative changes are seen. Multilevel degenerative changes of the lower cer vical spine. No spondylolisthesis. Cribriform plate is intact. The mastoids are unremarkable. The globes, extraocular muscles, optic nerves and retrobulbar fat are normal. Visualized upper aerodigestive tract is normal. Mandible and bilateral temporomandibular joints are normal. IMPRESSION: 1. Nondisplaced fractures of the anterior maxillary sinus bilaterally with extension into the nasal bone on the right. 2. Hemorrhagic products are seen within the nasal cavity extending into the smooth opharynx. Hemorrhagic products are also seen within the ethmoid air cells as well as dependently within the maxillary sinuses. 3. The nasal kaiden are not well seen likely obscured by associated edema and hemorrhagic products. [] Course & Med Decision Making: Course & Med Decision Making Pertinent Labs and Imaging studies reviewed. (See chart for details) Attempted suctioning nare able to visualize bleeding from the anterior wall on the left, minimal bleeding from right after clots removed., bleeding brisk and unable to clean long enough to apply vasoconstrictive or antibleeding medications. Soaked a Rhino Rocket in TXA and Afrin and placed in left nare, st ill moderate bleeding. Second Rhino Rocket placed in right nare with achievement of homeostasis. Patient Scott feels like there is liquid in the back of her throat. We do not have ENT at this facility, try to transfer to [facility] but they do not have any beds available except for [facility]. Because of the bilateral nasal packing patient needs a telemetry monitored bed. He says she also would not be able to stay as an ER hold. Consulted [facility] for ENT consultation and spoke with Dr. Stahl, and she will go to [facility] emergency department for ENT evaluation due to continued (but less) bleeding despite bilateral packing [] Taylor Disclaimer: Taylor Disclaimer: This electronic medical record was generated, in whole or in part, using a voice recognition dictation system. Departure Departure Impression: Primary Impression: Epistaxis due to trauma Disposition: 02 DC/TRF OTHER SHORT TERM HOS Condition: GUARDED Referrals: LYNDA FELIX MD (PCP) TAN DONNELLY MD Nov 09, 2020 02:50
[2020-11-09 03:13] LABS: BASO # 0.1 x10^3/uL (0.0-0.2); BASO % 1 % (0-3); EOS # 0.1 x10^3/uL (0.0-0.7); EOS % 2 % (0-3); HEMATOCRIT 28.1 % (36.0-47.0); HEMOGLOBIN 9.4 g/dL (12.0-15.5); LYMPH # 0.3 x10^3/uL (1.0-4.8); LYMPH % 4 % (24-48); MEAN CORPUSCULAR HEMOGLOBIN 34 pg (25-35); MEAN CORPUSCULAR HGB CONC 34 g/dL (31-37); MEAN CORPUSCULAR VOLUME 100 fL (79-100); MONO # 0.6 x10^3/uL (0.0-1.1); MONO % 8 % (0-9); NEUT # 6.6 x10^3/uL (1.8-7.7); NEUT % 86 % (31-73); PLATELET COUNT 167 x10^3/uL (140-400); RED BLOOD COUNT 2.81 x10^6/uL (3.50-5.40); RED CELL DISTRIBUTION WIDTH 15.8 % (11.5-14.5); WHITE BLOOD COUNT 7.7 x10^3/uL (4.0-11.0)
[2020-11-09 03:19] LABS: PROTHROMBIN TIME PATIENT 15.5 SEC (11.7-14.0)
[2020-11-09 03:21] LABS: CALCIUM 9.9 mg/dL (8.5-10.1); CREATININE 4.1 mg/dL (0.6-1.0); GFR 10.2; POTASSIUM 4.5 mmol/L (3.5-5.1)
[2020-11-09] MEDS ORDERED: ONDANSETRON PF 4 MG/2 ML VIAL. IVP ONE (03:30)
[2020-11-09] MEDS ORDERED: OXYMETAZOLINE 0.05% NASAL SPRAY 30ML BOTTLE. NS ONE (03:30)
[2020-11-09 03:33] LABS: ALBUMIN 2.6 g/dL (3.4-5.0); ALBUMIN/GLOBULIN RATIO 0.7 (1.0-1.7); TOTAL BILIRUBIN 0.9 mg/dL (0.2-1.0); TOTAL PROTEIN 6.5 g/dL (6.4-8.2)
[2020-11-09 03:46] LABS: % EOS 1 % (0-5); % LYMPHS 8 % (24-48); % MONOS 5 % (0-10); % SEGS 86 % (35-66); PLT ESTIMATE ADEQUATE (ADEQUATE)
[2020-11-09 03:47] LABS: OVALOCYTES MOD; POIKILOCYTOSIS MOD; TARGET CELLS OCC
[2020-11-09 03:48] LABS: HELMET CELLS OCC; HYPOCHROMIA SLIGHT; SCHISTOCYTES OCC
--- NOTE | 2020-11-09 04:01 | RAD ---
EXAM: CT Head without IV contrast CLINICAL HISTORY: Reason: face injury / Spl. Instructions: / History: COMPARISON: None. TECHNIQUE: Routine CT of the head without contrast. PQRS compliance statement - One or more of the following individualized dose reduction techniques wer e utilized for this study: 1. Automated exposure control 2. Adjustment of the mA and/or kV according to patient size 3. Use of iterative reconstruction technique FINDINGS: There is no evidence of hemorrhage, mass or extra-axial fluid collection. Castellanos-white differentiation is maintained with no evidence of edema. Subcortical, periventricular as w ell as deep white matter foci of hypoattenuation likely changes of chronic small vessel disease. There is no mass effect or shift of the intracranial structures. The ventricles and cerebral sulci are prominent for the patients stated age consistent with generaliz ed cerebral volume loss. The cerebellum and brainstem are unremarkable. The calvarium demonstrates no evidence of fracture or focal lesion. There is normal aeration of the visualized paranasal sinuses and mastoid air cells. The visualized portions of the orbits are normal. Atherosclerotic calcifications of the intracranial internal carotid and vertebral arteries is seen. Scalp hematoma overlying the forehead. IMPRESSION: No evidence for acute intracranial process. White matter changes likely chronic small vessel disease. EXAM: CT facial bones without contrast CLINICAL HISTORY: Reason: face injury / Spl. Instructions: / History: COMPARISON: None available. TECHNIQUE: Helical CT of the face/paranasal sinuses was acquired and axial, coronal and sagittal refo rmatted images were generated. ---PQRS compliance statement - One or more of the following individualized dose reduction techniques were utilized for this study: 1. Automated exposure control 2. Adjustment of the mA and/or kV according to patient size 3. Use of iterative reconstruction technique--- FINDINGS: Nondisplaced fractures of the anterior wall of both maxillary sinuses. The anterior right maxillary w all fracture extends to the right nasal bone. Hemorrhagic products are seen within the nasal cavity e xtending into the nasopharynx. Patchy opacification of scattered ethmoid air cells. The nasal kaiden are not well seen, likely from associated hemorrhagic products although nondisplaced fractures may grossman ve this appearance. Hemorrhagic material is seen within the dependent portion of the maxillary sinuse s. Atlantodental degenerative changes are seen. Multilevel degenerative changes of the lower cervical spine. No spondylolisthesis. Cribriform plate is intact. The mastoids are unremarkable. The globes, extraocular muscles, optic nerves and retrobulbar fat are normal. Visualized upper aerodigestive tract is normal. Mandible and bilateral temporomandibular joints are normal. IMPRESSION: 1. Nondisplaced fractures of the anterior maxillary sinus bilaterally with extension into the nasal bone on the right. 2. Hemorrhagic products are seen within the nasal cavity extending into the nasopharynx. Hemorrhagic products are also seen within the ethmoid air cells as well as dependently within the maxillary sinu ses. 3. The nasal kaiden are not well seen likely obscured by associated edema and hemorrhagic products. Electronically signed by: Neftaly Swartz MD (11/09/2020 3:59 AM) [id number]
[2020-11-09] MEDS ORDERED: ACETAMINOPHEN 650 MG/20.3 ML SOLUTION. PEG ONE (05:00)
[2020-11-09 07:36] VITALS: BP 144/59
== END 2020-11-09 08:53 | disposition short-term general hospital (02) ==
LOC: ER 01:59
DX: R04.0 Epistaxis (principal); R60.0 Localized edema; I11.9 Hypertensive heart disease without heart failure; I25.2 Old myocardial infarction; N18.9 Chronic kidney disease, unspecified; G62.9 Polyneuropathy, unspecified; Z90.89 Acquired absence of other organs; Z95.0 Presence of cardiac pacemaker; Z98.890 Other specified postprocedural states; Z88.5 Allergy status to narcotic agent; Z88.1 Allergy status to other antibiotic agents; Z88.8 Allergy status to other drugs, medicaments and biological substances; Z88.6 Allergy status to analgesic agent
CPT/HCPCS: 30901; 36415; 70450; 70486; 80053; 85007; 85025; 85610; 99285; J3490